=== PATIENT | male | born 1945 | race American Indian/Alaskan Native ===

== ENCOUNTER → 2016-12-01 | Outpatient (CLI) | payer MEDICARE, OTHER ==
--- NOTE | 2016-12-02 15:03 | CR ---
EXAM DATE: 12/01/16 PATIENT'S AGE: 71 Patient: MAYELA POWELL Facility: [place], [place] Site . Site : 1945 Study: XRay Extremity Right Elbow [id number]/25/2017 2:37:34 PM Ordering Physician: Jony Condon Final Report: Indication: Swelling. Technique: Three views. Impression: Prominent soft tissue over the olecranon likely bursitis. Prominent chronic curvilinear spurring of the olecranon overlapping presumed insertion of triceps tendon. Mild diffuse osteoarthritis joint space narrowing in the elbow without significant secondary osteoarthritis finding. No joint effusion. Chronic subtle spurring at the medial epicondyle likely chronic traumatic in origin. No acute fracture or bone lesion. Dictated by Esau Davison MD @ Dec 02 2016 2:27PM (Electronic Signature) Report Signed by Proxy and Original Signed Document filed in the Medical Record. HOA
== END ==
LOC: MW.CHORTHO 13:13
PROVIDERS: ATTEND Orthopaedic Surgery
DX: M25.521 Pain in right elbow (principal); M25.421 Effusion, right elbow; M79.89 Other specified soft tissue disorders; M19.021 Primary osteoarthritis, right elbow
CPT/HCPCS: 73080-26-RT; 73080-RT; 99204

== ENCOUNTER → 2016-12-28 | Outpatient (CLI) | payer MEDICARE, OTHER | LOC: MW.CHGS 08:00 | PROVIDERS: ATTEND Surgery | DX: R19.5 Other fecal abnormalities (principal) | CPT/HCPCS: 99203 ==

== ENCOUNTER 2017-01-20 06:38 | Day surgery (SDC) | payer MEDICARE, OTHER ==
[~2017-01-20 06:38] MED LIST: Bupivacaine 0.25% 10 ML SDV ONE; Lactated Ringers 1,000 ML IV SCH
[2017-01-20] MEDS ORDERED: Ondansetron 4 MG/2 ML SDV ONE (07:29)
[2017-01-20] MEDS ORDERED: Propofol 200 MG/20 ML SDV ONE (07:29)
[2017-01-20] MEDS ORDERED: Midazolam 1 MG/ML 2 ML SDV ONE (07:29)
[2017-01-20] MEDS ORDERED: fentaNYL 250 MCG/5 ML SDV ONE (07:29)
[2017-01-20] MEDS ORDERED: Lidocaine 2% 5 ML SDV ONE (07:29)
[2017-01-20] MEDS ORDERED: Sodium Chloride 0.9% 20 ML ONE (07:36)
[2017-01-20] MEDS ORDERED: ceFAZolin 1 GM Vial ONE (07:36)
--- NOTE | 2017-01-20 07:41 | PCM.PREANE ---
Preanesthetic Assessment - Procedure Proposed Procedure: right olecranon bursa resection - Anesthesia/Transfusion/Family Hx Anesthesia History: Prior Anesthesia Without Reaction Family History of Anesthesia Reaction: No Transfusion History: No Prior Transfusion(s) Intubation History: Unknown - Review of Systems General: No Symptoms Pulmonary: No Symptoms Cardiovascular: No Symptoms, Other (hx murmur, HTN, SC) Gastrointestinal: Other (GERD -daily antiacid medication) Neurological: No Symptoms Other: Reports: Diabetes (Type II on metformin) - Physical Assessment O2 Sat by Pulse Oximetry: 95 Respiratory Rate: 16 Vital Signs: Last Vital Signs Temp 97.8 F 01/20/17 06:30 Pulse 55 L 01/20/17 06:30 Resp 16 01/20/17 06:30 BP 106/61 01/20/17 06:30 Pulse Ox 95 01/20/17 06:30 Height: 5 ft 10 in Weight: 215 lb ASA Class: 3 Mental Status: Alert & Oriented x3 Airway Class: Mallampati = 2 Dentition: Reports: Missing Tooth/Teeth (mid upper and lower) Thyro-Mental Finger Breadths: 3 Mouth Opening Finger Breadths: 3 ROM/Head Extension: Full Lungs: Clear to auscultation, Normal respiratory effort Cardiovascular: Regular Rate, Regular Rhythm, Murmurs (systolic M (hx - present x years without change)) - Lab Values: Laboratory Last Values POC Glucose 230 mg/dL (60-110) H 01/20/17 06:55 - Allergies Allergies/Adverse Reactions: Allergies Allergy/AdvReac Type Severity Reaction Status Date / Time No Known Allergies Allergy Verified 02/17/16 10:40 - Blood Blood Available: No Product(s) Available: None - Acknowledgements Anesthesia Type Planned: General Anesthesia Pt an Appropriate Candidate for the Planned Anesthesia: Yes Alternatives and Risks of Anesthesia Discussed w Pt/Guardian: Yes Pt/Guardian Understands and Agrees with Anesthesia Plan: Yes PreAnesthesia Questionnaire Cardiovascular History: Reports: High Cholesterol, Hypertension, SC Gastrointestinal History: Reports: GERD Musculoskeletal History: Reports: Arthritis, Fracture Other Musculoskeletal History: fx left ankle Endocrine/Metabolic History: Reports: Diabetes, Type II Hematologic History: - Infectious Disease History Infectious Disease History: Reports: Measles, Mumps - Past Surgical History Head Surgeries/Procedures: Reports: None HEENT Surgical History: Reports: Cataract Surgery, LASIK Cardiovascular Surgical History: Reports: Coronary Artery Stent Other Cardiovascular Surgeries/Procedures: angioplasty with stent placement Male Surgical History: Reports: Vasectomy Musculoskeletal Surgical History: Reports: ORIF Other Musculoskeletal Surgeries/Procedures:: lt ankle surg. with plate and screws - SUBSTANCE USE Smoking Status *Q: Current Some Day Smoker Tobacco Use Within Last Twelve Months: Cigarettes Recreational Drug Use History: No - HOME MEDS Home Medications: Home Meds Aspirin 81 mg PO DAILY 02/17/16 [History] Glimepiride [Amaryl] 4 mg PO DAILY 02/17/16 [History] Hydroxyurea [Hydrea] 500 mg PO ASDIRECTED 02/17/16 [History] atorvaSTATin [Lipitor] 80 mg PO DAILY 02/17/16 [History] metFORMIN [Glucophage XR] 1,500 mg PO PCDINNER 02/17/16 [History] Carvedilol [Coreg] 12.5 mg PO BID 01/18/17 [History] Hydrochlorothiazide 25 mg PO DAILY 01/18/17 [History] Pantoprazole Sodium [Protonix] 40 mg PO DAILY 01/18/17 [History] Quinapril HCl 20 mg PO BEDTIME 01/18/17 [History] Saxagliptin HCl/Metformin HCl [Kombiglyze XR 2.5-1,000 MG] 2.5 mg PO DAILY 01/18 [History] amLODIPine [Norvasc] 5 mg PO DAILY 01/18/17 [History] - CURRENT (IN HOUSE) MEDS Current Meds: Current Medications Hydrocodone Bitart/Acetaminophen ([place] 325-5 Mg) 1 - 2 tab PO Q4H PRN PRN Reason: Pain Lactated Ringer's (Ringers, Lactated) 1,000 mls @ 100 mls/hr IV ASDIRECTED [facility] Last Admin: 01/20/17 07:10 Dose: 100 mls/hr Cefazolin Sodium/Dextrose 2 gm (/ Premix) 50 mls @ 100 mls/hr IV ONCALL [facility] Discontinued Medications Bupivacaine HCl (Sensorcaine-Mpf 0.25%) Confirm Administered Dose 10 ml .ROUTE .STK-MED ONE Stop: 01/19/17 15:20 Fentanyl (Sublimaze) Confirm Administered Dose 250 mcg .ROUTE .STK-MED ONE Stop: 01/20/17 07:30 Lidocaine (Xylocaine-Mpf 2%) Confirm Administered Dose 5 ml .ROUTE .STK-MED ONE Stop: 01/20/17 07:30 Midazolam HCl (Versed 1 Mg/Ml) Confirm Administered Dose 2 mg .ROUTE .STK-MED ONE Stop: 01/20/17 07:30 Ondansetron HCl (Zofran) Confirm Administered Dose 4 mg .ROUTE .STK-MED ONE Stop: 01/20/17 07:30 Propofol (Diprivan 20 Ml) Confirm Administered Dose 200 mg .ROUTE .STK-MED ONE Stop: 01/20/17 07:30
[2017-01-20] MEDS ORDERED: ceFAZolin 2 GM in Premix Bag 1 BAG IV SCH (08:00)
[2017-01-20] MEDS ORDERED: fentaNYL 100 MCG/2 ML SDV IVPUSH PRN (08:36)
[2017-01-20] MEDS ORDERED: Acetaminophen/HYDROcodone 325-5 MG Tab PO PRN (09:00)
--- NOTE | 2017-01-20 09:01 | PCM.OPNOTE ---
- General Post-Op/Procedure Note Date of Surgery/Procedure: 01/20/17 Operative Procedure(s): Excision R olecranon bursa Post-Op Diagnosis: Chronic R olecranon bursitis Anesthesia Technique: General LMA Primary Surgeon: Roseanna Borges Thoracic Medicine Physician: Iesha Vidales in mLs: 5 Condition: Good Free Text/Narrative:: tt=0 min #[id number]
--- NOTE | 2017-01-20 10:13 | PCM.POSTAN ---
POST ANESTHESIA ASSESSMENT - MENTAL STATUS Mental Status: alert, oriented - RESPIRATORY Respiratory Status: respiratory rate WNL, airway patent, O2 saturation stable - CARDIOVASCULAR CV Status: pulse rate WNL, blood pressure stable - GASTROINTESTINAL GI Status: no symptoms - PAIN Pain Score: 0 - POST OP HYDRATION Hydration Status: adequate & stable - OBSERVATIONS Free Text/Narrative:: Pt stable
[2017-01-20 10:14] VITALS: BP 137/59
--- NOTE | 2017-01-20 10:32 | OR ---
SURGEON: Roseanna Borges MD DATE OF PROCEDURE: 01/20/2017 PREOPERATIVE DIAGNOSIS: Chronic right olecranon bursitis. POSTOPERATIVE DIAGNOSIS: Chronic right olecranon bursitis. PROCEDURE: Excision of right olecranon bursa. FELLED SEAM OPERATOR: Iesha Vidales PA-C. ANESTHESIA: General. ESTIMATED BLOOD LOSS: 5 mL. TOURNIQUET TIME: 0 minutes. COMPLICATIONS: None. DVT PROPHYLAXIS: Not indicated. IMPLANTS USED: None. BRIEF HISTORY: Abdias is a 71-year-old male, who has had persistent chronic right olecranon bursitis. He has had multiple aspirations by another orthopedic surgeon. He states that the swelling always recurs. He has become quite frustrated with this as this has been going on for nearly a year. Due to his lack of response to conservative treatment, I did recommend surgical intervention. Risks and goals of procedure were discussed with the patient and were documented preoperatively. He agreed to proceed. DESCRIPTION OF PROCEDURE: The patient was properly identified and brought to the operating room. He was transferred from the OR cart and placed on the operating table in supine position. General anesthesia was administered. After adequate anesthesia was obtained, a well-padded tourniquet was applied to the right upper extremity. The right upper extremity was then prepped in standard fashion using ChloraPrep solution. It was then sterilely draped. A time-out was performed to ensure correct site and procedure. Preoperative antibiotics were given. The surgical site had been marked preoperatively. The area of anticipated incision was marked with a marking pen. His olecranon bursa was quite full. A small incision was made over the olecranon bursa and the fluid was evacuated. This was serosanguineous in nature. Following decompression of the bursa, the incision site was extended both proximally and distally. I did curve radially along the tip of the olecranon to try to stay away from the ulnar nerve. The subcutaneous tissues were then incised. There was a large bursal layer present. This was removed with a combination of rongeurs and electrocautery. Care was taken not to extend too medially. He did have some small calcifications noted over the olecranon bursa, which were also excised. The wound was then copiously irrigated with saline solution. The deep tissues were reapproximated using 2-0 Monocryl. The subcutaneous tissues were closed with 3-0 Monocryl and the skin was closed with louise. Xeroform gauze was placed over the wound and a bulky dressing was applied. He was placed into a well-padded posterior splint with the elbow flexed to 90 degrees. He was awakened from his anesthetic and transferred back to the operating room cart. He was brought to recovery room in stable condition. All needle and sponge counts were correct. MILKA / CINTIA /[id number]
--- NOTE | 2017-01-20 10:44 | PCM48HPAN ---
Post Anesthesia Note - EVALUATION WITHIN 48HRS OF ANESTHETIC Vital Signs in Normal Range: Yes Patient Participated in Evaluation: Yes Respiratory Function Stable: Yes Airway Patent: Yes Cardiovascular Function Stable: Yes Hydration Status Stable: Yes Pain Control Satisfactory: Yes Nausea and Vomiting Control Satisfactory: Yes Mental Status Recovered: Yes - COMMENTS/OBSERVATIONS Free Text/Narrative:: Released to home with family. Good condition.
== END 2017-01-20 10:41 | disposition home or self-care (01) ==
LOC: MW.SDS 06:38
PROVIDERS: ATTEND Orthopaedic Surgery
PROC: 0MB30ZZ Excision of Right Elbow Bursa and Ligament, Open Approach (ICD-10-PCS; principal; 2017-01-20)
DX: M70.21 Olecranon bursitis, right elbow (principal); M19.90 Unspecified osteoarthritis, unspecified site; I10 Essential (primary) hypertension; E78.00 Pure hypercholesterolemia, unspecified; E11.9 Type 2 diabetes mellitus without complications; I25.2 Old myocardial infarction; K21.9 Gastro-esophageal reflux disease without esophagitis; Z87.891 Personal history of nicotine dependence; Z79.82 Long term (current) use of aspirin; Z79.84 Long term (current) use of oral hypoglycemic drugs; Z79.899 Other long term (current) drug therapy; Z98.49 Cataract extraction status, unspecified eye; Z98.52 Vasectomy status; Z95.5 Presence of coronary angioplasty implant and graft; Z98.890 Other specified postprocedural states
CPT/HCPCS: 24105; 82962; J0690; J2250; J2405; J3010; J7120; 01710; 88304; J2704

== ENCOUNTER 2017-01-27 08:32 | Day surgery (SDC) | payer MEDICARE, OTHER ==
[~2017-01-27 08:32] MED LIST changes: -Bupivacaine 0.25% 10 ML SDV ONE; +Sodium Chloride 0.9% 10 ML Syringe FLUSH PRN; +Sodium Chloride 0.9% 2.5 ML Syringe FLUSH PRN
--- NOTE | 2017-01-27 09:02 | PCM.PREANE ---
Preanesthetic Assessment - Anesthesia/Transfusion/Family Hx Anesthesia History: Prior Anesthesia Without Reaction (excision of R olecranon bursae 1 week ago, has R arm in splint) Family History of Anesthesia Reaction: No Transfusion History: No Prior Transfusion(s) Intubation History: Unknown - Review of Systems General: No Symptoms Pulmonary: No Symptoms Cardiovascular: No Symptoms Gastrointestinal: No symptoms Neurological: No Symptoms Other: Reports: None - Physical Assessment NPO Status Date: 01/26/17 O2 Sat by Pulse Oximetry: 97 Respiratory Rate: 16 Vital Signs: Last Vital Signs Temp 36.2 C 01/27/17 08:58 Pulse 49 L 01/27/17 08:58 Resp 16 01/27/17 08:58 BP 138/66 01/27/17 08:58 Pulse Ox 97 01/27/17 08:58 Height: 1.78 m Weight: 98.4 kg ASA Class: 3 Mental Status: Alert & Oriented x3 Dentition: Reports: Normal Dentition ROM/Head Extension: Full Lungs: Clear to auscultation, Normal respiratory effort Cardiovascular: Regular Rate, Regular Rhythm - Allergies Allergies/Adverse Reactions: Allergies Allergy/AdvReac Type Severity Reaction Status Date / Time No Known Allergies Allergy Verified 02/17/16 10:40 - Anesthesia Plan Pre-Op Medication Ordered: None - Acknowledgements Anesthesia Type Planned: MAC Pt an Appropriate Candidate for the Planned Anesthesia: Yes Alternatives and Risks of Anesthesia Discussed w Pt/Guardian: Yes Pt/Guardian Understands and Agrees with Anesthesia Plan: Yes PreAnesthesia Questionnaire HEENT History: Reports: Other (See Below) Other HEENT History: bottom denture Cardiovascular History: Reports: High Cholesterol, Hypertension, NM Gastrointestinal History: Reports: GERD Musculoskeletal History: Reports: Fracture Other Musculoskeletal History: fx left ankle Endocrine/Metabolic History: Reports: Diabetes, Type II Hematologic History: - Infectious Disease History Infectious Disease History: Reports: Measles, Mumps - Past Surgical History Head Surgeries/Procedures: Reports: None HEENT Surgical History: Reports: Eye Surgery, LASIK Cardiovascular Surgical History: Reports: Coronary Artery Stent Other Cardiovascular Surgeries/Procedures: angioplasty Musculoskeletal Surgical History: Reports: Other (See Below) Other Musculoskeletal Surgeries/Procedures:: lt ankle surg., exc of bursa from elbow - SUBSTANCE USE Smoking Status *Q: Current Every Day Smoker Tobacco Use Within Last Twelve Months: Cigarettes Recreational Drug Use History: No - HOME MEDS Home Medications: Home Meds Aspirin 81 mg PO DAILY 02/17/16 [History] Glimepiride [Amaryl] 4 mg PO DAILY 02/17/16 [History] Hydroxyurea [Hydrea] 500 mg PO ASDIRECTED 02/17/16 [History] atorvaSTATin [Lipitor] 80 mg PO DAILY 02/17/16 [History] metFORMIN [Glucophage XR] 1,500 mg PO PCDINNER 02/17/16 [History] Carvedilol [Coreg] 12.5 mg PO BID 01/18/17 [History] Hydrochlorothiazide 25 mg PO DAILY 01/18/17 [History] Pantoprazole Sodium [Protonix] 40 mg PO DAILY 01/18/17 [History] Quinapril HCl 20 mg PO BEDTIME 01/18/17 [History] Saxagliptin HCl/Metformin HCl [Kombiglyze XR 2.5-1,000 MG] 2.5 mg PO DAILY 01/18 [History] amLODIPine [Norvasc] 5 mg PO DAILY 01/18/17 [History] Acetaminophen/HYDROcodone [[place] 325-5 MG] 1 - 2 tab PO Q4H PRN #80 tablet 01/20 [Rx] - CURRENT (IN HOUSE) MEDS Current Meds: Current Medications Lactated Ringer's (Ringers, Lactated) 1,000 mls @ 125 mls/hr IV ASDIRECTED [facility] Last Admin: 01/27/17 08:56 Dose: 125 mls/hr Sodium Chloride (Saline Flush) 10 ml FLUSH ASDIRECTED PRN PRN Reason: Keep Vein Open Sodium Chloride (Saline Flush) 2.5 ml FLUSH ASDIRECTED PRN PRN Reason: Keep Vein Open
[2017-01-27] MEDS ORDERED: Lidocaine 2% 5 ML SDV ONE (09:47)
[2017-01-27] MEDS ORDERED: Midazolam 1 MG/ML 2 ML SDV ONE (09:48)
[2017-01-27] MEDS ORDERED: Propofol 200 MG/20 ML SDV ONE (09:48)
[2017-01-27] MEDS ORDERED: fentaNYL 100 MCG/2 ML SDV ONE (09:48)
--- NOTE | 2017-01-27 11:16 | PCM.OPNOTE ---
- General Post-Op/Procedure Note Date of Surgery/Procedure: 01/27/17 Operative Procedure(s): diagnostic colonoscopy Findings: cecal and sigmoid colon polyp Pre Op Diagnosis: positive fecal occult blood test Post-Op Diagnosis: cecal and sigmoid colon polyp [place] [facility] [place] Surgeon: Kelsea Lake Condition: Good
--- NOTE | 2017-01-27 11:45 | PCM.POSTAN ---
POST ANESTHESIA ASSESSMENT - MENTAL STATUS Mental Status: alert, oriented - RESPIRATORY Respiratory Status: respiratory rate WNL, airway patent, O2 saturation stable - CARDIOVASCULAR CV Status: pulse rate WNL, blood pressure stable - GASTROINTESTINAL GI Status: no symptoms - POST OP HYDRATION Hydration Status: adequate & stable
--- NOTE | 2017-01-27 11:46 | PCM48HPAN ---
Post Anesthesia Note - EVALUATION WITHIN 48HRS OF ANESTHETIC Vital Signs in Normal Range: Yes Patient Participated in Evaluation: Yes Respiratory Function Stable: Yes Airway Patent: Yes Cardiovascular Function Stable: Yes Hydration Status Stable: Yes Pain Control Satisfactory: Yes Nausea and Vomiting Control Satisfactory: Yes Mental Status Recovered: Yes
[2017-01-27 13:22] VITALS: BP 128/60
--- NOTE | 2017-01-27 13:58 | OR ---
SURGEON: BELGICA SCHULZ MD DATE OF PROCEDURE: 01/27/2017 PREOPERATIVE DIAGNOSIS: Positive fecal occult blood test. POSTOPERATIVE DIAGNOSIS: Cecal and sigmoid colon polyp. PROCEDURE PERFORMED: Diagnostic colonoscopy. INSTRUMENT USED: Olympus colonoscope. ANESTHESIA: MAC. EXTENT OF EXAM: To the cecum. PREPARATION: Fair. LIMITATIONS: None. INDICATION FOR EXAMINATION: The patient is a 71-year-old male, who presents for diagnostic colonoscopy given a positive fecal occult blood test at his primary care physician's office. We discussed the procedure as well as expected perioperative course. We discussed the risks, including bleeding, infection, or damage to surrounding structures, including perforation. The patient verbalized understanding and wishes to proceed. PROCEDURE IN DETAIL: The patient was brought into the endoscopy suite and placed in a left lateral decubitus position. A time-out was completed verifying the patient's name, age, date of , allergies, and procedure to be performed. Monitored anesthesia care was induced and continuous oxygen was provided via face mask throughout the procedure. After adequate sedation was achieved, a digital rectal exam was performed. This examination was within normal limits. A well lubricated colonoscope was inserted into the rectum and advanced under direct visualization to the level of the cecum. The cecum was identified by both visual and anatomic landmarks. A photograph was taken of the cecal cap, but due to significant looping more proximally, I was unable to retroflex the scope within the cecum. The scope was then fully withdrawn while examining the color, texture, anatomy, and integrity of the mucosa from the cecum to the anal canal. A 2-3 mm sessile polyp was noted within the cecum and removed with a cold biopsy forceps. Another similar appearing polyp was noted within the sigmoid colon and removed with a cold biopsy forceps. The scope was then brought into the rectum and retroflexed to allow visualization of the anal canal opening. This appeared normal and a photograph was taken. The scope was then straightened out and removed from the patient. The cecum to anus time was 13 minutes. The patient was transferred to recovery room in stable condition. ENDOSCOPIC DIAGNOSIS: Cecal and sigmoid colon polyp. RECOMMENDATION: Follow up in clinic in 2 weeks. DEE DEE CHAMBERLAIN /[id number]
== END 2017-01-27 11:40 | disposition home or self-care (01) ==
LOC: MW.SDS 08:32
PROVIDERS: ATTEND Surgery
PROC: 0DBH8ZZ Excision of Cecum, Via Natural or Artificial Opening Endoscopic (ICD-10-PCS; principal; 2017-01-27)
PROC: 0DBN8ZZ Excision of Sigmoid Colon, Via Natural or Artificial Opening Endoscopic (ICD-10-PCS; 2017-01-27)
DX: K63.5 Polyp of colon (principal); M19.90 Unspecified osteoarthritis, unspecified site; I10 Essential (primary) hypertension; E78.00 Pure hypercholesterolemia, unspecified; E11.9 Type 2 diabetes mellitus without complications; K21.9 Gastro-esophageal reflux disease without esophagitis; I25.2 Old myocardial infarction; Z79.82 Long term (current) use of aspirin; Z79.84 Long term (current) use of oral hypoglycemic drugs; Z79.899 Other long term (current) drug therapy; Z95.5 Presence of coronary angioplasty implant and graft; Z98.52 Vasectomy status; Z98.890 Other specified postprocedural states; Z87.891 Personal history of nicotine dependence
CPT/HCPCS: 45380; 82962; 88305; J2250; J3010; J7120; 00810; J2704

== ENCOUNTER 2020-01-18 18:37 | Emergency (ER) | payer MEDICARE, OTHER ==
--- NOTE | 2020-01-18 19:09 | CR ---
Chest: Portable view of the chest was obtained. Comparison: Prior chest x-ray of 02/17/16. Diffuse increased density throughout both sides of the chest are seen. This density includes Inder B lines as well as alveolar opacities. Heart size appears within normal limits for portable technique. Upper mediastinum is normal. Bony structures are grossly intact. Impression: 1. Diffuse increased density throughout both sides of the chest. Findings most likely represent pulmonary vascular congestion with interstitial and early alveolar edema from acute cardiac event. Please correlate. Diagnostic code #5 This report was dictated in MDT
[2020-01-18] MEDS ORDERED: Nitroglycerin/D5W 25 MG/250 ML BOTTLE IV SCH (19:15)
[2020-01-18] MEDS ORDERED: Furosemide 40 MG/4 ML VIAL IVPUSH ONE (19:16)
[2020-01-18] MEDS ORDERED: Aspirin 325 MG Tab.EC PO ONE (19:20)
[2020-01-18] MEDS ORDERED: Aspirin 81 MG Tab.Chew ONE (19:25)
[2020-01-18] MEDS ORDERED: Nitroglycerin/D5W 25 MG/250 ML BOTTLE ONE (19:26)
[2020-01-18 19:35] LABS: BLOOD UREA NITROGEN,BUN 21 mg/dL (7.0-18.0); CARBON DIOXIDE,CO2 25.1 mmol/L (21.0-32.0); CHLORIDE,CL 103 mmol/L (98-107); GLUCOSE RANDOM 344 mg/dL (74-106); POTASSIUM,K 4.5 mmol/L (3.5-5.1); SODIUM,NA 140 mmol/L (136-148)
--- NOTE | 2020-01-18 19:41 | EDM.PDOC ---
ED HPI GENERAL MEDICAL PROBLEM - General Chief Complaint: Respiratory Problem Stated Complaint: POSSIBLE HEART ATTACK Time Seen by Provider: 01/18/20 19:12 Source of Information: Reports: Patient History Limitations: Reports: No Limitations - History of Present Illness INITIAL COMMENTS - FREE TEXT/NARRATIVE: History of present illness: [Patient is 74-year-old male with a history of previous heart attack and stents along with heart failure who presents with a multiple day history of some chest discomfort acutely worsening today around 3 PM associated with severe shortness of breath. On arrival he is hypoxic, appears to be in severe respiratory distress, and is not speaking in full sentences. Does not take any Lasix or other diuretics at home regularly. Has not taken any medications prior to arrival to treat his symptoms. Denies fever or cough. Denies any known COVID- 19 exposure. Review of systems: As per history of present illness and below otherwise all systems reviewed and negative. Past medical history: As per history of present illness and as reviewed below otherwise noncontributory. Surgical history: As per history of present illness and as reviewed below otherwise noncontributory. Social history: No reported history of drug or alcohol abuse. Family history: As per history of present illness and as reviewed below otherwise noncontributory. Physical exam: General: Awake, alert, moderate distress, A&O X3. HEENT: Atraumatic, normocephalic, pupils reactive, negative for conjunctival pallor or scleral icterus, mucous membranes moist, throat clear, neck supple, nontender, trachea midline. Lungs: Tachypneic, severe respiratory distress, wet sounding lungs bilaterally, crackles and rhonchi throughout all lung mendes. Heart: tachycardic, normal S1S2. Abdomen: Soft, nondistended, nontender. Negative for masses or hepatosplenomegaly. Negative for costovertebral tenderness. Pelvis: Stable nontender. Genitourinary: Deferred. Rectal: Deferred. Extremities: Atraumatic, no edema, Neurovascular unremarkable. Neuro: Motor and sensory grossly intact throughout. Exam nonfocal. Diagnostics: [] Therapeutics: [] Impression: [] Plan: [] Definitive disposition and diagnosis as appropriate pending reevaluation and review of above. - Related Data Allergies Allergy/AdvReac Type Severity Reaction Status Date / Time No Known Allergies Allergy Verified 01/18/20 18:57 Home Meds: Home Meds Aspirin 81 mg PO DAILY 07/11/16 [History] Glimepiride [Amaryl] 4 mg PO DAILY 02/17/16 [History] Hydroxyurea [Hydrea] 500 mg PO ASDIRECTED 02/17/16 [History] atorvaSTATin [Lipitor] 80 mg PO DAILY 02/17/16 [History] metFORMIN [Glucophage XR] 1,500 mg PO PCDINNER 02/17/16 [History] Carvedilol [Coreg] 12.5 mg PO BID 01/18/17 [History] Pantoprazole Sodium [Protonix] 40 mg PO DAILY 01/18/17 [History] Quinapril HCl 20 mg PO BEDTIME 01/18/17 [History] Saxagliptin HCl/Metformin HCl [Kombiglyze XR 2.5-1,000 MG] 2.5 mg PO DAILY 01/18 [History] amLODIPine [Norvasc] 5 mg PO DAILY 01/18/17 [History] hydroCHLOROthiazide [Hydrochlorothiazide] 25 mg PO DAILY 01/18/17 [History] Acetaminophen/HYDROcodone [[place] 325-5 MG] 1 - 2 tab PO Q4H PRN #80 tablet 01/20 [Rx] Past Medical History HEENT History: Reports: None Other HEENT History: bottom denture Cardiovascular History: Reports: High Cholesterol, Hypertension, [place] Respiratory History: Reports: None Gastrointestinal History: Reports: GERD Musculoskeletal History: Reports: Fracture Other Musculoskeletal History: fx left ankle Endocrine/Metabolic History: Reports: Diabetes, Type II Hematologic History: - Infectious Disease History Infectious Disease History: Reports: Other (See Below) Other Infectious Disease History: unable to obtain - Past Surgical History HEENT Surgical History: Reports: Eye Surgery, LASIK Cardiovascular Surgical History: Reports: Coronary Artery Stent Other Cardiovascular Surgeries/Procedures: angioplasty Male Surgical History: Reports: Vasectomy Musculoskeletal Surgical History: Reports: Other (See Below) Other Musculoskeletal Surgeries/Procedures:: lt ankle surg., exc of bursa from elbow Social & Family History - Family History Family Medical History: Unobtainable - Tobacco Use Smoking Status *Q: Unknown Ever Smoked ED ROS GENERAL - Review of Systems Review Of Systems: Comprehensive ROS is negative, except as noted in HPI. ED EXAM, GENERAL - Physical Exam Exam: See Below (see h and p) EKG INTERPRETATION EKG Date: 06/11/20 Time: 18:48 Rhythm: A-Flutter Rate (Beats/Min): 107 [place]: Normal P-Wave: Present QRS: Normal ST-T: Depressed (V2-V4) QT: Normal Comparison: Change From Previous EKG (ST depressions are new) Course - Vital Signs Text/Narrative:: Patient doing better on BiPAP, also received IV Lasix along with IV nitro drip. Troponin is elevated. Chest x-ray is consistent with physical exam findings showing acute pulmonary edema. Patient has improved blood pressure and work of breathing is also improved. Last Recorded V/S: Last Vital Signs Temp Pulse 86 01/18/20 20:03 Resp 36 H 01/18/20 20:03 BP 121/72 01/18/20 20:03 Pulse Ox 97 01/18/20 20:03 - Orders/Labs/Meds Orders: Active Orders 24 hr Category Date Time Status EKG Documentation Completion [RC] STAT Care 01/18/20 18:52 Active RT BiPAP/CPAP [RC] ASDIRECTED Care 01/18/20 18:57 Active CULTURE BLOOD [BC] Stat Lab 01/18/20 18:49 Received CULTURE BLOOD [BC] Stat Lab 01/18/20 18:53 Received Blood Culture x2 Reflex Set [OM.PC] Stat Oth 01/18/20 18:53 Ordered Labs: Laboratory Tests 01/18/20 01/18/20 01/18/20 Range/Units 18:49 18:49 18:49 WBC 35.11 H (4.0-11.0) K/uL RBC 5.33 (4.50-5.90) M/uL Hgb 14.2 (13.0-17.0) g/dL Hct 46.0 (38.0-50.0) % MCV 86.3 (80.0-98.0) fL MCH 26.6 L (27.0-32.0) pg MCHC 30.9 L (31.0-37.0) g/dL RDW Std Deviation 76.4 H (28.0-62.0) fl RDW Coeff of Nia 25 H (11.0-15.0) % Plt Count 421 H (150-400) K/uL MPV (7.40-12.00) fL Add Manual Diff YES Neutrophils % (Manual) 66 (48.0-80.0) % Band Neutrophils % 10 % Lymphocytes % (Manual) 15 L (16.0-40.0) % Monocytes % (Manual) 3 (0.0-15.0) % Eosinophils % (Manual) 1 (0.0-7.0) % Basophils % (Manual) 1 (0.0-1.5) % Metamyelocytes % 3 % Myelocytes % 1 % Nucleated RBC % 0.9 /100WBC Absolute Seg Neuts 23.2 H (1.4-5.7) Band Neutrophils # 3.5 Lymphocytes # (Manual) 5.3 H (0.6-2.4) Monocytes # (Manual) 1.1 H (0.0-0.8) Eosinophils # (Manual) 0.4 (0.0-0.7) Basophils # (Manual) 0.4 H (0.0-0.1) Absolute Metamyelocyte 1.1 Absolute Myelocytes 0.4 Nucleated RBCs # 0 K/uL Pathologist Review INR 0.98 VBG pH (7.31-7.41) VBG pCO2 (35-45) mmHG VBG pO2 (30-40) mmHG VBG HCO3 (22-30) mEq/L VBG Total CO2 (41-51) mmol/L VBG Base Excess (-3.0-3.0) Lactate (0.20-2.00) mmol/L Sodium 140 (136-148) mmol/L Potassium 4.5 (3.5-5.1) mmol/L Chloride 103 (98-107) mmol/L Carbon Dioxide 25.1 (21.0-32.0) mmol/L BUN 21 H (7.0-18.0) mg/dL Creatinine 1.2 (0.8-1.3) mg/dL Est Cr Clr Drug Dosing TNP Estimated GFR (MDRD) 59.2 ml/min Glucose 344 H (74-106) mg/dL Calcium 9.1 (8.5-10.1) mg/dL Total Bilirubin 2.3 H (0.2-1.0) mg/dL AST 24 (15-37) IU/L ALT 15 (14-63) IU/L Alkaline Phosphatase 90 (46-116) U/L Troponin I 0.404 H* (0.000-0.056) ng/mL B-Natriuretic Peptide (<100) PG/ML Total Protein 7.5 (6.4-8.2) g/dL Albumin 4.1 (3.4-5.0) g/dL Globulin 3.4 (2.6-4.0) g/dL Albumin/Globulin Ratio 1.2 (0.9-1.6) 01/18/20 01/18/20 01/18/20 Range/Units 18:49 18:49 19:44 WBC (4.0-11.0) K/uL RBC (4.50-5.90) M/uL Hgb (13.0-17.0) g/dL Hct (38.0-50.0) % MCV (80.0-98.0) fL MCH (27.0-32.0) pg MCHC (31.0-37.0) g/dL RDW Std Deviation (28.0-62.0) fl RDW Coeff of Nia (11.0-15.0) % Plt Count (150-400) K/uL MPV (7.40-12.00) fL Add Manual Diff Neutrophils % (Manual) (48.0-80.0) % Band Neutrophils % % Lymphocytes % (Manual) (16.0-40.0) % Monocytes % (Manual) (0.0-15.0) % Eosinophils % (Manual) (0.0-7.0) % Basophils % (Manual) (0.0-1.5) % Metamyelocytes % % Myelocytes % % Nucleated RBC % /100WBC Absolute Seg Neuts (1.4-5.7) Band Neutrophils # Lymphocytes # (Manual) (0.6-2.4) Monocytes # (Manual) (0.0-0.8) Eosinophils # (Manual) (0.0-0.7) Basophils # (Manual) (0.0-0.1) Absolute Metamyelocyte Absolute Myelocytes Nucleated RBCs # K/uL Pathologist Review INR VBG pH 7.36 (7.31-7.41) VBG pCO2 40 (35-45) mmHG VBG pO2 45 H (30-40) mmHG VBG HCO3 23 (22-30) mEq/L VBG Total CO2 21 L (41-51) mmol/L VBG Base Excess -2.7 (-3.0-3.0) Lactate 2.6 H* (0.20-2.00) mmol/L Sodium (136-148) mmol/L Potassium (3.5-5.1) mmol/L Chloride (98-107) mmol/L Carbon Dioxide (21.0-32.0) mmol/L BUN (7.0-18.0) mg/dL Creatinine (0.8-1.3) mg/dL Est Cr Clr Drug Dosing Estimated GFR (MDRD) ml/min Glucose (74-106) mg/dL Calcium (8.5-10.1) mg/dL Total Bilirubin (0.2-1.0) mg/dL AST (15-37) IU/L ALT (14-63) IU/L Alkaline Phosphatase (46-116) U/L Troponin I (0.000-0.056) ng/mL B-Natriuretic Peptide 480 H (<100) PG/ML Total Protein (6.4-8.2) g/dL Albumin (3.4-5.0) g/dL Globulin (2.6-4.0) g/dL Albumin/Globulin Ratio (0.9-1.6) Meds: Medications Discontinued Medications Generic Name Dose Route Start Last Admin Trade Name Freq PRN Reason Stop Dose Admin Aspirin 325 mg 01/18/20 19:20 01/18/20 19:42 Ecotrin PO 01/18/20 19:21 Not Given ONETIME ONE Aspirin Confirm 01/18/20 19:25 01/18/20 19:40 Aspirin Administered 01/18/20 19:26 324 mg Dose Administration 324 mg .ROUTE .STK-MED ONE Furosemide 40 mg 01/18/20 19:16 01/18/20 19:38 Lasix IVPUSH 01/18/20 19:17 40 mg NOW ONE Administration Nitroglycerin/Dextrose 25 mg in 250 mls @ 3 mls/hr 01/18/20 19:15 01/18/20 19 :40 Nitroglycerin 25 Mg/D5w 250 Ml IV 5 mcg/min TITRATE BREONNA 3 mls/hr Administration Protocol 5 MCG/MIN Nitroglycerin/Dextrose Confirm 01/18/20 19:26 01/18/20 19:42 Nitroglycerin 25 Mg/D5w 250 Ml Administered 01/18/20 19:27 Not Given Dose 25 mg in 250 mls @ as directed .ROUTE .STK-MED ONE Ceftriaxone Sodium/Dextrose 1 50 mls @ 100 mls/hr 01/18/20 19:48 01/18/20 19: 51 gm/ Premix IV 01/18/20 20:17 100 mls/hr ONETIME ONE Administration Ceftriaxone Sodium/Dextrose Confirm 01/18/20 19:48 01/18/20 19:56 Rocephin In Dextrose,Iso-Osm 1 Gm/50 Ml Administered 01/18/20 19:49 Not Given Dose 50 mls @ as directed .ROUTE .STK-MED ONE Departure - Departure Time of Disposition: 19:50 Disposition: DC/Tfer to [facility] Condition: Serious Clinical Impression: Flash pulmonary edema, CHF (congestive heart failure) Chest pain Qualifiers: Chest pain type: chest pain due to myocardial ischemia Qualified Code(s): I20.9 - Angina pectoris, unspecified - Discharge Information Referrals: PCP,None [Primary Care Provider] - Forms: ED Department Discharge Critical Care Note - Critical Care Note Total Time (mins): 40 Comments: Patient presents tachypneic, hypoxic, in respiratory distress. Required BiPAP, IV nitro drip, Lasix, frequent rechecks and monitoring for his respiratory status. Sepsis Event Note (ED) - Evaluation Sepsis Screening Result: No Definite Risk - Focused Exam Vital Signs: Vital Signs Pulse Resp BP Pulse Ox 01/18/20 20:03 86 36 H 121/72 97 01/18/20 19:58 89 36 H 121/68 98 01/18/20 19:43 96 48 H 137/75 95 01/18/20 19:06 108 H 40 H 171/95 H 100 01/18/20 18:54 88 30 H 184/91 H 65 L - My Orders Last 24 Hours: My Active Orders 01/18/20 18:57 RT BiPAP/CPAP [RC] ASDIRECTED - Assessment/Plan Last 24 Hours: My Active Orders 01/18/20 18:57 RT BiPAP/CPAP [RC] ASDIRECTED Assessment:: Patient transferred by flight to [facility] for acute CHF/pulmonary edema. After being put on BiPAP, receiving IV Lasix and nitro drip his blood pressure improved, his work of breathing improved, his lung sounds improved. Oxygenation was within normal limits with these interventions and the patient was transferred while on BiPAP via flight to [facility]. His troponin was mildly elevated. EKG showed some ST depressions, he received aspirin here as well prior to being transferred. Patient was agreeable with the plan for him to be flown for further work-up evaluation and while he was in serious condition, his vital signs were relatively stable at the time of transport.
[2020-01-18] MEDS ORDERED: cefTRIAXone 1 GM in Premix Bag 1 BAG IV ONE (19:48)
[2020-01-18 20:04] VITALS: BP 121/72; PULSE 86
== END 2020-01-18 20:30 | disposition critical access hospital (66) ==
LOC: MW.ED 18:37
DX: I11.0 Hypertensive heart disease with heart failure (principal); I50.1 Left ventricular failure, unspecified; I25.9 Chronic ischemic heart disease, unspecified; E78.00 Pure hypercholesterolemia, unspecified; K21.9 Gastro-esophageal reflux disease without esophagitis; I25.2 Old myocardial infarction; Z79.82 Long term (current) use of aspirin; Z79.84 Long term (current) use of oral hypoglycemic drugs; Z79.899 Other long term (current) drug therapy
CPT/HCPCS: 36415; 71045; 80053; 82803; 83605; 83880; 84484; 85025; 85610; 87040; 93005; 94660; 96365; 96368; 96375; 99285; A9270; J0696; J1940; J3490; 99291

== ENCOUNTER 2020-06-08 22:47 | Observation (INO) | payer MEDICARE, OTHER ==
[2020-06-08] MEDS ORDERED: Sodium Chloride 0.9% 2.5 ML Syringe FLUSH PRN (23:05)
[2020-06-08] MEDS ORDERED: Sodium Chloride 0.9% 10 ML Syringe FLUSH PRN (23:05)
--- NOTE | 2020-06-08 23:41 | CR ---
INDICATION: Shortness of breath TECHNIQUE: Chest radiograph 1 view COMPARISON: None FINDINGS: Moderate degradation of image quality noted due to body habitus. Mediastinum: The mediastinum is normal in appearance. The heart silhouette is normal in size and morphology. There is a left cardiac pacer present with leads in the right atrium and right ventricle. Lung: Perihilar ground-glass and interstitial infiltrates are present bilaterally, likely due to pulmonary edema. Small lung volumes are present with bibasilar atelectasis and left basilar pleural parenchymal scarring. A small left pleural effusion is suspected. No pneumothorax is identified. Bone and Soft tissue: Unremarkable for age. IMPRESSION: 1. Perihilar ground-glass and interstitial infiltrates are present bilaterally, likely due to pulmonary edema. Dictated by Delroy Henry MD @ 06/08/2020 11:39:04 PM Dictated by: Delroy Henry MD @ 06/08/2020 23:39:09 (Electronically Signed)
[2020-06-08 23:50] LABS: BLOOD UREA NITROGEN,BUN 65 mg/dL (7.0-18.0); CHLORIDE,CL 112 mmol/L (98-107); GLUCOSE RANDOM 91 mg/dL (74-106); SODIUM,NA 143 mmol/L (136-148)
--- NOTE | 2020-06-09 01:21 | EDM.PDOC ---
ED HPI GENERAL MEDICAL PROBLEM - General Chief Complaint: Respiratory Problem Stated Complaint: DIFFICULTY BREATHING Time Seen by Provider: 06/09/20 00:15 - History of Present Illness INITIAL COMMENTS - FREE TEXT/NARRATIVE: HISTORY AND PHYSICAL: History of present illness: This is a 75-year-old gentleman with history significant for hypertension, diabetes, congestive heart failure, essential thrombocythemia, coronary artery d isease status post bypass surgery who presents ER today secondary to shortness of breath over the last 1 to 2 days. Patient's history is extremely complicated over the last 6-month. Patient was seen in the ER at [facility] in January with chest pain and was diagnosed with STEMI. Patient was transferred to [facility] for treatment of his STEMI. While he was there, [facility] Patient's bypass surgery was complicated with a sternal infection. Patient was ultimately transferred to [facility] where he had a skin graft from his abdominal wall to his chest wall and sternum secondary to the sternal infection. Family reports that his abdominal wall incision also became infected and he is currently requiring a wound VAC. Family reports that the patient has been treated with a full course of IV antibiotics and completed his antibiotics at home approximately 1 week ago. Patient was discharged from [facility] and came home approximately 2 weeks ago. Family reports that he has been doing relatively well over the last 2 weeks until several days ago when they started noticing increased swelling to his lower extremities. Patient is normally on Lasix 20 mg daily. Secondary to the increased lower extremity edema his Lasix dose was increased to 40 mg daily. Family reports that over the last 24 hours he has had increasing shortness of breath and this evening he was extremely tachypneic so EMS was dispatched. Upon arrival EMS reports the patient's pulse ox was in the mid 80s so he was placed on O2. Upon arrival to the ER, the patient's O2 was weaned down to 2 L and is currently 92 to 93% on 2 L of nasal cannula. Patient reports that he still feels slightly short of breath despite the supplemental O2. Family reports that he has a history of essential thrombocythemia and that he is usually on hydroxyurea however they report that he is hydroxyurea has been discontinued secondary to concerns with wound healing. They report that his white count has been markedly elevated since the cessation of the hydroxyurea. Family reports that he has had problems with elevated WBC counts secondary to his essential thrombocythemia for approximately 20 years. Family denies any other significant symptoms at this time. Family denies any recent fevers, shakes, chills, nausea, vomiting, diarrhea, complaints of dysuria, frequency, urgency. They report that he has been having his normal p.o. intake. They report he has not had any complaints of chest discomfort or pressure. Review of systems: As per history of present illness and below otherwise all systems reviewed and negative. Past medical history: As per history of present illness and as reviewed below otherwise noncontributory. Surgical history: As per history of present illness and as reviewed below otherwise noncontributory. Social history: No reported history of drug or alcohol abuse. Family history: As per history of present illness and as reviewed below otherwise noncontributory. Physical exam: Constitutional: Patient is oriented to person, place, and time. Appears well- developed and well-nourished. No distress. HEENT: Moist mucous membranes Head: Normocephalic and atraumatic Eyes: Right eye exhibits no discharge. Left eye exhibits no discharge. No scleral icterus Neck: Normal range of motion. No tracheal deviation present. Cardiovascular: Normal rate and regular rhythm. Midline thoracic scar clean and dry with mild surrounding erythema no warmth or drainage. Pulmonary: Effort normal, no respiratory distress. Mild by basilar rales, tachypnea, dyspnea. Abd: Soft, nondistended, no rebound/guarding, no psoas or obturator signs, no tenderness at Mcberney's point, no Hernandez's sign. Pt does not present with an exam that would be consistent with an acute surgical abdomen at this time, normal active bowel sounds. Healing midline surgical scar with wound VAC in place. No purulent drainage identified within tubing. No surrounding erythema or warmth. Musculoskeletal: Normal range of motion. Eschar noted to heel right. Dark toe noted to left foot. Family reports this is chronic. Neurologic: Alert and oriented to person, place and time. Skin: [place], warm and dry. Psychiatric: Normal mood and affect. Behavior is normal. Judgment and thought content normal. Nursing note and vital signs have been reviewed Diagnostics: CBC, CMP, troponin, blood cultures x2, troponin #2, sed rate, CRP, CT of the abdomen pelvis and chest for evaluation of recent wound infections EKG Therapeutics: Lasix 60 mg IV x1 Assessment and plan: 75-year-old gentleman who presents ER today with increasing shortness of breath. Patient has extremely complicated course over the last 5-month secondary to myocardial infarction requiring bypass surgery resulting in sternal infection. Patient currently has a wound VAC in place over his abdominal surgical site. Patient has been recently discharged after a 4-month hospitalization at [facility]. Patient's presentation today appears to be consistent with pulmonary edema which will require diuresis. Patient has received 60 mg of IV Lasix in the ED. Patient's respiratory status is stable requiring 2 L of O2 nasal cannula. Patient has multiple stable chronic problems however his acute condition at this time appears to be pulmonary edema. Case has been discussed with Dr. Hernandez who has agreed to assist us with observation level of care of this patient here at [facility]. Patient's coronavirus test is negative. Patient will have a CT scan of the abdomen pelvis and chest to assess status of his recent wound infections. Definitive disposition and diagnosis as appropriate pending reevaluation and review of above. - Related Data Allergies Allergy/AdvReac Type Severity Reaction Status Date / Time No Known Allergies Allergy Verified 01/18/20 18:57 Home Meds: Home Meds Acetaminophen [Tylenol] 650 mg PO Q4HR PRN 06/08/20 [History] Docusate Sodium [Colace] 100 mg PO BID 06/08/20 [History] Ferrous Sulfate 325 mg PO BID 06/08/20 [History] Furosemide [Lasix] 20 mg PO DAILY 06/08/20 [History] Insulin Detemir [Levemir] 12 units SQ BEDTIME 06/08/20 [History] Insulin Lispro [Humalog Kwikpen U-100] 5 units SQ TID 06/08/20 [History] Melatonin 3 mg PO BEDTIME 06/08/20 [History] Multivitamin [Multivitamins] 1 cap PO DAILY 06/08/20 [History] Nitroglycerin [Nitrostat] 0.4 mg SL ASDIRECTED PRN 06/08/20 [History] Pantoprazole [ProTONIX] 40 mg PO DAILY 06/08/20 [History] Sertraline [Zoloft] 100 mg PO DAILY 06/08/20 [History] dronabinoL [Dronabinol] 5 mg PO BID 06/08/20 [History] Past Medical History HEENT History: Reports: None Other HEENT History: bottom denture Cardiovascular History: Reports: High Cholesterol, Hypertension, [place] Other Cardiovascular History: recent bypass 2 weeks ago, with last IL 4 months ago Respiratory History: Reports: None Gastrointestinal History: Reports: GERD Musculoskeletal History: Reports: Fracture Other Musculoskeletal History: fx left ankle Endocrine/Metabolic History: Reports: Diabetes, Type II Hematologic History: Oncologic (Cancer) History: Reports: Leukemia - Infectious Disease History Infectious Disease History: Reports: Other (See Below) Other Infectious Disease History: unable to obtain - Past Surgical History HEENT Surgical History: Reports: Eye Surgery, LASIK Cardiovascular Surgical History: Reports: Coronary Artery Stent Other Cardiovascular Surgeries/Procedures: angioplasty Male Surgical History: Reports: Vasectomy Musculoskeletal Surgical History: Reports: Other (See Below) Other Musculoskeletal Surgeries/Procedures:: lt ankle surg., exc of bursa from elbow Social & Family History - Family History Family Medical History: Unobtainable - Caffeine Use Caffeine Use: Reports: None - Recreational Drug Use Recreational Drug Use: No ED ROS GENERAL - Review of Systems Review Of Systems: See Below ED EXAM, GENERAL - Physical Exam Exam: See Below #1 Interpretation EKG Interpretation Comments: EKG: Atrial paced rhythm at [address]-T wave abnormalities Normal axis No evidence of ST elevation [place] As interpreted by ER physician: Jabari Course - Vital Signs Last Recorded V/S: Last Vital Signs Temp 97.6 F 06/08/20 22:59 Pulse 82 06/08/20 22:59 Resp 20 06/08/20 22:59 BP 131/66 06/08/20 22:59 Pulse Ox 88 L 06/08/20 22:59 - Orders/Labs/Meds Orders: Active Orders 24 hr Category Date Time Status EKG Documentation Completion [RC] AM Care 06/08/20 23:05 Active Abdomen Pelvis wo Cont [CT] Stat Exams 06/09/20 01:08 Ordered Chest wo Cont [CT] Stat Exams 06/09/20 01:09 Ordered CULTURE BLOOD [BC] Stat Lab 06/09/20 00:40 Received CULTURE BLOOD [BC] Stat Lab 06/09/20 00:50 Received TROPONIN I [CHEM] Stat Lab 06/09/20 01:10 Ordered Sodium Chloride 0.9% [Saline Flush] Med 06/08/20 23:05 Active 10 ml FLUSH ASDIRECTED PRN Sodium Chloride 0.9% [Saline Flush] Med 06/08/20 23:05 Active 2.5 ml FLUSH ASDIRECTED PRN Blood Culture x2 Reflex Set [OM.PC] Stat Ot 06/09/20 00:36 Ordered Saline Lock Insert [OM.PC] Stat Oth 06/08/20 23:05 Ordered Medication Orders Sodium Chloride (Saline Flush) 10 ml FLUSH ASDIRECTED PRN PRN Reason: Keep Vein Open Sodium Chloride (Saline Flush) 2.5 ml FLUSH ASDIRECTED PRN PRN Reason: Keep Vein Open Labs: Laboratory Tests 06/08/20 06/08/20 06/08/20 Range/Units 23:25 23:25 23:25 WBC 51.78 H (4.0-11.0) K/uL RBC 4.23 L (4.50-5.90) M/uL Hgb 9.5 L (13.0-17.0) g/dL Hct 31.9 L (38.0-50.0) % MCV 75.4 L (80.0-98.0) fL MCH 22.5 L (27.0-32.0) pg MCHC 29.8 L (31.0-37.0) g/dL RDW Std Deviation 63.1 H (28.0-62.0) fl RDW Coeff of Nia 24 H (11.0-15.0) % Plt Count 404 H (150-400) K/uL MPV 10.50 (7.40-12.00) fL Add Manual Diff YES Nucleated RBC % 1.4 /100WBC Nucleated RBCs # 0 K/uL ESR (0-19) mm/hr INR APTT 32.4 H (18.6-31.3) SEC D-Dimer, Quantitative 2.05 H (0.0-0.50) mg/L FEU Lactate (0.20-2.00) mmol/L Sodium 143 (136-148) mmol/L Potassium 5.0 (3.5-5.1) mmol/L Chloride 112 H (98-107) mmol/L Carbon Dioxide 20.0 L (21.0-32.0) mmol/L BUN 65 H (7.0-18.0) mg/dL Creatinine 1.7 H (0.8-1.3) mg/dL Est Cr Clr Drug Dosing TNP Estimated GFR (MDRD) 39.5 ml/min Glucose 91 (74-106) mg/dL Calcium 8.4 L (8.5-10.1) mg/dL Magnesium 2.2 (1.8-2.4) mg/dL Total Bilirubin 1.3 H (0.2-1.0) mg/dL AST 33 (15-37) IU/L ALT 16 (14-63) IU/L Alkaline Phosphatase 201 H (46-116) U/L Troponin I < 0.050 (0.000-0.056) ng/mL C-Reactive Protein (0.00-0.90) mg/dL B-Natriuretic Peptide (<100) PG/ML Total Protein 6.6 (6.4-8.2) g/dL Albumin 2.7 L (3.4-5.0) g/dL Globulin 3.9 (2.6-4.0) g/dL Albumin/Globulin Ratio 0.7 L (0.9-1.6) Urine Color Urine Appearance Urine pH (5.0-8.0) Ur Specific [place] (1.001-1.035) Urine Protein (NEGATIVE) mg/dL Urine Glucose (UA) (NEGATIVE) mg/dL Urine Ketones (NEGATIVE) mg/dL Urine Occult Blood (NEGATIVE) Urine Nitrite (NEGATIVE) Urine Bilirubin (NEGATIVE) Urine Urobilinogen (<2.0) EU/dL Ur Leukocyte Esterase (NEGATIVE) Urine RBC (0-2/HPF) Urine WBC (0-5/HPF) Ur Epithelial Cells (NONE-FEW) Amorphous Sediment (NEGATIVE) Urine Bacteria (NEGATIVE) SARS-CoV-2 RNA (PANCHITO) (NEGATIVE) 06/08/20 06/08/20 06/08/20 Range/Units 23:25 23:25 23:30 WBC (4.0-11.0) K/uL RBC (4.50-5.90) M/uL Hgb (13.0-17.0) g/dL Hct (38.0-50.0) % MCV (80.0-98.0) fL MCH (27.0-32.0) pg MCHC (31.0-37.0) g/dL RDW Std Deviation (28.0-62.0) fl RDW Coeff of Nia (11.0-15.0) % Plt Count (150-400) K/uL MPV (7.40-12.00) fL Add Manual Diff Nucleated RBC % /100WBC Nucleated RBCs # K/uL ESR (0-19) mm/hr INR 1.19 APTT (18.6-31.3) SEC D-Dimer, Quantitative (0.0-0.50) mg/L FEU Lactate (0.20-2.00) mmol/L Sodium (136-148) mmol/L Potassium (3.5-5.1) mmol/L Chloride (98-107) mmol/L Carbon Dioxide (21.0-32.0) mmol/L BUN (7.0-18.0) mg/dL Creatinine (0.8-1.3) mg/dL Est Cr Clr Drug Dosing Estimated GFR (MDRD) ml/min Glucose (74-106) mg/dL Calcium (8.5-10.1) mg/dL Magnesium (1.8-2.4) mg/dL Total Bilirubin (0.2-1.0) mg/dL AST (15-37) IU/L ALT (14-63) IU/L Alkaline Phosphatase (46-116) U/L Troponin I (0.000-0.056) ng/mL C-Reactive Protein (0.00-0.90) mg/dL B-Natriuretic Peptide 379 H (<100) PG/ML Total Protein (6.4-8.2) g/dL Albumin (3.4-5.0) g/dL Globulin (2.6-4.0) g/dL Albumin/Globulin Ratio (0.9-1.6) Urine Color Urine Appearance Urine pH (5.0-8.0) Ur Specific [place] (1.001-1.035) Urine Protein (NEGATIVE) mg/dL Urine Glucose (UA) (NEGATIVE) mg/dL Urine Ketones (NEGATIVE) mg/dL Urine Occult Blood (NEGATIVE) Urine Nitrite (NEGATIVE) Urine Bilirubin (NEGATIVE) Urine Urobilinogen (<2.0) EU/dL Ur Leukocyte Esterase (NEGATIVE) Urine RBC (0-2/HPF) Urine WBC (0-5/HPF) Ur Epithelial Cells (NONE-FEW) Amorphous Sediment (NEGATIVE) Urine Bacteria (NEGATIVE) SARS-CoV-2 RNA ([place]AN[place]O) NEGATIVE (NEGATIVE) 06/08/20 06/09/20 06/09/20 Range/Units 23:50 00:40 00:40 WBC (4.0-11.0) K/uL RBC (4.50-5.90) M/uL Hgb (13.0-17.0) g/dL Hct (38.0-50.0) % MCV (80.0-98.0) fL MCH (27.0-32.0) pg MCHC (31.0-37.0) g/dL RDW Std Deviation (28.0-62.0) fl RDW Coeff of Nia (11.0-15.0) % Plt Count (150-400) K/uL MPV (7.40-12.00) fL Add Manual Diff Nucleated RBC % /100WBC Nucleated RBCs # K/uL ESR 21 H (0-19) mm/hr INR APTT (18.6-31.3) SEC D-Dimer, Quantitative (0.0-0.50) mg/L FEU Lactate 0.9 (0.20-2.00) mmol/L Sodium (136-148) mmol/L Potassium (3.5-5.1) mmol/L Chloride (98-107) mmol/L Carbon Dioxide (21.0-32.0) mmol/L BUN (7.0-18.0) mg/dL Creatinine (0.8-1.3) mg/dL Est Cr Clr Drug Dosing Estimated GFR (MDRD) ml/min Glucose (74-106) mg/dL Calcium (8.5-10.1) mg/dL Magnesium (1.8-2.4) mg/dL Total Bilirubin (0.2-1.0) mg/dL AST (15-37) IU/L ALT (14-63) IU/L Alkaline Phosphatase (46-116) U/L Troponin I (0.000-0.056) ng/mL C-Reactive Protein (0.00-0.90) mg/dL B-Natriuretic Peptide (<100) PG/ML Total Protein (6.4-8.2) g/dL Albumin (3.4-5.0) g/dL Globulin (2.6-4.0) g/dL Albumin/Globulin Ratio (0.9-1.6) Urine Color YELLOW Urine Appearance CLOUDY Urine pH 5.0 (5.0-8.0) Ur Specific [place] >= 1.030 (1.001-1.035) Urine Protein 30 H (NEGATIVE) mg/dL Urine Glucose (UA) NEGATIVE (NEGATIVE) mg/dL Urine Ketones NEGATIVE (NEGATIVE) mg/dL Urine Occult Blood LARGE H (NEGATIVE) Urine Nitrite NEGATIVE (NEGATIVE) Urine Bilirubin NEGATIVE (NEGATIVE) Urine Urobilinogen 0.2 (<2.0) EU/dL Ur Leukocyte Esterase SMALL H (NEGATIVE) Urine RBC 15-20 (0-2/HPF) Urine WBC 4-8 (0-5/HPF) Ur Epithelial Cells RARE (NONE-FEW) Amorphous Sediment MODERATE (NEGATIVE) Urine Bacteria FEW (NEGATIVE) SARS-CoV-2 RNA (PANCHITO) (NEGATIVE) 06/09/20 Range/Units 00:40 WBC (4.0-11.0) K/uL RBC (4.50-5.90) M/uL Hgb (13.0-17.0) g/dL Hct (38.0-50.0) % MCV (80.0-98.0) fL MCH (27.0-32.0) pg MCHC (31.0-37.0) g/dL RDW Std Deviation (28.0-62.0) fl RDW Coeff of Nia (11.0-15.0) % Plt Count (150-400) K/uL MPV (7.40-12.00) fL Add Manual Diff Nucleated RBC % /100WBC Nucleated RBCs # K/uL ESR (0-19) mm/hr INR APTT (18.6-31.3) SEC D-Dimer, Quantitative (0.0-0.50) mg/L FEU Lactate (0.20-2.00) mmol/L Sodium (136-148) mmol/L Potassium (3.5-5.1) mmol/L Chloride (98-107) mmol/L Carbon Dioxide (21.0-32.0) mmol/L BUN (7.0-18.0) mg/dL Creatinine (0.8-1.3) mg/dL Est Cr Clr Drug Dosing Estimated GFR (MDRD) ml/min Glucose (74-106) mg/dL Calcium (8.5-10.1) mg/dL Magnesium (1.8-2.4) mg/dL Total Bilirubin (0.2-1.0) mg/dL AST (15-37) IU/L ALT (14-63) IU/L Alkaline Phosphatase (46-116) U/L Troponin I (0.000-0.056) ng/mL C-Reactive Protein 5.50 H (0.00-0.90) mg/dL B-Natriuretic Peptide (<100) PG/ML Total Protein (6.4-8.2) g/dL Albumin (3.4-5.0) g/dL Globulin (2.6-4.0) g/dL Albumin/Globulin Ratio (0.9-1.6) Urine Color Urine Appearance Urine pH (5.0-8.0) Ur Specific [place] (1.001-1.035) Urine Protein (NEGATIVE) mg/dL Urine Glucose (UA) (NEGATIVE) mg/dL Urine Ketones (NEGATIVE) mg/dL Urine Occult Blood (NEGATIVE) Urine Nitrite (NEGATIVE) Urine Bilirubin (NEGATIVE) Urine Urobilinogen (<2.0) EU/dL Ur Leukocyte Esterase (NEGATIVE) Urine RBC (0-2/HPF) Urine WBC (0-5/HPF) Ur Epithelial Cells (NONE-FEW) Amorphous Sediment (NEGATIVE) Urine Bacteria (NEGATIVE) SARS-CoV-2 RNA (PANCHITO) (NEGATIVE) Meds: Medications Generic Name Dose Route Start Last Admin Trade Name Freq PRN Reason Stop Dose Admin Sodium Chloride 10 ml 06/08/20 23:05 Saline Flush FLUSH ASDIRECTED PRN Keep Vein Open Sodium Chloride 2.5 ml 06/08/20 23:05 Saline Flush FLUSH ASDIRECTED PRN Keep Vein Open Discontinued Medications Generic Name Dose Route Start Last Admin Trade Name Freq PRN Reason Stop Dose Admin Furosemide 60 mg/ Sodium 56 mls @ 100 mls/hr 06/09/20 00:11 Chloride IV 06/09/20 00:44 ONETIME STA Departure - Departure Time of Disposition: 01:28 Disposition: Refer to Observation Condition: Good Clinical Impression: Pulmonary edema, Hypoxemia, Congestive heart failure, Essential thrombocythemia - Dis[facility] - Forms: ED Department Discharge Sepsis Event Note (ED) - Evaluation Sepsis Screening Result: No Definite Risk - Focused Exam Vital Signs: Vital Signs Temp Pulse Resp BP Pulse Ox 06/08/20 22:59 97.6 F 82 20 131/66 88 L - My Orders Last 24 Hours: My Active Orders 06/08/20 23:05 EKG Documentation Completion [RC] AM Sodium Chloride 0.9% [Saline Flush] 10 ml FLUSH ASDIRECTED PRN Sodium Chloride 0.9% [Saline Flush] 2.5 ml FLUSH ASDIRECTED PRN Saline Lock Insert [OM.PC] Stat 06/09/20 00:36 Blood Culture x2 Reflex Set [OM.PC] Stat 06/09/20 00:40 CULTURE BLOOD [BC] Stat 06/09/20 00:50 CULTURE BLOOD [BC] Stat 06/09/20 01:08 Abdomen Pelvis wo Cont [CT] Stat 06/09/20 01:09 Chest wo Cont [CT] Stat 06/09/20 01:10 TROPONIN I [CHEM] Stat - Assessment/Plan Last 24 Hours: My Active Orders 06/08/20 23:05 EKG Documentation Completion [RC] AM Sodium Chloride 0.9% [Saline Flush] 10 ml FLUSH ASDIRECTED PRN Sodium Chloride 0.9% [Saline Flush] 2.5 ml FLUSH ASDIRECTED PRN Saline Lock Insert [OM.PC] Stat 06/09/20 00:36 Blood Culture x2 Reflex Set [OM.PC] Stat 06/09/20 00:40 CULTURE BLOOD [BC] Stat 06/09/20 00:50 CULTURE BLOOD [BC] Stat 06/09/20 01:08 Abdomen Pelvis wo Cont [CT] Stat 06/09/20 01:09 Chest wo Cont [CT] Stat 06/09/20 01:10 TROPONIN I [CHEM] Stat
[2020-06-09] MEDS ORDERED: Furosemide 40 MG/4 ML VIAL ONE (01:50)
[2020-06-09] MEDS ORDERED: Furosemide 40 MG/4 ML VIAL IVPUSH STA (01:54)
--- NOTE | 2020-06-09 02:18 | CT ---
INDICATION: Status post CABG with sternal infection TECHNIQUE: CT chest without contrast. COMPARISON: Chest radiograph June 08, 2020 FINDINGS: Cardiovascular structures: Cardiomegaly. Coronary artery calcifications. Thoracic aorta and main pulmonary artery are normal in caliber. Left-sided pacemaker leads in the right atrium and right ventricle. Mediastinum and trevor: Small amount of retrosternal soft tissue density. 1.1 cm right paratracheal lymph node. Lungs: Compressive atelectasis at both lung bases. Pleura and pericardium: Moderate-sized simple right pleural effusion. Small, partially loculated simple left pleural effusion. Chest wall and axilla: No mass or adenopathy. Soft tissue stranding throughout the left chest wall. Upper abdomen: The spleen measures 21.1 cm in length. Bones: Status post sternotomy with dehiscence of the sternum. There is a minimally displaced fracture through the left side of the sternal body, best seen on image 80 series 205. IMPRESSION: Status post sternotomy with dehiscence of the sternum. Minimally displaced fracture through the left side of the sternal body. Small amount of retrosternal soft tissue density may represent hematoma or abscess. Soft tissue stranding throughout the left chest wall may represent cellulitis or edema. Cardiomegaly with coronary artery disease. Moderate-sized simple right pleural effusion. Small, partially loculated simple left pleural effusion. Right paratracheal lymphadenopathy. Splenomegaly. Please note that all CT scans at this facility use dose modulation, iterative reconstruction, and/or weight-based dosing when appropriate to reduce radiation dose to as low as reasonably achievable. Dictated by Aixa Deras MD @ Jun 09 2020 1:05AM Signed by Dr. Aixa Deras @ Jun 09 2020 1:16AM
--- NOTE | 2020-06-09 02:37 | CT ---
INDICATION: Status post bypass, abdominal wall infection TECHNIQUE: CT Abdomen and pelvis without i.v. contrast. Coronal and sagittal reformats were obtained. COMPARISON: None FINDINGS: Severe degradation of image quality is present due to the patient`s inability to maintain a breath hold. Liver: Unremarkable. Spleen: Severe splenomegaly is present measuring 20 centimeters. Pancreas: Unremarkable. Gallbladder: Multiple calcified gallstones are noted. Kidney: There is an exophytic low-density lesion in the midzone of the left kidney measuring 3.4 cm. It is incompletely assessed without intravenous contrast. Adrenal: Unremarkable. Bowel: Unremarkable. The appendix is normal in appearance and size. Vascular: Severe diffuse atherosclerotic calcifications of the abdominal aorta and its tributaries are present. Lymph: Unremarkable. Peritoneum: Unremarkable. No pneumoperitoneum is seen. A small amount of abdominal ascites is present. Pelvis: Mild diffuse bladder wall thickening is noted. Soft tissue: Infiltration of the subcutaneous fat is noted along the left upper quadrant and left flank which may be due to edema or cellulitis. Bone: Unremarkable for age. IMPRESSIONS: 1. Severe splenomegaly is present measuring 20 centimeters. 2. A small amount of abdominal ascites is present. 3. Infiltration of the subcutaneous fat is noted along the left upper quadrant and left flank which may be due to edema or cellulitis. Correlation with physical examination is recommended. 4. Mild diffuse bladder wall thickening is noted. This may be due to chronic bladder outlet obstruction,urinary tract infection or cystitis. Dictated by Delroy Henry MD @ 06/09/2020 1:34:57 AM Please note that all CT scans at this facility use dose modulation, iterative reconstruction, and/or weight-based dosing when appropriate to reduce radiation dose to as low as reasonably achievable. Dictated by: Delroy Henry MD @ 06/09/2020 01:35:00 (Electronically Signed)
[2020-06-09] MEDS ORDERED: Albuterol/Ipratropium 3.0-0.5 MG/3 ML Neb Soln NEB PRN (03:46)
[2020-06-09] MEDS ORDERED: Acetaminophen 325 MG Tab PO PRN ×2 (03:47→13:33)
[2020-06-09] MEDS ORDERED: Glucagon,Human Recombinant 1 MG Vial IM PRN ×2 (03:49→13:33)
[2020-06-09] MEDS ORDERED: 50% Dextrose in Water 50 ML Syringe IV PRN ×2 (03:49→13:33)
[2020-06-09 06:19] LABS: CARBON DIOXIDE,CO2 21.2 mmol/L (21.0-32.0); POTASSIUM,K 5.1 mmol/L (3.5-5.1)
[2020-06-09] MEDS: Insulin Aspart 100 Units/ML 3 ML Pen SUBCUT SCH ×3 (07:33→17:48)
[2020-06-09] MEDS: Furosemide 40 MG/4 ML VIAL IVPUSH SCH ×2 (07:41→08:16)
--- NOTE | 2020-06-09 09:13 | PCM.HP.2 ---
H&P History of Present Illness - General Date of Service: 06/09/20 Admit Problem/Dx: Admission Diagnosis/Problem Admission Diagnosis/Problem Pulmonary edema - History of Present Illness Initial Comments - Free Text/Narative: This is a 75-year-old gentleman with PMH hypertension, diabetes, congestive heart failure, essential thrombocythemia, coronary artery disease status post bypass surgery, abdominal surgery s/p wound vac who presents ER today secondary to shortness of breath over the last 4 days. Patient's has been in and out of hospitals last 6-months. Patient was seen in the ER in our hospital in january and diagnosed with STEMI and shipped to [place], While he was there, patient required bypass surgery which was complicated with a sternal infection. Patient was transferred to [facility] for management of his sternal infection, where he had a skin graft from his abdominal wall to his chest wall and sternum. Family reports that post procedure his abdominal wall incision also became infected and he is currently requiring a wound VAC. Family reports that the patient has been treated with a full course of IV antibiotics and completed his antibiotics at home approximately 1 week ago (IV Ertapenem). Patient was discharged from [facility] to home approximately 2 weeks ago and was doing relatively ok at home utill last few days he started feeling sob and hid legs were swollen. Patient is normally on Lasix 20 mg daily, which was increased to 40 mg daily. Last evening patient was extremely tachypneic so EMS was dispatched. Upon arrival EMS reports the patient's pulse ox was in the mid 80s so he was placed on O2. Upon arrival to the ER, the patient's O2 was weaned down to 2 L and is currently 92 to 93% on 2 L of nasal cannula. Patient reports that he still feels slightly short of breath despite the supplemental O2. Family reports that he has a history of essential thrombocythemia for past 20 years and that he is usually on hydroxyurea however they report that he is hydroxyurea has been discontinued secondary to concerns with wound healing. They report that his white count has been markedly elevated since the cessation of the hydroxyurea. Patient denies any recent fevers, shakes, chills, nausea, vomiting, diarrhea, complaints of dysuria, frequency, urgency. He has not had any complaints of chest discomfort or pressure. Inthe ER ekg was unremarkbale for acte ischemia, Troponin was negative, CT chest showed pulmonary edema and pleural effusions. Patient was admitted for further management. - Related Data Allergies/Adverse Reactions: Allergies Allergy/AdvReac Type Severity Reaction Status Date / Time No Known Allergies Allergy Verified 06/09/20 03:53 Home Medications: Home Meds Acetaminophen [Tylenol] 650 mg PO Q4HR PRN 06/08/20 [History] Docusate Sodium [Colace] 100 mg PO BID 06/08/20 [History] Ferrous Sulfate 325 mg PO BID 06/08/20 [History] Furosemide [Lasix] 20 mg PO DAILY 06/08/20 [History] Insulin Detemir [Levemir] 12 units SQ BEDTIME 06/08/20 [History] Insulin Lispro [Humalog Kwikpen U-100] 5 units SQ TID 06/08/20 [History] Melatonin 3 mg PO BEDTIME 06/08/20 [History] Multivitamin [Multivitamins] 1 cap PO DAILY 06/08/20 [History] Nitroglycerin [Nitrostat] 0.4 mg SL ASDIRECTED PRN 06/08/20 [History] Pantoprazole [ProTONIX] 40 mg PO DAILY 06/08/20 [History] Sertraline [Zoloft] 100 mg PO DAILY 06/08/20 [History] dronabinoL [Dronabinol] 5 mg PO BID 06/08/20 [History] Past Medical History HEENT History: Reports: None Other HEENT History: bottom denture Cardiovascular History: Reports: High Cholesterol, Hypertension, PR Other Cardiovascular History: recent bypass 2 weeks ago, with last PR 4 months ago Respiratory History: Reports: None Gastrointestinal History: Reports: GERD Musculoskeletal History: Reports: Fracture Other Musculoskeletal History: fx left ankle Endocrine/Metabolic History: Reports: Diabetes, Type II Hematologic History: Oncologic (Cancer) History: Reports: Leukemia - Infectious Disease History Infectious Disease History: Reports: Other (See Below) Other Infectious Disease History: unable to obtain - Past Surgical History HEENT Surgical History: Reports: Eye Surgery, LASIK Cardiovascular Surgical History: Reports: Coronary Artery Stent Other Cardiovascular Surgeries/Procedures: angioplasty Male Surgical History: Reports: Vasectomy Musculoskeletal Surgical History: Reports: Other (See Below) Other Musculoskeletal Surgeries/Procedures:: lt ankle surg., exc of bursa from elbow Social & Family History - Family History Family Medical History: Unobtainable - Tobacco Use Tobacco Use Status *Q: Never Tobacco User - Caffeine Use Caffeine Use: Reports: Coffee - Recreational Drug Use Recreational Drug Use: No H&P Review of Systems - Review of Systems: Review Of Systems: See Below General: Reports: Weakness, Fatigue. Denies: Fever, Chills, Malaise, Night Sweats Pulmonary: Reports: Shortness of Breath. Denies: Wheezing, Pleuritic Chest Pain, Cough Gastrointestinal: Denies: Abdominal Pain, Anorexia, Black Stool, Constipation, Diarrhea Genitourinary: Denies: Dysuria, Frequency, Burning, Pain Musculoskeletal: Denies: Neck Pain, Shoulder Pain, Arm Pain Skin: Reports: Wound. Denies: Cyanosis, Mottled Psychiatric: Reports: Mood Lability. Denies: Confusion, Depression, Anxiety, Agitation Neurological: Denies: Confusion, Dizziness, Headache, Numbness, Paresthesia Exam - Exam Exam: See Below - Vital Signs Vital Signs: Last Vital Signs Temp 36.4 C 06/09/20 07:30 Pulse 80 06/09/20 07:30 Resp 18 06/09/20 07:30 BP 145/63 H 06/09/20 07:30 Pulse Ox 93 L 06/09/20 07:30 Weight: 68.039 kg - Exam Quality Assessment: Supplemental Oxygen General: Alert, Oriented, Cooperative Neck: Supple, Trachea Midline Lungs: Decreased Breath Sounds, Crackles Cardiovascular: Regular Rate, Regular Rhythm, Normal S1, Normal S2 GI/Abdominal Exam: Normal Bowel Sounds, Soft, Distended, Other (abominal incision, wound vac in place). No: Hepatomegaly, Splenomegaly Extremities: Pedal Edema. No: No Pedal Edema - Patient Data Lab Results Last 24 hrs: Laboratory Results - last 24 hr 06/08/20 06/08/20 06/08/20 Range/Units 23:25 23:25 23:25 WBC 51.78 H (4.0-11.0) K/uL RBC 4.23 L (4.50-5.90) M/uL Hgb 9.5 L (13.0-17.0) g/dL Hct 31.9 L (38.0-50.0) % MCV 75.4 L (80.0-98.0) fL MCH 22.5 L (27.0-32.0) pg MCHC 29.8 L (31.0-37.0) g/dL RDW Std Deviation 63.1 H (28.0-62.0) fl RDW Coeff of Nia 24 H (11.0-15.0) % Plt Count 404 H (150-400) K/uL MPV 10.50 (7.40-12.00) fL Add Manual Diff YES Nucleated RBC % 1.4 /100WBC Nucleated RBCs # 0 K/uL ESR (0-19) mm/hr INR APTT 32.4 H (18.6-31.3) SEC D-Dimer, Quantitative 2.05 H (0.0-0.50) mg/L FEU Lactate (0.20-2.00) mmol/L Sodium 143 (136-148) mmol/L Potassium 5.0 (3.5-5.1) mmol/L Chloride 112 H (98-107) mmol/L Carbon Dioxide 20.0 L (21.0-32.0) mmol/L BUN 65 H (7.0-18.0) mg/dL Creatinine 1.7 H (0.8-1.3) mg/dL Est Cr Clr Drug Dosing TNP Estimated GFR (MDRD) 39.5 ml/min Glucose 91 (74-106) mg/dL Calcium 8.4 L (8.5-10.1) mg/dL Phosphorus (2.6-4.7) mg/dL Magnesium 2.2 (1.8-2.4) mg/dL Total Bilirubin 1.3 H (0.2-1.0) mg/dL AST 33 (15-37) IU/L ALT 16 (14-63) IU/L Alkaline Phosphatase 201 H (46-116) U/L Troponin I < 0.050 (0.000-0.056) ng/mL C-Reactive Protein (0.00-0.90) mg/dL B-Natriuretic Peptide (<100) PG/ML Total Protein 6.6 (6.4-8.2) g/dL Albumin 2.7 L (3.4-5.0) g/dL Globulin 3.9 (2.6-4.0) g/dL Albumin/Globulin Ratio 0.7 L (0.9-1.6) Urine Color Urine Appearance Urine pH (5.0-8.0) Ur Specific [place] (1.001-1.035) Urine Protein (NEGATIVE) mg/dL Urine Glucose (UA) (NEGATIVE) mg/dL Urine Ketones (NEGATIVE) mg/dL Urine Occult Blood (NEGATIVE) Urine Nitrite (NEGATIVE) Urine Bilirubin (NEGATIVE) Urine Urobilinogen (<2.0) EU/dL Ur Leukocyte Esterase (NEGATIVE) Urine RBC (0-2/HPF) Urine WBC (0-5/HPF) Ur Epithelial Cells (NONE-FEW) Amorphous Sediment (NEGATIVE) Urine Bacteria (NEGATIVE) SARS-CoV-2 RNA (PANCHITO) (NEGATIVE) 06/08/20 06/08/20 06/08/20 Range/Units 23:25 23:25 23:30 WBC (4.0-11.0) K/uL RBC (4.50-5.90) M/uL Hgb (13.0-17.0) g/dL Hct (38.0-50.0) % MCV (80.0-98.0) fL MCH (27.0-32.0) pg MCHC (31.0-37.0) g/dL RDW Std Deviation (28.0-62.0) fl RDW Coeff of Nia (11.0-15.0) % Plt Count (150-400) K/uL MPV (7.40-12.00) fL Add Manual Diff Nucleated RBC % /100WBC Nucleated RBCs # K/uL ESR (0-19) mm/hr INR 1.19 APTT (18.6-31.3) SEC D-Dimer, Quantitative (0.0-0.50) mg/L FEU Lactate (0.20-2.00) mmol/L Sodium (136-148) mmol/L Potassium (3.5-5.1) mmol/L Chloride (98-107) mmol/L Carbon Dioxide (21.0-32.0) mmol/L BUN (7.0-18.0) mg/dL Creatinine (0.8-1.3) mg/dL Est Cr Clr Drug Dosing Estimated GFR (MDRD) ml/min Glucose (74-106) mg/dL Calcium (8.5-10.1) mg/dL Phosphorus (2.6-4.7) mg/dL Magnesium (1.8-2.4) mg/dL Total Bilirubin (0.2-1.0) mg/dL AST (15-37) IU/L ALT (14-63) IU/L Alkaline Phosphatase (46-116) U/L Troponin I (0.000-0.056) ng/mL C-Reactive Protein (0.00-0.90) mg/dL B-Natriuretic Peptide 379 H (<100) PG/ML Total Protein (6.4-8.2) g/dL Albumin (3.4-5.0) g/dL Globulin (2.6-4.0) g/dL Albumin/Globulin Ratio (0.9-1.6) Urine Color Urine Appearance Urine pH (5.0-8.0) Ur Specific [place] (1.001-1.035) Urine Protein (NEGATIVE) mg/dL Urine Glucose (UA) (NEGATIVE) mg/dL Urine Ketones (NEGATIVE) mg/dL Urine Occult Blood (NEGATIVE) Urine Nitrite (NEGATIVE) Urine Bilirubin (NEGATIVE) Urine Urobilinogen (<2.0) EU/dL Ur Leukocyte Esterase (NEGATIVE) Urine RBC (0-2/HPF) Urine WBC (0-5/HPF) Ur Epithelial Cells (NONE-FEW) Amorphous Sediment (NEGATIVE) Urine Bacteria (NEGATIVE) SARS-CoV-2 RNA (PANCHITO) NEGATIVE (NEGATIVE) 06/08/20 06/09/20 06/09/20 Range/Units 23:50 00:40 00:40 WBC (4.0-11.0) K/uL RBC (4.50-5.90) M/uL Hgb (13.0-17.0) g/dL Hct (38.0-50.0) % MCV (80.0-98.0) fL MCH (27.0-32.0) pg MCHC (31.0-37.0) g/dL RDW Std Deviation (28.0-62.0) fl RDW Coeff of Nia (11.0-15.0) % Plt Count (150-400) K/uL MPV (7.40-12.00) fL Add Manual Diff Nucleated RBC % /100WBC Nucleated RBCs # K/uL ESR 21 H (0-19) mm/hr INR APTT (18.6-31.3) SEC D-Dimer, Quantitative (0.0-0.50) mg/L FEU Lactate 0.9 (0.20-2.00) mmol/L Sodium (136-148) mmol/L Potassium (3.5-5.1) mmol/L Chloride (98-107) mmol/L Carbon Dioxide (21.0-32.0) mmol/L BUN (7.0-18.0) mg/dL Creatinine (0.8-1.3) mg/dL Est Cr Clr Drug Dosing Estimated GFR (MDRD) ml/min Glucose (74-106) mg/dL Calcium (8.5-10.1) mg/dL Phosphorus (2.6-4.7) mg/dL Magnesium (1.8-2.4) mg/dL Total Bilirubin (0.2-1.0) mg/dL AST (15-37) IU/L ALT (14-63) IU/L Alkaline Phosphatase (46-116) U/L Troponin I (0.000-0.056) ng/mL C-Reactive Protein (0.00-0.90) mg/dL B-Natriuretic Peptide (<100) PG/ML Total Protein (6.4-8.2) g/dL Albumin (3.4-5.0) g/dL Globulin (2.6-4.0) g/dL Albumin/Globulin Ratio (0.9-1.6) Urine Color YELLOW Urine Appearance CLOUDY Urine pH 5.0 (5.0-8.0) Ur Specific [place] >= 1.030 (1.001-1.035) Urine Protein 30 H (NEGATIVE) mg/dL Urine Glucose (UA) NEGATIVE (NEGATIVE) mg/dL Urine Ketones NEGATIVE (NEGATIVE) mg/dL Urine Occult Blood LARGE H (NEGATIVE) Urine Nitrite NEGATIVE (NEGATIVE) Urine Bilirubin NEGATIVE (NEGATIVE) Urine Urobilinogen 0.2 (<2.0) EU/dL Ur Leukocyte Esterase SMALL H (NEGATIVE) Urine RBC 15-20 (0-2/HPF) Urine WBC 4-8 (0-5/HPF) Ur Epithelial Cells RARE (NONE-FEW) Amorphous Sediment MODERATE (NEGATIVE) Urine Bacteria FEW (NEGATIVE) SARS-CoV-2 RNA (PANCHITO) (NEGATIVE) 06/09/20 06/09/20 06/09/20 Range/Units 00:40 00:40 05:48 WBC 50.28 H (4.0-11.0) K/uL RBC 4.13 L (4.50-5.90) M/uL Hgb 9.1 L (13.0-17.0) g/dL Hct 31.2 L (38.0-50.0) % MCV 75.5 L (80.0-98.0) fL MCH 22.0 L (27.0-32.0) pg MCHC 29.2 L (31.0-37.0) g/dL RDW Std Deviation 63.9 H (28.0-62.0) fl RDW Coeff of Nia 24 H (11.0-15.0) % Plt Count 374 (150-400) K/uL MPV 9.80 (7.40-12.00) fL Add Manual Diff YES Nucleated RBC % 1.5 /100WBC Nucleated RBCs # 0 K/uL ESR (0-19) mm/hr INR APTT (18.6-31.3) SEC D-Dimer, Quantitative (0.0-0.50) mg/L FEU Lactate (0.20-2.00) mmol/L Sodium (136-148) mmol/L Potassium (3.5-5.1) mmol/L Chloride (98-107) mmol/L Carbon Dioxide (21.0-32.0) mmol/L BUN (7.0-18.0) mg/dL Creatinine (0.8-1.3) mg/dL Est Cr Clr Drug Dosing Estimated GFR (MDRD) ml/min Glucose (74-106) mg/dL Calcium (8.5-10.1) mg/dL Phosphorus (2.6-4.7) mg/dL Magnesium (1.8-2.4) mg/dL Total Bilirubin (0.2-1.0) mg/dL AST (15-37) IU/L ALT (14-63) IU/L Alkaline Phosphatase (46-116) U/L Troponin I < 0.050 (0.000-0.056) ng/mL C-Reactive Protein 5.50 H (0.00-0.90) mg/dL B-Natriuretic Peptide (<100) PG/ML Total Protein (6.4-8.2) g/dL Albumin (3.4-5.0) g/dL Globulin (2.6-4.0) g/dL Albumin/Globulin Ratio (0.9-1.6) Urine Color Urine Appearance Urine pH (5.0-8.0) Ur Specific [place] (1.001-1.035) Urine Protein (NEGATIVE) mg/dL Urine Glucose (UA) (NEGATIVE) mg/dL Urine Ketones (NEGATIVE) mg/dL Urine Occult Blood (NEGATIVE) Urine Nitrite (NEGATIVE) Urine Bilirubin (NEGATIVE) Urine Urobilinogen (<2.0) EU/dL Ur Leukocyte Esterase (NEGATIVE) Urine RBC (0-2/HPF) Urine WBC (0-5/HPF) Ur Epithelial Cells (NONE-FEW) Amorphous Sediment (NEGATIVE) Urine Bacteria (NEGATIVE) SARS-CoV-2 RNA (PANCHITO) (NEGATIVE) 06/09/20 Range/Units 05:48 WBC (4.0-11.0) K/uL RBC (4.50-5.90) M/uL Hgb (13.0-17.0) g/dL Hct (38.0-50.0) % MCV (80.0-98.0) fL MCH (27.0-32.0) pg MCHC (31.0-37.0) g/dL RDW Std Deviation (28.0-62.0) fl RDW Coeff of Nia (11.0-15.0) % Plt Count (150-400) K/uL MPV (7.40-12.00) fL Add Manual Diff Nucleated RBC % /100WBC Nucleated RBCs # K/uL ESR (0-19) mm/hr INR APTT (18.6-31.3) SEC D-Dimer, Quantitative (0.0-0.50) mg/L FEU Lactate (0.20-2.00) mmol/L Sodium 143 (136-148) mmol/L Potassium 5.1 (3.5-5.1) mmol/L Chloride 112 H (98-107) mmol/L Carbon Dioxide 21.2 (21.0-32.0) mmol/L BUN 67 H (7.0-18.0) mg/dL Creatinine 1.7 H (0.8-1.3) mg/dL Est Cr Clr Drug Dosing 36.13 Estimated GFR (MDRD) 39.5 ml/min Glucose 92 (74-106) mg/dL Calcium 8.2 L (8.5-10.1) mg/dL Phosphorus 6.1 H (2.6-4.7) mg/dL Magnesium 2.1 (1.8-2.4) mg/dL Total Bilirubin (0.2-1.0) mg/dL AST (15-37) IU/L ALT (14-63) IU/L Alkaline Phosphatase (46-116) U/L Troponin I (0.000-0.056) ng/mL C-Reactive Protein (0.00-0.90) mg/dL B-Natriuretic Peptide (<100) PG/ML Total Protein (6.4-8.2) g/dL Albumin (3.4-5.0) g/dL Globulin (2.6-4.0) g/dL Albumin/Globulin Ratio (0.9-1.6) Urine Color Urine Appearance Urine pH (5.0-8.0) Ur Specific [place] (1.001-1.035) Urine Protein (NEGATIVE) mg/dL Urine Glucose (UA) (NEGATIVE) mg/dL Urine Ketones (NEGATIVE) mg/dL Urine Occult Blood (NEGATIVE) Urine Nitrite (NEGATIVE) Urine Bilirubin (NEGATIVE) Urine Urobilinogen (<2.0) EU/dL Ur Leukocyte Esterase (NEGATIVE) Urine RBC (0-2/HPF) Urine WBC (0-5/HPF) Ur Epithelial Cells (NONE-FEW) Amorphous Sediment (NEGATIVE) Urine Bacteria (NEGATIVE) SARS-CoV-2 RNA (PANCHITO) (NEGATIVE) Result Diagrams: 06/09/20 05:48 06/09/20 05:48 Sepsis Event Note - Evaluation Sepsis Screening Result: No Definite Risk - Focused Exam Vital Signs: Vital Signs Temp Pulse Resp BP Pulse Ox Pulse Ox 06/09/20 07:30 36.4 C 80 18 145/63 H 93 L 06/09/20 03:43 96 06/09/20 02:58 36.3 C 81 18 124/60 94 L 06/09/20 01:56 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 ATTENDANT 73 14 114/68 96 06/09/20 01:51 CDT 70 14 121/70 97 06/08/20 22:59 36.4 C 82 20 131/66 88 L - Problem List (1) CHF (congestive heart failure) SNOMED Code(s): 73490173 ICD Code: I50.9 - HEART FAILURE, UNSPECIFIED Status: Acute Current Visit: Yes (2) Essential thrombocythemia SNOMED Code(s): 514462378 ICD Code: D47.3 - ESSENTIAL (HEMORRHAGIC) THROMBOCYTHEMIA Status: Acute Current Visit: Yes (3) Hypoxemia SNOMED Code(s): 772009838 ICD Code: R09.02 - HYPOXEMIA Status: Acute Current Visit: Yes (4) Pulmonary edema SNOMED Code(s): 36097930 ICD Code: J81.1 - CHRONIC PULMONARY EDEMA Status: Acute Current Visit: Yes (5) Diabetes mellitus SNOMED Code(s): 93022459 ICD Code: E11.9 - TYPE 2 DIABETES MELLITUS WITHOUT COMPLICATIONS Status: Acute Current Visit: No Problem List Initiated/Reviewed/Updated: Yes Orders Last 24hrs: Active Orders 24 hr Category Date Time Status Patient Status [ADT] Routine ADT 06/09/20 01:36 Active Antiembolic Devices [RC] PER UNIT ROUTINE Care 06/09/20 03:44 Active Blood Glucose Check, Bedside [RC] TIDAC Care 06/09/20 07:30 Active EKG Documentation Completion [RC] AM Care 06/08/20 23:05 Active Oxygen Therapy [RC] ASDIRECTED Care 06/09/20 03:43 Active RT Aerosol Therapy [RC] ASDIRECTED Care 06/09/20 03:47 Active Telemetry Monitoring [Cardiac Monitoring] [RC] Q8H Care 06/09/20 01:55 Active Vital Signs [RC] Q4H Care 06/09/20 07:30 Active Heart Healthy Diet [DIET] Diet 06/09/20 Breakfast Active CBC WITH AUTO DIFF [HEME] Routine Lab 06/09/20 05:48 Results CULTURE BLOOD [BC] Stat Lab 06/09/20 00:40 Received CULTURE BLOOD [BC] Stat Lab 06/09/20 00:50 Received Acetaminophen [TylenoL] Med 06/09/20 03:47 Active 650 mg PO Q6H PRN Albuterol/Ipratropium [DuoNeb 3.0-0.5 MG/3 ML] Med 06/09/20 03:46 Active 3 ml NEB Q4HRRT PRN Dextrose 50% in Water Med 06/09/20 03:49 Active 50 ml IV ASDIRECTED PRN Furosemide [Lasix] Med 06/09/20 08:00 Active 40 mg IVPUSH BID Glucagon,Human Recombinant [GlucaGen] Med 06/09/20 03:49 Active 1 mg IM ASDIRECTED PRN Insulin Aspart [NovoLOG] Med 06/09/20 07:30 Active See Protocol SUBCUT TIDAC Sodium Chloride 0.9% [Saline Flush] Med 06/08/20 23:05 Active 10 ml FLUSH ASDIRECTED PRN Sodium Chloride 0.9% [Saline Flush] Med 06/08/20 23:05 Active 2.5 ml FLUSH ASDIRECTED PRN Blood Culture x2 Reflex Set [OM.PC] Stat Oth 06/09/20 00:36 Ordered SCD [Sequential Compression Device] [OM.PC] Routine Oth 06/09/20 03:44 Ordered Saline Lock Insert [OM.PC] Stat Oth 06/08/20 23:05 Ordered Wound Vac Management [OM.PC] Routine Oth 06/09/20 03:51 Ordered Medication Orders Acetaminophen (Tylenol) 650 mg PO Q6H PRN PRN Reason: Pain Albuterol/Ipratropium (Duoneb 3.0-0.5 Mg/3 Ml) 3 ml NEB Q4HRRT PRN PRN Reason: Shortness of Breath Dextrose/Water (Dextrose 50% In Water) 50 ml IV ASDIRECTED PRN PRN Reason: Hypoglycemia Furosemide (Lasix) 40 mg IVPUSH BID [facility] Last Admin: 06/09/20 08:16 Dose: Not Given Documented by: Admin: 06/09/20 07:41 Dose: 40 mg Documented by: [id number] Glucagon (Glucagen) 1 mg IM ASDIRECTED PRN PRN Reason: Hypoglycemia Insulin Aspart (Novolog) [facility] Protocol Last Admin: 06/09/20 07:33 Dose: Not Given Documented by: [id number] Sodium Chloride (Saline Flush) 10 ml FLUSH ASDIRECTED PRN PRN Reason: Keep Vein Open Sodium Chloride (Saline Flush) 2.5 ml FLUSH ASDIRECTED PRN PRN Reason: Keep Vein Open Assessment/Plan Comment:: 75 y/o M admitted for CHF exacerbation, moderate pleural effusion Trops negative, EKG non ischemic Start IV Lasix 40 BID, fluid restriction obtain 2D ECHO Lipid profile, TSH, HbA1c Not on any ASA or Plavix, Will obtain records from [facility] in AM cont wound care for abdominal incision, wound vac in place, managed by home health at home IV Rocephin for UTI f/u on urine cultures Resume home meds as appropriate Monitor and replete electrolytes as needed Lovenox for DVT ppx Wean of oxygen as able PT consult, patient looks very deconditioned
[2020-06-09] MEDS ORDERED: Nitroglycerin 0.4 MG Tab.SL SL PRN (13:33)
[2020-06-09] MEDS: cefTRIAXone 1 GM in Premix Bag 1 BAG IV SCH (14:00)
[2020-06-09] MEDS: Enoxaparin 40 MG/0.4 ML Syringe SUBCUT SCH (15:28)
[2020-06-09] MEDS: INSULIN LISPRO 5 UNIT SUBCUT SCH (18:04)
[2020-06-09] MEDS ORDERED: Insulin Detemir 100 Units/ML 3 ML Pen SUBCUT SCH (21:00)
[2020-06-09] MEDS ORDERED: Melatonin 3 MG Tab PO SCH (21:00)
[2020-06-09] MEDS: Ferrous Sulfate 325 MG Tab PO SCH (21:23)
[2020-06-09] MEDS: Dronabinol 2.5 MG Cap PO SCH (21:23)
[2020-06-09] MEDS: Furosemide 100 MG/10 ML SDV IVPUSH SCH (21:24)
[2020-06-09] MEDS: Docusate Sodium 100 MG Cap PO SCH (21:24)
[2020-06-10 06:24] LABS: CARBON DIOXIDE,CO2 19.6 mmol/L (21.0-32.0); POTASSIUM,K 5.4 mmol/L (3.5-5.1)
[2020-06-10] MEDS ORDERED: Pantoprazole 40 MG Tab.CR PO SCH (07:30)
[2020-06-10] MEDS: Insulin Aspart 100 Units/ML 3 ML Pen SUBCUT SCH ×2 (08:19→13:23)
[2020-06-10] MEDS: INSULIN LISPRO 5 UNIT SUBCUT SCH ×2 (08:27→13:23)
--- NOTE | 2020-06-10 08:53 | PCM.PN ---
- General Info Date of Service: 06/10/20 Subjective Update: Patient on 1 L of oxygen this AM. Reports SOB overnight and decreased appetite. Denies any fevers, chills, nausea, vomiting or abdominal pain. - Patient Data Vitals - Most Recent: Last Vital Signs Temp 37.0 C 06/10/20 04:00 Pulse 76 06/10/20 04:00 Resp 18 06/10/20 04:00 BP 128/63 06/10/20 04:00 Pulse Ox 95 06/10/20 04:00 Weight - Most Recent: 68.039 kg I&O - Last 24 Hours: Intake & Output 06/09/20 06/10/20 06/10/20 22:59 06:59 14:59 Intake Total 290 550 Output Total 500 500 Balance -210 50 Lab Results Last 24 Hours: Laboratory Results - last 24 hr 06/08/20 06/09/20 06/09/20 Range/Units 23:25 05:48 07:15 WBC (4.0-11.0) K/uL RBC (4.50-5.90) M/uL Hgb (13.0-17.0) g/dL Hct (38.0-50.0) % MCV (80.0-98.0) fL MCH (27.0-32.0) pg MCHC (31.0-37.0) g/dL RDW Std Deviation (28.0-62.0) fl RDW Coeff of Nia (11.0-15.0) % Plt Count (150-400) K/uL MPV (7.40-12.00) fL Add Manual Diff Neutrophils % (Manual) 70 80 (48.0-80.0) % Band Neutrophils % 2 1 % Lymphocytes % (Manual) 9 L 7 L (16.0-40.0) % Monocytes % (Manual) 3 1 (0.0-15.0) % Eosinophils % (Manual) 4 (0.0-7.0) % Basophils % (Manual) 3 H 3 H (0.0-1.5) % Metamyelocytes % 1 1 % Myelocytes % 6 5 % Blast Cells % 2 2 % Nucleated RBC % /100WBC Absolute Seg Neuts 36.2 H 40.2 H (1.4-5.7) Band Neutrophils # 1.0 0.5 Lymphocytes # (Manual) 4.7 H 3.5 H (0.6-2.4) Monocytes # (Manual) 1.6 H 0.5 (0.0-0.8) Eosinophils # (Manual) 2.1 H (0.0-0.7) Basophils # (Manual) 1.6 H 1.5 H (0.0-0.1) Absolute Metamyelocyte 0.5 0.5 Absolute Myelocytes 3.1 2.5 Nucleated RBCs # K/uL Absolute Blast Cells 1.0 1.0 Sodium (136-148) mmol/L Potassium (3.5-5.1) mmol/L Chloride (98-107) mmol/L Carbon Dioxide (21.0-32.0) mmol/L BUN (7.0-18.0) mg/dL Creatinine (0.8-1.3) mg/dL Est Cr Clr Drug Dosing mL/min Estimated GFR (MDRD) ml/min Glucose (74-106) mg/dL POC Glucose 119 H (60-110) mg/dL Calcium (8.5-10.1) mg/dL Phosphorus (2.6-4.7) mg/dL Magnesium (1.8-2.4) mg/dL 06/09/20 06/09/20 06/09/20 Range/Units 11:09 17:34 21:15 WBC (4.0-11.0) K/uL RBC (4.50-5.90) M/uL Hgb (13.0-17.0) g/dL Hct (38.0-50.0) % MCV (80.0-98.0) fL MCH (27.0-32.0) pg MCHC (31.0-37.0) g/dL RDW Std Deviation (28.0-62.0) fl RDW Coeff of Nia (11.0-15.0) % Plt Count (150-400) K/uL MPV (7.40-12.00) fL Add Manual Diff Neutrophils % (Manual) (48.0-80.0) % Band Neutrophils % % Lymphocytes % (Manual) (16.0-40.0) % Monocytes % (Manual) (0.0-15.0) % Eosinophils % (Manual) (0.0-7.0) % Basophils % (Manual) (0.0-1.5) % Metamyelocytes % % Myelocytes % % Blast Cells % % Nucleated RBC % /100WBC Absolute Seg Neuts (1.4-5.7) Band Neutrophils # Lymphocytes # (Manual) (0.6-2.4) Monocytes # (Manual) (0.0-0.8) Eosinophils # (Manual) (0.0-0.7) Basophils # (Manual) (0.0-0.1) Absolute Metamyelocyte Absolute Myelocytes Nucleated RBCs # K/uL Absolute Blast Cells Sodium (136-148) mmol/L Potassium (3.5-5.1) mmol/L Chloride (98-107) mmol/L Carbon Dioxide (21.0-32.0) mmol/L BUN (7.0-18.0) mg/dL Creatinine (0.8-1.3) mg/dL Est Cr Clr Drug Dosing mL/min Estimated GFR (MDRD) ml/min Glucose (74-106) mg/dL POC Glucose 103 111 H 107 (60-110) mg/dL Calcium (8.5-10.1) mg/dL Phosphorus (2.6-4.7) mg/dL Magnesium (1.8-2.4) mg/dL 06/10/20 06/10/20 Range/Units 05:50 05:50 WBC 64.16 H (4.0-11.0) K/uL RBC 4.22 L (4.50-5.90) M/uL Hgb 9.4 L (13.0-17.0) g/dL Hct 32.3 L (38.0-50.0) % MCV 76.5 L (80.0-98.0) fL MCH 22.3 L (27.0-32.0) pg MCHC 29.1 L (31.0-37.0) g/dL RDW Std Deviation 64.0 H (28.0-62.0) fl RDW Coeff of Nia 24 H (11.0-15.0) % Plt Count 422 H (150-400) K/uL MPV 10.10 (7.40-12.00) fL Add Manual Diff YES Neutrophils % (Manual) (48.0-80.0) % Band Neutrophils % % Lymphocytes % (Manual) (16.0-40.0) % Monocytes % (Manual) (0.0-15.0) % Eosinophils % (Manual) (0.0-7.0) % Basophils % (Manual) (0.0-1.5) % Metamyelocytes % % Myelocytes % % Blast Cells % % Nucleated RBC % 2.0 /100WBC Absolute Seg Neuts (1.4-5.7) Band Neutrophils # Lymphocytes # (Manual) (0.6-2.4) Monocytes # (Manual) (0.0-0.8) Eosinophils # (Manual) (0.0-0.7) Basophils # (Manual) (0.0-0.1) Absolute Metamyelocyte Absolute Myelocytes Nucleated RBCs # 0 K/uL Absolute Blast Cells Sodium 143 (136-148) mmol/L Potassium 5.4 H (3.5-5.1) mmol/L Chloride 111 H (98-107) mmol/L Carbon Dioxide 19.6 L (21.0-32.0) mmol/L BUN 63 H (7.0-18.0) mg/dL Creatinine 1.8 H (0.8-1.3) mg/dL Est Cr Clr Drug Dosing 34.12 mL/min Estimated GFR (MDRD) 37.0 ml/min Glucose 126 H (74-106) mg/dL POC Glucose (60-110) mg/dL Calcium 8.5 (8.5-10.1) mg/dL Phosphorus 6.7 H (2.6-4.7) mg/dL Magnesium 2.1 (1.8-2.4) mg/dL Tai Results Last 24 Hours: Microbiology 06/09/20 00:50 Aerobic Blood Culture - Preliminary Blood - Venous - Lab Draw NO GROWTH AFTER 1 DAY Anaerobic Blood Culture - Preliminary NO GROWTH AFTER 1 DAY 06/09/20 00:40 Aerobic Blood Culture - Preliminary Blood - Venous NO GROWTH AFTER 1 DAY Anaerobic Blood Culture - Preliminary NO GROWTH AFTER 1 DAY Med Orders - Current: Current Medications Acetaminophen (Tylenol) 650 mg PO Q6H PRN PRN Reason: Pain Albuterol/Ipratropium (Duoneb 3.0-0.5 Mg/3 Ml) 3 ml NEB Q4HRRT PRN PRN Reason: Shortness of Breath Dextrose/Water (Dextrose 50% In Water) 50 ml IV ASDIRECTED PRN PRN Reason: Hypoglycemia Dextrose/Water (Dextrose 50% In Water) 50 ml IV ASDIRECTED PRN PRN Reason: Hypoglycemia Docusate Sodium (Colace) 100 mg PO BID [facility] Last Admin: 06/09/20 21:24 Dose: 100 mg Documented by: Dronabinol (Marinol) 5 mg PO BID [facility] Last Admin: 06/09/20 21:23 Dose: 5 mg Documented by: Enoxaparin Sodium (Lovenox) 40 mg SUBCUT Q24H [facility] Last Admin: 06/09/20 15:28 Dose: 40 mg Documented by: Ferrous Sulfate (Ferrous Sulfate) 325 mg PO BID [facility] Last Admin: 06/09/20 21:23 Dose: 325 mg Documented by: Furosemide (Lasix) 60 mg IVPUSH BID [facility] Last Admin: 06/09/20 21:24 Dose: 60 mg Documented by: Glucagon (Glucagen) 1 mg IM ASDIRECTED PRN PRN Reason: Hypoglycemia Glucagon (Glucagen) 1 mg IM ASDIRECTED PRN PRN Reason: Hypoglycemia Ceftriaxone Sodium/Dextrose 1 (gm/ Premix) 50 mls @ 100 mls/hr IV Q24H [facility] Last Admin: 06/09/20 14:00 Dose: 100 mls/hr Documented by: Insulin Aspart (Novolog) 0 unit SUBCUT TIDAC [facility]; Protocol Last Admin: 06/10/20 08:19 Dose: Not Given Documented by: Insulin Detemir (Levemir) 12 unit SUBCUT BEDTIME [facility] Last Admin: 06/09/20 22:10 Dose: Not Given Documented by: Melatonin (Melatonin) 3 mg PO BEDTIME [facility] Last Admin: 06/09/20 21:23 Dose: 3 mg Documented by: Multivitamins/Minerals/Vitamin C (Tab-A-Eliana) 1 tab PO DAILY [facility] Nitroglycerin (Nitrostat) 0.4 mg SL ASDIRECTED PRN PRN Reason: chest pain Pantoprazole Sodium (Protonix) 40 mg PO ACBREAKFAST [facility] Last Admin: 06/10/20 08:19 Dose: 40 mg Documented by: Insulin Lispro [ Humalog Kwikpen U- 100] 5 Units 5 each SUBCUT TIDAC [facility] Last Admin: 06/10/20 08:27 Dose: Not Given Documented by: Sertraline HCl (Zoloft) 100 mg PO DAILY [facility] Sodium Chloride (Saline Flush) 10 ml FLUSH ASDIRECTED PRN PRN Reason: Keep Vein Open Sodium Chloride (Saline Flush) 2.5 ml FLUSH ASDIRECTED PRN PRN Reason: Keep Vein Open Discontinued Medications Acetaminophen (Tylenol) 650 mg PO Q4HR PRN PRN Reason: Pain Furosemide (Lasix) Confirm Administered Dose 80 mg .ROUTE .STK-MED ONE Stop: 06/09/20 01:51 [employer]UDIO VIDEO [employer] Last Admin: 06/09/20 01:56 CDT Dose: Not Given Documented by: Furosemide (Lasix) 60 mg IVPUSH NOW STA Stop: 06/09/20 01:55 AUDIO VIDEO MECH[employer]IC Last Admin: 06/09/20 01:56 CDT Dose: 60 mg Documented by: Furosemide (Lasix) 40 mg IVPUSH BID BREONNA Last Admin: 06/09/20 08:16 Dose: Not Given Documented by: Furosemide 60 mg/ Sodium (Chloride) 56 mls @ 100 mls/hr IV ONETIME STA Stop: 06/09/20 00:44 Last Admin: 06/09/20 01:55 CDT Dose: Not Given Documented by: - Exam General: Alert, Oriented, Cooperative, Other (fatigued appearing) Lungs: Clear to Auscultation, Normal Respiratory Effort Cardiovascular: Regular Rate, Regular Rhythm GI/Abdominal Exam: Normal Bowel Sounds, Soft, Non-Tender, No Distention Extremities: Normal Inspection, No Pedal Edema Skin: Other (Wound vac in place over abdomen.) Sepsis Event Note - Evaluation Sepsis Screening Result: No Definite Risk - Focused Exam Vital Signs: Vital Signs Temp Pulse Resp BP Pulse Ox 06/10/20 04:00 37.0 C 76 18 128/63 95 06/10/20 00:34 36.3 C 75 19 129/60 96 - Problem List & Annotations (1) CHF (congestive heart failure) SNOMED Code(s): 82303762 Code(s): I50.9 - HEART FAILURE, UNSPECIFIED Status: Acute Current Visit: Yes (2) Essential thrombocythemia SNOMED Code(s): 794647884 Code(s): D47.3 - ESSENTIAL (HEMORRHAGIC) THROMBOCYTHEMIA Status: Acute Current Visit: Yes (3) Hypoxemia SNOMED Code(s): 210853752 Code(s): R09.02 - HYPOXEMIA Status: Acute Current Visit: Yes (4) Pulmonary edema SNOMED Code(s): 69092275 Code(s): J81.1 - CHRONIC PULMONARY EDEMA Status: Acute Current Visit: Yes (5) Diabetes mellitus SNOMED Code(s): 75981431 Code(s): E11.9 - TYPE 2 DIABETES MELLITUS WITHOUT COMPLICATIONS Status: A cute Current Visit: No - Problem List Review Problem List Initiated/Reviewed/Updated: Yes - My Orders Last 24 Hours: My Active Orders 06/10/20 07:36 Daily Weight [Height and Weight] [RC] DAILY - Plan Plan:: Assessment and Plan: 1. Acute hypoxic respiratory failure secondary to CHF exacerbation: - Patient on 1 L of oxygen this AM and will attempt to wean as tolerated. Patient appears to be euvolemic today. Will de-escalate IV lasix. Continue fluid restrict, strict I's and O's, daily weights. ECHO has been ordered. - CXR showed pulmonary edema. CT chest showed pleural effusions. Troponins were negative. EKG showed no acute ischemic changes. 2. Abdominal wall infection secondary to skin graft infx: - Wound vac in place. Consult to wound vac management. Patient reports completing course of IV antibiotics. 3. Leukocytosis likely secondary to h/o CLL and essential thrombocythemia: - Patient reports history of elevated WBC count after his hydroxyurea was discontinued. Hydroxyurea was discontinued as it was inhibiting wound healing of #2. 4. FRANCINE: - Will de-escalate lasix. Will continue to monitor. 5. Hyperkalemia: - Potassium level 5.4 this AM. No events on telemetry. Patient on lasix and duonebs. Will continue to monitor. 6. UTI: - Currently on IV rocephin. Urine cultures pending. 7. Deconditioning: - PT consult. 8. DVT prophylaxis: - Lovenox. 9. Past medical history of CLL, essential thrombocythemia, HTN, DM type II, CAD s/p CABG, pacemaker
[2020-06-10] MEDS: Furosemide 100 MG/10 ML SDV IVPUSH SCH (08:59)
[2020-06-10] MEDS ORDERED: Sertraline 100 MG Tab PO SCH (09:00)
[2020-06-10] MEDS ORDERED: Multivitamin Tab PO SCH (09:00)
[2020-06-10] MEDS: Ferrous Sulfate 325 MG Tab PO SCH (09:02)
[2020-06-10] MEDS: Dronabinol 2.5 MG Cap PO SCH (09:02)
[2020-06-10] MEDS: Docusate Sodium 100 MG Cap PO SCH (09:03)
--- NOTE | 2020-06-10 12:15 | PCM.DCSUM1 ---
<Jose Calle - Last Filed: 06/10/20 16:01> Discharge Summary - Hospital Course Free Text/Narrative:: 75-year-old male admitted for acute CHF exacerbation. He has a PMH of essential thrombocythemia, HTN, DM type II CAD s/p CABG and pacemaker. Patient recently had STEMI and was transferred to [facility] in [place], [place] where he was put on bypass. He then developed a sternal infection and was transferred to [place], [place] where he had skin graft placed from abdominal wall to chest wall and sternum. His abdominal wall incision then also became infection and he had a wound vac placement. He completed a full course of IV ertapenem. Patient follows up with oncologist Dr. White. He has been treated with hydroxurea for essential thrombocythemia for several years. His hydroxyurea was held when he was discharged from [facility] as it was interfering with his abdominal wound healing. Patient and family report that he has had leukocytosis since then. On admission, patient's WBC count was ~ 50, 000. CXR showed pulmonary edema. CT chest showed bilateral pleural effusion. CT abd/pelvis showed splenomegaly. UA showed small esterase and large occult blood. Patient was noted to be hypoxic and had leg swelling. He was diuresed with IV lasix and his leg swelling improved. Patient reported his breathing and leg swelling were better and would like to go home. Patient was weaned off of supplemental oxygen by day of discharge. ECHO was ordered and is currently pending. For wound vac management, wound vac consult was ordered. Patient also started on IV rocephin for UTI. Urine cultures pending at time of discharge. Follow-up appointments with patient's PCP and oncologist were made and explained to patient that these will be very important to keep. He will need a repeat BMP when following-up with his PCP as his creatinine and potassium were elevated. These recommendations were a lso explained to patient's Nicole. - Discharge Data Discharge Date: 06/10/20 Discharge Disposition: Home, Self-Care 01 Condition: Good - Referral to Home Health Primary Care Physician: [facility] - Discharge Diagnosis/Problem(s) (1) CHF (congestive heart failure) SNOMED Code(s): 55796915 ICD Code: I50.9 - HEART FAILURE, UNSPECIFIED Status: Acute (2) Essential thrombocythemia SNOMED Code(s): 933669366 ICD Code: D47.3 - ESSENTIAL (HEMORRHAGIC) THROMBOCYTHEMIA Status: Acute (3) Hypoxemia SNOMED Code(s): 685053324 ICD Code: R09.02 - HYPOXEMIA Status: Acute (4) Pulmonary edema SNOMED Code(s): 05454120 ICD Code: J81.1 - CHRONIC PULMONARY EDEMA Status: Acute (5) Diabetes mellitus SNOMED Code(s): 25419606 ICD Code: E11.9 - TYPE 2 DIABETES MELLITUS WITHOUT COMPLICATIONS Status: Acute - Patient Summary/Data Consults: Consultations 06/09/20 15:04 PT Evaluation and Treatment [CONS] Routine - Patient Instructions Diet: Heart Healthy Diet, Low Sodium, Fluid Restriction Fluid Restriction: 1500 mL Activity: As Tolerated Notify Provider of: Fever, Increased Pain, Swelling and Redness, Drainage, Nausea and/or Vomiting Other/Special Instructions: worsening shortness of breath - Discharge Plan *PRESCRIPTION DRUG MONITORING PROGRAM REVIEWED*: Not Applicable *COPY OF PRESCRIPTION DRUG MONITORING REPORT IN PATIENT CHANELLE: Not Applicable Prescriptions/Med Rec: Ciprofloxacin [Ciprofloxacin HCl] 500 mg PO BID 5 Days #10 tab Home Medications: Home Meds Acetaminophen [Tylenol] 650 mg PO Q4HR PRN 06/08/20 [History] Docusate Sodium [Colace] 100 mg PO BID 06/08/20 [History] Ferrous Sulfate 325 mg PO BID 06/08/20 [History] Insulin Detemir [Levemir] 12 units SQ BEDTIME 06/08/20 [History] Insulin Lispro [Humalog Kwikpen U-100] 5 units SQ TID 06/08/20 [History] Melatonin 3 mg PO BEDTIME 06/08/20 [History] Multivitamin [Multivitamins] 1 cap PO DAILY 06/08/20 [History] Nitroglycerin [Nitrostat] 0.4 mg SL ASDIRECTED PRN 06/08/20 [History] Pantoprazole [ProTONIX] 40 mg PO DAILY 06/08/20 [History] Sertraline [Zoloft] 100 mg PO DAILY 06/08/20 [History] dronabinoL [Dronabinol] 5 mg PO BID 06/08/20 [History] Ciprofloxacin [Ciprofloxacin HCl] 500 mg PO BID 5 Days #10 tab 06/10/20 [Rx] Furosemide [Lasix] 40 mg PO DAILY #0 11/02/20 [Rx] Tamsulosin HCl 0.4 mg PO BEDTIME 06/10/20 [History] carvediloL [Carvedilol] 3.125 mg PO BIDMEALS 06/10/20 [History] Oxygen Therapy Mode: Room Air Patient Handouts: Heart Failure, Self Care, [id number], Ciprofloxacin tablets, Pulmonary Edema, [id number] Referrals: Lorena Knott NP [Physician] - 07/03/20 3:00 pm (You will see Dr. White's [employer]PER[employer]OR here in [place] on this day, earlier than the appointment you already had with Dr. White. They will make subsequent appointments as necessary.) Michael Novoa MD [Physician] - 06/14/20 10:00 am - Discharge Summary/Plan Comment DC Time >30 min.: No - Patient Data Vitals - Most Recent: Last Vital Signs Temp 36.3 C 06/10/20 08:00 Pulse 82 06/10/20 08:00 Resp 20 06/10/20 08:00 BP 134/65 06/10/20 08:00 Pulse Ox 97 06/10/20 08:00 Weight - Most Recent: 68.039 kg I&O - Last 24 hours: Intake & Output 06/09/20 06/10/20 06/10/20 22:59 06:59 14:59 Intake Total 290 550 Output Total 500 500 Balance -210 50 Lab Results - Last 24 hrs: Laboratory Results - last 24 hr 06/08/20 06/09/20 06/09/20 Range/Units 23:25 05:48 17:34 WBC (4.0-11.0) K/uL RBC (4.50-5.90) M/uL Hgb (13.0-17.0) g/dL Hct (38.0-50.0) % MCV (80.0-98.0) fL MCH (27.0-32.0) pg MCHC (31.0-37.0) g/dL RDW Std Deviation (28.0-62.0) fl RDW Coeff of Nia (11.0-15.0) % Plt Count (150-400) K/uL MPV (7.40-12.00) fL Add Manual Diff Neutrophils % (Manual) 70 80 (48.0-80.0) % Band Neutrophils % 2 1 % Lymphocytes % (Manual) 9 L 7 L (16.0-40.0) % Monocytes % (Manual) 3 1 (0.0-15.0) % Eosinophils % (Manual) 4 (0.0-7.0) % Basophils % (Manual) 3 H 3 H (0.0-1.5) % Metamyelocytes % 1 1 % Myelocytes % 6 5 % Blast Cells % 2 2 % Nucleated RBC % /100WBC Absolute Seg Neuts 36.2 H 40.2 H (1.4-5.7) Band Neutrophils # 1.0 0.5 Lymphocytes # (Manual) 4.7 H 3.5 H (0.6-2.4) Monocytes # (Manual) 1.6 H 0.5 (0.0-0.8) Eosinophils # (Manual) 2.1 H (0.0-0.7) Basophils # (Manual) 1.6 H 1.5 H (0.0-0.1) Absolute Metamyelocyte 0.5 0.5 Absolute Myelocytes 3.1 2.5 Nucleated RBCs # K/uL Absolute Blast Cells 1.0 1.0 Sodium (136-148) mmol/L Potassium (3.5-5.1) mmol/L Chloride (98-107) mmol/L Carbon Dioxide (21.0-32.0) mmol/L BUN (7.0-18.0) mg/dL Creatinine (0.8-1.3) mg/dL Est Cr Clr Drug Dosing mL/min Estimated GFR (MDRD) ml/min Glucose (74-106) mg/dL POC Glucose 111 H (60-110) mg/dL Calcium (8.5-10.1) mg/dL Phosphorus (2.6-4.7) mg/dL Magnesium (1.8-2.4) mg/dL 06/09/20 06/10/20 06/10/20 Range/Units 21:15 05:50 05:50 WBC 64.16 H (4.0-11.0) K/uL RBC 4.22 L (4.50-5.90) M/uL Hgb 9.4 L (13.0-17.0) g/dL Hct 32.3 L (38.0-50.0) % MCV 76.5 L (80.0-98.0) fL MCH 22.3 L (27.0-32.0) pg MCHC 29.1 L (31.0-37.0) g/dL RDW Std Deviation 64.0 H (28.0-62.0) fl RDW Coeff of Nia 24 H (11.0-15.0) % Plt Count 422 H (150-400) K/uL MPV 10.10 (7.40-12.00) fL Add Manual Diff YES Neutrophils % (Manual) 69 (48.0-80.0) % Band Neutrophils % 12 % Lymphocytes % (Manual) 8 L (16.0-40.0) % Monocytes % (Manual) 1 (0.0-15.0) % Eosinophils % (Manual) 1 (0.0-7.0) % Basophils % (Manual) 4 H (0.0-1.5) % Metamyelocytes % 2 % Myelocytes % 2 % Blast Cells % 1 % Nucleated RBC % 2.0 /100WBC Absolute Seg Neuts 44.3 H (1.4-5.7) Band Neutrophils # 7.7 Lymphocytes # (Manual) 5.1 H (0.6-2.4) Monocytes # (Manual) 0.6 (0.0-0.8) Eosinophils # (Manual) 0.6 (0.0-0.7) Basophils # (Manual) 2.6 H (0.0-0.1) Absolute Metamyelocyte 1.3 Absolute Myelocytes 1.3 Nucleated RBCs # 0 K/uL Absolute Blast Cells 0.6 Sodium 143 (136-148) mmol/L Potassium 5.4 H (3.5-5.1) mmol/L Chloride 111 H (98-107) mmol/L Carbon Dioxide 19.6 L (21.0-32.0) mmol/L BUN 63 H (7.0-18.0) mg/dL Creatinine 1.8 H (0.8-1.3) mg/dL Est Cr Clr Drug Dosing 34.12 mL/min Estimated GFR (MDRD) 37.0 ml/min Glucose 126 H (74-106) mg/dL POC Glucose 107 (60-110) mg/dL Calcium 8.5 (8.5-10.1) mg/dL Phosphorus 6.7 H (2.6-4.7) mg/dL Magnesium 2.1 (1.8-2.4) mg/dL 06/10/20 Range/Units 08:17 WBC (4.0-11.0) K/uL RBC (4.50-5.90) M/uL Hgb (13.0-17.0) g/dL Hct (38.0-50.0) % MCV (80.0-98.0) fL MCH (27.0-32.0) pg MCHC (31.0-37.0) g/dL RDW Std Deviation (28.0-62.0) fl RDW Coeff of Nia (11.0-15.0) % Plt Count (150-400) K/uL MPV (7.40-12.00) fL Add Manual Diff Neutrophils % (Manual) (48.0-80.0) % Band Neutrophils % % Lymphocytes % (Manual) (16.0-40.0) % Monocytes % (Manual) (0.0-15.0) % Eosinophils % (Manual) (0.0-7.0) % Basophils % (Manual) (0.0-1.5) % Metamyelocytes % % Myelocytes % % Blast Cells % % Nucleated RBC % /100WBC Absolute Seg Neuts (1.4-5.7) Band Neutrophils # Lymphocytes # (Manual) (0.6-2.4) Monocytes # (Manual) (0.0-0.8) Eosinophils # (Manual) (0.0-0.7) Basophils # (Manual) (0.0-0.1) Absolute Metamyelocyte Absolute Myelocytes Nucleated RBCs # K/uL Absolute Blast Cells Sodium (136-148) mmol/L Potassium (3.5-5.1) mmol/L Chloride (98-107) mmol/L Carbon Dioxide (21.0-32.0) mmol/L BUN (7.0-18.0) mg/dL Creatinine (0.8-1.3) mg/dL Est Cr Clr Drug Dosing mL/min Estimated GFR (MDRD) ml/min Glucose (74-106) mg/dL POC Glucose 116 H (60-110) mg/dL Calcium (8.5-10.1) mg/dL Phosphorus (2.6-4.7) mg/dL Magnesium (1.8-2.4) mg/dL RAHAT Results - Last 24 hrs: Microbiology 06/09/20 00:50 Aerobic Blood Culture - Preliminary Blood - Venous - Lab Draw NO GROWTH AFTER 1 DAY Anaerobic Blood Culture - Preliminary NO GROWTH AFTER 1 DAY 06/09/20 00:40 Aerobic Blood Culture - Preliminary Blood - Venous NO GROWTH AFTER 1 DAY Anaerobic Blood Culture - Preliminary NO GROWTH AFTER 1 DAY Med Orders - Current: Current Medications Acetaminophen (Tylenol) 650 mg PO Q6H PRN PRN Reason: Pain Albuterol/Ipratropium (Duoneb 3.0-0.5 Mg/3 Ml) 3 ml NEB Q4HRRT PRN PRN Reason: Shortness of Breath Dextrose/Water (Dextrose 50% In Water) 50 ml IV ASDIRECTED PRN PRN Reason: Hypoglycemia Dextrose/Water (Dextrose 50% In Water) 50 ml IV ASDIRECTED PRN PRN Reason: Hypoglycemia Docusate Sodium (Colace) 100 mg PO BID [facility] Last Admin: 06/10/20 09:03 Dose: 100 mg Documented by: Dronabinol (Marinol) 5 mg PO BID [facility] Last Admin: 06/10/20 09:02 Dose: 5 mg Documented by: Enoxaparin Sodium (Lovenox) 40 mg SUBCUT Q24H [facility] Last Admin: 06/09/20 15:28 Dose: 40 mg Documented by: Ferrous Sulfate (Ferrous Sulfate) 325 mg PO BID [facility] Last Admin: 06/10/20 09:02 Dose: 325 mg Documented by: Furosemide (Lasix) 60 mg IVPUSH BID [facility] Last Admin: 06/10/20 08:59 Dose: 60 mg Documented by: Glucagon (Glucagen) 1 mg IM ASDIRECTED PRN PRN Reason: Hypoglycemia Glucagon (Glucagen) 1 mg IM ASDIRECTED PRN PRN Reason: Hypoglycemia Ceftriaxone Sodium/Dextrose 1 (gm/ Premix) 50 mls @ 100 mls/hr IV Q24H [facility] Last Admin: 06/09/20 14:00 Dose: 100 mls/hr Documented by: Insulin Aspart (Novolog) 0 unit SUBCUT TIDAC [facility]; Protocol Last Admin: 06/10/20 08:19 Dose: Not Given Documented by: Insulin Detemir (Levemir) 12 unit SUBCUT BEDTIME [facility] Last Admin: 06/09/20 22:10 Dose: Not Given Documented by: Melatonin (Melatonin) 3 mg PO BEDTIME [facility] Last Admin: 06/09/20 21:23 Dose: 3 mg Documented by: Multivitamins/Minerals/Vitamin C (Tab-A-Eliana) 1 tab PO DAILY [facility] Last Admin: 06/10/20 09:03 Dose: Not Given Documented by: Nitroglycerin (Nitrostat) 0.4 mg SL ASDIRECTED PRN PRN Reason: chest pain Pantoprazole Sodium (Protonix) 40 mg PO ACBREAKFAST [facility] Last Admin: 06/10/20 08:19 Dose: 40 mg Documented by: Insulin Lispro [ Humalog Kwikpen U- 100] 5 Units 5 each SUBCUT TIDAC [facility] Last Admin: 06/10/20 08:27 Dose: Not Given Documented by: Sertraline HCl (Zoloft) 100 mg PO DAILY [facility] Last Admin: 06/10/20 09:02 Dose: 100 mg Documented by: Sodium Chloride (Saline Flush) 10 ml FLUSH ASDIRECTED PRN PRN Reason: Keep Vein Open Sodium Chloride (Saline Flush) 2.5 ml FLUSH ASDIRECTED PRN PRN Reason: Keep Vein Open Discontinued Medications Acetaminophen (Tylenol) 650 mg PO Q4HR PRN PRN Reason: Pain Furosemide (Lasix) Confirm Administered Dose 80 mg .ROUTE .STK-MED ONE Stop: 06/09/20 01:51 [employer] Last Admin: 06/09/20 01:56 CDT Dose: Not Given Documented by: Furosemide (Lasix) 60 mg IVPUSH NOW STA Stop: 06/09/20 01:55 [employer] Last Admin: 06/09/20 01:56 CDT Dose: 60 mg Documented by: Furosemide (Lasix) 40 mg IVPUSH BID [facility] Last Admin: 06/09/20 08:16 Dose: Not Given Documented by: Furosemide 60 mg/ Sodium (Chloride) 56 mls @ 100 mls/hr IV ONETIME STA Stop: 06/09/20 00:44 Last Admin: 06/09/20 01:55 CDT Dose: Not Given Documented by: <Michael Iverson - Last Filed: 06/11/20 19:58> Discharge Summary - Referral to Home Health Primary Care Physician: [facility] - Patient Summary/Data Consults: Consultations 06/09/20 15:04 PT Evaluation and Treatment [CONS] Routine - Patient Data Vitals - Most Recent: Last Vital Signs Temp 36.1 C 06/10/20 12:00 Pulse 81 06/10/20 12:00 Resp 16 06/10/20 12:00 BP 121/60 06/10/20 12:00 Pulse Ox 90 L 06/10/20 12:00 RAHAT Results - Last 24 hrs: Microbiology 06/08/20 23:51 Urine Culture - Final Urine, Quick Cath (In-Out) No Growth 06/09/20 00:50 Aerobic Blood Culture - Preliminary Blood - Venous - Lab Draw NO GROWTH AFTER 2 DAYS Anaerobic Blood Culture - Preliminary NO GROWTH AFTER 2 DAYS 06/09/20 00:40 Aerobic Blood Culture - Preliminary Blood - Venous NO GROWTH AFTER 2 DAYS Anaerobic Blood Culture - Preliminary NO GROWTH AFTER 2 DAYS Med Orders - Current: Current Medications Discontinued Medications Acetaminophen (Tylenol) 650 mg PO Q6H PRN PRN Reason: Pain Acetaminophen (Tylenol) 650 mg PO Q4HR PRN PRN Reason: Pain Albuterol/Ipratropium (Duoneb 3.0-0.5 Mg/3 Ml) 3 ml NEB Q4HRRT PRN PRN Reason: Shortness of Breath Dextrose/Water (Dextrose 50% In Water) 50 ml IV ASDIRECTED PRN PRN Reason: Hypoglycemia Dextrose/Water (Dextrose 50% In Water) 50 ml IV ASDIRECTED PRN PRN Reason: Hypoglycemia Docusate Sodium (Colace) 100 mg PO BID [facility] Last Admin: 06/10/20 09:03 Dose: 100 mg Documented by: Dronabinol (Marinol) 5 mg PO BID [facility] Last Admin: 06/10/20 09:02 Dose: 5 mg Documented by: Enoxaparin Sodium (Lovenox) 40 mg SUBCUT Q24H [facility] Last Admin: 06/10/20 15:55 Dose: 40 mg Documented by: Ferrous Sulfate (Ferrous Sulfate) 325 mg PO BID [facility] Last Admin: 06/10/20 09:02 Dose: 325 mg Documented by: Furosemide (Lasix) Confirm Administered Dose 80 mg .ROUTE .STK-MED ONE Stop: 06/09/20 01:51 [employer] Last Admin: 06/09/20 01:56 CDT Dose: Not Given Documented by: Furosemide (Lasix) 60 mg IVPUSH NOW [facility] Stop: 06/09/20 01:55 [employer] Last Admin: 06/09/20 01:56 CDT Dose: 60 mg Documented by: Furosemide (Lasix) 40 mg IVPUSH BID [facility] Last Admin: 06/09/20 08:16 Dose: Not Given Documented by: Furosemide (Lasix) 60 mg IVPUSH BID [facility] Last Admin: 06/10/20 08:59 Dose: 60 mg Documented by: Glucagon (Glucagen) 1 mg IM ASDIRECTED PRN PRN Reason: Hypoglycemia Glucagon (Glucagen) 1 mg IM ASDIRECTED PRN PRN Reason: Hypoglycemia Furosemide 60 mg/ Sodium (Chloride) 56 mls @ 100 mls/hr IV ONETIME STA Stop: 06/09/20 00:44 Last Admin: 06/09/20 01:55 CDT Dose: Not Given Documented by: Ceftriaxone Sodium/Dextrose 1 (gm/ Premix) 50 mls @ 100 mls/hr IV Q24H [facility] Last Admin: 06/10/20 14:29 Dose: 100 mls/hr Documented by: Insulin Aspart (Novolog) 0 unit SUBCUT TIDAC [facility]; Protocol Last Admin: 06/10/20 13:23 Dose: Not Given Documented by: Insulin Detemir (Levemir) 12 unit SUBCUT BEDTIME [facility] Last Admin: 06/09/20 22:10 Dose: Not Given Documented by: Melatonin (Melatonin) 3 mg PO BEDTIME [facility] Last Admin: 06/09/20 21:23 Dose: 3 mg Documented by: Multivitamins/Minerals/Vitamin C (Tab-A-Eliana) 1 tab PO DAILY [facility] Last Admin: 06/10/20 09:03 Dose: Not Given Documented by: Nitroglycerin (Nitrostat) 0.4 mg SL ASDIRECTED PRN PRN Reason: chest pain Pantoprazole Sodium (Protonix) 40 mg PO ACBREAKFAST [facility] Last Admin: 06/10/20 08:19 Dose: 40 mg Documented by: Insulin Lispro [ Humalog Kwikpen U- 100] 5 Units 5 each SUBCUT TIDAC [facility] Last Admin: 06/10/20 13:23 Dose: Not Given Documented by: Sertraline HCl (Zoloft) 100 mg PO DAILY [facility] Last Admin: 06/10/20 09:02 Dose: 100 mg Documented by: Sodium Chloride (Saline Flush) 10 ml FLUSH ASDIRECTED PRN PRN Reason: Keep Vein Open Sodium Chloride (Saline Flush) 2.5 ml FLUSH ASDIRECTED PRN PRN Reason: Keep Vein Open - Free Text/Narrative Note: I have seen and evaluated the patient. I have discussed findings and treatment plan with resident. I agree with the assessment and plan in the following note.
[2020-06-10 14:29] VITALS: BP 121/60; PULSE 81
[2020-06-10] MEDS: cefTRIAXone 1 GM in Premix Bag 1 BAG IV SCH (14:29)
[2020-06-10] MEDS: Enoxaparin 40 MG/0.4 ML Syringe SUBCUT SCH (15:55)
--- NOTE | 2020-06-13 12:09 | ECHO ---
EXAM DATE: 06/09/20 PATIENT'S AGE: 75 The ECHO report has been scanned into [employer] and can be seen in this patient's EMR (Electronic Medical Record) under the REPORTS section. The report has also been scanned into PACS. [facility]A
== END 2020-06-10 16:40 | disposition home or self-care (01) ==
LOC: MW.ED 22:47 → MW.MS 06-09 01:36
PROVIDERS: ADMIT Student in an Organized Health Care Education/Training Program; ATTEND Student in an Organized Health Care Education/Training Program
DX: I11.0 Hypertensive heart disease with heart failure (principal); I50.1 Left ventricular failure, unspecified; E11.9 Type 2 diabetes mellitus without complications; I25.10 Atherosclerotic heart disease of native coronary artery without angina pectoris; D47.3 Essential (hemorrhagic) thrombocythemia; I25.2 Old myocardial infarction; E78.00 Pure hypercholesterolemia, unspecified; J90 Pleural effusion, not elsewhere classified; J96.01 Acute respiratory failure with hypoxia; N17.9 Acute kidney failure, unspecified; D72.829 Elevated white blood cell count, unspecified; E87.5 Hyperkalemia; N39.0 Urinary tract infection, site not specified; Z20.828 Contact with and (suspected) exposure to other viral communicable diseases; Z95.1 Presence of aortocoronary bypass graft; Z79.899 Other long term (current) drug therapy; Z79.4 Long term (current) use of insulin
CPT/HCPCS: 36415; 71045; 71250; 74176; 80048; 80053; 81001; 82962; 83605; 83735; 83880; 84100; 84484; 85025; 85379; 85610; 85652; 85730; 86140; 87040; 87086; 93306; 97161; 97162; 97530; 97605; A9270; J0696; J1650; J1940; Q0167; U0002; 93010; 96374; 99285; 99285-25

== ENCOUNTER 2020-06-17 12:03 | Inpatient (IN) | payer MEDICARE, OTHER ==
[2020-06-17] MEDS ORDERED: Ondansetron 4 MG/2 ML SDV IVPUSH PRN (12:26)
[2020-06-17] MEDS ORDERED: Sodium Chloride 0.9% 10 ML Syringe FLUSH PRN (12:26)
[2020-06-17] MEDS ORDERED: Sodium Chloride 0.9% 10 ML SDV IV PRN (12:26)
--- NOTE | 2020-06-17 12:35 | PCM.HP.2 ---
<Jose Calle M - Last Filed: 06/17/20 14:25> H&P History of Present Illness - General Date of Service: 06/17/20 Admit Problem/Dx: Admission Diagnosis/Problem Admission Diagnosis/Problem CHF, Congestive heart failure Source of Information: Patient History Limitations: Reports: No Limitations - History of Present Illness Initial Comments - Free Text/Narative: 75-year-old male, direct admit from cardiology clinic, presents with shortness of breath for the past few days. He has a PMH of CHF, HTN, DM type II, essential thrombocythemia, CAD s/p CABG and pacemaker and abdominal wall infection with wound vac in place. Patient also recently admitted at [facility] for CHF exacerbation. Patient reports that for the past few days he has also noticed leg swelling and will get short of breath when lying down. He was at a cardiology appointment this morning and was directly admitted for CHF exacerbation. Patient denies any fevers, chills, sore throat, chest pain, nausea, vomiting, abdominal pain, diarrhea, blood in stool, blood in urine, numbness or tingling in extremities. Of note, patient was recently hospitalized in [place], [place] which is where had the wound vac placed. He completed several weeks of IV ertapenem. Patient was on hydroxyurea for essential thrombocythemia which was held upon his discharge from [place], [place] as it was interfering with wound healing of his abdominal wall infection. Since his hydroxyurea was held, patient's WBC count has been significantly elevated. - Related Data Allergies/Adverse Reactions: Allergies Allergy/AdvReac Type Severity Reaction Status Date / Time No Known Allergies Allergy Verified 06/17/20 17:58 Home Medications: Home Meds Acetaminophen [Tylenol] 650 mg PO Q4HR PRN 06/08/20 [History] Docusate Sodium [Colace] 100 mg PO BID 06/08/20 [History] Ferrous Sulfate 325 mg PO BID 06/08/20 [History] Insulin Detemir [Levemir] 12 units SQ BEDTIME 06/08/20 [History] Insulin Lispro [Humalog Kwikpen U-100] 5 units SQ TID 06/08/20 [History] Melatonin 3 mg PO BEDTIME 06/08/20 [History] Multivitamin [Multivitamins] 1 cap PO DAILY 06/08/20 [History] Nitroglycerin [Nitrostat] 0.4 mg SL .EVERY 5 MINUTES PRN 06/08/20 [History] Pantoprazole [ProTONIX] 40 mg PO DAILY 06/08/20 [History] Sertraline [Zoloft] 100 mg PO DAILY 06/08/20 [History] dronabinoL [Dronabinol] 5 mg PO BID 06/08/20 [History] Furosemide [Lasix] 40 mg PO DAILY #0 06/10/20 [Rx] Tamsulosin HCl 0.4 mg PO BEDTIME 06/10/20 [History] carvediloL [Carvedilol] 3.125 mg PO BIDMEALS 06/10/20 [History] Past Medical History HEENT History: Reports: None Other HEENT History: bottom denture Cardiovascular History: Reports: High Cholesterol, Hypertension, PR Other Cardiovascular History: recent bypass 2 weeks ago, with last PR 4 months ago Respiratory History: Reports: None Gastrointestinal History: Reports: GERD Musculoskeletal History: Reports: Fracture Other Musculoskeletal History: fx left ankle Endocrine/Metabolic History: Reports: Diabetes, Type II Hematologic History: Oncologic (Cancer) History: Reports: Leukemia - Infectious Disease History Infectious Disease History: Reports: Other (See Below) Other Infectious Disease History: unable to obtain - Past Surgical History HEENT Surgical History: Reports: Eye Surgery, LASIK Cardiovascular Surgical History: Reports: Coronary Artery Stent Other Cardiovascular Surgeries/Procedures: angioplasty Male Surgical History: Reports: Vasectomy Musculoskeletal Surgical History: Reports: Other (See Below) Other Musculoskeletal Surgeries/Procedures:: lt ankle surg., exc of bursa from elbow Social & Family History - Family History Family Medical History: Unobtainable - Caffeine Use Caffeine Use: Reports: Coffee H&P Review of Systems - Review of Systems: Review Of Systems: Comprehensive ROS is negative, except as noted in HPI. Exam - Exam Exam: See Below - Exam General: Alert, Oriented, Cooperative, Mild Distress, Other (frail appearing) HEENT: Conjunctiva Clear, EOMI, Hearing Intact, Pupils Equal, Pupils Reactive Neck: Supple, Trachea Midline Lungs: Normal Respiratory Effort, Other (rales in bases b/l) Cardiovascular: Regular Rate, Regular Rhythm GI/Abdominal Exam: Normal Bowel Sounds, Soft, Non-Tender, No Distention, Other (Wound vac in place.) Extremities: Other (1+ pitting edema bilaterally) Skin: Warm, Dry, Intact Neurological: Cranial Nerves Intact, Strength Equal Bilateral, Normal Speech, Normal Tone Neuro Extensive - Mental Status: Alert, Oriented x3, Normal Mood/Affect Psychiatric: Alert, Normal Affect, Normal Mood - Problem List (1) CHF (congestive heart failure) SNOMED Code(s): 97479000 ICD Code: I50.9 - HEART FAILURE, UNSPECIFIED Status: Acute Current Visit: No (2) HTN (hypertension) SNOMED Code(s): 58071670 ICD Code: I10 - ESSENTIAL (PRIMARY) HYPERTENSION Status: Acute Current Visit: Yes (3) Hx of CABG SNOMED Code(s): 669680931, 777985953 ICD Code: Z95.1 - PRESENCE OF AORTOCORONARY BYPASS GRAFT Status: Acute Current Visit: Yes (4) Pacemaker SNOMED Code(s): 007846194 ICD Code: Z95.0 - PRESENCE OF CARDIAC PACEMAKER Status: Acute Current Vis it: Yes (5) Diabetes mellitus SNOMED Code(s): 80016242 ICD Code: E11.9 - TYPE 2 DIABETES MELLITUS WITHOUT COMPLICATIONS Status: Acute Current Visit: No (6) Essential thrombocythemia SNOMED Code(s): 651472134 ICD Code: D47.3 - ESSENTIAL (HEMORRHAGIC) THROMBOCYTHEMIA Status: Acute Current Visit: No Problem List Initiated/Reviewed/Updated: Yes Orders Last 24hrs: Active Orders 24 hr Category Date Time Status Patient Status [ADT] Routine ADT 06/17/20 12:26 Active Daily Weight [Height and Weight] [RC] DAILY Care 06/17/20 12:32 Active Intake and Output Strict [RC] ASDIRECTED Care 06/17/20 12:32 Active Notify Provider Consults [RC] ASDIRECTED Care 06/17/20 12:33 Ordered Oxygen Therapy [RC] PRN Care 06/17/20 12:26 Active Peripheral IV Care [RC] . DIRECTED Care 06/17/20 12:26 Active Up With Assistance [RC] ASDIRECTED Care 06/17/20 12:26 Active VTE/DVT Education [RC] PER UNIT ROUTINE Care 06/17/20 12:26 Active Vital Signs [RC] Q4H Care 06/17/20 12:26 Active Consult to Physician [CONS] Urgent Cons 06/17/20 12:33 Ordered 2 Gram Sodium Diet [DIET] Diet 06/17/20 Lunch Active [employer] Diet [DIET] Diet 06/17/20 Lunch Active Fluid Restriction [DIET] Diet 06/17/20 Lunch Active Chest 1V Frontal [CR] Urgent Exams 06/17/20 12:33 Ordered CBC WITH AUTO DIFF [HEME] AM Lab 06/18/20 05:11 Ordered COMPREHENSIVE METABOLIC PN,CMP [CHEM] AM Lab 06/18/20 05:11 Ordered Acetaminophen [TylenoL] Med 06/17/20 12:26 Ordered 650 mg PO Q4H PRN Furosemide [Lasix] Med 06/17/20 12:45 Ordered 40 mg IVPUSH BID Ondansetron [Zofran] Med 06/17/20 12:26 Ordered 4 mg IVPUSH Q4H PRN Sodium Chloride 0.9% [Normal Saline] Med 06/17/20 12:26 Ordered 10 ml IV ASDIRECTED PRN Sodium Chloride 0.9% [Saline Flush] Med 06/17/20 12:26 Ordered 10 ml FLUSH ASDIRECTED PRN Sodium Chloride 0.9% [Saline Flush] Med 06/17/20 12:26 Ordered 2.5 ml FLUSH ASDIRECTED PRN Peripheral IV Insertion Adult [OM.PC] Routine Oth 06/17/20 12:26 Ordered Resuscitation Status Routine Resus Stat 06/17/20 12:26 Ordered Medication Orders Acetaminophen (Tylenol) 650 mg PO Q4H PRN PRN Reason: Pain (Mild 1-3)/fever Furosemide (Lasix) 40 mg IVPUSH BID BREONNA Ondansetron HCl (Zofran) 4 mg IVPUSH Q4H PRN PRN Reason: Nausea Sodium Chloride (Saline Flush) 10 ml FLUSH ASDIRECTED PRN PRN Reason: Keep Vein Open Sodium Chloride (Saline Flush) 2.5 ml FLUSH ASDIRECTED PRN PRN Reason: Keep Vein Open Sodium Chloride (Normal Saline) 10 ml IV ASDIRECTED PRN PRN Reason: IV Use Assessment/Plan Comment:: Assessment and Plan: 1. Acute CHF exacerbation: - Admit to med/surg. Patient on telemetry. Supplemental oxygen PRN. Will diurese with IV lasix 40 mg BID. Will order strict I's and O's, daily standing weight, fluid restrict < 2L per day and low sodium 2 g per day. Troponin was negative. CXR showed slightly improved edema from last exam. ECHO from 06/10/20 showed HFpEF and moderate to severe right ventricle systolic pressure. Cardiology consulted. - Consult PT. 2. Hyperkalemia: - Will monitor. 3. FRANCINE: - Patient on IV lasix secondary to #1. Will monitor. 4. Deconditioning: - Consult PT. 5. Diabetes mellitus type II: - Continue home-dose long acting insulin, Novolog SSI and accuchecks TIDAC. ADA diet ordered. 6. DVT prophylaxis: - Lovenox 30 mg subcut qd. 7. Past medical history of HTN, essential thrombocythemia, CAD s/p CABG and abdominal wall infection s/p wound vac: - Continue home medications. <Vee Fernandez - Last Filed: 06/24/20 13:25> H&P History of Present Illness - General Admit Problem/Dx: Admission Diagnosis/Problem Admission Diagnosis/Problem CHF, Congestive heart failure Pain level Pain Score (Numeric/FACES): 0 Exam - Vital Signs Vital Signs: Last Vital Signs Temp 36.4 C 06/24/20 12:00 Pulse 78 06/24/20 12:00 Resp 20 06/24/20 12:00 BP 90/44 L 06/24/20 12:00 Pulse Ox 92 L 06/24/20 12:00 - Patient Data Lab Results Last 24 hrs: Laboratory Results - last 24 hr 06/23/20 06/24/20 06/24/20 Range/Units 17:37 05:47 05:47 WBC 61.83 H (4.0-11.0) K/uL RBC 3.84 L (4.50-5.90) M/uL Hgb 8.5 L (13.0-17.0) g/dL Hct 29.4 L (38.0-50.0) % MCV 76.6 L (80.0-98.0) fL MCH 22.1 L (27.0-32.0) pg MCHC 28.9 L (31.0-37.0) g/dL RDW Std Deviation 66.8 H (28.0-62.0) fl RDW Coeff of Nia 25 H (11.0-15.0) % Plt Count 246 (150-400) K/uL MPV (7.40-12.00) fL Add Manual Diff YES Neutrophils % (Manual) 72 (48.0-80.0) % Band Neutrophils % 3 % Lymphocytes % (Manual) 11 L (16.0-40.0) % Monocytes % (Manual) 3 (0.0-15.0) % Eosinophils % (Manual) 1 (0.0-7.0) % Basophils % (Manual) 5 H (0.0-1.5) % Metamyelocytes % 2 % Myelocytes % 2 % Blast Cells % 1 % Nucleated RBC % 5.4 /100WBC Absolute Seg Neuts 44.5 H (1.4-5.7) Band Neutrophils # 1.9 Lymphocytes # (Manual) 6.8 H (0.6-2.4) Monocytes # (Manual) 1.9 H (0.0-0.8) Eosinophils # (Manual) 0.6 (0.0-0.7) Basophils # (Manual) 3.1 H (0.0-0.1) Absolute Metamyelocyte 1.2 Absolute Myelocytes 1.2 Nucleated RBCs 7 % Nucleated RBCs # 1 K/uL Absolute Blast Cells 0.6 Poikilocytosis 2+ MODERATE Sodium 143 (136-148) mmol/L Potassium 4.6 (3.5-5.1) mmol/L Chloride 107 (98-107) mmol/L Carbon Dioxide 28.4 (21.0-32.0) mmol/L BUN 59 H (7.0-18.0) mg/dL Creatinine 2.3 H (0.8-1.3) mg/dL Est Cr Clr Drug Dosing 29.56 mL/min Estimated GFR (MDRD) 27.9 ml/min Glucose 117 H (74-106) mg/dL POC Glucose 153 H (60-110) mg/dL Calcium 8.4 L (8.5-10.1) mg/dL Magnesium (1.8-2.4) mg/dL Total Bilirubin 1.1 H (0.2-1.0) mg/dL AST 30 (15-37) IU/L ALT 7 L (14-63) IU/L Alkaline Phosphatase 156 H (46-116) U/L Total Protein 6.9 (6.4-8.2) g/dL Albumin 2.8 L (3.4-5.0) g/dL Globulin 4.1 H (2.6-4.0) g/dL Albumin/Globulin Ratio 0.7 L (0.9-1.6) 06/24/20 06/24/20 06/24/20 Range/Units 05:47 06:03 12:05 WBC (4.0-11.0) K/uL RBC (4.50-5.90) M/uL Hgb (13.0-17.0) g/dL Hct (38.0-50.0) % MCV (80.0-98.0) fL MCH (27.0-32.0) pg MCHC (31.0-37.0) g/dL RDW Std Deviation (28.0-62.0) fl RDW Coeff of Nia (11.0-15.0) % Plt Count (150-400) K/uL MPV (7.40-12.00) fL Add Manual Diff Neutrophils % (Manual) (48.0-80.0) % Band Neutrophils % % Lymphocytes % (Manual) (16.0-40.0) % Monocytes % (Manual) (0.0-15.0) % Eosinophils % (Manual) (0.0-7.0) % Basophils % (Manual) (0.0-1.5) % Metamyelocytes % % Myelocytes % % Blast Cells % % Nucleated RBC % /100WBC Absolute Seg Neuts (1.4-5.7) Band Neutrophils # Lymphocytes # (Manual) (0.6-2.4) Monocytes # (Manual) (0.0-0.8) Eosinophils # (Manual) (0.0-0.7) Basophils # (Manual) (0.0-0.1) Absolute Metamyelocyte Absolute Myelocytes Nucleated RBCs % Nucleated RBCs # K/uL Absolute Blast Cells Poikilocytosis Sodium (136-148) mmol/L Potassium (3.5-5.1) mmol/L Chloride (98-107) mmol/L Carbon Dioxide (21.0-32.0) mmol/L BUN (7.0-18.0) mg/dL Creatinine (0.8-1.3) mg/dL Est Cr Clr Drug Dosing mL/min Estimated GFR (MDRD) ml/min Glucose (74-106) mg/dL POC Glucose 117 H 134 H (60-110) mg/dL Calcium (8.5-10.1) mg/dL Magnesium 1.7 L (1.8-2.4) mg/dL Total Bilirubin (0.2-1.0) mg/dL AST (15-37) IU/L ALT (14-63) IU/L Alkaline Phosphatase (46-116) U/L Total Protein (6.4-8.2) g/dL Albumin (3.4-5.0) g/dL Globulin (2.6-4.0) g/dL Albumin/Globulin Ratio (0.9-1.6) Result Diagrams: 06/24/20 05:47 06/24/20 05:47 Sepsis Event Note - Focused Exam Vital Signs: Vital Signs Temp Pulse Pulse Resp BP BP BP 06/24/20 12:00 36.4 C 78 20 90/44 L 06/24/20 11:00 06/24/20 08:45 82 119/54 L 06/24/20 08:00 36.9 C 82 18 119/54 L 06/24/20 04:00 36.5 C 80 18 99/59 L Pulse Ox Pulse Ox 06/24/20 12:00 92 L 06/24/20 11:00 93 L 06/24/20 08:45 06/24/20 08:00 93 L 06/24/20 04:00 96 Orders Last 24hrs: Active Orders 24 hr Category Date Time Status Soft Diet [DIET] Diet 06/24/20 Lunch Active Furosemide [Lasix] Med 06/24/20 17:00 Active 40 mg IVPUSH Q8HR Medication Orders Acetaminophen (Tylenol) 650 mg PO Q4H PRN PRN Reason: Pain (Mild 1-3)/fever Last Admin: 06/21/20 21:03 Dose: 650 mg Documented by: Admin: 06/20/20 20:22 Dose: 650 mg Documented by: Admin: 06/18/20 01:02 Dose: 650 mg Documented by: JUSTIN Carvedilol (Coreg) 3.125 mg PO BIDMEALS BREONNA Last Admin: 06/24/20 08:45 Dose: 3.125 mg Documented by: Admin: 06/23/20 17:27 Dose: 3.125 mg Documented by: Admin: 06/23/20 09:10 Dose: 3.125 mg Documented by: Admin: 06/22/20 17:20 Dose: 3.125 mg Documented by: Admin: 06/22/20 08:38 Dose: 3.125 mg Documented by: Admin: 06/21/20 18:07 Dose: 3.125 mg Documented by: Admin: 06/21/20 08:59 Dose: 3.125 mg Documented by: Admin: 06/20/20 17:00 Dose: 3.125 mg Documented by: Admin: 06/20/20 08:07 Dose: 3.125 mg Documented by: Admin: 06/19/20 19:09 Dose: 3.125 mg Documented by: Admin: 06/19/20 08:46 Dose: 3.125 mg Documented by: Admin: 06/18/20 19:16 Dose: 3.125 mg Documented by: Admin: 06/18/20 09:15 Dose: 3.125 mg Documented by: MICHAEL Cosigned by: SATISH Admin: 06/17/20 17:08 Dose: 3.125 mg Documented by: KRYSTIAN Dextrose/Water (Dextrose 50% In Water) 50 ml IV ASDIRECTED PRN PRN Reason: Hypoglycemia Dextrose/Water (Dextrose 50% In Water) 50 ml IV ASDIRECTED PRN PRN Reason: Hypoglycemia Docusate Sodium (Colace) 100 mg PO BID PRN PRN Reason: Constipation Dronabinol (Marinol) 5 mg PO BID [facility] Admin: 06/24/20 08:46 Dose: 5 mg Documented by: Admin: 06/23/20 20:29 Dose: 5 mg Documented by: Admin: 06/23/20 09:11 Dose: 5 mg Documented by: Admin: 06/22/20 20:10 Dose: 5 mg Documented by: Admin: 06/22/20 08:38 Dose: 5 mg Documented by: Admin: 06/21/20 20:55 Dose: 5 mg Documented by: Admin: 06/21/20 08:59 Dose: 5 mg Documented by: Admin: 06/20/20 20:21 Dose: 5 mg Documented by: Admin: 06/20/20 08:07 Dose: 5 mg Documented by: Admin: 06/19/20 21:37 Dose: 5 mg Documented by: Admin: 06/19/20 08:46 Dose: 5 mg Documented by: Admin: 06/18/20 20:52 Dose: 5 mg Documented by: Admin: 06/18/20 09:15 Dose: 5 mg Documented by: MICHAEL Cosigned by: SATISH Admin: 06/17/20 20:46 Dose: 5 mg Documented by: JUSTIN Ferrous Sulfate (Ferrous Sulfate) 325 mg PO BID [facility] Admin: 06/24/20 08:47 Dose: 325 mg Documented by: Admin: 06/23/20 20:29 Dose: 325 mg Documented by: Admin: 06/23/20 09:11 Dose: 325 mg Documented by: Admin: 06/22/20 20:11 Dose: 325 mg Documented by: Admin: 06/22/20 08:39 Dose: 325 mg Documented by: Admin: 06/21/20 20:10 Dose: 325 mg Documented by: Admin: 06/21/20 08:59 Dose: 325 mg Documented by: Admin: 06/20/20 20:21 Dose: 325 mg Documented by: Admin: 06/20/20 08:08 Dose: 325 mg Documented by: Admin: 06/19/20 21:37 Dose: 325 mg Documented by: Admin: 06/19/20 08:45 Dose: 325 mg Documented by: Admin: 06/18/20 20:52 Dose: 325 mg Documented by: Admin: 06/18/20 09:15 Dose: 325 mg Documented by: MICHAEL Cosigned by: SATISH Admin: 06/17/20 20:45 Dose: 325 mg Documented by: JUSTIN Fluconazole (Diflucan) 100 mg PO DAILY [facility] Admin: 06/24/20 08:46 Dose: 100 mg Documented by: Admin: 06/23/20 09:12 Dose: 100 mg Documented by: Admin: 06/22/20 08:38 Dose: 100 mg Documented by: Admin: 06/21/20 08:59 Dose: 100 mg Documented by: Admin: 06/20/20 08:08 Dose: 100 mg Documented by: Admin: 06/19/20 14:57 Dose: 100 mg Documented by: BRAYAN Furosemide (Lasix) 40 mg IVPUSH Q8HR [facility] Glucagon (Glucagen) 1 mg IM ASDIRECTED PRN PRN Reason: Hypoglycemia Heparin Sodium (Porcine) (Heparin Sodium) 5,000 units SUBCUT Q12H [facility] Last Admin: 06/24/20 06:35 Dose: 5,000 units Documented by: Admin: 06/23/20 18:46 Dose: 5,000 units Documented by: Admin: 06/23/20 06:38 Dose: 5,000 units Documented by: Admin: 06/22/20 18:34 Dose: 5,000 units Documented by: Admin: 06/22/20 06:31 Dose: 5,000 units Documented by: Admin: 06/21/20 18:08 Dose: 5,000 units Documented by: Admin: 06/21/20 07:17 Dose: Not Given Documented by: Admin: 06/20/20 18:30 Dose: 5,000 units Documented by: Admin: 06/20/20 06:29 Dose: 5,000 units Documented by: Admin: 06/19/20 19:12 Dose: 5,000 units Documented by: Admin: 06/19/20 06:19 Dose: 5,000 units Documented by: Admin: 06/18/20 19:16 Dose: 5,000 units Documented by: KRYSTIAN Insulin Aspart (Novolog) 0 unit SUBCUT TIDAC [facility]; Protocol Last Admin: 06/24/20 12:26 Dose: Not Given Documented by: Admin: 06/24/20 06:30 Dose: Not Given Documented by: Admin: 06/23/20 17:40 Dose: 2 units Documented by: Admin: 06/23/20 11:48 Dose: Not Given Documented by: Admin: 06/23/20 06:38 Dose: Not Given Documented by: Admin: 06/22/20 17:19 Dose: Not Given Documented by: Admin: 06/22/20 12:05 Dose: 2 units Documented by: Admin: 06/22/20 06:29 Dose: Not Given Documented by: Admin: 06/21/20 18:13 Dose: 2 units Documented by: Admin: 06/21/20 13:03 Dose: Not Given Documented by: Admin: 06/21/20 07:17 Dose: Not Given Documented by: Admin: 06/20/20 18:29 Dose: Not Given Documented by: Admin: 06/20/20 12:42 Dose: Not Given Documented by: Admin: 06/20/20 06:38 Dose: Not Given Documented by: Admin: 06/19/20 19:08 Dose: Not Given Documented by: Admin: 06/19/20 11:33 Dose: Not Given Documented by: Admin: 06/19/20 07:23 Dose: Not Given Documented by: Admin: 06/18/20 17:43 Dose: Not Given Documented by: Admin: 06/18/20 12:30 Dose: Not Given Documented by: Admin: 06/18/20 12:30 Dose: Not Given Documented by: Admin: 06/17/20 17:06 Dose: Not Given Documented by: KRYSTIAN Melatonin (Melatonin) 3 mg PO BEDTIME [facility] Admin: 06/23/20 20:29 Dose: 3 mg Documented by: Admin: 06/22/20 20:10 Dose: 3 mg Documented by: Admin: 06/21/20 20:10 Dose: 3 mg Documented by: Admin: 06/20/20 20:22 Dose: 3 mg Documented by: Admin: 06/19/20 21:37 Dose: 3 mg Documented by: Admin: 06/18/20 20:52 Dose: 3 mg Documented by: Admin: 06/17/20 20:46 Dose: 3 mg Documented by: JUSTIN Ondansetron HCl (Zofran) 4 mg IVPUSH Q4H PRN PRN Reason: Nausea Pantoprazole Sodium (Protonix) 40 mg PO DAILY [facility] Admin: 06/24/20 08:47 Dose: 40 mg Documented by: Admin: 06/23/20 09:11 Dose: 40 mg Documented by: Admin: 06/22/20 08:38 Dose: 40 mg Documented by: Admin: 06/21/20 08:59 Dose: 40 mg Documented by: Admin: 06/20/20 08:08 Dose: 40 mg Documented by: Admin: 06/19/20 08:45 Dose: 40 mg Documented by: Admin: 06/18/20 09:14 Dose: 40 mg Documented by: MICHAEL Cosigned by: SATISH Sertraline HCl (Zoloft) 100 mg PO DAILY [facility] Admin: 06/24/20 08:46 Dose: 100 mg Documented by: Admin: 06/23/20 09:11 Dose: 100 mg Documented by: Admin: 06/22/20 08:39 Dose: 100 mg Documented by: Admin: 06/21/20 08:59 Dose: 100 mg Documented by: Admin: 06/20/20 08:08 Dose: 100 mg Documented by: Admin: 06/19/20 08:45 Dose: 100 mg Documented by: Admin: 06/18/20 09:16 Dose: 100 mg Documented by: MICHAEL Cosigned by: SATISH Sodium Chloride (Saline Flush) 10 ml FLUSH ASDIRECTED PRN PRN Reason: Keep Vein Open Sodium Chloride (Saline Flush) 2.5 ml FLUSH ASDIRECTED PRN PRN Reason: Keep Vein Open Last Admin: 06/22/20 08:40 Dose: 2.5 ml Documented by: Admin: 06/18/20 12:28 Dose: 2.5 ml Documented by: KRYSTIAN Sodium Chloride (Normal Saline) 10 ml IV ASDIRECTED PRN PRN Reason: IV Use Tamsulosin HCl (Flomax) 0.4 mg PO BEDTIME [facility] Admin: 06/23/20 20:28 Dose: 0.4 mg Documented by: Admin: 06/22/20 20:10 Dose: 0.4 mg Documented by: Admin: 06/21/20 20:10 Dose: 0.4 mg Documented by: Admin: 06/20/20 20:22 Dose: 0.4 mg Documented by: Admin: 06/19/20 21:37 Dose: 0.4 mg Documented by: Admin: 06/18/20 20:52 Dose: 0.4 mg Documented by: Admin: 06/17/20 20:45 Dose: 0.4 mg Documented by: JUSTIN Assessment/Plan Comment:: I performed a history and physical exam of the patient and discussed management with resident. I have reviewed the residents note and agree with documented findings and plan unless otherwise specified in my note.
[2020-06-17] MEDS ORDERED: Glucagon,Human Recombinant 1 MG Vial IM PRN (12:42)
[2020-06-17] MEDS ORDERED: 50% Dextrose in Water 50 ML Syringe IV PRN ×2 (12:42→13:59)
[2020-06-17] MEDS: Furosemide 40 MG/4 ML VIAL IVPUSH SCH ×2 (13:07→21:01)
[2020-06-17] MEDS ORDERED: Enoxaparin 30 MG/0.3 ML Syringe SUBCUT SCH (14:30)
[2020-06-17] MEDS: Insulin Aspart 100 Units/ML 3 ML Pen SUBCUT SCH (17:06)
[2020-06-17] MEDS: Carvedilol 3.125 MG Tab PO SCH (17:08)
[2020-06-17] MEDS ORDERED: Furosemide 40 MG/4 ML VIAL IVPUSH ONE (19:15)
[2020-06-17] MEDS: Ferrous Sulfate 325 MG Tab PO SCH (20:45)
[2020-06-17] MEDS: Tamsulosin 0.4 MG Cap.ER PO SCH (20:45)
[2020-06-17] MEDS: Dronabinol 2.5 MG Cap PO SCH (20:46)
[2020-06-17] MEDS: Melatonin 3 MG Tab PO SCH (20:46)
[2020-06-17] MEDS: Docusate Sodium 100 MG Cap PO SCH (20:46)
[2020-06-17] MEDS ORDERED: Insulin Detemir 100 Units/ML 3 ML Pen SUBCUT SCH (21:00)
[2020-06-17] MEDS ORDERED: Insulin Glargine,Human Rec. Analog 100 Units/ML 3 ML Pen SUBCUT SCH (21:00)
[2020-06-17] MEDS: cefTRIAXone 1 GM in Premix Bag 1 BAG IV SCH (21:02)
[2020-06-18] MEDS: Acetaminophen 325 MG Tab PO PRN (01:02)
[2020-06-18 07:21] LABS: CARBON DIOXIDE,CO2 20.3 mmol/L (21.0-32.0); POTASSIUM,K 5.2 mmol/L (3.5-5.1)
--- NOTE | 2020-06-18 08:15 | PCM.PN ---
<Jose Calle - Last Filed: 06/18/20 10:44> - General Info Date of Service: 06/18/20 Subjective Update: Reports shortness of breath has improved a bit since yesterday. Has decreased appetite. No complaints at bedside this AM. - Patient Data Vitals - Most Recent: Last Vital Signs Temp 36.6 C 06/18/20 03:45 Pulse 80 06/18/20 03:45 Resp 20 06/18/20 03:45 BP 91/50 L 06/18/20 03:45 Pulse Ox 96 06/18/20 03:45 Weight - Most Recent: 79.605 kg I&O - Last 24 Hours: Intake & Output 06/17/20 06/18/20 06/18/20 22:59 06:59 14:59 Intake Total 150 550 Output Total 400 225 Balance -250 325 Lab Results Last 24 Hours: Laboratory Results - last 24 hr 06/17/20 06/17/20 06/18/20 Range/Units 17:02 18:55 06:21 WBC 68.29 H (4.0-11.0) K/uL RBC 4.19 L (4.50-5.90) M/uL Hgb 9.3 L (13.0-17.0) g/dL Hct 32.3 L (38.0-50.0) % MCV 77.1 L (80.0-98.0) fL MCH 22.2 L (27.0-32.0) pg MCHC 28.8 L (31.0-37.0) g/dL RDW Std Deviation 67.3 H (28.0-62.0) fl RDW Coeff of Nia 25 H (11.0-15.0) % Plt Count 272 (150-400) K/uL Add Manual Diff YES Neutrophils % (Manual) 58 (48.0-80.0) % Band Neutrophils % 17 % Lymphocytes % (Manual) 10 L (16.0-40.0) % Monocytes % (Manual) 2 (0.0-15.0) % Eosinophils % (Manual) 2 (0.0-7.0) % Basophils % (Manual) 2 H (0.0-1.5) % Metamyelocytes % 4 % Myelocytes % 3 % Blast Cells % 2 % Nucleated RBC % 5.1 /100WBC Absolute Seg Neuts 39.6 H (1.4-5.7) Band Neutrophils # 11.6 Lymphocytes # (Manual) 6.8 H (0.6-2.4) Monocytes # (Manual) 1.4 H (0.0-0.8) Eosinophils # (Manual) 1.4 H (0.0-0.7) Basophils # (Manual) 1.4 H (0.0-0.1) Absolute Metamyelocyte 2.7 Absolute Myelocytes 2.0 Nucleated RBCs # 1 K/uL Absolute Blast Cells 1.4 Sodium (136-148) mmol/L Potassium (3.5-5.1) mmol/L Chloride (98-107) mmol/L Carbon Dioxide (21.0-32.0) mmol/L BUN (7.0-18.0) mg/dL Creatinine (0.8-1.3) mg/dL Est Cr Clr Drug Dosing mL/min Estimated GFR (MDRD) ml/min Glucose (74-106) mg/dL POC Glucose 104 (60-110) mg/dL Calcium (8.5-10.1) mg/dL Phosphorus (2.6-4.7) mg/dL Magnesium (1.8-2.4) mg/dL Total Bilirubin (0.2-1.0) mg/dL AST (15-37) IU/L ALT (14-63) IU/L Alkaline Phosphatase (46-116) U/L Total Protein (6.4-8.2) g/dL Albumin (3.4-5.0) g/dL Globulin (2.6-4.0) g/dL Albumin/Globulin Ratio (0.9-1.6) Urine Color YELLOW Urine Appearance SLT CLOUDY Urine pH 5.0 (5.0-8.0) Ur Specific [place] 1.025 (1.001-1.035) Urine Protein 30 H (NEGATIVE) mg/dL Urine Glucose (UA) NEGATIVE (NEGATIVE) mg/dL Urine Ketones NEGATIVE (NEGATIVE) mg/dL Urine Occult Blood LARGE H (NEGATIVE) Urine Nitrite NEGATIVE (NEGATIVE) Urine Bilirubin NEGATIVE (NEGATIVE) Urine Urobilinogen 0.2 (<2.0) EU/dL Ur Leukocyte Esterase LARGE H (NEGATIVE) Urine RBC 20-30 (0-2/HPF) Urine WBC TO NUMEROUS TO COUNT H (0-5/HPF) Ur Epithelial Cells FEW (NONE-FEW) Calcium Oxalate Crystal OCCASIONAL (NEGATIVE) Urine Bacteria 3+ H (NEGATIVE) Urine Yeast FEW 06/18/20 06/18/20 Range/Units 06:21 07:23 WBC (4.0-11.0) K/uL RBC (4.50-5.90) M/uL Hgb (13.0-17.0) g/dL Hct (38.0-50.0) % MCV (80.0-98.0) fL MCH (27.0-32.0) pg MCHC (31.0-37.0) g/dL RDW Std Deviation (28.0-62.0) fl RDW Coeff of Nia (11.0-15.0) % Plt Count (150-400) K/uL Add Manual Diff Neutrophils % (Manual) (48.0-80.0) % Band Neutrophils % % Lymphocytes % (Manual) (16.0-40.0) % Monocytes % (Manual) (0.0-15.0) % Eosinophils % (Manual) (0.0-7.0) % Basophils % (Manual) (0.0-1.5) % Metamyelocytes % % Myelocytes % % Blast Cells % % Nucleated RBC % /100WBC Absolute Seg Neuts (1.4-5.7) Band Neutrophils # Lymphocytes # (Manual) (0.6-2.4) Monocytes # (Manual) (0.0-0.8) Eosinophils # (Manual) (0.0-0.7) Basophils # (Manual) (0.0-0.1) Absolute Metamyelocyte Absolute Myelocytes Nucleated RBCs # K/uL Absolute Blast Cells Sodium 147 (136-148) mmol/L Potassium 5.2 H (3.5-5.1) mmol/L Chloride 115 H (98-107) mmol/L Carbon Dioxide 20.3 L (21.0-32.0) mmol/L BUN 54 H (7.0-18.0) mg/dL Creatinine 2.3 H (0.8-1.3) mg/dL Est Cr Clr Drug Dosing 29.56 mL/min Estimated GFR (MDRD) 27.9 ml/min Glucose 83 (74-106) mg/dL POC Glucose 85 (60-110) mg/dL Calcium 8.5 (8.5-10.1) mg/dL Phosphorus 6.4 H (2.6-4.7) mg/dL Magnesium 2.1 (1.8-2.4) mg/dL Total Bilirubin 1.0 (0.2-1.0) mg/dL AST 36 (15-37) IU/L ALT 10 L (14-63) IU/L Alkaline Phosphatase 231 H (46-116) U/L Total Protein 6.7 (6.4-8.2) g/dL Albumin 2.6 L (3.4-5.0) g/dL Globulin 4.1 H (2.6-4.0) g/dL Albumin/Globulin Ratio 0.6 L (0.9-1.6) Urine Color Urine Appearance Urine pH (5.0-8.0) Ur Specific [place] (1.001-1.035) Urine Protein (NEGATIVE) mg/dL Urine Glucose (UA) (NEGATIVE) mg/dL Urine Ketones (NEGATIVE) mg/dL Urine Occult Blood (NEGATIVE) Urine Nitrite (NEGATIVE) Urine Bilirubin (NEGATIVE) Urine Urobilinogen (<2.0) EU/dL Ur Leukocyte Esterase (NEGATIVE) Urine RBC (0-2/HPF) Urine WBC (0-5/HPF) Ur Epithelial Cells (NONE-FEW) Calcium Oxalate Crystal (NEGATIVE) Urine Bacteria (NEGATIVE) Urine Yeast Med Orders - Current: Current Medications Acetaminophen (Tylenol) 650 mg PO Q4H PRN PRN Reason: Pain (Mild 1-3)/fever Last Admin: 06/18/20 01:02 Dose: 650 mg Documented by: [facility]) [facility] Last Admin: 06/17/20 17:08 Dose: 3.125 mg Documented by: Dextrose/Water (Dextrose 50% In Water) 50 ml IV ASDIRECTED PRN PRN Reason: Hypoglycemia Dextrose/Water (Dextrose 50% In Water) 50 ml IV ASDIRECTED PRN PRN Reason: Hypoglycemia Docusate Sodium (Colace) 100 mg PO BID [facility] Last Admin: 06/17/20 20:46 Dose: 100 mg Documented by: Dronabinol (Marinol) 5 mg PO BID [facility] Last Admin: 06/17/20 20:46 Dose: 5 mg Documented by: Enoxaparin Sodium (Lovenox) 30 mg SUBCUT Q24H [facility] Last Admin: 06/17/20 17:08 Dose: 30 mg Documented by: Ferrous Sulfate (Ferrous Sulfate) 325 mg PO BID [facility] Last Admin: 06/17/20 20:45 Dose: 325 mg Documented by: Furosemide (Lasix) 40 mg IVPUSH BID [facility] Last Admin: 06/17/20 21:01 Dose: Not Given Documented by: Glucagon (Glucagen) 1 mg IM ASDIRECTED PRN PRN Reason: Hypoglycemia Ceftriaxone Sodium/Dextrose 1 (gm/ Premix) 50 mls @ 100 mls/hr IV Q24H [facility] Last Admin: 06/17/20 21:02 Dose: 100 mls/hr Documented by: Insulin Aspart (Novolog) 0 unit SUBCUT TIDAC [facility]; Protocol Last Admin: 06/17/20 17:06 Dose: Not Given Documented by: Insulin Detemir (Levemir) 12 unit SUBCUT BEDTIME [facility] Last Admin: 06/17/20 21:01 Dose: Not Given Documented by: Melatonin (Melatonin) 3 mg PO BEDTIME [facility] Last Admin: 06/17/20 20:46 Dose: 3 mg Documented by: Metolazone (Zaroxolyn) 2.5 mg PO ONETIME ONE Stop: 06/18/20 09:01 Ondansetron HCl (Zofran) 4 mg IVPUSH Q4H PRN PRN Reason: Nausea Pantoprazole Sodium (Protonix) 40 mg PO DAILY [facility] Pneumococcal Polyvalent Vaccine (Pneumovax 23) 0.5 ml IM .ONCE ONE Stop: 06/20/20 17:01 Sertraline HCl (Zoloft) 100 mg PO DAILY [facility] Sodium Chloride (Saline Flush) 10 ml FLUSH ASDIRECTED PRN PRN Reason: Keep Vein Open Sodium Chloride (Saline Flush) 2.5 ml FLUSH ASDIRECTED PRN PRN Reason: Keep Vein Open Sodium Chloride (Normal Saline) 10 ml IV ASDIRECTED PRN PRN Reason: IV Use Tamsulosin HCl (Flomax) 0.4 mg PO BEDTIME [facility] Last Admin: 06/17/20 20:45 Dose: 0.4 mg Documented by: Discontinued Medications Furosemide (Lasix) 80 mg IVPUSH NOW ONE Stop: 06/17/20 19:16 Last Admin: 06/17/20 20:45 Dose: 80 mg Documented by: Insulin Glargine (Lantus Solostar) 12 units SUBCUT BEDTIME [facility] - Exam General: Alert, Oriented, Cooperative, No Acute Distress Lungs: Normal Respiratory Effort, Other (rales in bases b/l) Cardiovascular: Regular Rate, Regular Rhythm GI/Abdominal Exam: Normal Bowel Sounds, Soft, Non-Tender, No Distention, Other (wound vac in place) Extremities: Other (trace pitting edema b/l) Sepsis Event Note - Evaluation Sepsis Screening Result: No Definite Risk - Focused Exam Vital Signs: Vital Signs Temp Pulse Resp BP BP Pulse Ox 06/18/20 03:45 36.6 C 80 20 108/58 L 91/50 L 96 06/18/20 00:15 95 06/17/20 23:30 36.6 C 80 18 104/56 L 88 L 06/17/20 23:00 92 L - Problem List & Annotations (1) CHF (congestive heart failure) SNOMED Code(s): 45998399 Code(s): I50.9 - HEART FAILURE, UNSPECIFIED Status: Acute Current Visit: No (2) HTN (hypertension) SNOMED Code(s): 42500476 Code(s): I10 - ESSENTIAL (PRIMARY) HYPERTENSION Status: Acute Current Visit: Yes (3) Hx of CABG SNOMED Code(s): 855410124, 759127136 Code(s): Z95.1 - PRESENCE OF AORTOCORONARY BYPASS GRAFT Status: Acute Current Visit: Yes (4) Pacemaker SNOMED Code(s): 907701687 Code(s): Z95.0 - PRESENCE OF CARDIAC PACEMAKER Status: Acute Current Visit: Yes (5) Diabetes mellitus SNOMED Code(s): 45592616 Code(s): E11.9 - TYPE 2 DIABETES MELLITUS WITHOUT COMPLICATIONS Status: Acute Current Visit: No (6) Essential thrombocythemia SNOMED Code(s): 794696691 Code(s): D47.3 - ESSENTIAL (HEMORRHAGIC) THROMBOCYTHEMIA Status: Acute Current Visit: No - Problem List Review Problem List Initiated/Reviewed/Updated: Yes - My Orders Last 24 Hours: My Active Orders 06/17/20 Lunch 2 Gram Sodium Diet [DIET] [place] [employer] Diet [DIET] Fluid Restriction [DIET] 06/17/20 12:26 Patient Status [ADT] Routine Oxygen Therapy [RC] PRN Peripheral IV Care [RC] . DIRECTED Up With Assistance [RC] ASDIRECTED VTE/DVT Education [RC] PER UNIT ROUTINE Vital Signs [RC] Q4H Acetaminophen [TylenoL] 650 mg PO Q4H PRN Ondansetron [Zofran] 4 mg IVPUSH Q4H PRN Sodium Chloride 0.9% [Normal Saline] 10 ml IV ASDIRECTED PRN Sodium Chloride 0.9% [Saline Flush] 10 ml FLUSH ASDIRECTED PRN Sodium Chloride 0.9% [Saline Flush] 2.5 ml FLUSH ASDIRECTED PRN Peripheral IV Insertion Adult [OM.PC] Routine Resuscitation Status Routine 06/17/20 12:32 Daily Weight [Height and Weight] [RC] DAILY Intake and Output Strict [RC] Q12H 06/17/20 12:33 Notify Provider Consults [RC] ASDIRECTED Consult to Physician [CONS] Urgent 06/17/20 12:38 EKG 12 Lead [EKG Documentation Completion] [RC] URGENT 06/17/20 12:41 Telemetry Monitoring [Cardiac Monitoring] [RC] Q8H 06/17/20 12:42 Blood Glucose Check, Bedside [RC] TIDAC Dextrose 50% in Water 50 ml IV ASDIRECTED PRN Glucagon,Human Recombinant [GlucaGen] 1 mg IM ASDIRECTED PRN 06/17/20 12:45 Furosemide [Lasix] 40 mg IVPUSH BID 06/17/20 13:47 Urinary Catheter Assessment [RC] ASDIRECTED 06/17/20 13:59 Dextrose 50% in Water 50 ml IV ASDIRECTED PRN 06/17/20 14:00 Insert Kim Catheter [Insert Urinary Catheter] [OM.PC] Q24H 06/17/20 14:17 Consult to Physical Therapy [PT Evaluation and Treatment] [CONS] Routine 06/17/20 14:30 Enoxaparin [Lovenox] 30 mg SUBCUT Q24H 06/17/20 15:16 Obtain Past Medical Record [OM.PC] Routine 06/17/20 16:28 Wound Car Inspector Consult [Consult to Wound Care Services] [CONS] Routine 06/17/20 17:00 Insulin Aspart [NovoLOG] See Protocol SUBCUT TIDAC carvediloL [Coreg] 3.125 mg PO BIDMEALS 06/17/20 18:55 CULTURE URINE [RM] Urgent 06/17/20 21:00 Docusate Sodium [Colace] 100 mg PO BID Ferrous Sulfate 325 mg PO BID Insulin Detemir [Levemir] 12 unit SUBCUT BEDTIME Melatonin 3 mg PO BEDTIME Tamsulosin [Flomax] 0.4 mg PO BEDTIME dronabinoL [Marinol] 5 mg PO BID 06/18/20 09:00 Pantoprazole [ProTONIX] 40 mg PO DAILY Sertraline [Zoloft] 100 mg PO DAILY metOLazone [Zaroxolyn] 2.5 mg PO ONETIME ONE - Plan Plan:: Assessment and Plan: 1. Acute CHF exacerbation: - Patient on telemetry. Supplemental oxygen PRN. Patient did not have much urine output overnight. Per cardiology, will give IV lasix 120 mg this morning and metolazone 2.5 mg. Cardiology following. - Continue strict I's and O's, daily standing weight, fluid restrict < 2L per day and low sodium 2 g per day. CXR showed slightly improved edema from last exam. ECHO from 06/10/20 showed HFpEF and moderate to severe right ventricle systolic pressure. 2. Hyperkalemia: - Will continue to monitor. 3. FRANCINE: - Will continue to monitor. 4. UTI: - Patient on Rocephin. 5. Deconditioning: - Consult PT. 6. Diabetes mellitus type II: - Will hold long-acting insulin for now as patient is not eating much. Continue Novolog SSI and accuchecks TIDAC. ADA diet ordered. 7. DVT prophylaxis: - Heparin 5000 units subcut q12. 8. Past medical history of HTN, essential thrombocythemia, CAD s/p CABG and abdominal wall infection s/p wound vac: - Continue home medications. - Wound vac nurse consulted. <Vee Fernandez - Last Filed: 06/25/20 17:51> - Patient Data Vitals - Most Recent: Last Vital Signs Temp 36.1 C 06/25/20 15:39 Pulse 82 06/25/20 16:59 Resp 20 06/25/20 15:39 BP 102/50 L 06/25/20 16:59 Pulse Ox 94 L 06/25/20 15:39 I&O - Last 24 Hours: Intake & Output 1106/25/20 06/25/20 06:59 14:59 22:59 Intake Total 400 600 Output Total 225 220 Balance 175 380 Lab Results Last 24 Hours: Laboratory Results - last 24 hr 06/25/20 06/25/20 06/25/20 Range/Units 05:18 05:18 06:36 WBC 67.81 H (4.0-11.0) K/uL RBC 3.88 L (4.50-5.90) M/uL Hgb 8.6 L (13.0-17.0) g/dL Hct 29.9 L (38.0-50.0) % MCV 77.1 L (80.0-98.0) fL MCH 22.2 L (27.0-32.0) pg MCHC 28.8 L (31.0-37.0) g/dL RDW Std Deviation 67.4 H (28.0-62.0) fl RDW Coeff of Nia 25 H (11.0-15.0) % Plt Count 211 (150-400) K/uL Add Manual Diff YES Neutrophils % (Manual) 65 (48.0-80.0) % Band Neutrophils % 9 % Lymphocytes % (Manual) 11 L (16.0-40.0) % Monocytes % (Manual) 1 (0.0-15.0) % Eosinophils % (Manual) 1 (0.0-7.0) % Basophils % (Manual) 3 H (0.0-1.5) % Metamyelocytes % 3 % Myelocytes % 5 % Blast Cells % 2 % Nucleated RBC % 7.4 /100WBC Absolute Seg Neuts 44.1 H (1.4-5.7) Band Neutrophils # 6.1 Lymphocytes # (Manual) 7.5 H (0.6-2.4) Monocytes # (Manual) 0.7 (0.0-0.8) Eosinophils # (Manual) 0.7 (0.0-0.7) Basophils # (Manual) 2.0 H (0.0-0.1) Absolute Metamyelocyte 2.0 Absolute Myelocytes 3.4 Nucleated RBCs # 1 K/uL Absolute Blast Cells 1.4 Poikilocytosis 2+ MODERATE Ovalocytes 1+ SLIGHT Sodium 142 (136-148) mmol/L Potassium 4.8 (3.5-5.1) mmol/L Chloride 107 (98-107) mmol/L Carbon Dioxide 25.4 (21.0-32.0) mmol/L BUN 61 H (7.0-18.0) mg/dL Creatinine 2.4 H (0.8-1.3) mg/dL Est Cr Clr Drug Dosing 25.20 mL/min Estimated GFR (MDRD) 26.5 ml/min Glucose 124 H (74-106) mg/dL POC Glucose 136 H (60-110) mg/dL Calcium 8.5 (8.5-10.1) mg/dL Magnesium 2.3 (1.8-2.4) mg/dL 06/25/20 06/25/20 Range/Units 11:33 16:49 WBC (4.0-11.0) K/uL RBC (4.50-5.90) M/uL Hgb (13.0-17.0) g/dL Hct (38.0-50.0) % MCV (80.0-98.0) fL MCH (27.0-32.0) pg MCHC (31.0-37.0) g/dL RDW Std Deviation (28.0-62.0) fl RDW Coeff of Nia (11.0-15.0) % Plt Count (150-400) K/uL Add Manual Diff Neutrophils % (Manual) (48.0-80.0) % Band Neutrophils % % Lymphocytes % (Manual) (16.0-40.0) % Monocytes % (Manual) (0.0-15.0) % Eosinophils % (Manual) (0.0-7.0) % Basophils % (Manual) (0.0-1.5) % Metamyelocytes % % Myelocytes % % Blast Cells % % Nucleated RBC % /100WBC Absolute Seg Neuts (1.4-5.7) Band Neutrophils # Lymphocytes # (Manual) (0.6-2.4) Monocytes # (Manual) (0.0-0.8) Eosinophils # (Manual) (0.0-0.7) Basophils # (Manual) (0.0-0.1) Absolute Metamyelocyte Absolute Myelocytes Nucleated RBCs # K/uL Absolute Blast Cells Poikilocytosis Ovalocytes Sodium (136-148) mmol/L Potassium (3.5-5.1) mmol/L Chloride (98-107) mmol/L Carbon Dioxide (21.0-32.0) mmol/L BUN (7.0-18.0) mg/dL Creatinine (0.8-1.3) mg/dL Est Cr Clr Drug Dosing mL/min Estimated GFR (MDRD) ml/min Glucose (74-106) mg/dL POC Glucose 118 H 116 H (60-110) mg/dL Calcium (8.5-10.1) mg/dL Magnesium (1.8-2.4) mg/dL Med Orders - Current: Current Medications Acetaminophen (Tylenol) 650 mg PO Q4H PRN PRN Reason: Pain (Mild 1-3)/fever Last Admin: 06/21/20 21:03 Dose: 650 mg Documented by: Carvedilol (Coreg) 3.125 mg PO BIDMEALS [facility] Last Admin: 06/25/20 16:59 Dose: Not Given Documented by: Dextrose/Water (Dextrose 50% In Water) 50 ml IV ASDIRECTED PRN PRN Reason: Hypoglycemia Dextrose/Water (Dextrose 50% In Water) 50 ml IV ASDIRECTED PRN PRN Reason: Hypoglycemia Docusate Sodium (Colace) 100 mg PO BID PRN PRN Reason: Constipation Dronabinol (Marinol) 5 mg PO BID [facility] Last Admin: 06/25/20 09:46 Dose: 5 mg Documented by: Ferrous Sulfate (Ferrous Sulfate) 325 mg PO BID [facility] Last Admin: 06/25/20 09:46 Dose: 325 mg Documented by: Fluconazole (Diflucan) 100 mg PO DAILY [facility] Last Admin: 06/25/20 09:46 Dose: 100 mg Documented by: Furosemide (Lasix) 40 mg IVPUSH Q8HR [facility] Last Admin: 06/25/20 13:30 Dose: 40 mg Documented by: Glucagon (Glucagen) 1 mg IM ASDIRECTED PRN PRN Reason: Hypoglycemia Heparin Sodium (Porcine) (Heparin Sodium) 5,000 units SUBCUT Q12H [facility] Last Admin: 06/25/20 06:38 Dose: 5,000 units Documented by: Insulin Aspart (Novolog) 0 unit SUBCUT TIDAC [facility]; Protocol Last Admin: 06/25/20 17:00 Dose: Not Given Documented by: Melatonin (Melatonin) 3 mg PO BEDTIME [facility] Last Admin: 06/24/20 21:39 Dose: 3 mg Documented by: Ondansetron HCl (Zofran) 4 mg IVPUSH Q4H PRN PRN Reason: Nausea Pantoprazole Sodium (Protonix) 40 mg PO DAILY [facility] Last Admin: 06/25/20 09:46 Dose: 40 mg Documented by: Sertraline HCl (Zoloft) 100 mg PO DAILY [facility] Last Admin: 06/25/20 09:46 Dose: 100 mg Documented by: Sodium Chloride (Saline Flush) 10 ml FLUSH ASDIRECTED PRN PRN Reason: Keep Vein Open Sodium Chloride (Saline Flush) 2.5 ml FLUSH ASDIRECTED PRN PRN Reason: Keep Vein Open Last Admin: 06/25/20 06:41 Dose: 2.5 ml Documented by: Sodium Chloride (Normal Saline) 10 ml IV ASDIRECTED PRN PRN Reason: IV Use Tamsulosin HCl (Flomax) 0.4 mg PO BEDTIME [facility] Last Admin: 06/24/20 21:39 Dose: 0.4 mg Documented by: Discontinued Medications Docusate Sodium (Colace) 100 mg PO BID [facility] Last Admin: 06/18/20 21:01 Dose: Not Given Documented by: Enoxaparin Sodium (Lovenox) 30 mg SUBCUT Q24H [facility] Last Admin: 06/17/20 17:08 Dose: 30 mg Documented by: Furosemide (Lasix) 40 mg IVPUSH BID [facility] Last Admin: 06/19/20 08:47 Dose: 40 mg Documented by: Furosemide (Lasix) 80 mg IVPUSH NOW ONE Stop: 06/17/20 19:16 Last Admin: 06/17/20 20:45 Dose: 80 mg Documented by: Furosemide (Lasix) 120 mg IVPUSH NOW ONE Stop: 06/18/20 08:17 Last Admin: 06/18/20 09:21 Dose: 120 mg Documented by: Furosemide (Lasix) 120 mg IVPUSH NOW ONE Stop: 06/18/20 20:07 Last Admin: 06/18/20 20:52 Dose: 120 mg Documented by: Furosemide (Lasix) 40 mg IVPUSH NOW ONE Stop: 06/19/20 14:01 Furosemide (Lasix) 40 mg IVPUSH Q8H [facility] Furosemide (Lasix) 40 mg IVPUSH Q6H [facility] Last Admin: 06/23/20 09:12 Dose: 40 mg Documented by: Furosemide (Lasix) 40 mg IV Q8H [facility] Last Admin: 06/23/20 12:01 Dose: Not Given Documented by: Furosemide (Lasix) 40 mg IV Q8H [facility] Furosemide (Lasix) Confirm Administered Dose 40 mg .ROUTE .STK-MED ONE Stop: 06/23/20 17:10 Last Admin: 06/23/20 17:26 Dose: Not Given Documented by: Furosemide (Lasix) 40 mg IVPUSH Q8H [facility] Last Admin: 06/24/20 08:46 Dose: 40 mg Documented by: Furosemide (Lasix) 40 mg IVPUSH Q6HR [facility] Ceftriaxone Sodium/Dextrose 1 (gm/ Premix) 50 mls @ 100 mls/hr IV Q24H [facility] Last Admin: 06/18/20 22:15 Dose: 100 mls/hr Documented by: Albumin Human (Flexbumin 25%) 12.5 gm in 50 mls @ 100 mls/hr IV ONETIME ONE Stop: 06/18/20 12:33 Last Admin: 06/18/20 12:30 Dose: 100 mls/hr Documented by: Albumin Human (Flexbumin 25%) 12.5 gm in 50 mls @ 100 mls/hr IV ONETIME ONE Stop: 06/18/20 19:49 Last Admin: 06/18/20 20:52 Dose: 100 mls/hr Documented by: Albumin Human (Flexbumin 25%) 12.5 gm in 50 mls @ 100 mls/hr IV ONETIME ONE Stop: 06/19/20 10:16 Last Admin: 06/19/20 10:44 Dose: 100 mls/hr Documented by: Furosemide 480 mg/ Sodium (Chloride) 250 mls @ 10.417 mls/hr IV Q24H [facility] Stop: 06/20/20 12:59 Last Admin: 06/19/20 13:10 Dose: 20 mg/hr, 10.417 mls/hr Documented by: Furosemide 240 mg/ Premix 24 mls @ 1 mls/hr IV Q24H [facility] Stop: 06/21/20 13:29 Last Admin: 06/20/20 14:21 Dose: 10 mg/hr, 1 mls/hr Documented by: Sodium Chloride (Normal Saline) 500 mls @ 5 mls/hr IV ASDIRECTED [facility] Sodium Chloride (Normal Saline) 500 mls @ 5 mls/hr IV ASDIRECTED [facility] Last Admin: 06/20/20 20:05 Dose: 5 mls/hr Documented by: Furosemide 40 mg/ Sodium (Chloride) 54 mls @ 100 mls/hr IV Q8H [facility] Last Admin: 06/24/20 00:55 Dose: 100 mls/hr Documented by: Magnesium Sulfate (Magnesium Sulfate In Water Premix) 2 gm in 50 mls @ 50 mls/hr IV ONETIME ONE Stop: 06/24/20 16:00 Last Admin: 06/24/20 16:59 Dose: 50 mls/hr Documented by: Insulin Detemir (Levemir) 12 unit SUBCUT BEDTIME [facility] Last Admin: 06/17/20 21:01 Dose: Not Given Documented by: Insulin Glargine (Lantus Solostar) 12 units SUBCUT BEDTIME [facility] Metolazone (Zaroxolyn) 2.5 mg PO ONETIME ONE Stop: 06/18/20 09:01 Last Admin: 06/18/20 09:16 Dose: 2.5 mg Documented by: Pneumococcal Polyvalent Vaccine (Pneumovax 23) 0.5 ml IM .ONCE ONE Stop: 06/20/20 17:01 Last Admin: 06/20/20 23:42 Dose: Not Given Documented by: Pneumococcal Polyvalent Vaccine (Pneumovax 23) 0.5 ml IM .ONCE ONE Stop: 06/21/20 09:01 Sodium Polystyrene Sulfonate (Kayexalate) 15 gm PO ONETIME ONE Stop: 06/20/20 11:31 Last Admin: 06/20/20 12:35 Dose: 15 gm Documented by: Sepsis Event Note - Focused Exam Vital Signs: Vital Signs Temp Pulse Pulse Resp BP BP BP 06/25/20 16:59 82 102/50 L 06/25/20 15:39 36.1 C 83 20 102/50 L 06/25/20 13:19 06/25/20 11:35 36.8 C 80 18 111/53 L 06/25/20 09:45 79 121/59 L 06/25/20 07:36 36.4 C 80 18 95/60 Pulse Ox Pulse Ox 06/25/20 16:59 06/25/20 15:39 94 L 06/25/20 13:19 93 L 06/25/20 11:35 93 L 06/25/20 09:45 06/25/20 07:36 92 L - Plan Plan:: have seen and evaluated the patient and agree with the residents note unless specified in my note
[2020-06-18] MEDS ORDERED: Furosemide 40 MG/4 ML VIAL IVPUSH ONE (08:16)
[2020-06-18] MEDS ORDERED: Metolazone 5 MG Tab PO ONE (09:00)
[2020-06-18] MEDS: Pantoprazole 40 MG Tab.CR PO SCH (09:14)
[2020-06-18] MEDS: Carvedilol 3.125 MG Tab PO SCH ×2 (09:15→19:16)
[2020-06-18] MEDS: Dronabinol 2.5 MG Cap PO SCH ×2 (09:15→20:52)
[2020-06-18] MEDS: Ferrous Sulfate 325 MG Tab PO SCH ×2 (09:15→20:52)
[2020-06-18] MEDS: Sertraline 100 MG Tab PO SCH (09:16)
[2020-06-18] MEDS: Docusate Sodium 100 MG Cap PO SCH ×2 (09:16→21:01)
[2020-06-18] MEDS ORDERED: Albumin 25% 12.5 GM/50 ML BAG IV ONE ×2 (12:04→19:20)
[2020-06-18] MEDS: Sodium Chloride 0.9% 2.5 ML Syringe FLUSH PRN (12:28)
[2020-06-18] MEDS: Insulin Aspart 100 Units/ML 3 ML Pen SUBCUT SCH ×2 (12:30→17:43)
[2020-06-18] MEDS: Furosemide 40 MG/4 ML VIAL IVPUSH SCH ×2 (12:30→21:00)
[2020-06-18] MEDS: Heparin Sodium 5,000 Units/ML Vial SUBCUT SCH (19:16)
[2020-06-18] MEDS ORDERED: Furosemide 100 MG/10 ML SDV IVPUSH ONE (20:06)
--- NOTE | 2020-06-18 20:15 | PCM.PN ---
- General Info Date of Service: 06/18/20 Admission Dx/Problem (Free Text): 75-year-old male history of CAD recent non-STEMI 01/2020 status post CABG, status post dual-chamber pacemaker, LV systolic dysfunction, recent admission for mediastinitis, sternal osteomyelitis, supposed skin graft, was admitted in the hospital for decompensated heart failure FRANCINE. Subjective Update: Still tired oxygen requirement 1 to 2L/min, O2 sat is 95% no chest pain decreased appetite, some leg swelling. He got Lasix 120 mg this morning plus metolazone we will waiting to see how is his urine output is doing. His creatinine today 2.3 with Albumin 2.9 Functional Status: Reports: Pain Controlled - Review of Systems General: Reports: Weakness, Fatigue HEENT: Reports: No Symptoms Pulmonary: Reports: Shortness of Breath Cardiovascular: Reports: Edema. Denies: Chest Pain Gastrointestinal: Reports: Decreased Appetite Genitourinary: Reports: No Symptoms Musculoskeletal: Reports: No Symptoms Neurological: Reports: No Symptoms - Patient Data Vitals - Most Recent: Last Vital Signs Temp 97.3 F 06/18/20 16:00 Pulse 79 06/18/20 19:16 Resp 16 06/18/20 16:00 BP 101/46 L 06/18/20 19:16 Pulse Ox 92 L 06/18/20 16:00 Weight - Most Recent: 175 lb 8 oz I&O - Last 24 Hours: Intake & Output 06/18/20 06/18/20 06/18/20 06:59 14:59 22:59 Intake Total 884 376 8880 Output Total 225 600 Balance 325 200 456 Lab Results Last 24 Hours: Laboratory Results - last 24 hr 06/18/20 06/18/20 06/18/20 Range/Units 06:21 06:21 07:23 WBC 68.29 H (4.0-11.0) K/uL RBC 4.19 L (4.50-5.90) M/uL Hgb 9.3 L (13.0-17.0) g/dL Hct 32.3 L (38.0-50.0) % MCV 77.1 L (80.0-98.0) fL MCH 22.2 L (27.0-32.0) pg MCHC 28.8 L (31.0-37.0) g/dL RDW Std Deviation 67.3 H (28.0-62.0) fl RDW Coeff of Nia 25 H (11.0-15.0) % Plt Count 272 (150-400) K/uL Add Manual Diff YES Neutrophils % (Manual) 58 (48.0-80.0) % Band Neutrophils % 17 % Lymphocytes % (Manual) 10 L (16.0-40.0) % Monocytes % (Manual) 2 (0.0-15.0) % Eosinophils % (Manual) 2 (0.0-7.0) % Basophils % (Manual) 2 H (0.0-1.5) % Metamyelocytes % 4 % Myelocytes % 3 % Blast Cells % 2 % Nucleated RBC % 5.1 /100WBC Absolute Seg Neuts 39.6 H (1.4-5.7) Band Neutrophils # 11.6 Lymphocytes # (Manual) 6.8 H (0.6-2.4) Monocytes # (Manual) 1.4 H (0.0-0.8) Eosinophils # (Manual) 1.4 H (0.0-0.7) Basophils # (Manual) 1.4 H (0.0-0.1) Absolute Metamyelocyte 2.7 Absolute Myelocytes 2.0 Nucleated RBCs # 1 K/uL Absolute Blast Cells 1.4 Sodium 147 (136-148) mmol/L Potassium 5.2 H (3.5-5.1) mmol/L Chloride 115 H (98-107) mmol/L Carbon Dioxide 20.3 L (21.0-32.0) mmol/L BUN 54 H (7.0-18.0) mg/dL Creatinine 2.3 H (0.8-1.3) mg/dL Est Cr Clr Drug Dosing 29.56 mL/min Estimated GFR (MDRD) 27.9 ml/min Glucose 83 (74-106) mg/dL POC Glucose 85 (60-110) mg/dL Calcium 8.5 (8.5-10.1) mg/dL Phosphorus 6.4 H (2.6-4.7) mg/dL Magnesium 2.1 (1.8-2.4) mg/dL Total Bilirubin 1.0 (0.2-1.0) mg/dL AST 36 (15-37) IU/L ALT 10 L (14-63) IU/L Alkaline Phosphatase 231 H (46-116) U/L Total Protein 6.7 (6.4-8.2) g/dL Albumin 2.6 L (3.4-5.0) g/dL Globulin 4.1 H (2.6-4.0) g/dL Albumin/Globulin Ratio 0.6 L (0.9-1.6) 06/18/20 06/18/20 Range/Units 10:16 17:35 WBC (4.0-11.0) K/uL RBC (4.50-5.90) M/uL Hgb (13.0-17.0) g/dL Hct (38.0-50.0) % MCV (80.0-98.0) fL MCH (27.0-32.0) pg MCHC (31.0-37.0) g/dL RDW Std Deviation (28.0-62.0) fl RDW Coeff of Nia (11.0-15.0) % Plt Count (150-400) K/uL Add Manual Diff Neutrophils % (Manual) (48.0-80.0) % Band Neutrophils % % Lymphocytes % (Manual) (16.0-40.0) % Monocytes % (Manual) (0.0-15.0) % Eosinophils % (Manual) (0.0-7.0) % Basophils % (Manual) (0.0-1.5) % Metamyelocytes % % Myelocytes % % Blast Cells % % Nucleated RBC % /100WBC Absolute Seg Neuts (1.4-5.7) Band Neutrophils # Lymphocytes # (Manual) (0.6-2.4) Monocytes # (Manual) (0.0-0.8) Eosinophils # (Manual) (0.0-0.7) Basophils # (Manual) (0.0-0.1) Absolute Metamyelocyte Absolute Myelocytes Nucleated RBCs # K/uL Absolute Blast Cells Sodium (136-148) mmol/L Potassium (3.5-5.1) mmol/L Chloride (98-107) mmol/L Carbon Dioxide (21.0-32.0) mmol/L BUN (7.0-18.0) mg/dL Creatinine (0.8-1.3) mg/dL Est Cr Clr Drug Dosing mL/min Estimated GFR (MDRD) ml/min Glucose (74-106) mg/dL POC Glucose 126 H 106 (60-110) mg/dL Calcium (8.5-10.1) mg/dL Phosphorus (2.6-4.7) mg/dL Magnesium (1.8-2.4) mg/dL Total Bilirubin (0.2-1.0) mg/dL AST (15-37) IU/L ALT (14-63) IU/L Alkaline Phosphatase (46-116) U/L Total Protein (6.4-8.2) g/dL Albumin (3.4-5.0) g/dL Globulin (2.6-4.0) g/dL Albumin/Globulin Ratio (0.9-1.6) Med Orders - Current: Current Medications Acetaminophen (Tylenol) 650 mg PO Q4H PRN PRN Reason: Pain (Mild 1-3)/fever Last Admin: 06/18/20 01:02 Dose: 650 mg Documented by: Carvedilol (Coreg) 3.125 mg PO BIDMEALS [facility] Last Admin: 06/18/20 19:16 Dose: 3.125 mg Documented by: Dextrose/Water (Dextrose 50% In Water) 50 ml IV ASDIRECTED PRN PRN Reason: Hypoglycemia Dextrose/Water (Dextrose 50% In Water) 50 ml IV ASDIRECTED PRN PRN Reason: Hypoglycemia Docusate Sodium (Colace) 100 mg PO BID [facility] Last Admin: 06/18/20 09:16 Dose: 100 mg Documented by: Dronabinol (Marinol) 5 mg PO BID [facility] Last Admin: 06/18/20 09:15 Dose: 5 mg Documented by: Ferrous Sulfate (Ferrous Sulfate) 325 mg PO BID [facility] Last Admin: 06/18/20 09:15 Dose: 325 mg Documented by: Furosemide (Lasix) 40 mg IVPUSH BID [facility] Last Admin: 06/18/20 12:30 Dose: Not Given Documented by: Glucagon (Glucagen) 1 mg IM ASDIRECTED PRN PRN Reason: Hypoglycemia Heparin Sodium (Porcine) (Heparin Sodium) 5,000 units SUBCUT Q12H [facility] Last Admin: 06/18/20 19:16 Dose: 5,000 units Documented by: Ceftriaxone Sodium/Dextrose 1 (gm/ Premix) 50 mls @ 100 mls/hr IV Q24H [facility] Last Admin: 06/17/20 21:02 Dose: 100 mls/hr Documented by: Insulin Aspart (Novolog) 0 unit SUBCUT TIDAC [facility]; Protocol Last Admin: 06/18/20 17:43 Dose: Not Given Documented by: Melatonin (Melatonin) 3 mg PO BEDTIME [facility] Last Admin: 06/17/20 20:46 Dose: 3 mg Documented by: Ondansetron HCl (Zofran) 4 mg IVPUSH Q4H PRN PRN Reason: Nausea Pantoprazole Sodium (Protonix) 40 mg PO DAILY [facility] Last Admin: 06/18/20 09:14 Dose: 40 mg Documented by: Pneumococcal Polyvalent Vaccine (Pneumovax 23) 0.5 ml IM .ONCE ONE Stop: 06/20/20 17:01 Sertraline HCl (Zoloft) 100 mg PO DAILY [facility] Last Admin: 06/18/20 09:16 Dose: 100 mg Documented by: Sodium Chloride (Saline Flush) 10 ml FLUSH ASDIRECTED PRN PRN Reason: Keep Vein Open Sodium Chloride (Saline Flush) 2.5 ml FLUSH ASDIRECTED PRN PRN Reason: Keep Vein Open Last Admin: 06/18/20 12:28 Dose: 2.5 ml Documented by: Sodium Chloride (Normal Saline) 10 ml IV ASDIRECTED PRN PRN Reason: IV Use Tamsulosin HCl (Flomax) 0.4 mg PO BEDTIME [facility] Last Admin: 06/17/20 20:45 Dose: 0.4 mg Documented by: Discontinued Medications Enoxaparin Sodium (Lovenox) 30 mg SUBCUT Q24H [facility] Last Admin: 06/17/20 17:08 Dose: 30 mg Documented by: Furosemide (Lasix) 80 mg IVPUSH NOW ONE Stop: 06/17/20 19:16 Last Admin: 06/17/20 20:45 Dose: 80 mg Documented by: Furosemide (Lasix) 120 mg IVPUSH NOW ONE Stop: 06/18/20 08:17 Last Admin: 06/18/20 09:21 Dose: 120 mg Documented by: Furosemide (Lasix) 120 mg IVPUSH NOW ONE Stop: 06/18/20 20:07 Albumin Human (Flexbumin 25%) 12.5 gm in 50 mls @ 100 mls/hr IV ONETIME ONE Stop: 06/18/20 12:33 Last Admin: 06/18/20 12:30 Dose: 100 mls/hr Documented by: Albumin Human (Flexbumin 25%) 12.5 gm in 50 mls @ 100 mls/hr IV ONETIME ONE Stop: 06/18/20 19:49 Insulin Detemir (Levemir) 12 unit SUBCUT BEDTIME [facility] Last Admin: 06/17/20 21:01 Dose: Not Given Documented by: Insulin Glargine (Lantus Solostar) 12 units SUBCUT BEDTIME [facility] Metolazone (Zaroxolyn) 2.5 mg PO ONETIME ONE Stop: 06/18/20 09:01 Last Admin: 06/18/20 09:16 Dose: 2.5 mg Documented by: - Exam General: Alert, Oriented HEENT: Pupils Equal, Pupils Reactive Neck: JVD Lungs: Rales Cardiovascular: Regular Rate, Regular Rhythm GI/Abdominal Exam: Normal Bowel Sounds, Soft Extremities: Pedal Edema Sepsis Event Note - Evaluation Sepsis Screening Result: No Definite Risk - Focused Exam Vital Signs: Vital Signs Temp Pulse Pulse Resp BP BP BP 06/18/20 19:16 79 101/46 L 06/18/20 16:00 97.3 F 82 16 114/58 L 06/18/20 12:00 97.8 F 20 120/60 06/18/20 09:15 80 114/58 L Pulse Ox Pulse Ox 06/18/20 19:16 06/18/20 16:00 92 L 06/18/20 12:00 95 95 06/18/20 09:15 - Problem List Review Problem List Initiated/Reviewed/Updated: Yes - Plan Plan:: Assessment and Plan: 1. Decompensated systolic CHF, LVEF 40% with FRANCINE possibly cardiorenal syndrome. Low albumin possibly malnutrition. With hepatic congestion. He is not making a good urine output after higher dose of Lasix, will plan to add metolazone 2.5 along with Lasix higher dose 120 mg, also will give the albumin due to low albumin as well. It is extremely difficult to assess the volume status without invasive monitoring, it possibly that intravascularly volume depletion due to low albumin, however he does have increasing pulmonary congestion as well as pleural effusion and leg edema. I am hoping IV albumin would help. 2. FRANCINE on top of CKD, creatinine was 2.3 baseline around 1.4-1.6, if he does not respond to a higher dose of Lasix and the creatinine getting worse he probably need to be transfer for higher level of care.
[2020-06-18] MEDS: Melatonin 3 MG Tab PO SCH (20:52)
[2020-06-18] MEDS: Tamsulosin 0.4 MG Cap.ER PO SCH (20:52)
[2020-06-18] MEDS: cefTRIAXone 1 GM in Premix Bag 1 BAG IV SCH (22:15)
[2020-06-19 05:49] LABS: CARBON DIOXIDE,CO2 22.8 mmol/L (21.0-32.0); POTASSIUM,K 5.4 mmol/L (3.5-5.1)
[2020-06-19] MEDS: Heparin Sodium 5,000 Units/ML Vial SUBCUT SCH ×2 (06:19→19:12)
[2020-06-19] MEDS ORDERED: Docusate Sodium 100 MG Cap PO PRN (07:15)
[2020-06-19] MEDS: Insulin Aspart 100 Units/ML 3 ML Pen SUBCUT SCH ×3 (07:23→19:08)
[2020-06-19] MEDS: Pantoprazole 40 MG Tab.CR PO SCH (08:45)
[2020-06-19] MEDS: Ferrous Sulfate 325 MG Tab PO SCH ×2 (08:45→21:37)
[2020-06-19] MEDS: Sertraline 100 MG Tab PO SCH (08:45)
--- NOTE | 2020-06-19 08:45 | PCM.PN ---
<Jose Calle - Last Filed: 06/19/20 10:41> - General Info Date of Service: 06/19/20 Subjective Update: Complains of mild shortness of breath. Still has decreased appetite and has small amount of dinner yesterday. He is having bowel movements. Denies any pain. - Patient Data Vitals - Most Recent: Last Vital Signs Temp 36.4 C 06/19/20 04:00 Pulse 62 06/19/20 04:00 Resp 18 06/19/20 04:00 BP 106/53 L 06/19/20 04:00 Pulse Ox 95 06/19/20 04:00 Weight - Most Recent: 77.882 kg I&O - Last 24 Hours: Intake & Output 06/18/20 06/19/20 06/19/20 22:59 06:59 14:59 Intake Total 1056 600 Output Total 600 320 Balance 456 280 Lab Results Last 24 Hours: Laboratory Results - last 24 hr 06/18/20 06/18/20 06/19/20 Range/Units 10:16 17:35 05:04 WBC 62.85 H (4.0-11.0) K/uL RBC 4.17 L (4.50-5.90) M/uL Hgb 9.2 L (13.0-17.0) g/dL Hct 32.2 L (38.0-50.0) % MCV 77.2 L (80.0-98.0) fL MCH 22.1 L (27.0-32.0) pg MCHC 28.6 L (31.0-37.0) g/dL RDW Std Deviation 67.6 H (28.0-62.0) fl RDW Coeff of Nia 25 H (11.0-15.0) % Plt Count 274 (150-400) K/uL Add Manual Diff YES Neutrophils % (Manual) 71 (48.0-80.0) % Band Neutrophils % 10 % Lymphocytes % (Manual) 6 L (16.0-40.0) % Monocytes % (Manual) 3 (0.0-15.0) % Basophils % (Manual) 1 (0.0-1.5) % Metamyelocytes % 2 % Myelocytes % 5 % Blast Cells % 2 % Nucleated RBC % 4.0 /100WBC Absolute Seg Neuts 44.6 H (1.4-5.7) Band Neutrophils # 6.3 Lymphocytes # (Manual) 3.8 H (0.6-2.4) Monocytes # (Manual) 1.9 H (0.0-0.8) Basophils # (Manual) 0.6 H (0.0-0.1) Absolute Metamyelocyte 1.3 Absolute Myelocytes 3.1 Nucleated RBCs # 0 K/uL Absolute Blast Cells 1.3 Poikilocytosis 2+ MODERATE Tear Drop Cells 1+ SLIGHT Ovalocytes 2+ MODERATE Sodium (136-148) mmol/L Potassium (3.5-5.1) mmol/L Chloride (98-107) mmol/L Carbon Dioxide (21.0-32.0) mmol/L BUN (7.0-18.0) mg/dL Creatinine (0.8-1.3) mg/dL Est Cr Clr Drug Dosing mL/min Estimated GFR (MDRD) ml/min Glucose (74-106) mg/dL POC Glucose 126 H 106 (60-110) mg/dL Calcium (8.5-10.1) mg/dL Phosphorus (2.6-4.7) mg/dL Magnesium (1.8-2.4) mg/dL Total Bilirubin (0.2-1.0) mg/dL AST (15-37) IU/L ALT (14-63) IU/L Alkaline Phosphatase (46-116) U/L Total Protein (6.4-8.2) g/dL Albumin (3.4-5.0) g/dL Globulin (2.6-4.0) g/dL Albumin/Globulin Ratio (0.9-1.6) 06/19/20 06/19/20 Range/Units 05:04 06:22 WBC (4.0-11.0) K/uL RBC (4.50-5.90) M/uL Hgb (13.0-17.0) g/dL Hct (38.0-50.0) % MCV (80.0-98.0) fL MCH (27.0-32.0) pg MCHC (31.0-37.0) g/dL RDW Std Deviation (28.0-62.0) fl RDW Coeff of Nia (11.0-15.0) % Plt Count (150-400) K/uL Add Manual Diff Neutrophils % (Manual) (48.0-80.0) % Band Neutrophils % % Lymphocytes % (Manual) (16.0-40.0) % Monocytes % (Manual) (0.0-15.0) % Basophils % (Manual) (0.0-1.5) % Metamyelocytes % % Myelocytes % % Blast Cells % % Nucleated RBC % /100WBC Absolute Seg Neuts (1.4-5.7) Band Neutrophils # Lymphocytes # (Manual) (0.6-2.4) Monocytes # (Manual) (0.0-0.8) Basophils # (Manual) (0.0-0.1) Absolute Metamyelocyte Absolute Myelocytes Nucleated RBCs # K/uL Absolute Blast Cells Poikilocytosis Tear Drop Cells Ovalocytes Sodium 143 (136-148) mmol/L Potassium 5.4 H (3.5-5.1) mmol/L Chloride 111 H (98-107) mmol/L Carbon Dioxide 22.8 (21.0-32.0) mmol/L BUN 56 H (7.0-18.0) mg/dL Creatinine 2.5 H (0.8-1.3) mg/dL Est Cr Clr Drug Dosing 27.19 mL/min Estimated GFR (MDRD) 25.3 ml/min Glucose 110 H (74-106) mg/dL POC Glucose 105 (60-110) mg/dL Calcium 8.2 L (8.5-10.1) mg/dL Phosphorus 6.2 H (2.6-4.7) mg/dL Magnesium 2.0 (1.8-2.4) mg/dL Total Bilirubin 0.9 (0.2-1.0) mg/dL AST 26 (15-37) IU/L ALT 11 L (14-63) IU/L Alkaline Phosphatase 197 H (46-116) U/L Total Protein 6.8 (6.4-8.2) g/dL Albumin 2.9 L (3.4-5.0) g/dL Globulin 3.9 (2.6-4.0) g/dL Albumin/Globulin Ratio 0.7 L (0.9-1.6) Med Orders - Current: Current Medications Acetaminophen (Tylenol) 650 mg PO Q4H PRN PRN Reason: Pain (Mild 1-3)/fever Last Admin: 06/18/20 01:02 Dose: 650 mg Documented by: Carvedilol (Coreg) 3.125 mg PO BIDMEALS [facility] Last Admin: 06/18/20 19:16 Dose: 3.125 mg Documented by: Dextrose/Water (Dextrose 50% In Water) 50 ml IV ASDIRECTED PRN PRN Reason: Hypoglycemia Dextrose/Water (Dextrose 50% In Water) 50 ml IV ASDIRECTED PRN PRN Reason: Hypoglycemia Docusate Sodium (Colace) 100 mg PO BID PRN PRN Reason: Constipation Dronabinol (Marinol) 5 mg PO BID [facility] Last Admin: 06/18/20 20:52 Dose: 5 mg Documented by: Ferrous Sulfate (Ferrous Sulfate) 325 mg PO BID [facility] Last Admin: 06/18/20 20:52 Dose: 325 mg Documented by: Furosemide (Lasix) 40 mg IVPUSH BID [facility] Last Admin: 06/18/20 21:00 Dose: Not Given Documented by: Glucagon (Glucagen) 1 mg IM ASDIRECTED PRN PRN Reason: Hypoglycemia Heparin Sodium (Porcine) (Heparin Sodium) 5,000 units SUBCUT Q12H [facility] Last Admin: 06/19/20 06:19 Dose: 5,000 units Documented by: Ceftriaxone Sodium/Dextrose 1 (gm/ Premix) 50 mls @ 100 mls/hr IV Q24H [facility] Last Admin: 06/18/20 22:15 Dose: 100 mls/hr Documented by: Insulin Aspart (Novolog) 0 unit SUBCUT TIDAC [facility]; Protocol Last Admin: 06/19/20 07:23 Dose: Not Given Documented by: Melatonin (Melatonin) 3 mg PO BEDTIME [facility] Last Admin: 06/18/20 20:52 Dose: 3 mg Documented by: Ondansetron HCl (Zofran) 4 mg IVPUSH Q4H PRN PRN Reason: Nausea Pantoprazole Sodium (Protonix) 40 mg PO DAILY [facility] Last Admin: 06/18/20 09:14 Dose: 40 mg Documented by: Pneumococcal Polyvalent Vaccine (Pneumovax 23) 0.5 ml IM .ONCE ONE Stop: 06/20/20 17:01 Sertraline HCl (Zoloft) 100 mg PO DAILY [facility] Last Admin: 06/18/20 09:16 Dose: 100 mg Documented by: Sodium Chloride (Saline Flush) 10 ml FLUSH ASDIRECTED PRN PRN Reason: Keep Vein Open Sodium Chloride (Saline Flush) 2.5 ml FLUSH ASDIRECTED PRN PRN Reason: Keep Vein Open Last Admin: 06/18/20 12:28 Dose: 2.5 ml Documented by: Sodium Chloride (Normal Saline) 10 ml IV ASDIRECTED PRN PRN Reason: IV Use Tamsulosin HCl (Flomax) 0.4 mg PO BEDTIME [facility] Last Admin: 06/18/20 20:52 Dose: 0.4 mg Documented by: Discontinued Medications Docusate Sodium (Colace) 100 mg PO BID [facility] Last Admin: 06/18/20 21:01 Dose: Not Given Documented by: Enoxaparin Sodium (Lovenox) 30 mg SUBCUT Q24H [facility] Last Admin: 06/17/20 17:08 Dose: 30 mg Documented by: Furosemide (Lasix) 80 mg IVPUSH NOW ONE Stop: 06/17/20 19:16 Last Admin: 06/17/20 20:45 Dose: 80 mg Documented by: Furosemide (Lasix) 120 mg IVPUSH NOW ONE Stop: 06/18/20 08:17 Last Admin: 06/18/20 09:21 Dose: 120 mg Documented by: Furosemide (Lasix) 120 mg IVPUSH NOW ONE Stop: 06/18/20 20:07 Last Admin: 06/18/20 20:52 Dose: 120 mg Documented by: Albumin Human (Flexbumin 25%) 12.5 gm in 50 mls @ 100 mls/hr IV ONETIME ONE Stop: 06/18/20 12:33 Last Admin: 06/18/20 12:30 Dose: 100 mls/hr Documented by: Albumin Human (Flexbumin 25%) 12.5 gm in 50 mls @ 100 mls/hr IV ONETIME ONE Stop: 06/18/20 19:49 Last Admin: 06/18/20 20:52 Dose: 100 mls/hr Documented by: Insulin Detemir (Levemir) 12 unit SUBCUT BEDTIME [facility] Last Admin: 06/17/20 21:01 Dose: Not Given Documented by: Insulin Glargine (Lantus Solostar) 12 units SUBCUT BEDTIME [facility] Metolazone (Zaroxolyn) 2.5 mg PO ONETIME ONE Stop: 06/18/20 09:01 Last Admin: 06/18/20 09:16 Dose: 2.5 mg Documented by: - Exam General: Alert, Oriented, Cooperative, No Acute Distress Lungs: Normal Respiratory Effort, Other (mild rales in bases b/l) Cardiovascular: Regular Rate, Regular Rhythm GI/Abdominal Exam: Normal Bowel Sounds, Soft, Non-Tender, No Distention, Other (Wound vac in place.) Extremities: Other (1+ pitting edema b/l) Sepsis Event Note - Evaluation Sepsis Screening Result: No Definite Risk - Focused Exam Vital Signs: Vital Signs Temp Pulse Resp BP Pulse Ox 06/19/20 04:00 36.4 C 62 18 106/53 L 95 06/18/20 23:40 36.6 C 81 18 98/54 L 93 L 06/18/20 20:49 80 109/53 L - Problem List & Annotations (1) CHF (congestive heart failure) SNOMED Code(s): 73733108 Code(s): I50.9 - HEART FAILURE, UNSPECIFIED Status: Acute Current Visit: No (2) HTN (hypertension) SNOMED Code(s): 89884442 Code(s): I10 - ESSENTIAL (PRIMARY) HYPERTENSION Status: Acute Current Visit: Yes (3) Hx of CABG SNOMED Code(s): 068344900, 353071848 Code(s): Z95.1 - PRESENCE OF AORTOCORONARY BYPASS GRAFT Status: Acute Current Visit: Yes (4) Pacemaker SNOMED Code(s): 193115495 Code(s): Z95.0 - PRESENCE OF CARDIAC PACEMAKER Status: Acute Current Visit: Yes (5) Diabetes mellitus SNOMED Code(s): 87421038 Code(s): E11.9 - TYPE 2 DIABETES MELLITUS WITHOUT COMPLICATIONS Status: Acute Current Visit: No (6) Essential thrombocythemia SNOMED Code(s): 004174146 Code(s): D47.3 - ESSENTIAL (HEMORRHAGIC) THROMBOCYTHEMIA Status: Acute Current Visit: No - Problem List Review Problem List Initiated/Reviewed/Updated: Yes - My Orders Last 24 Hours: My Active Orders 06/18/20 09:00 Pantoprazole [ProTONIX] 40 mg PO DAILY Sertraline [Zoloft] 100 mg PO DAILY 06/18/20 11:11 Wound Vac Management [OM.PC] Routine 06/19/20 07:15 Docusate Sodium [Colace] 100 mg PO BID PRN 06/20/20 05:11 CBC WITH AUTO DIFF [HEME] AM COMPREHENSIVE METABOLIC PN,CMP [CHEM] AM MAGNESIUM [CHEM] AM PHOSPHORUS [CHEM] AM - Plan Plan:: Assessment and Plan: 1. Acute systolic CHF exacerbation: - Continue supplemental oxygen prn. Weight is down slightly with 2 lbs weight loss. Yesterday, patient given albumin 12.5 g x 2, metolazone and IV lasix 120 mg. Patient continues to not have as much urine output as expected. Will give additional 12.5 g of albumin today. Cardiology following. Will contact can dryer for recommendations. - Continue strict I's and O's, daily standing weight, fluid restrict < 2L per day and low sodium 2 g per day. CXR showed slightly improved edema from last exam. ECHO showed LVEF 40% and moderate to severe right ventricle systolic pressure. 2. FRANCINE on CKD: - Suspected cardiorenal syndrome. Creatinine increased to 2.5 from 2.3 yesterday. 3. Hyperkalemia: - Will continue to monitor. 4. Hypoalbuminemia secondary to protein calorie malnutrition: - Given IV albumin 12.5 g today. 5. UTI: - Patient on Rocephin. 6. Deconditioning: - Consult PT. 7. Diabetes mellitus type II: - Will hold long-acting insulin for now as patient is not eating much. Continue Novolog SSI and accuchecks TIDAC. ADA diet ordered. 8. DVT prophylaxis: - Heparin 5000 units subcut q12. 9. Past medical history of HTN, essential thrombocythemia, NSTEMI s/p CABG, s/p pacemaker, and abdominal wall infection s/p wound vac: - Continue home medications. - Wound vac nurse consulted. - Wound care consulted. <Vee Fernandez - Last Filed: 06/24/20 12:47> - Patient Data Vitals - Most Recent: Last Vital Signs Temp 36.4 C 06/24/20 12:00 Pulse 78 06/24/20 12:00 Resp 20 06/24/20 12:00 BP 90/44 L 06/24/20 12:00 Pulse Ox 92 L 06/24/20 12:00 I&O - Last 24 Hours: Intake & Output 06/23/20 06/24/20 06/24/20 22:59 06:59 14:59 Intake Total 360 740 Output Total 400 250 Balance -40 490 Lab Results Last 24 Hours: Laboratory Results - last 24 hr 06/23/20 06/24/20 06/24/20 Range/Units 17:37 05:47 05:47 WBC 61.83 H (4.0-11.0) K/uL RBC 3.84 L (4.50-5.90) M/uL Hgb 8.5 L (13.0-17.0) g/dL Hct 29.4 L (38.0-50.0) % MCV 76.6 L (80.0-98.0) fL MCH 22.1 L (27.0-32.0) pg MCHC 28.9 L (31.0-37.0) g/dL RDW Std Deviation 66.8 H (28.0-62.0) fl RDW Coeff of Nia 25 H (11.0-15.0) % Plt Count 246 (150-400) K/uL MPV (7.40-12.00) fL Add Manual Diff YES Neutrophils % (Manual) 72 (48.0-80.0) % Band Neutrophils % 3 % Lymphocytes % (Manual) 11 L (16.0-40.0) % Monocytes % (Manual) 3 (0.0-15.0) % Eosinophils % (Manual) 1 (0.0-7.0) % Basophils % (Manual) 5 H (0.0-1.5) % Metamyelocytes % 2 % Myelocytes % 2 % Blast Cells % 1 % Nucleated RBC % 5.4 /100WBC Absolute Seg Neuts 44.5 H (1.4-5.7) Band Neutrophils # 1.9 Lymphocytes # (Manual) 6.8 H (0.6-2.4) Monocytes # (Manual) 1.9 H (0.0-0.8) Eosinophils # (Manual) 0.6 (0.0-0.7) Basophils # (Manual) 3.1 H (0.0-0.1) Absolute Metamyelocyte 1.2 Absolute Myelocytes 1.2 Nucleated RBCs 7 % Nucleated RBCs # 1 K/uL Absolute Blast Cells 0.6 Poikilocytosis 2+ MODERATE Sodium 143 (136-148) mmol/L Potassium 4.6 (3.5-5.1) mmol/L Chloride 107 (98-107) mmol/L Carbon Dioxide 28.4 (21.0-32.0) mmol/L BUN 59 H (7.0-18.0) mg/dL Creatinine 2.3 H (0.8-1.3) mg/dL Est Cr Clr Drug Dosing 29.56 mL/min Estimated GFR (MDRD) 27.9 ml/min Glucose 117 H (74-106) mg/dL POC Glucose 153 H (60-110) mg/dL Calcium 8.4 L (8.5-10.1) mg/dL Magnesium (1.8-2.4) mg/dL Total Bilirubin 1.1 H (0.2-1.0) mg/dL AST 30 (15-37) IU/L ALT 7 L (14-63) IU/L Alkaline Phosphatase 156 H (46-116) U/L Total Protein 6.9 (6.4-8.2) g/dL Albumin 2.8 L (3.4-5.0) g/dL Globulin 4.1 H (2.6-4.0) g/dL Albumin/Globulin Ratio 0.7 L (0.9-1.6) 06/24/20 06/24/20 06/24/20 Range/Units 05:47 06:03 12:05 WBC (4.0-11.0) K/uL RBC (4.50-5.90) M/uL Hgb (13.0-17.0) g/dL Hct (38.0-50.0) % MCV (80.0-98.0) fL MCH (27.0-32.0) pg MCHC (31.0-37.0) g/dL RDW Std Deviation (28.0-62.0) fl RDW Coeff of Nia (11.0-15.0) % Plt Count (150-400) K/uL MPV (7.40-12.00) fL Add Manual Diff Neutrophils % (Manual) (48.0-80.0) % Band Neutrophils % % Lymphocytes % (Manual) (16.0-40.0) % Monocytes % (Manual) (0.0-15.0) % Eosinophils % (Manual) (0.0-7.0) % Basophils % (Manual) (0.0-1.5) % Metamyelocytes % % Myelocytes % % Blast Cells % % Nucleated RBC % /100WBC Absolute Seg Neuts (1.4-5.7) Band Neutrophils # Lymphocytes # (Manual) (0.6-2.4) Monocytes # (Manual) (0.0-0.8) Eosinophils # (Manual) (0.0-0.7) Basophils # (Manual) (0.0-0.1) Absolute Metamyelocyte Absolute Myelocytes Nucleated RBCs % Nucleated RBCs # K/uL Absolute Blast Cells Poikilocytosis Sodium (136-148) mmol/L Potassium (3.5-5.1) mmol/L Chloride (98-107) mmol/L Carbon Dioxide (21.0-32.0) mmol/L BUN (7.0-18.0) mg/dL Creatinine (0.8-1.3) mg/dL Est Cr Clr Drug Dosing mL/min Estimated GFR (MDRD) ml/min Glucose (74-106) mg/dL POC Glucose 117 H 134 H (60-110) mg/dL Calcium (8.5-10.1) mg/dL Magnesium 1.7 L (1.8-2.4) mg/dL Total Bilirubin (0.2-1.0) mg/dL AST (15-37) IU/L ALT (14-63) IU/L Alkaline Phosphatase (46-116) U/L Total Protein (6.4-8.2) g/dL Albumin (3.4-5.0) g/dL Globulin (2.6-4.0) g/dL Albumin/Globulin Ratio (0.9-1.6) Med Orders - Current: Current Medications Acetaminophen (Tylenol) 650 mg PO Q4H PRN PRN Reason: Pain (Mild 1-3)/fever Last Admin: 06/21/20 21:03 Dose: 650 mg Documented by: Carvedilol (Coreg) 3.125 mg PO BIDMEALS [facility] Last Admin: 06/24/20 08:45 Dose: 3.125 mg Documented by: Dextrose/Water (Dextrose 50% In Water) 50 ml IV ASDIRECTED PRN PRN Reason: Hypoglycemia Dextrose/Water (Dextrose 50% In Water) 50 ml IV ASDIRECTED PRN PRN Reason: Hypoglycemia Docusate Sodium (Colace) 100 mg PO BID PRN PRN Reason: Constipation Dronabinol (Marinol) 5 mg PO BID [facility] Last Admin: 06/24/20 08:46 Dose: 5 mg Documented by: Ferrous Sulfate (Ferrous Sulfate) 325 mg PO BID [facility] Last Admin: 06/24/20 08:47 Dose: 325 mg Documented by: Fluconazole (Diflucan) 100 mg PO DAILY [facility] Last Admin: 06/24/20 08:46 Dose: 100 mg Documented by: Furosemide (Lasix) 40 mg IVPUSH Q6HR [facility] Glucagon (Glucagen) 1 mg IM ASDIRECTED PRN PRN Reason: Hypoglycemia Heparin Sodium (Porcine) (Heparin Sodium) 5,000 units SUBCUT Q12H [facility] Last Admin: 06/24/20 06:35 Dose: 5,000 units Documented by: Insulin Aspart (Novolog) 0 unit SUBCUT TIDAC [facility]; Protocol Last Admin: 06/24/20 12:26 Dose: Not Given Documented by: Melatonin (Melatonin) 3 mg PO BEDTIME [facility] Last Admin: 06/23/20 20:29 Dose: 3 mg Documented by: Ondansetron HCl (Zofran) 4 mg IVPUSH Q4H PRN PRN Reason: Nausea Pantoprazole Sodium (Protonix) 40 mg PO DAILY [facility] Last Admin: 06/24/20 08:47 Dose: 40 mg Documented by: Sertraline HCl (Zoloft) 100 mg PO DAILY [facility] Last Admin: 06/24/20 08:46 Dose: 100 mg Documented by: Sodium Chloride (Saline Flush) 10 ml FLUSH ASDIRECTED PRN PRN Reason: Keep Vein Open Sodium Chloride (Saline Flush) 2.5 ml FLUSH ASDIRECTED PRN PRN Reason: Keep Vein Open Last Admin: 06/22/20 08:40 Dose: 2.5 ml Documented by: Sodium Chloride (Normal Saline) 10 ml IV ASDIRECTED PRN PRN Reason: IV Use Tamsulosin HCl (Flomax) 0.4 mg PO BEDTIME [facility] Last Admin: 06/23/20 20:28 Dose: 0.4 mg Documented by: Discontinued Medications Docusate Sodium (Colace) 100 mg PO BID [facility] Last Admin: 06/18/20 21:01 Dose: Not Given Documented by: Enoxaparin Sodium (Lovenox) 30 mg SUBCUT Q24H [facility] Last Admin: 06/17/20 17:08 Dose: 30 mg Documented by: Furosemide (Lasix) 40 mg IVPUSH BID [facility] Last Admin: 06/19/20 08:47 Dose: 40 mg Documented by: Furosemide (Lasix) 80 mg IVPUSH NOW ONE Stop: 06/17/20 19:16 Last Admin: 06/17/20 20:45 Dose: 80 mg Documented by: Furosemide (Lasix) 120 mg IVPUSH NOW ONE Stop: 06/18/20 08:17 Last Admin: 06/18/20 09:21 Dose: 120 mg Documented by: Furosemide (Lasix) 120 mg IVPUSH NOW ONE Stop: 06/18/20 20:07 Last Admin: 06/18/20 20:52 Dose: 120 mg Documented by: Furosemide (Lasix) 40 mg IVPUSH NOW ONE Stop: 06/19/20 14:01 Furosemide (Lasix) 40 mg IVPUSH Q8H [facility] Furosemide (Lasix) 40 mg IVPUSH Q6H [facility] Last Admin: 06/23/20 09:12 Dose: 40 mg Documented by: Furosemide (Lasix) 40 mg IV Q8H [facility] Last Admin: 06/23/20 12:01 Dose: Not Given Documented by: Furosemide (Lasix) 40 mg IV Q8H [facility] Furosemide (Lasix) Confirm Administered Dose 40 mg .ROUTE .STK-MED ONE Stop: 06/23/20 17:10 Last Admin: 06/23/20 17:26 Dose: Not Given Documented by: Furosemide (Lasix) 40 mg IVPUSH Q8H [facility] Last Admin: 06/24/20 08:46 Dose: 40 mg Documented by: Ceftriaxone Sodium/Dextrose 1 (gm/ Premix) 50 mls @ 100 mls/hr IV Q24H [facility] Last Admin: 06/18/20 22:15 Dose: 100 mls/hr Documented by: Albumin Human (Flexbumin 25%) 12.5 gm in 50 mls @ 100 mls/hr IV ONETIME ONE Stop: 06/18/20 12:33 Last Admin: 06/18/20 12:30 Dose: 100 mls/hr Documented by: Albumin Human (Flexbumin 25%) 12.5 gm in 50 mls @ 100 mls/hr IV ONETIME ONE Stop: 06/18/20 19:49 Last Admin: 06/18/20 20:52 Dose: 100 mls/hr Documented by: Albumin Human (Flexbumin 25%) 12.5 gm in 50 mls @ 100 mls/hr IV ONETIME ONE Stop: 06/19/20 10:16 Last Admin: 06/19/20 10:44 Dose: 100 mls/hr Documented by: Furosemide 480 mg/ Sodium (Chloride) 250 mls @ 10.417 mls/hr IV Q24H [facility] Stop: 06/20/20 12:59 Last Admin: 06/19/20 13:10 Dose: 20 mg/hr, 10.417 mls/hr Documented by: Furosemide 240 mg/ Premix 24 mls @ 1 mls/hr IV Q24H [facility] Stop: 06/21/20 13:29 Last Admin: 06/20/20 14:21 Dose: 10 mg/hr, 1 mls/hr Documented by: Sodium Chloride (Normal Saline) 500 mls @ 5 mls/hr IV ASDIRECTED [facility] Sodium Chloride (Normal Saline) 500 mls @ 5 mls/hr IV ASDIRECTED [facility] Last Admin: 06/20/20 20:05 Dose: 5 mls/hr Documented by: Furosemide 40 mg/ Sodium (Chloride) 54 mls @ 100 mls/hr IV Q8H [facility] Last Admin: 06/24/20 00:55 Dose: 100 mls/hr Documented by: Insulin Detemir (Levemir) 12 unit SUBCUT BEDTIME [facility] Last Admin: 06/17/20 21:01 Dose: Not Given Documented by: Insulin Glargine (Lantus Solostar) 12 units SUBCUT BEDTIME [facility] Metolazone (Zaroxolyn) 2.5 mg PO ONETIME ONE Stop: 06/18/20 09:01 Last Admin: 06/18/20 09:16 Dose: 2.5 mg Documented by: Pneumococcal Polyvalent Vaccine (Pneumovax 23) 0.5 ml IM .ONCE ONE Stop: 06/20/20 17:01 Last Admin: 06/20/20 23:42 Dose: Not Given Documented by: Pneumococcal Polyvalent Vaccine (Pneumovax 23) 0.5 ml IM .ONCE ONE Stop: 06/21/20 09:01 Sodium Polystyrene Sulfonate (Kayexalate) 15 gm PO ONETIME ONE Stop: 06/20/20 11:31 Last Admin: 06/20/20 12:35 Dose: 15 gm Documented by: Sepsis Event Note - Focused Exam Vital Signs: Vital Signs Temp Pulse Pulse Resp BP BP BP 06/24/20 12:00 36.4 C 78 20 90/44 L 06/24/20 11:00 06/24/20 08:45 82 119/54 L 06/24/20 08:00 36.9 C 82 18 119/54 L 06/24/20 04:00 36.5 C 80 18 99/59 L Pulse Ox Pulse Ox 06/24/20 12:00 92 L 06/24/20 11:00 93 L 06/24/20 08:45 06/24/20 08:00 93 L 06/24/20 04:00 96 - Plan Plan:: I have seen and evaluated the patient and agree with the residents note unless specified in my note
[2020-06-19] MEDS: Dronabinol 2.5 MG Cap PO SCH ×2 (08:46→21:37)
[2020-06-19] MEDS: Carvedilol 3.125 MG Tab PO SCH ×2 (08:46→19:09)
[2020-06-19] MEDS: Furosemide 40 MG/4 ML VIAL IVPUSH SCH (08:47)
[2020-06-19] MEDS ORDERED: Albumin 25% 12.5 GM/50 ML BAG IV ONE (09:47)
[2020-06-19] MEDS ORDERED: SODIUM CHLORIDE 0.9% IV SCH (13:00)
[2020-06-19] MEDS ORDERED: FUROSEMIDE IV SCH (13:00)
--- NOTE | 2020-06-19 13:25 | US ---
INDICATION: Acute on chronic renal injury. Possible acute tubular necrosis. COMPARISON: CT of the abdomen and pelvis from 06/09/2020 TECHNIQUE: Limited ultrasound examination of the retroperitoneum was performed with attention to the kidneys. FINDINGS: There is a simple cyst arising from the interpolar region of the left kidney measuring 2.9 centimeters in diameter. This correlates well with the appearance on CT. The kidneys are otherwise normal in their size, shape, and location. Cortical thickness is normal. There is mildly increased renal cortical echogenicity, with the echogenicity of the right kidney identical to that of the adjacent liver, findings of mild medical renal disease. There is no sign of hydronephrosis. The right kidney measures 10.9 x 5.2 x 6.9 cm. The left kidney measures 9.0 x 5.4 x 5.1 cm. There is normal color and pulse doppler flow in both kidneys. The spleen does appear to be enlarged, as seen on the CT of the abdomen. Images of the area of the urinary bladder are not included on today`s study. The patient has a Kim catheter in place. IMPRESSION: Findings of mild medical renal disease with mildly increased renal cortical echogenicity and normal cortical thickness. No sign of hydronephrosis. Simple cyst arising from the interpolar left kidney measuring 2.9 centimeters in diameter. Urinary bladder not examined. A Kim catheter is in place. Dictated by Corby Ugarte MD @ Jun 19 2020 1:17PM Signed by Dr. Corby Ugarte @ Jun 19 2020 1:24PM
[2020-06-19] MEDS ORDERED: Furosemide 40 MG/4 ML VIAL IVPUSH ONE (14:00)
[2020-06-19] MEDS: Fluconazole 100 MG Tab PO SCH (14:57)
[2020-06-19] MEDS: Tamsulosin 0.4 MG Cap.ER PO SCH (21:37)
[2020-06-19] MEDS: Melatonin 3 MG Tab PO SCH (21:37)
[2020-06-20] MEDS: Heparin Sodium 5,000 Units/ML Vial SUBCUT SCH ×2 (06:29→18:30)
[2020-06-20 06:37] LABS: CARBON DIOXIDE,CO2 22.3 mmol/L (21.0-32.0)
[2020-06-20] MEDS: Insulin Aspart 100 Units/ML 3 ML Pen SUBCUT SCH ×3 (06:38→18:29)
--- NOTE | 2020-06-20 07:58 | PCM.PN ---
- General Info Date of Service: 06/20/20 Subjective Update: Reports sleeping well overnight and feeling less short of breath. Reports eating a bit of cereal and apple juice yesterday. - Patient Data Vitals - Most Recent: Last Vital Signs Temp 35.9 C L 06/20/20 04:10 Pulse 80 06/20/20 04:10 Resp 19 06/20/20 04:10 BP 114/57 L 06/20/20 04:10 Pulse Ox 94 L 06/20/20 04:10 Weight - Most Recent: 78.381 kg I&O - Last 24 Hours: Intake & Output 06/19/20 06/20/20 06/20/20 22:59 06:59 14:59 Intake Total 240 400 Output Total 350 800 Balance -110 -400 Lab Results Last 24 Hours: Laboratory Results - last 24 hr 06/19/20 06/19/20 06/20/20 Range/Units 11:27 17:25 05:26 WBC 60.87 H (4.0-11.0) K/uL RBC 4.16 L (4.50-5.90) M/uL Hgb 9.2 L (13.0-17.0) g/dL Hct 32.0 L (38.0-50.0) % MCV 76.9 L (80.0-98.0) fL MCH 22.1 L (27.0-32.0) pg MCHC 28.8 L (31.0-37.0) g/dL RDW Std Deviation 67.2 H (28.0-62.0) fl RDW Coeff of Nia 25 H (11.0-15.0) % Plt Count 251 (150-400) K/uL Add Manual Diff YES Neutrophils % (Manual) 55 (48.0-80.0) % Band Neutrophils % 15 % Lymphocytes % (Manual) 12 L (16.0-40.0) % Monocytes % (Manual) 5 (0.0-15.0) % Basophils % (Manual) 1 (0.0-1.5) % Metamyelocytes % 3 % Myelocytes % 7 % Blast Cells % 2 % Nucleated RBC % 3.1 /100WBC Absolute Seg Neuts 33.5 H (1.4-5.7) Band Neutrophils # 9.1 Lymphocytes # (Manual) 7.3 H (0.6-2.4) Monocytes # (Manual) 3.0 H (0.0-0.8) Basophils # (Manual) 0.6 H (0.0-0.1) Absolute Metamyelocyte 1.8 Absolute Myelocytes 4.3 Nucleated RBCs # 0 K/uL Absolute Blast Cells 1.2 Sodium (136-148) mmol/L Potassium (3.5-5.1) mmol/L Chloride (98-107) mmol/L Carbon Dioxide (21.0-32.0) mmol/L BUN (7.0-18.0) mg/dL Creatinine (0.8-1.3) mg/dL Est Cr Clr Drug Dosing mL/min Estimated GFR (MDRD) ml/min Glucose (74-106) mg/dL POC Glucose 106 108 (60-110) mg/dL Calcium (8.5-10.1) mg/dL Phosphorus (2.6-4.7) mg/dL Magnesium (1.8-2.4) mg/dL Total Bilirubin (0.2-1.0) mg/dL AST (15-37) IU/L ALT (14-63) IU/L Alkaline Phosphatase (46-116) U/L Total Protein (6.4-8.2) g/dL Albumin (3.4-5.0) g/dL Globulin (2.6-4.0) g/dL Albumin/Globulin Ratio (0.9-1.6) 06/20/20 06/20/20 Range/Units 05:26 06:06 WBC (4.0-11.0) K/uL RBC (4.50-5.90) M/uL Hgb (13.0-17.0) g/dL Hct (38.0-50.0) % MCV (80.0-98.0) fL MCH (27.0-32.0) pg MCHC (31.0-37.0) g/dL RDW Std Deviation (28.0-62.0) fl RDW Coeff of Nia (11.0-15.0) % Plt Count (150-400) K/uL Add Manual Diff Neutrophils % (Manual) (48.0-80.0) % Band Neutrophils % % Lymphocytes % (Manual) (16.0-40.0) % Monocytes % (Manual) (0.0-15.0) % Basophils % (Manual) (0.0-1.5) % Metamyelocytes % % Myelocytes % % Blast Cells % % Nucleated RBC % /100WBC Absolute Seg Neuts (1.4-5.7) Band Neutrophils # Lymphocytes # (Manual) (0.6-2.4) Monocytes # (Manual) (0.0-0.8) Basophils # (Manual) (0.0-0.1) Absolute Metamyelocyte Absolute Myelocytes Nucleated RBCs # K/uL Absolute Blast Cells Sodium 143 (136-148) mmol/L Potassium 5.0 (3.5-5.1) mmol/L Chloride 110 H (98-107) mmol/L Carbon Dioxide 22.3 (21.0-32.0) mmol/L BUN 53 H (7.0-18.0) mg/dL Creatinine 2.5 H (0.8-1.3) mg/dL Est Cr Clr Drug Dosing 27.19 mL/min Estimated GFR (MDRD) 25.3 ml/min Glucose 95 (74-106) mg/dL POC Glucose 100 (60-110) mg/dL Calcium 8.3 L (8.5-10.1) mg/dL Phosphorus 5.8 H (2.6-4.7) mg/dL Magnesium 2.1 (1.8-2.4) mg/dL Total Bilirubin 1.1 H (0.2-1.0) mg/dL AST 24 (15-37) IU/L ALT 13 L (14-63) IU/L Alkaline Phosphatase 176 H (46-116) U/L Total Protein 6.7 (6.4-8.2) g/dL Albumin 2.9 L (3.4-5.0) g/dL Globulin 3.8 (2.6-4.0) g/dL Albumin/Globulin Ratio 0.8 L (0.9-1.6) Tai Results Last 24 Hours: Microbiology 06/17/20 18:55 Urine Culture - Final Urine, Clean Catch YEAST Med Orders - Current: Current Medications Acetaminophen (Tylenol) 650 mg PO Q4H PRN PRN Reason: Pain (Mild 1-3)/fever Last Admin: 06/18/20 01:02 Dose: 650 mg Documented by: Carvedilol (Coreg) 3.125 mg PO BIDMEALS [facility] Last Admin: 06/19/20 19:09 Dose: 3.125 mg Documented by: Dextrose/Water (Dextrose 50% In Water) 50 ml IV ASDIRECTED PRN PRN Reason: Hypoglycemia Dextrose/Water (Dextrose 50% In Water) 50 ml IV ASDIRECTED PRN PRN Reason: Hypoglycemia Docusate Sodium (Colace) 100 mg PO BID PRN PRN Reason: Constipation Dronabinol (Marinol) 5 mg PO BID [facility] Last Admin: 06/19/20 21:37 Dose: 5 mg Documented by: Ferrous Sulfate (Ferrous Sulfate) 325 mg PO BID [facility] Last Admin: 06/19/20 21:37 Dose: 325 mg Documented by: Fluconazole (Diflucan) 100 mg PO DAILY [facility] Last Admin: 06/19/20 14:57 Dose: 100 mg Documented by: Glucagon (Glucagen) 1 mg IM ASDIRECTED PRN PRN Reason: Hypoglycemia Heparin Sodium (Porcine) (Heparin Sodium) 5,000 units SUBCUT Q12H [facility] Last Admin: 06/20/20 06:29 Dose: 5,000 units Documented by: Furosemide 480 mg/ Sodium (Chloride) 250 mls @ 10.417 mls/hr IV Q24H [facility] Stop: 06/20/20 12:59 Last Admin: 06/19/20 13:10 Dose: 20 mg/hr, 10.417 mls/hr Documented by: Insulin Aspart (Novolog) 0 unit SUBCUT TIDAC [facility]; Protocol Last Admin: 06/20/20 06:38 Dose: Not Given Documented by: Melatonin (Melatonin) 3 mg PO BEDTIME [facility] Last Admin: 06/19/20 21:37 Dose: 3 mg Documented by: Ondansetron HCl (Zofran) 4 mg IVPUSH Q4H PRN PRN Reason: Nausea Pantoprazole Sodium (Protonix) 40 mg PO DAILY [facility] Last Admin: 06/19/20 08:45 Dose: 40 mg Documented by: Pneumococcal Polyvalent Vaccine (Pneumovax 23) 0.5 ml IM .ONCE ONE Stop: 06/20/20 17:01 Sertraline HCl (Zoloft) 100 mg PO DAILY [facility] Last Admin: 06/19/20 08:45 Dose: 100 mg Documented by: Sodium Chloride (Saline Flush) 10 ml FLUSH ASDIRECTED PRN PRN Reason: Keep Vein Open Sodium Chloride (Saline Flush) 2.5 ml FLUSH ASDIRECTED PRN PRN Reason: Keep Vein Open Last Admin: 06/18/20 12:28 Dose: 2.5 ml Documented by: Sodium Chloride (Normal Saline) 10 ml IV ASDIRECTED PRN PRN Reason: IV Use Tamsulosin HCl (Flomax) 0.4 mg PO BEDTIME [facility] Last Admin: 06/19/20 21:37 Dose: 0.4 mg Documented by: Discontinued Medications Docusate Sodium (Colace) 100 mg PO BID [facility] Last Admin: 06/18/20 21:01 Dose: Not Given Documented by: Enoxaparin Sodium (Lovenox) 30 mg SUBCUT Q24H [facility] Last Admin: 06/17/20 17:08 Dose: 30 mg Documented by: Furosemide (Lasix) 40 mg IVPUSH BID [facility] Last Admin: 06/19/20 08:47 Dose: 40 mg Documented by: Furosemide (Lasix) 80 mg IVPUSH NOW ONE Stop: 06/17/20 19:16 Last Admin: 06/17/20 20:45 Dose: 80 mg Documented by: Furosemide (Lasix) 120 mg IVPUSH NOW ONE Stop: 06/18/20 08:17 Last Admin: 06/18/20 09:21 Dose: 120 mg Documented by: Furosemide (Lasix) 120 mg IVPUSH NOW ONE Stop: 06/18/20 20:07 Last Admin: 06/18/20 20:52 Dose: 120 mg Documented by: Furosemide (Lasix) 40 mg IVPUSH NOW ONE Stop: 06/19/20 14:01 Ceftriaxone Sodium/Dextrose 1 (gm/ Premix) 50 mls @ 100 mls/hr IV Q24H [facility] Last Admin: 06/18/20 22:15 Dose: 100 mls/hr Documented by: Albumin Human (Flexbumin 25%) 12.5 gm in 50 mls @ 100 mls/hr IV ONETIME ONE Stop: 06/18/20 12:33 Last Admin: 06/18/20 12:30 Dose: 100 mls/hr Documented by: Albumin Human (Flexbumin 25%) 12.5 gm in 50 mls @ 100 mls/hr IV ONETIME ONE Stop: 06/18/20 19:49 Last Admin: 06/18/20 20:52 Dose: 100 mls/hr Documented by: Albumin Human (Flexbumin 25%) 12.5 gm in 50 mls @ 100 mls/hr IV ONETIME ONE Stop: 06/19/20 10:16 Last Admin: 06/19/20 10:44 Dose: 100 mls/hr Documented by: Insulin Detemir (Levemir) 12 unit SUBCUT BEDTIME [facility] Last Admin: 06/17/20 21:01 Dose: Not Given Documented by: Insulin Glargine (Lantus Solostar) 12 units SUBCUT BEDTIME [facility] Metolazone (Zaroxolyn) 2.5 mg PO ONETIME ONE Stop: 06/18/20 09:01 Last Admin: 06/18/20 09:16 Dose: 2.5 mg Documented by: - Exam General: Alert, Oriented, Cooperative, No Acute Distress Lungs: Normal Respiratory Effort, Other (rales in lung bases b/l) Cardiovascular: Regular Rate, Tachycardia GI/Abdominal Exam: Normal Bowel Sounds, Soft, Non-Tender, No Distention, Other (wound vac in place) Extremities: Other (1+ pitting edema b/l) Wound/Incisions: Other (Left foot big toe: 0.50 cm x 0.5 cm black eschar with surrounding mild erythema) Sepsis Event Note - Evaluation Sepsis Screening Result: No Definite Risk - Focused Exam Vital Signs: Vital Signs Temp Pulse Resp BP Pulse Ox 06/20/20 04:10 35.9 C L 80 19 114/57 L 94 L 06/19/20 23:48 35.9 C L 82 18 100/56 L 90 L 06/19/20 20:00 36.1 C 79 19 121/57 L 92 L - Problem List & Annotations (1) CHF (congestive heart failure) SNOMED Code(s): 09214448 Code(s): I50.9 - HEART FAILURE, UNSPECIFIED Status: Acute Current Visit: No (2) HTN (hypertension) SNOMED Code(s): 31891536 Code(s): I10 - ESSENTIAL (PRIMARY) HYPERTENSION Status: Acute Current Visit: Yes (3) Hx of CABG SNOMED Code(s): 073696330, 215631232 Code(s): Z95.1 - PRESENCE OF AORTOCORONARY BYPASS GRAFT Status: Acute Current Visit: Yes (4) Pacemaker SNOMED Code(s): 274000489 Code(s): Z95.0 - PRESENCE OF CARDIAC PACEMAKER Status: Acute Current Visit: Yes (5) Diabetes mellitus SNOMED Code(s): 48711197 Code(s): E11.9 - TYPE 2 DIABETES MELLITUS WITHOUT COMPLICATIONS Status: Acute Current Visit: No (6) Essential thrombocythemia SNOMED Code(s): 715134625 Code(s): D47.3 - ESSENTIAL (HEMORRHAGIC) THROMBOCYTHEMIA Status: Acute Current Visit: No - Problem List Review Problem List Initiated/Reviewed/Updated: Yes - My Orders Last 24 Hours: My Active Orders 06/19/20 07:15 Docusate Sodium [Colace] 100 mg PO BID PRN 06/19/20 11:49 Consult to Hostess [CONS] Routine 06/19/20 14:30 Fluconazole [Diflucan] 100 mg PO DAILY - Plan Plan:: Assessment and Plan: 1. Acute systolic CHF exacerbation: - Continue supplemental oxygen prn. Cardiology following. Yesterday, automatic screwmaker Dr. Bonilla at [facility] in [place], [place] contacted for recommendations regarding suspected cardiorenal syndrome. Nephrology recommended starting lasix drip 20 mg/hr for 24 hours and then decrease rate to 10 mg/hr and run for additional 24 hours. Can then transition to PO lasix 40 mg TID thereafter. Nephrology follow-up recommended once patient is discharge. Per nursing, urine output is ~1575 mL since lasix drip started yesterday. - Renal ultrasound showed mild medical renal disease. - Continue strict I's and O's, daily standing weight, fluid restrict < 2L per day and low sodium 2 g per day. Admission CXR showed slightly improved edema from last exam. ECHO showed LVEF 40% and moderate to severe right ventricle systolic pressure. 2. FRANCINE on CKD: - Suspected cardiorenal syndrome. Creatinine stable at 2.5 from yesterday. 3. Hyperkalemia, resolved: - Per automatic screwmaker, give Kayexalate 15 g x 1 today keep potassium level down. 4. Hypoalbuminemia secondary to protein calorie malnutrition. 5. Left foot great toe wound: - Per wound care nurse, general surgery consult recommended. 6. UTI: - Urine culture grew yeast. Patient started on PO fluconazole 100 mg qd. 7. Deconditioning: - PT consulted. 8. Diabetes mellitus type II: - Long-acting insulin held for now as patient is not eating much. Continue Novolog SSI and accuchecks TIDAC. ADA diet ordered. 9. DVT prophylaxis: - Heparin 5000 units subcut q12. 10. Past medical history of HTN, essential thrombocythemia, NSTEMI s/p CABG, s/p pacemaker, and abdominal wall infection s/p wound vac: - Continue home medications. - Wound vac nurse consulted. - Wound care consulted.
[2020-06-20] MEDS: Carvedilol 3.125 MG Tab PO SCH ×2 (08:07→17:00)
[2020-06-20] MEDS: Dronabinol 2.5 MG Cap PO SCH ×2 (08:07→20:21)
[2020-06-20] MEDS: Sertraline 100 MG Tab PO SCH (08:08)
[2020-06-20] MEDS: Ferrous Sulfate 325 MG Tab PO SCH ×2 (08:08→20:21)
[2020-06-20] MEDS: Pantoprazole 40 MG Tab.CR PO SCH (08:08)
[2020-06-20] MEDS: Fluconazole 100 MG Tab PO SCH (08:08)
[2020-06-20] MEDS ORDERED: Sodium Polystyrene Sulfonate 15 GM/60 ML Susp 60 ML Bot PO ONE (11:30)
[2020-06-20] MEDS ORDERED: FUROSEMIDE IV SCH (13:30)
[2020-06-20] MEDS ORDERED: Pneumococcal Polyvalent-23 Vaccine 0.5 ML SDV IM ONE (17:00)
--- NOTE | 2020-06-20 18:49 | PCM.CONS ---
H&P History of Present Illness - General Date of Service: 06/20/20 Admit Problem/Dx: 75-year-old male history of CAD recent non-STEMI 01/2020 status post CABG, status post dual-chamber pacemaker, LV systolic dysfunction, recent admission for mediastinitis, sternal osteomyelitis, supposed skin graft, was admitted in the hospital for decompensated heart failure FRANCINE. Source of Information: Patient, Provider History Limitations: Reports: No Limitations - History of Present Illness Onset of Symptoms: Reports: Unknown/Unsure Duration of Symptoms: Reports: Chronic Location: Reports: Lower Extremity, Left, Lower Extremity, Right Quality: Reports: Dull Severity: Moderate Improves with: Reports: None Worsens with: Reports: None Pain level Pain Score (Numeric/FACES): 0 - Related Data Allergies/Adverse Reactions: Allergies Allergy/AdvReac Type Severity Reaction Status Date / Time No Known Allergies Allergy Verified 06/17/20 17:58 Home Medications: Home Meds Acetaminophen [Tylenol] 650 mg PO Q4HR PRN 06/08/20 [History] Docusate Sodium [Colace] 100 mg PO BID 06/08/20 [History] Ferrous Sulfate 325 mg PO BID 06/08/20 [History] Insulin Detemir [Levemir] 12 units SQ BEDTIME 06/08/20 [History] Insulin Lispro [Humalog Kwikpen U-100] 5 units SQ TID 06/08/20 [History] Melatonin 3 mg PO BEDTIME 06/08/20 [History] Multivitamin [Multivitamins] 1 cap PO DAILY 06/08/20 [History] Nitroglycerin [Nitrostat] 0.4 mg SL .EVERY 5 MINUTES PRN 06/08/20 [History] Pantoprazole [ProTONIX] 40 mg PO DAILY 06/08/20 [History] Sertraline [Zoloft] 100 mg PO DAILY 06/08/20 [History] dronabinoL [Dronabinol] 5 mg PO BID 06/08/20 [History] Furosemide [Lasix] 40 mg PO DAILY #0 06/10/20 [Rx] Tamsulosin HCl 0.4 mg PO BEDTIME 06/10/20 [History] carvediloL [Carvedilol] 3.125 mg PO BIDMEALS 06/10/20 [History] Past Medical History HEENT History: Reports: None Other HEENT History: bottom denture Cardiovascular History: Reports: High Cholesterol, Hypertension, [place] Other Cardiovascular History: recent bypass 2 weeks ago, with last IL 4 months ago Respiratory History: Reports: None Gastrointestinal History: Reports: GERD Musculoskeletal History: Reports: Fracture Other Musculoskeletal History: fx left ankle Endocrine/Metabolic History: Reports: Diabetes, Type II Hematologic History: Oncologic (Cancer) History: Reports: Leukemia - Infectious Disease History Infectious Disease History: Reports: Other (See Below) Other Infectious Disease History: unable to obtain - Past Surgical History HEENT Surgical History: Reports: Eye Surgery, LASIK Cardiovascular Surgical History: Reports: Coronary Artery Stent Other Cardiovascular Surgeries/Procedures: angioplasty Male Surgical History: Reports: Vasectomy Musculoskeletal Surgical History: Reports: Other (See Below) Other Musculoskeletal Surgeries/Procedures:: lt ankle surg., exc of bursa from elbow Social & Family History - Family History Family Medical History: Unobtainable - Tobacco Use Tobacco Use Status *Q: Never Tobacco User Second Hand Smoke Exposure: Yes - Caffeine Use Caffeine Use: Reports: Coffee - Recreational Drug Use Recreational Drug Use: No H&P Review of Systems - Review of Systems: Review Of Systems: See Below General: Reports: No Symptoms HEENT: Reports: No Symptoms Pulmonary: Reports: No Symptoms Cardiovascular: Reports: No Symptoms Gastrointestinal: Reports: No Symptoms Genitourinary: Reports: No Symptoms Musculoskeletal: Reports: No Symptoms Skin: Reports: No Symptoms, Lesions Psychiatric: Reports: No Symptoms Neurological: Reports: No Symptoms Hematologic/Lymphatic: Reports: No Symptoms Immunologic: Reports: No Symptoms (Patient is resting comfortably in chair and denies pain currently from feet, wound vac on abdomen or other location.) Exam - Exam Exam: See Below - Vital Signs Vital Signs: Last Vital Signs Temp 36.2 C 06/20/20 16:00 Pulse 80 06/20/20 17:00 Resp 18 06/20/20 16:00 BP 103/48 L 06/20/20 17:00 Pulse Ox 92 L 06/20/20 16:00 Weight: 78.653 kg - Exam Extremities: Pedal Edema Peripheral Pulses: 0: Posterior Tibial (L), Posterior Tibial (R), Dorsalis Pedis (L), Dorsalis Pedis (R) Skin: Warm Psychiatric: Alert, Normal Affect, Normal Mood Physical Exam Comments:: 1+ bilateral pedal edema, skin temperature warm to warm from leg to foot bilateral lower extremities dry gangrenous changes with 0.5 x 0.5 cm necrotic unstageable ulcer to ischemic 2nd toe left foot preulcer to left lateral malleolus preulcer dorsal midfoot medial aspect wound dressing intact over right posterolateral right heel decubitus ulcer - Patient Data Lab Results Last 24 hrs: Laboratory Results - last 24 hr 06/20/20 06/20/20 06/20/20 Range/Units 05:26 05:26 06:06 WBC 60.87 H (4.0-11.0) K/uL RBC 4.16 L (4.50-5.90) M/uL Hgb 9.2 L (13.0-17.0) g/dL Hct 32.0 L (38.0-50.0) % MCV 76.9 L (80.0-98.0) fL MCH 22.1 L (27.0-32.0) pg MCHC 28.8 L (31.0-37.0) g/dL RDW Std Deviation 67.2 H (28.0-62.0) fl RDW Coeff of Nia 25 H (11.0-15.0) % Plt Count 251 (150-400) K/uL Add Manual Diff YES Neutrophils % (Manual) 55 (48.0-80.0) % Band Neutrophils % 15 % Lymphocytes % (Manual) 12 L (16.0-40.0) % Monocytes % (Manual) 5 (0.0-15.0) % Basophils % (Manual) 1 (0.0-1.5) % Metamyelocytes % 3 % Myelocytes % 7 % Blast Cells % 2 % Nucleated RBC % 3.1 /100WBC Absolute Seg Neuts 33.5 H (1.4-5.7) Band Neutrophils # 9.1 Lymphocytes # (Manual) 7.3 H (0.6-2.4) Monocytes # (Manual) 3.0 H (0.0-0.8) Basophils # (Manual) 0.6 H (0.0-0.1) Absolute Metamyelocyte 1.8 Absolute Myelocytes 4.3 Nucleated RBCs # 0 K/uL Absolute Blast Cells 1.2 Sodium 143 (136-148) mmol/L Potassium 5.0 (3.5-5.1) mmol/L Chloride 110 H (98-107) mmol/L Carbon Dioxide 22.3 (21.0-32.0) mmol/L BUN 53 H (7.0-18.0) mg/dL Creatinine 2.5 H (0.8-1.3) mg/dL Est Cr Clr Drug Dosing 27.19 mL/min Estimated GFR (MDRD) 25.3 ml/min Glucose 95 (74-106) mg/dL POC Glucose 100 (60-110) mg/dL Calcium 8.3 L (8.5-10.1) mg/dL Phosphorus 5.8 H (2.6-4.7) mg/dL Magnesium 2.1 (1.8-2.4) mg/dL Total Bilirubin 1.1 H (0.2-1.0) mg/dL AST 24 (15-37) IU/L ALT 13 L (14-63) IU/L Alkaline Phosphatase 176 H (46-116) U/L Total Protein 6.7 (6.4-8.2) g/dL Albumin 2.9 L (3.4-5.0) g/dL Globulin 3.8 (2.6-4.0) g/dL Albumin/Globulin Ratio 0.8 L (0.9-1.6) 06/20/20 06/20/20 Range/Units 12:40 17:46 WBC (4.0-11.0) K/uL RBC (4.50-5.90) M/uL Hgb (13.0-17.0) g/dL Hct (38.0-50.0) % MCV (80.0-98.0) fL MCH (27.0-32.0) pg MCHC (31.0-37.0) g/dL RDW Std Deviation (28.0-62.0) fl RDW Coeff of Nia (11.0-15.0) % Plt Count (150-400) K/uL Add Manual Diff Neutrophils % (Manual) (48.0-80.0) % Band Neutrophils % % Lymphocytes % (Manual) (16.0-40.0) % Monocytes % (Manual) (0.0-15.0) % Basophils % (Manual) (0.0-1.5) % Metamyelocytes % % Myelocytes % % Blast Cells % % Nucleated RBC % /100WBC Absolute Seg Neuts (1.4-5.7) Band Neutrophils # Lymphocytes # (Manual) (0.6-2.4) Monocytes # (Manual) (0.0-0.8) Basophils # (Manual) (0.0-0.1) Absolute Metamyelocyte Absolute Myelocytes Nucleated RBCs # K/uL Absolute Blast Cells Sodium (136-148) mmol/L Potassium (3.5-5.1) mmol/L Chloride (98-107) mmol/L Carbon Dioxide (21.0-32.0) mmol/L BUN (7.0-18.0) mg/dL Creatinine (0.8-1.3) mg/dL Est Cr Clr Drug Dosing mL/min Estimated GFR (MDRD) ml/min Glucose (74-106) mg/dL POC Glucose 117 H 123 H (60-110) mg/dL Calcium (8.5-10.1) mg/dL Phosphorus (2.6-4.7) mg/dL Magnesium (1.8-2.4) mg/dL Total Bilirubin (0.2-1.0) mg/dL AST (15-37) IU/L ALT (14-63) IU/L Alkaline Phosphatase (46-116) U/L Total Protein (6.4-8.2) g/dL Albumin (3.4-5.0) g/dL Globulin (2.6-4.0) g/dL Albumin/Globulin Ratio (0.9-1.6) Result Diagrams: 06/20/20 05:26 06/20/20 05:26 Sepsis Event Note - Evaluation Sepsis Screening Result: No Definite Risk - Focused Exam Vital Signs: Vital Signs Temp Pulse Pulse Resp BP BP Pulse Ox 06/20/20 17:00 80 103/48 L 06/20/20 16:00 36.2 C 80 18 103/48 L 92 L 06/20/20 12:00 36.3 C 82 19 106/54 L 96 06/20/20 08:07 80 104/52 L 06/20/20 08:00 36.5 C 80 19 104/52 L 94 L Consult PN Assessment/Plan Procedures: Procedures ASSAY OF LACTIC ACID (06/09/20) ASSAY OF MAGNESIUM (06/09/20) ASSAY OF NATRIURETIC PEPTIDE (06/17/20) ASSAY OF PHOSPHORUS (06/09/20) ASSAY OF TROPONIN QUANT (06/17/20) BLOOD CULTURE FOR BACTERIA (06/09/20) BLOOD GASES ANY COMBINATION (01/18/20) C-REACTIVE PROTEIN (06/09/20) CHEST X-RAY 1 VIEW FRONTAL (02/17/16) COLLECT BLOOD FROM PICC (06/02/20) COLONOSCOPY AND BIOPSY (01/27/17) COMPLETE CBC W/AUTO DIFF WBC (06/17/20) COMPREHEN METABOLIC PANEL (06/17/20) CT ABD & PELVIS W/O CONTRAST (06/09/20) CT THORAX W/O DYE (06/09/20) ELECTROCARDIOGRAM TRACING (01/18/20) EMERGENCY DEPT VISIT (01/18/20) EMERGENCY DEPT VISIT (02/17/16) FIBRIN DEGRADATION QUANT (06/09/20) GLUCOSE BLOOD TEST (06/09/20) METABOLIC PANEL TOTAL CA (06/09/20) NEG PRESS WOUND TX </=50 CM (06/09/20) OFFICE/OUTPATIENT VISIT EST (06/02/20) POS AIRWAY PRESSURE CPAP (01/18/20) PROTHROMBIN TIME (06/09/20) PT EVAL LOW COMPLEX 20 MIN (06/09/20) PT EVAL MOD COMPLEX 30 MIN (06/09/20) RBC SED RATE AUTOMATED (06/09/20) REMOVAL OF ELBOW BURSA (01/20/17) ROUTINE VENIPUNCTURE (06/17/20) THER/DIAG CONCURRENT INF (01/18/20) THER/PROPH/DIAG IV INF INIT (06/02/20) THERAPEUTIC ACTIVITIES (06/09/20) THROMBOPLASTIN TIME PARTIAL (06/09/20) TISSUE EXAM BY PATHOLOGIST (01/27/17) TTE W/DOPPLER COMPLETE (06/09/20) TX/PRO/DX INJ NEW DRUG ADDON (01/18/20) URINALYSIS AUTO W/SCOPE (06/09/20) URINE CULTURE/COLONY COUNT (06/09/20) X-RAY EXAM CHEST 1 VIEW (06/09/20) X-RAY EXAM CHEST 2 VIEWS (06/17/20) X-RAY EXAM OF ELBOW (12/01/16) (1) Toe ulcer due to DM SNOMED Code(s): 582840506, 218871904 Code(s): E11.621 - TYPE 2 DIABETES MELLITUS WITH FOOT ULCER; L97.509 - NON- PRESSURE CHRONIC ULCER OTH PRT UNSP FOOT W UNSP SEVERITY Current Visit: Yes Qualifiers: Diabetes mellitus type: type 2 Laterality: left Non-pressure ulcer stage: unspecified non-pressure ulcer stage Qualified Code(s): E11.621 - Type 2 diabetes mellitus with foot ulcer; L97.529 - Non-pressure chronic ulcer of other part of left foot with unspecified severity Problem List Initiated/Reviewed/Updated: Yes Plan: 1. Patient examined and evaluated. 2. No treatment of left 2nd toe planned currently. The dry necrotic state of this unstageable ulcer indicates ischemia to the distal toe but other patient conditions must be addressed. The next logical step when and if aggressive treatment including debridement and/or amputation are being considered would be vascular studies starting with arterial ultrasound or CT angiogram. 3. Continue wound care to right heel decubitus ulcer. 4. Thank you Dr. Calle for including me in the care of this patient.
[2020-06-20] MEDS ORDERED: Sodium Chloride 0.9% 500 ML IV SCH ×2 (19:15→21:34)
--- NOTE | 2020-06-20 20:19 | PCM.PN ---
- General Info Date of Service: 06/20/20 Admission Dx/Problem (Free Text): 75-year-old male history of CAD recent non-STEMI 01/2020 status post CABG, status post dual-chamber pacemaker, LV systolic dysfunction, recent admission for mediastinitis, sternal osteomyelitis, supposed skin graft, was admitted in the hospital for decompensated heart failure FRANCINE. Subjective Update: increased urine output, on lasix 20mg/hr per [facility] in [place], Cr 2.5 stable. - Review of Systems General: Reports: Weakness, Fatigue HEENT: Reports: No Symptoms Pulmonary: Reports: Shortness of Breath Cardiovascular: Reports: No Symptoms Gastrointestinal: Reports: No Symptoms Skin: Reports: Pallor Neurological: Reports: No Symptoms Psychiatric: Reports: No Symptoms - Patient Data Vitals - Most Recent: Last Vital Signs Temp 97.2 F 06/20/20 16:00 Pulse 80 06/20/20 17:00 Resp 18 06/20/20 16:00 BP 103/48 L 06/20/20 17:00 Pulse Ox 92 L 06/20/20 16:00 Weight - Most Recent: 173 lb 6.4 oz I&O - Last 24 Hours: Intake & Output 06/20/20 06/20/20 06/20/20 06:59 14:59 22:59 Intake Total 400 600 Output Total 800 875 350 Balance -400 -275 -350 Lab Results Last 24 Hours: Laboratory Results - last 24 hr 06/20/20 06/20/20 06/20/20 Range/Units 05:26 05:26 06:06 WBC 60.87 H (4.0-11.0) K/uL RBC 4.16 L (4.50-5.90) M/uL Hgb 9.2 L (13.0-17.0) g/dL Hct 32.0 L (38.0-50.0) % MCV 76.9 L (80.0-98.0) fL MCH 22.1 L (27.0-32.0) pg MCHC 28.8 L (31.0-37.0) g/dL RDW Std Deviation 67.2 H (28.0-62.0) fl RDW Coeff of Nia 25 H (11.0-15.0) % Plt Count 251 (150-400) K/uL Add Manual Diff YES Neutrophils % (Manual) 55 (48.0-80.0) % Band Neutrophils % 15 % Lymphocytes % (Manual) 12 L (16.0-40.0) % Monocytes % (Manual) 5 (0.0-15.0) % Basophils % (Manual) 1 (0.0-1.5) % Metamyelocytes % 3 % Myelocytes % 7 % Blast Cells % 2 % Nucleated RBC % 3.1 /100WBC Absolute Seg Neuts 33.5 H (1.4-5.7) Band Neutrophils # 9.1 Lymphocytes # (Manual) 7.3 H (0.6-2.4) Monocytes # (Manual) 3.0 H (0.0-0.8) Basophils # (Manual) 0.6 H (0.0-0.1) Absolute Metamyelocyte 1.8 Absolute Myelocytes 4.3 Nucleated RBCs # 0 K/uL Absolute Blast Cells 1.2 Sodium 143 (136-148) mmol/L Potassium 5.0 (3.5-5.1) mmol/L Chloride 110 H (98-107) mmol/L Carbon Dioxide 22.3 (21.0-32.0) mmol/L BUN 53 H (7.0-18.0) mg/dL Creatinine 2.5 H (0.8-1.3) mg/dL Est Cr Clr Drug Dosing 27.19 mL/min Estimated GFR (MDRD) 25.3 ml/min Glucose 95 (74-106) mg/dL POC Glucose 100 (60-110) mg/dL Calcium 8.3 L (8.5-10.1) mg/dL Phosphorus 5.8 H (2.6-4.7) mg/dL Magnesium 2.1 (1.8-2.4) mg/dL Total Bilirubin 1.1 H (0.2-1.0) mg/dL AST 24 (15-37) IU/L ALT 13 L (14-63) IU/L Alkaline Phosphatase 176 H (46-116) U/L Total Protein 6.7 (6.4-8.2) g/dL Albumin 2.9 L (3.4-5.0) g/dL Globulin 3.8 (2.6-4.0) g/dL Albumin/Globulin Ratio 0.8 L (0.9-1.6) 06/20/20 06/20/20 Range/Units 12:40 17:46 WBC (4.0-11.0) K/uL RBC (4.50-5.90) M/uL Hgb (13.0-17.0) g/dL Hct (38.0-50.0) % MCV (80.0-98.0) fL MCH (27.0-32.0) pg MCHC (31.0-37.0) g/dL RDW Std Deviation (28.0-62.0) fl RDW Coeff of Nia (11.0-15.0) % Plt Count (150-400) K/uL Add Manual Diff Neutrophils % (Manual) (48.0-80.0) % Band Neutrophils % % Lymphocytes % (Manual) (16.0-40.0) % Monocytes % (Manual) (0.0-15.0) % Basophils % (Manual) (0.0-1.5) % Metamyelocytes % % Myelocytes % % Blast Cells % % Nucleated RBC % /100WBC Absolute Seg Neuts (1.4-5.7) Band Neutrophils # Lymphocytes # (Manual) (0.6-2.4) Monocytes # (Manual) (0.0-0.8) Basophils # (Manual) (0.0-0.1) Absolute Metamyelocyte Absolute Myelocytes Nucleated RBCs # K/uL Absolute Blast Cells Sodium (136-148) mmol/L Potassium (3.5-5.1) mmol/L Chloride (98-107) mmol/L Carbon Dioxide (21.0-32.0) mmol/L BUN (7.0-18.0) mg/dL Creatinine (0.8-1.3) mg/dL Est Cr Clr Drug Dosing mL/min Estimated GFR (MDRD) ml/min Glucose (74-106) mg/dL POC Glucose 117 H 123 H (60-110) mg/dL Calcium (8.5-10.1) mg/dL Phosphorus (2.6-4.7) mg/dL Magnesium (1.8-2.4) mg/dL Total Bilirubin (0.2-1.0) mg/dL AST (15-37) IU/L ALT (14-63) IU/L Alkaline Phosphatase (46-116) U/L Total Protein (6.4-8.2) g/dL Albumin (3.4-5.0) g/dL Globulin (2.6-4.0) g/dL Albumin/Globulin Ratio (0.9-1.6) Med Orders - Current: Current Medications Acetaminophen (Tylenol) 650 mg PO Q4H PRN PRN Reason: Pain (Mild 1-3)/fever Last Admin: 06/18/20 01:02 Dose: 650 mg Documented by: Carvedilol (Coreg) 3.125 mg PO BIDMEALS [facility] Last Admin: 06/20/20 17:00 Dose: 3.125 mg Documented by: Dextrose/Water (Dextrose 50% In Water) 50 ml IV ASDIRECTED PRN PRN Reason: Hypoglycemia Dextrose/Water (Dextrose 50% In Water) 50 ml IV ASDIRECTED PRN PRN Reason: Hypoglycemia Docusate Sodium (Colace) 100 mg PO BID PRN PRN Reason: Constipation Dronabinol (Marinol) 5 mg PO BID [facility] Last Admin: 06/20/20 08:07 Dose: 5 mg Documented by: Ferrous Sulfate (Ferrous Sulfate) 325 mg PO BID [facility] Last Admin: 06/20/20 08:08 Dose: 325 mg Documented by: Fluconazole (Diflucan) 100 mg PO DAILY [facility] Last Admin: 06/20/20 08:08 Dose: 100 mg Documented by: Glucagon (Glucagen) 1 mg IM ASDIRECTED PRN PRN Reason: Hypoglycemia Heparin Sodium (Porcine) (Heparin Sodium) 5,000 units SUBCUT Q12H [facility] Last Admin: 06/20/20 18:30 Dose: 5,000 units Documented by: Furosemide 240 mg/ Premix 24 mls @ 1 mls/hr IV Q24H [facility] Stop: 06/21/20 13:29 Last Admin: 06/20/20 14:21 Dose: 10 mg/hr, 1 mls/hr Documented by: Sodium Chloride (Normal Saline) 500 mls @ 5 mls/hr IV ASDIRECTED [facility] Insulin Aspart (Novolog) 0 unit SUBCUT TIDAC [facility]; Protocol Last Admin: 06/20/20 18:29 Dose: Not Given Documented by: Melatonin (Melatonin) 3 mg PO BEDTIME [facility] Last Admin: 06/19/20 21:37 Dose: 3 mg Documented by: Ondansetron HCl (Zofran) 4 mg IVPUSH Q4H PRN PRN Reason: Nausea Pantoprazole Sodium (Protonix) 40 mg PO DAILY [facility] Last Admin: 06/20/20 08:08 Dose: 40 mg Documented by: Sertraline HCl (Zoloft) 100 mg PO DAILY [facility] Last Admin: 06/20/20 08:08 Dose: 100 mg Documented by: Sodium Chloride (Saline Flush) 10 ml FLUSH ASDIRECTED PRN PRN Reason: Keep Vein Open Sodium Chloride (Saline Flush) 2.5 ml FLUSH ASDIRECTED PRN PRN Reason: Keep Vein Open Last Admin: 06/18/20 12:28 Dose: 2.5 ml Documented by: Sodium Chloride (Normal Saline) 10 ml IV ASDIRECTED PRN PRN Reason: IV Use Tamsulosin HCl (Flomax) 0.4 mg PO BEDTIME [facility] Last Admin: 06/19/20 21:37 Dose: 0.4 mg Documented by: Discontinued Medications Docusate Sodium (Colace) 100 mg PO BID [facility] Last Admin: 06/18/20 21:01 Dose: Not Given Documented by: Enoxaparin Sodium (Lovenox) 30 mg SUBCUT Q24H [facility] Last Admin: 06/17/20 17:08 Dose: 30 mg Documented by: Furosemide (Lasix) 40 mg IVPUSH BID [facility] Last Admin: 06/19/20 08:47 Dose: 40 mg Documented by: Furosemide (Lasix) 80 mg IVPUSH NOW ONE Stop: 06/17/20 19:16 Last Admin: 06/17/20 20:45 Dose: 80 mg Documented by: Furosemide (Lasix) 120 mg IVPUSH NOW ONE Stop: 06/18/20 08:17 Last Admin: 06/18/20 09:21 Dose: 120 mg Documented by: Furosemide (Lasix) 120 mg IVPUSH NOW ONE Stop: 06/18/20 20:07 Last Admin: 06/18/20 20:52 Dose: 120 mg Documented by: Furosemide (Lasix) 40 mg IVPUSH NOW ONE Stop: 06/19/20 14:01 Ceftriaxone Sodium/Dextrose 1 (gm/ Premix) 50 mls @ 100 mls/hr IV Q24H [facility] Last Admin: 06/18/20 22:15 Dose: 100 mls/hr Documented by: Albumin Human (Flexbumin 25%) 12.5 gm in 50 mls @ 100 mls/hr IV ONETIME ONE Stop: 06/18/20 12:33 Last Admin: 06/18/20 12:30 Dose: 100 mls/hr Documented by: Albumin Human (Flexbumin 25%) 12.5 gm in 50 mls @ 100 mls/hr IV ONETIME ONE Stop: 06/18/20 19:49 Last Admin: 06/18/20 20:52 Dose: 100 mls/hr Documented by: Albumin Human (Flexbumin 25%) 12.5 gm in 50 mls @ 100 mls/hr IV ONETIME ONE Stop: 06/19/20 10:16 Last Admin: 06/19/20 10:44 Dose: 100 mls/hr Documented by: Furosemide 480 mg/ Sodium (Chloride) 250 mls @ 10.417 mls/hr IV Q24H [facility] Stop: 06/20/20 12:59 Last Admin: 06/19/20 13:10 Dose: 20 mg/hr, 10.417 mls/hr Documented by: Insulin Detemir (Levemir) 12 unit SUBCUT BEDTIME [facility] Last Admin: 06/17/20 21:01 Dose: Not Given Documented by: Insulin Glargine (Lantus Solostar) 12 units SUBCUT BEDTIME [facility] Metolazone (Zaroxolyn) 2.5 mg PO ONETIME ONE Stop: 06/18/20 09:01 Last Admin: 06/18/20 09:16 Dose: 2.5 mg Documented by: Pneumococcal Polyvalent Vaccine (Pneumovax 23) 0.5 ml IM .ONCE ONE Stop: 06/20/20 17:01 Sodium Polystyrene Sulfonate (Kayexalate) 15 gm PO ONETIME ONE Stop: 06/20/20 11:31 Last Admin: 06/20/20 12:35 Dose: 15 gm Documented by: - Exam General: Alert, Oriented HEENT: Pupils Equal, Pupils Reactive Neck: JVD Lungs: Rales Cardiovascular: Regular Rate, Regular Rhythm GI/Abdominal Exam: Normal Bowel Sounds, Soft (Male) Exam: No Hernia Sepsis Event Note - Evaluation Sepsis Screening Result: No Definite Risk - Focused Exam Vital Signs: Vital Signs Temp Pulse Pulse Resp BP BP Pulse Ox 06/20/20 17:00 80 103/48 L 06/20/20 16:00 97.2 F 80 18 103/48 L 92 L 06/20/20 12:00 97.4 F 82 19 106/54 L 96 - Problem List Review Problem List Initiated/Reviewed/Updated: Yes - Plan Plan:: 75M CAD s/p CABG LVEF 40-45% with infected sternal wound mediastinitis, s/p skin graft, CKD with FRANCINE possibly ATN, malnutrition. 1. decompensated sCHF, on lasix dripp per nephro, Cr stable, followup Cr. Continue coreg 3.125 BID for now.
[2020-06-20] MEDS: Tamsulosin 0.4 MG Cap.ER PO SCH (20:22)
[2020-06-20] MEDS: Melatonin 3 MG Tab PO SCH (20:22)
[2020-06-20] MEDS: Acetaminophen 325 MG Tab PO PRN (20:22)
[2020-06-21 06:33] LABS: CARBON DIOXIDE,CO2 24.6 mmol/L (21.0-32.0); POTASSIUM,K 4.5 mmol/L (3.5-5.1)
[2020-06-21] MEDS: Insulin Aspart 100 Units/ML 3 ML Pen SUBCUT SCH ×3 (07:17→18:13)
[2020-06-21] MEDS: Heparin Sodium 5,000 Units/ML Vial SUBCUT SCH ×2 (07:17→18:08)
--- NOTE | 2020-06-21 08:23 | PCM.PN ---
- General Info Date of Service: 06/21/20 Subjective Update: Reports getting a few hours of sleep overnight. Had a small amount of dinner yesterday. Tolerating oral diet and having bowel movement. - Patient Data Vitals - Most Recent: Last Vital Signs Temp 36.4 C 06/21/20 04:57 Pulse 76 06/21/20 04:57 Resp 20 06/21/20 04:57 BP 123/56 L 06/21/20 04:57 Pulse Ox 93 L 06/21/20 06:00 Weight - Most Recent: 78.653 kg I&O - Last 24 Hours: Intake & Output 06/20/20 06/21/20 06/21/20 22:59 06:59 14:59 Intake Total 558 Output Total 350 675 Balance -350 -117 Lab Results Last 24 Hours: Laboratory Results - last 24 hr 06/20/20 06/20/20 06/21/20 Range/Units 12:40 17:46 05:02 WBC 58.40 H (4.0-11.0) K/uL RBC 4.15 L (4.50-5.90) M/uL Hgb 9.1 L (13.0-17.0) g/dL Hct 31.9 L (38.0-50.0) % MCV 76.9 L (80.0-98.0) fL MCH 21.9 L (27.0-32.0) pg MCHC 28.5 L (31.0-37.0) g/dL RDW Std Deviation 66.8 H (28.0-62.0) fl RDW Coeff of Nia 25 H (11.0-15.0) % Plt Count 278 (150-400) K/uL MPV Not Reportable Add Manual Diff YES Neutrophils % (Manual) 52 (48.0-80.0) % Band Neutrophils % 13 % Lymphocytes % (Manual) 15 L (16.0-40.0) % Monocytes % (Manual) 3 (0.0-15.0) % Eosinophils % (Manual) 2 (0.0-7.0) % Metamyelocytes % 7 % Myelocytes % 7 % Blast Cells % 1 % Nucleated RBC % 3.3 /100WBC Absolute Seg Neuts 30.4 H (1.4-5.7) Band Neutrophils # 7.6 Lymphocytes # (Manual) 8.8 H (0.6-2.4) Monocytes # (Manual) 1.8 H (0.0-0.8) Eosinophils # (Manual) 1.2 H (0.0-0.7) Absolute Metamyelocyte 4.1 Absolute Myelocytes 4.1 Nucleated RBCs # 0 K/uL Absolute Blast Cells 0.6 Sodium (136-148) mmol/L Potassium (3.5-5.1) mmol/L Chloride (98-107) mmol/L Carbon Dioxide (21.0-32.0) mmol/L BUN (7.0-18.0) mg/dL Creatinine (0.8-1.3) mg/dL Est Cr Clr Drug Dosing mL/min Estimated GFR (MDRD) ml/min Glucose (74-106) mg/dL POC Glucose 117 H 123 H (60-110) mg/dL Calcium (8.5-10.1) mg/dL Phosphorus (2.6-4.7) mg/dL Magnesium (1.8-2.4) mg/dL Total Bilirubin (0.2-1.0) mg/dL AST (15-37) IU/L ALT (14-63) IU/L Alkaline Phosphatase (46-116) U/L Total Protein (6.4-8.2) g/dL Albumin (3.4-5.0) g/dL Globulin (2.6-4.0) g/dL Albumin/Globulin Ratio (0.9-1.6) 06/21/20 Range/Units 05:02 WBC (4.0-11.0) K/uL RBC (4.50-5.90) M/uL Hgb (13.0-17.0) g/dL Hct (38.0-50.0) % MCV (80.0-98.0) fL MCH (27.0-32.0) pg MCHC (31.0-37.0) g/dL RDW Std Deviation (28.0-62.0) fl RDW Coeff of Nia (11.0-15.0) % Plt Count (150-400) K/uL MPV Add Manual Diff Neutrophils % (Manual) (48.0-80.0) % Band Neutrophils % % Lymphocytes % (Manual) (16.0-40.0) % Monocytes % (Manual) (0.0-15.0) % Eosinophils % (Manual) (0.0-7.0) % Metamyelocytes % % Myelocytes % % Blast Cells % % Nucleated RBC % /100WBC Absolute Seg Neuts (1.4-5.7) Band Neutrophils # Lymphocytes # (Manual) (0.6-2.4) Monocytes # (Manual) (0.0-0.8) Eosinophils # (Manual) (0.0-0.7) Absolute Metamyelocyte Absolute Myelocytes Nucleated RBCs # K/uL Absolute Blast Cells Sodium 145 (136-148) mmol/L Potassium 4.5 (3.5-5.1) mmol/L Chloride 111 H (98-107) mmol/L Carbon Dioxide 24.6 (21.0-32.0) mmol/L BUN 54 H (7.0-18.0) mg/dL Creatinine 2.5 H (0.8-1.3) mg/dL Est Cr Clr Drug Dosing 27.19 mL/min Estimated GFR (MDRD) 25.3 ml/min Glucose 92 (74-106) mg/dL POC Glucose (60-110) mg/dL Calcium 8.3 L (8.5-10.1) mg/dL Phosphorus 5.5 H (2.6-4.7) mg/dL Magnesium 1.9 (1.8-2.4) mg/dL Total Bilirubin 1.0 (0.2-1.0) mg/dL AST 23 (15-37) IU/L ALT 12 L (14-63) IU/L Alkaline Phosphatase 175 H (46-116) U/L Total Protein 7.0 (6.4-8.2) g/dL Albumin 3.0 L (3.4-5.0) g/dL Globulin 4.0 (2.6-4.0) g/dL Albumin/Globulin Ratio 0.8 L (0.9-1.6) Tai Results Last 24 Hours: Microbiology 06/20/20 16:50 Stool Occult Blood (TAI) - Final Stool / Feces Med Orders - Current: Current Medications Acetaminophen (Tylenol) 650 mg PO Q4H PRN PRN Reason: Pain (Mild 1-3)/fever Last Admin: 06/20/20 20:22 Dose: 650 mg Documented by: Carvedilol (Coreg) 3.125 mg PO BIDMEALS [facility] Last Admin: 06/20/20 17:00 Dose: 3.125 mg Documented by: Dextrose/Water (Dextrose 50% In Water) 50 ml IV ASDIRECTED PRN PRN Reason: Hypoglycemia Dextrose/Water (Dextrose 50% In Water) 50 ml IV ASDIRECTED PRN PRN Reason: Hypoglycemia Docusate Sodium (Colace) 100 mg PO BID PRN PRN Reason: Constipation Dronabinol (Marinol) 5 mg PO BID [facility] Last Admin: 06/20/20 20:21 Dose: 5 mg Documented by: Ferrous Sulfate (Ferrous Sulfate) 325 mg PO BID [facility] Last Admin: 06/20/20 20:21 Dose: 325 mg Documented by: Fluconazole (Diflucan) 100 mg PO DAILY [facility] Last Admin: 06/20/20 08:08 Dose: 100 mg Documented by: Glucagon (Glucagen) 1 mg IM ASDIRECTED PRN PRN Reason: Hypoglycemia Heparin Sodium (Porcine) (Heparin Sodium) 5,000 units SUBCUT Q12H [facility] Last Admin: 06/21/20 07:17 Dose: Not Given Documented by: Furosemide 240 mg/ Premix 24 mls @ 1 mls/hr IV Q24H [facility] Stop: 06/21/20 13:29 Last Admin: 06/20/20 14:21 Dose: 10 mg/hr, 1 mls/hr Documented by: Sodium Chloride (Normal Saline) 500 mls @ 5 mls/hr IV ASDIRECTED [facility] Last Admin: 06/20/20 20:05 Dose: 5 mls/hr Documented by: Insulin Aspart (Novolog) 0 unit SUBCUT TIDAC [facility]; Protocol Last Admin: 06/21/20 07:17 Dose: Not Given Documented by: Melatonin (Melatonin) 3 mg PO BEDTIME [facility] Last Admin: 06/20/20 20:22 Dose: 3 mg Documented by: Ondansetron HCl (Zofran) 4 mg IVPUSH Q4H PRN PRN Reason: Nausea Pantoprazole Sodium (Protonix) 40 mg PO DAILY [facility] Last Admin: 06/20/20 08:08 Dose: 40 mg Documented by: Pneumococcal Polyvalent Vaccine (Pneumovax 23) 0.5 ml IM .ONCE ONE Stop: 06/21/20 09:01 Sertraline HCl (Zoloft) 100 mg PO DAILY [facility] Last Admin: 06/20/20 08:08 Dose: 100 mg Documented by: Sodium Chloride (Saline Flush) 10 ml FLUSH ASDIRECTED PRN PRN Reason: Keep Vein Open Sodium Chloride (Saline Flush) 2.5 ml FLUSH ASDIRECTED PRN PRN Reason: Keep Vein Open Last Admin: 06/18/20 12:28 Dose: 2.5 ml Documented by: Sodium Chloride (Normal Saline) 10 ml IV ASDIRECTED PRN PRN Reason: IV Use Tamsulosin HCl (Flomax) 0.4 mg PO BEDTIME [facility] Last Admin: 06/20/20 20:22 Dose: 0.4 mg Documented by: Discontinued Medications Docusate Sodium (Colace) 100 mg PO BID [facility] Last Admin: 06/18/20 21:01 Dose: Not Given Documented by: Enoxaparin Sodium (Lovenox) 30 mg SUBCUT Q24H [facility] Last Admin: 06/17/20 17:08 Dose: 30 mg Documented by: Furosemide (Lasix) 40 mg IVPUSH BID [facility] Last Admin: 06/19/20 08:47 Dose: 40 mg Documented by: Furosemide (Lasix) 80 mg IVPUSH NOW ONE Stop: 06/17/20 19:16 Last Admin: 06/17/20 20:45 Dose: 80 mg Documented by: Furosemide (Lasix) 120 mg IVPUSH NOW ONE Stop: 06/18/20 08:17 Last Admin: 06/18/20 09:21 Dose: 120 mg Documented by: Furosemide (Lasix) 120 mg IVPUSH NOW ONE Stop: 06/18/20 20:07 Last Admin: 06/18/20 20:52 Dose: 120 mg Documented by: Furosemide (Lasix) 40 mg IVPUSH NOW ONE Stop: 06/19/20 14:01 Ceftriaxone Sodium/Dextrose 1 (gm/ Premix) 50 mls @ 100 mls/hr IV Q24H [facility] Last Admin: 06/18/20 22:15 Dose: 100 mls/hr Documented by: Albumin Human (Flexbumin 25%) 12.5 gm in 50 mls @ 100 mls/hr IV ONETIME ONE Stop: 06/18/20 12:33 Last Admin: 06/18/20 12:30 Dose: 100 mls/hr Documented by: Albumin Human (Flexbumin 25%) 12.5 gm in 50 mls @ 100 mls/hr IV ONETIME ONE Stop: 06/18/20 19:49 Last Admin: 06/18/20 20:52 Dose: 100 mls/hr Documented by: Albumin Human (Flexbumin 25%) 12.5 gm in 50 mls @ 100 mls/hr IV ONETIME ONE Stop: 06/19/20 10:16 Last Admin: 06/19/20 10:44 Dose: 100 mls/hr Documented by: Furosemide 480 mg/ Sodium (Chloride) 250 mls @ 10.417 mls/hr IV Q24H [facility] Stop: 06/20/20 12:59 Last Admin: 06/19/20 13:10 Dose: 20 mg/hr, 10.417 mls/hr Documented by: Sodium Chloride (Normal Saline) 500 mls @ 5 mls/hr IV ASDIRECTED [facility] Insulin Detemir (Levemir) 12 unit SUBCUT BEDTIME [facility] Last Admin: 06/17/20 21:01 Dose: Not Given Documented by: Insulin Glargine (Lantus Solostar) 12 units SUBCUT BEDTIME [facility] Metolazone (Zaroxolyn) 2.5 mg PO ONETIME ONE Stop: 06/18/20 09:01 Last Admin: 06/18/20 09:16 Dose: 2.5 mg Documented by: Pneumococcal Polyvalent Vaccine (Pneumovax 23) 0.5 ml IM .ONCE ONE Stop: 06/20/20 17:01 Last Admin: 06/20/20 23:42 Dose: Not Given Documented by: Sodium Polystyrene Sulfonate (Kayexalate) 15 gm PO ONETIME ONE Stop: 06/20/20 11:31 Last Admin: 06/20/20 12:35 Dose: 15 gm Documented by: - Exam General: Alert, Oriented, Cooperative Lungs: Normal Respiratory Effort, Rales (in bases b/l) Cardiovascular: Regular Rate, Regular Rhythm GI/Abdominal Exam: Normal Bowel Sounds, Soft, Non-Tender, No Distention, Other (wound vac in place) Extremities: Other (1+ bilateral pitting edemal. Left foot: 2nd digit has dry gangrenous changes with 0.5 cm x 0.5 cm necrotic unstageable ulcer.) Sepsis Event Note - Evaluation Sepsis Screening Result: No Definite Risk - Focused Exam Vital Signs: Vital Signs Temp Pulse Resp BP Pulse Ox Pulse Ox 06/21/20 06:00 93 L 06/21/20 04:57 36.4 C 76 20 123/56 L 94 L 06/21/20 00:32 36.5 C 79 18 113/51 L 95 - Problem List & Annotations (1) CHF (congestive heart failure) SNOMED Code(s): 73718182 Code(s): I50.9 - HEART FAILURE, UNSPECIFIED Status: Acute Current Visit: No (2) HTN (hypertension) SNOMED Code(s): 43992832 Code(s): I10 - ESSENTIAL (PRIMARY) HYPERTENSION Status: Acute Current Visit: Yes (3) Hx of CABG SNOMED Code(s): 922526751, 553783103 Code(s): Z95.1 - PRESENCE OF AORTOCORONARY BYPASS GRAFT Status: Acute Current Visit: Yes (4) Pacemaker SNOMED Code(s): 026928118 Code(s): Z95.0 - PRESENCE OF CARDIAC PACEMAKER Status: Acute Current Visit: Yes (5) Diabetes mellitus SNOMED Code(s): 26697916 Code(s): E11.9 - TYPE 2 DIABETES MELLITUS WITHOUT COMPLICATIONS Status: Acute Current Visit: No (6) Essential thrombocythemia SNOMED Code(s): 203611848 Code(s): D47.3 - ESSENTIAL (HEMORRHAGIC) THROMBOCYTHEMIA Status: Acute Current Visit: No - Problem List Review Problem List Initiated/Reviewed/Updated: Yes - My Orders Last 24 Hours: My Active Orders 06/20/20 08:27 Consult to Wound Care Services [CONS] Routine 06/20/20 12:21 Notify Provider Consults [RC] ASDIRECTED Consult to Physician [CONS] Urgent 06/20/20 13:30 Furosemide [Lasix] 240 mg Premix Bag 1 bag IV Q24H 06/20/20 21:34 Sodium Chloride 0.9% [Normal Saline] 500 ml IV ASDIRECTED - Plan Plan:: Assessment and Plan: 1. Acute systolic CHF exacerbation: - Continue supplemental oxygen prn. Cardiology following. Per nephrology, patient currently on IV lasix drip 10 mg/hr. Will start IV lasix 40 mg TID once drip is complete. Nephrology follow-up recommended on discharge. - Renal ultrasound showed mild medical renal disease. - Continue strict I's and O's, daily standing weight, fluid restrict < 2L per day and low sodium 2 g per day. Admission CXR showed slightly improved edema from last exam. ECHO showed LVEF 40% and moderate to severe right ventricle systolic pressure. 2. FRANCINE on CKD: - Per nephrology, suspected ATN. Creatinine remains stable at 2.5. 3. Hypoalbuminemia secondary to protein calorie malnutrition. 4. Left foot 2nd digit dry necrotic unstageable ulcer: - Podiatry evaluated patient yesterday and recommended no treatment at this current time due to patient's other acute disease processes. When and if aggressive treatment such as debridement or amputation is considered, podiatry recommended vascular studies such as arterial ultrasound or CT Angiogram. 5. UTI: - Urine culture grew yeast. Patient started on PO fluconazole 100 mg qd. 6. Deconditioning: - PT consulted. Encouraged ambulation. 7. Diabetes mellitus type II: - Long-acting insulin held. Continue Novolog SSI and accuchecks TIDAC. ADA diet ordered. 8. DVT prophylaxis: - Heparin 5000 units subcut q12. 9. Past medical history of HTN, essential thrombocythemia, NSTEMI s/p CABG, s/p pacemaker, and abdominal wall infection s/p wound vac: - Continue home medications. - Wound vac nurse consulted for management. - Wound care consulted.
[2020-06-21] MEDS: Dronabinol 2.5 MG Cap PO SCH ×2 (08:59→20:55)
[2020-06-21] MEDS: Ferrous Sulfate 325 MG Tab PO SCH ×2 (08:59→20:10)
[2020-06-21] MEDS: Fluconazole 100 MG Tab PO SCH (08:59)
[2020-06-21] MEDS: Sertraline 100 MG Tab PO SCH (08:59)
[2020-06-21] MEDS: Pantoprazole 40 MG Tab.CR PO SCH (08:59)
[2020-06-21] MEDS: Carvedilol 3.125 MG Tab PO SCH ×2 (08:59→18:07)
[2020-06-21] MEDS ORDERED: Pneumococcal Polyvalent-23 Vaccine 0.5 ML SDV IM ONE (09:00)
[2020-06-21] MEDS: Furosemide 40 MG/4 ML VIAL IVPUSH SCH ×2 (14:43→20:11)
[2020-06-21] MEDS ORDERED: Furosemide 40 MG/4 ML VIAL IVPUSH SCH (15:00)
[2020-06-21] MEDS: Melatonin 3 MG Tab PO SCH (20:10)
[2020-06-21] MEDS: Tamsulosin 0.4 MG Cap.ER PO SCH (20:10)
[2020-06-21] MEDS: Acetaminophen 325 MG Tab PO PRN (21:03)
[2020-06-22] MEDS: Furosemide 40 MG/4 ML VIAL IVPUSH SCH ×4 (02:57→20:11)
[2020-06-22] MEDS: Insulin Aspart 100 Units/ML 3 ML Pen SUBCUT SCH ×3 (06:29→17:19)
[2020-06-22] MEDS: Heparin Sodium 5,000 Units/ML Vial SUBCUT SCH ×2 (06:31→18:34)
[2020-06-22 06:59] LABS: CARBON DIOXIDE,CO2 25.4 mmol/L (21.0-32.0); POTASSIUM,K 4.4 mmol/L (3.5-5.1)
[2020-06-22] MEDS: Dronabinol 2.5 MG Cap PO SCH ×2 (08:38→20:10)
[2020-06-22] MEDS: Pantoprazole 40 MG Tab.CR PO SCH (08:38)
[2020-06-22] MEDS: Fluconazole 100 MG Tab PO SCH (08:38)
[2020-06-22] MEDS: Carvedilol 3.125 MG Tab PO SCH ×2 (08:38→17:20)
[2020-06-22] MEDS: Ferrous Sulfate 325 MG Tab PO SCH ×2 (08:39→20:11)
[2020-06-22] MEDS: Sertraline 100 MG Tab PO SCH (08:39)
[2020-06-22] MEDS: Sodium Chloride 0.9% 2.5 ML Syringe FLUSH PRN (08:40)
--- NOTE | 2020-06-22 09:28 | PCM.PN ---
- General Info Date of Service: 06/22/20 Subjective Update: Patient was up sitting on chair eating breakfast this AM. Reports breathing feels better. Tolerating oral diet and having bowel movements. Worked with PT yesterday. - Patient Data Vitals - Most Recent: Last Vital Signs Temp 36.3 C 06/22/20 07:47 Pulse 82 06/22/20 08:38 Resp 16 06/22/20 07:47 BP 113/53 L 06/22/20 08:38 Pulse Ox 93 L 06/22/20 07:47 Weight - Most Recent: 167.2 kg I&O - Last 24 Hours: Intake & Output 06/21/20 06/22/20 06/22/20 22:59 06:59 14:59 Intake Total 511 400 Output Total 1075 850 Balance -564 -450 Lab Results Last 24 Hours: Laboratory Results - last 24 hr 06/21/20 06/21/20 06/21/20 Range/Units 07:13 12:29 16:26 WBC (4.0-11.0) K/uL RBC (4.50-5.90) M/uL Hgb (13.0-17.0) g/dL Hct (38.0-50.0) % MCV (80.0-98.0) fL MCH (27.0-32.0) pg MCHC (31.0-37.0) g/dL RDW Std Deviation (28.0-62.0) fl RDW Coeff of Nia (11.0-15.0) % Plt Count (150-400) K/uL Add Manual Diff Neutrophils % (Manual) (48.0-80.0) % Band Neutrophils % % Lymphocytes % (Manual) (16.0-40.0) % Monocytes % (Manual) (0.0-15.0) % Basophils % (Manual) (0.0-1.5) % Metamyelocytes % % Myelocytes % % Blast Cells % % Nucleated RBC % /100WBC Absolute Seg Neuts (1.4-5.7) Band Neutrophils # Lymphocytes # (Manual) (0.6-2.4) Monocytes # (Manual) (0.0-0.8) Basophils # (Manual) (0.0-0.1) Absolute Metamyelocyte Absolute Myelocytes Nucleated RBCs % Nucleated RBCs # K/uL Absolute Blast Cells Poikilocytosis Sodium (136-148) mmol/L Potassium (3.5-5.1) mmol/L Chloride (98-107) mmol/L Carbon Dioxide (21.0-32.0) mmol/L BUN (7.0-18.0) mg/dL Creatinine (0.8-1.3) mg/dL Est Cr Clr Drug Dosing mL/min Estimated GFR (MDRD) ml/min Glucose (74-106) mg/dL POC Glucose 110 116 H 172 H (60-110) mg/dL Calcium (8.5-10.1) mg/dL Phosphorus (2.6-4.7) mg/dL Magnesium (1.8-2.4) mg/dL Total Bilirubin (0.2-1.0) mg/dL AST (15-37) IU/L ALT (14-63) IU/L Alkaline Phosphatase (46-116) U/L Total Protein (6.4-8.2) g/dL Albumin (3.4-5.0) g/dL Globulin (2.6-4.0) g/dL Albumin/Globulin Ratio (0.9-1.6) 06/21/20 06/22/20 06/22/20 Range/Units 18:07 06:10 06:10 WBC 60.77 H (4.0-11.0) K/uL RBC 4.12 L (4.50-5.90) M/uL Hgb 9.1 L (13.0-17.0) g/dL Hct 31.7 L (38.0-50.0) % MCV 76.9 L (80.0-98.0) fL MCH 22.1 L (27.0-32.0) pg MCHC 28.7 L (31.0-37.0) g/dL RDW Std Deviation 67.5 H (28.0-62.0) fl RDW Coeff of Nia 25 H (11.0-15.0) % Plt Count 240 (150-400) K/uL Add Manual Diff YES Neutrophils % (Manual) 72 (48.0-80.0) % Band Neutrophils % 3 % Lymphocytes % (Manual) 6 L (16.0-40.0) % Monocytes % (Manual) 2 (0.0-15.0) % Basophils % (Manual) 3 H (0.0-1.5) % Metamyelocytes % 6 % Myelocytes % 5 % Blast Cells % 3 % Nucleated RBC % 3.5 /100WBC Absolute Seg Neuts 43.8 H (1.4-5.7) Band Neutrophils # 1.8 Lymphocytes # (Manual) 3.6 H (0.6-2.4) Monocytes # (Manual) 1.2 H (0.0-0.8) Basophils # (Manual) 1.8 H (0.0-0.1) Absolute Metamyelocyte 3.6 Absolute Myelocytes 3.0 Nucleated RBCs 5 % Nucleated RBCs # 0 K/uL Absolute Blast Cells 1.8 Poikilocytosis 2+ MODERATE Sodium 144 (136-148) mmol/L Potassium 4.4 (3.5-5.1) mmol/L Chloride 109 H (98-107) mmol/L Carbon Dioxide 25.4 (21.0-32.0) mmol/L BUN 53 H (7.0-18.0) mg/dL Creatinine 2.3 H (0.8-1.3) mg/dL Est Cr Clr Drug Dosing 29.56 mL/min Estimated GFR (MDRD) 27.9 ml/min Glucose 114 H (74-106) mg/dL POC Glucose 157 H (60-110) mg/dL Calcium 8.5 (8.5-10.1) mg/dL Phosphorus 4.9 H (2.6-4.7) mg/dL Magnesium 1.8 (1.8-2.4) mg/dL Total Bilirubin 1.2 H (0.2-1.0) mg/dL AST 24 (15-37) IU/L ALT 8 L (14-63) IU/L Alkaline Phosphatase 168 H (46-116) U/L Total Protein 7.0 (6.4-8.2) g/dL Albumin 3.0 L (3.4-5.0) g/dL Globulin 4.0 (2.6-4.0) g/dL Albumin/Globulin Ratio 0.8 L (0.9-1.6) 06/22/20 Range/Units 06:13 WBC (4.0-11.0) K/uL RBC (4.50-5.90) M/uL Hgb (13.0-17.0) g/dL Hct (38.0-50.0) % MCV (80.0-98.0) fL MCH (27.0-32.0) pg MCHC (31.0-37.0) g/dL RDW Std Deviation (28.0-62.0) fl RDW Coeff of Nia (11.0-15.0) % Plt Count (150-400) K/uL Add Manual Diff Neutrophils % (Manual) (48.0-80.0) % Band Neutrophils % % Lymphocytes % (Manual) (16.0-40.0) % Monocytes % (Manual) (0.0-15.0) % Basophils % (Manual) (0.0-1.5) % Metamyelocytes % % Myelocytes % % Blast Cells % % Nucleated RBC % /100WBC Absolute Seg Neuts (1.4-5.7) Band Neutrophils # Lymphocytes # (Manual) (0.6-2.4) Monocytes # (Manual) (0.0-0.8) Basophils # (Manual) (0.0-0.1) Absolute Metamyelocyte Absolute Myelocytes Nucleated RBCs % Nucleated RBCs # K/uL Absolute Blast Cells Poikilocytosis Sodium (136-148) mmol/L Potassium (3.5-5.1) mmol/L Chloride (98-107) mmol/L Carbon Dioxide (21.0-32.0) mmol/L BUN (7.0-18.0) mg/dL Creatinine (0.8-1.3) mg/dL Est Cr Clr Drug Dosing mL/min Estimated GFR (MDRD) ml/min Glucose (74-106) mg/dL POC Glucose 113 H (60-110) mg/dL Calcium (8.5-10.1) mg/dL Phosphorus (2.6-4.7) mg/dL Magnesium (1.8-2.4) mg/dL Total Bilirubin (0.2-1.0) mg/dL AST (15-37) IU/L ALT (14-63) IU/L Alkaline Phosphatase (46-116) U/L Total Protein (6.4-8.2) g/dL Albumin (3.4-5.0) g/dL Globulin (2.6-4.0) g/dL Albumin/Globulin Ratio (0.9-1.6) Med Orders - Current: Current Medications Acetaminophen (Tylenol) 650 mg PO Q4H PRN PRN Reason: Pain (Mild 1-3)/fever Last Admin: 06/21/20 21:03 Dose: 650 mg Documented by: Carvedilol (Coreg) 3.125 mg PO BIDMEALS [facility] Last Admin: 06/22/20 08:38 Dose: 3.125 mg Documented by: Dextrose/Water (Dextrose 50% In Water) 50 ml IV ASDIRECTED PRN PRN Reason: Hypoglycemia Dextrose/Water (Dextrose 50% In Water) 50 ml IV ASDIRECTED PRN PRN Reason: Hypoglycemia Docusate Sodium (Colace) 100 mg PO BID PRN PRN Reason: Constipation Dronabinol (Marinol) 5 mg PO BID [facility] Last Admin: 06/22/20 08:38 Dose: 5 mg Documented by: Ferrous Sulfate (Ferrous Sulfate) 325 mg PO BID [facility] Last Admin: 06/22/20 08:39 Dose: 325 mg Documented by: Fluconazole (Diflucan) 100 mg PO DAILY [facility] Last Admin: 06/22/20 08:38 Dose: 100 mg Documented by: Furosemide (Lasix) 40 mg IVPUSH Q6H [facility] Last Admin: 06/22/20 08:37 Dose: 40 mg Documented by: Glucagon (Glucagen) 1 mg IM ASDIRECTED PRN PRN Reason: Hypoglycemia Heparin Sodium (Porcine) (Heparin Sodium) 5,000 units SUBCUT Q12H [facility] Last Admin: 06/22/20 06:31 Dose: 5,000 units Documented by: Insulin Aspart (Novolog) 0 unit SUBCUT TIDAC [facility]; Protocol Last Admin: 06/22/20 06:29 Dose: Not Given Documented by: Melatonin (Melatonin) 3 mg PO BEDTIME [facility] Last Admin: 06/21/20 20:10 Dose: 3 mg Documented by: Ondansetron HCl (Zofran) 4 mg IVPUSH Q4H PRN PRN Reason: Nausea Pantoprazole Sodium (Protonix) 40 mg PO DAILY [facility] Last Admin: 06/22/20 08:38 Dose: 40 mg Documented by: Sertraline HCl (Zoloft) 100 mg PO DAILY [facility] Last Admin: 06/22/20 08:39 Dose: 100 mg Documented by: Sodium Chloride (Saline Flush) 10 ml FLUSH ASDIRECTED PRN PRN Reason: Keep Vein Open Sodium Chloride (Saline Flush) 2.5 ml FLUSH ASDIRECTED PRN PRN Reason: Keep Vein Open Last Admin: 06/22/20 08:40 Dose: 2.5 ml Documented by: Sodium Chloride (Normal Saline) 10 ml IV ASDIRECTED PRN PRN Reason: IV Use Tamsulosin HCl (Flomax) 0.4 mg PO BEDTIME [facility] Last Admin: 06/21/20 20:10 Dose: 0.4 mg Documented by: Discontinued Medications Docusate Sodium (Colace) 100 mg PO BID [facility] Last Admin: 06/18/20 21:01 Dose: Not Given Documented by: Enoxaparin Sodium (Lovenox) 30 mg SUBCUT Q24H [facility] Last Admin: 06/17/20 17:08 Dose: 30 mg Documented by: Furosemide (Lasix) 40 mg IVPUSH BID [facility] Last Admin: 06/19/20 08:47 Dose: 40 mg Documented by: Furosemide (Lasix) 80 mg IVPUSH NOW ONE Stop: 06/17/20 19:16 Last Admin: 06/17/20 20:45 Dose: 80 mg Documented by: Furosemide (Lasix) 120 mg IVPUSH NOW ONE Stop: 06/18/20 08:17 Last Admin: 06/18/20 09:21 Dose: 120 mg Documented by: Furosemide (Lasix) 120 mg IVPUSH NOW ONE Stop: 06/18/20 20:07 Last Admin: 06/18/20 20:52 Dose: 120 mg Documented by: Furosemide (Lasix) 40 mg IVPUSH NOW ONE Stop: 06/19/20 14:01 Furosemide (Lasix) 40 mg IVPUSH Q8H [facility] Ceftriaxone Sodium/Dextrose 1 (gm/ Premix) 50 mls @ 100 mls/hr IV Q24H [facility] Last Admin: 06/18/20 22:15 Dose: 100 mls/hr Documented by: Albumin Human (Flexbumin 25%) 12.5 gm in 50 mls @ 100 mls/hr IV ONETIME ONE Stop: 06/18/20 12:33 Last Admin: 06/18/20 12:30 Dose: 100 mls/hr Documented by: Albumin Human (Flexbumin 25%) 12.5 gm in 50 mls @ 100 mls/hr IV ONETIME ONE Stop: 06/18/20 19:49 Last Admin: 06/18/20 20:52 Dose: 100 mls/hr Documented by: Albumin Human (Flexbumin 25%) 12.5 gm in 50 mls @ 100 mls/hr IV ONETIME ONE Stop: 06/19/20 10:16 Last Admin: 06/19/20 10:44 Dose: 100 mls/hr Documented by: Furosemide 480 mg/ Sodium (Chloride) 250 mls @ 10.417 mls/hr IV Q24H [facility] Stop: 06/20/20 12:59 Last Admin: 06/19/20 13:10 Dose: 20 mg/hr, 10.417 mls/hr Documented by: Furosemide 240 mg/ Premix 24 mls @ 1 mls/hr IV Q24H [facility] Stop: 06/21/20 13:29 Last Admin: 06/20/20 14:21 Dose: 10 mg/hr, 1 mls/hr Documented by: Sodium Chloride (Normal Saline) 500 mls @ 5 mls/hr IV ASDIRECTED [facility] Sodium Chloride (Normal Saline) 500 mls @ 5 mls/hr IV ASDIRECTED [facility] Last Admin: 06/20/20 20:05 Dose: 5 mls/hr Documented by: Insulin Detemir (Levemir) 12 unit SUBCUT BEDTIME [facility] Last Admin: 06/17/20 21:01 Dose: Not Given Documented by: Insulin Glargine (Lantus Solostar) 12 units SUBCUT BEDTIME [facility] Metolazone (Zaroxolyn) 2.5 mg PO ONETIME ONE Stop: 06/18/20 09:01 Last Admin: 06/18/20 09:16 Dose: 2.5 mg Documented by: Pneumococcal Polyvalent Vaccine (Pneumovax 23) 0.5 ml IM .ONCE ONE Stop: 06/20/20 17:01 Last Admin: 06/20/20 23:42 Dose: Not Given Documented by: Pneumococcal Polyvalent Vaccine (Pneumovax 23) 0.5 ml IM .ONCE ONE Stop: 06/21/20 09:01 Sodium Polystyrene Sulfonate (Kayexalate) 15 gm PO ONETIME ONE Stop: 06/20/20 11:31 Last Admin: 06/20/20 12:35 Dose: 15 gm Documented by: - Exam General: Alert, Oriented, Cooperative, No Acute Distress Lungs: Clear to Auscultation, Normal Respiratory Effort Cardiovascular: Regular Rate, Regular Rhythm GI/Abdominal Exam: Normal Bowel Sounds, Soft, Non-Tender, No Distention Extremities: Other (1+ pitting edema on left leg. Trace pitting edema on right leg.) Sepsis Event Note - Evaluation Sepsis Screening Result: No Definite Risk - Focused Exam Vital Signs: Vital Signs Temp Pulse Pulse Resp BP BP BP 06/22/20 08:38 82 113/53 L 06/22/20 07:47 36.3 C 81 16 113/53 L 06/22/20 04:00 36.4 C 80 18 119/59 L 06/22/20 00:00 36.6 C 75 16 107/55 L Pulse Ox 06/22/20 08:38 06/22/20 07:47 93 L 06/22/20 04:00 96 06/22/20 00:00 94 L - Problem List & Annotations (1) CHF (congestive heart failure) SNOMED Code(s): 99067391 Code(s): I50.9 - HEART FAILURE, UNSPECIFIED Status: Acute Current Visit: No (2) HTN (hypertension) SNOMED Code(s): 51526898 Code(s): I10 - ESSENTIAL (PRIMARY) HYPERTENSION Status: Acute Current Visit: Yes (3) Hx of CABG SNOMED Code(s): 080755860, 713287865 Code(s): Z95.1 - PRESENCE OF AORTOCORONARY BYPASS GRAFT Status: Acute Current Visit: Yes (4) Pacemaker SNOMED Code(s): 400054887 Code(s): Z95.0 - PRESENCE OF CARDIAC PACEMAKER Status: Acute Current Visit: Yes (5) Diabetes mellitus SNOMED Code(s): 67436550 Code(s): E11.9 - TYPE 2 DIABETES MELLITUS WITHOUT COMPLICATIONS Status: Acute Current Visit: No (6) Essential thrombocythemia SNOMED Code(s): 548925012 Code(s): D47.3 - ESSENTIAL (HEMORRHAGIC) THROMBOCYTHEMIA Status: Acute Current Visit: No - Problem List Review Problem List Initiated/Reviewed/Updated: Yes - My Orders Last 24 Hours: My Active Orders 06/21/20 15:00 Furosemide [Lasix] 40 mg IVPUSH Q6H - Plan Plan:: Assessment and Plan: 1. Acute systolic CHF exacerbation: - Continue supplemental oxygen prn. Cardiology following. IV lasix drip discontinued yesterday and patient currently on IV lasix 40 mg q6h per cardiology recommendation. Nephrology follow-up recommended on discharge. Will continue to monitor urine output. - Renal ultrasound showed mild medical renal disease. - Continue strict I's and O's, daily standing weight, fluid restrict < 2L per day and low sodium 2 g per day. Admission CXR showed slightly improved edema from last exam. ECHO showed LVEF 40% and moderate to severe right ventricle systolic pressure. 2. FRANCINE on CKD: - Per nephrology, suspected ATN. Creatinine improved to 2.3 today. 3. Hypoalbuminemia secondary to protein calorie malnutrition. 4. Left foot 2nd digit dry necrotic unstageable ulcer: - Podiatry evaluated patient yesterday and recommended no treatment at this current time due to patient's other acute disease processes. When and if aggressive treatment such as debridement or amputation is considered, podiatry recommended vascular studies such as arterial ultrasound or CT Angiogram. 5. UTI: - Urine culture grew yeast. Patient on PO fluconazole 100 mg qd. 6. Deconditioning: - PT consulted. Continue to encourage ambulation. 7. Diabetes mellitus type II: - Long-acting insulin held. Continue Novolog SSI and accuchecks TIDAC. 8. DVT prophylaxis: - Heparin 5000 units subcut q12. 9. Past medical history of HTN, essential thrombocythemia, NSTEMI s/p CABG, s/p pacemaker, and abdominal wall infection s/p wound vac: - Continue home medications. - Wound vac nurse consulted for management. - Wound care consulted.
--- NOTE | 2020-06-22 12:46 | PCM.PN ---
- General Info Date of Service: 06/22/20 Admission Dx/Problem (Free Text): 75-year-old male history of CAD recent non-STEMI 01/2020 status post CABG, status post dual-chamber pacemaker, LV systolic dysfunction, recent admission for mediastinitis, sternal osteomyelitis, supposed skin graft, was admitted in the hospital for decompensated heart failure FRANCINE. Subjective Update: The patient eating more, making good urine, on Lasix 40 mg IV every 6 hour creatinine went down slightly to 2.3 liver function tests are improving Functional Status: Reports: Pain Controlled - Review of Systems General: Reports: No Symptoms HEENT: Reports: No Symptoms Pulmonary: Reports: Shortness of Breath Cardiovascular: Reports: No Symptoms Gastrointestinal: Reports: No Symptoms Genitourinary: Reports: No Symptoms Musculoskeletal: Reports: No Symptoms Skin: Reports: No Symptoms Neurological: Reports: No Symptoms - Patient Data Vitals - Most Recent: Last Vital Signs Temp 97.7 F 06/22/20 12:14 Pulse 79 06/22/20 12:14 Resp 16 06/22/20 12:14 BP 105/46 L 06/22/20 12:14 Pulse Ox 92 L 06/22/20 12:14 Weight - Most Recent: 368 lb 9.806 oz I&O - Last 24 Hours: Intake & Output 06/21/20 06/22/20 06/22/20 22:59 06:59 14:59 Intake Total 511 400 Output Total 1075 850 Balance -564 -450 Lab Results Last 24 Hours: Laboratory Results - last 24 hr 06/21/20 06/21/20 06/22/20 Range/Units 16:26 18:07 06:10 WBC 60.77 H (4.0-11.0) K/uL RBC 4.12 L (4.50-5.90) M/uL Hgb 9.1 L (13.0-17.0) g/dL Hct 31.7 L (38.0-50.0) % MCV 76.9 L (80.0-98.0) fL MCH 22.1 L (27.0-32.0) pg MCHC 28.7 L (31.0-37.0) g/dL RDW Std Deviation 67.5 H (28.0-62.0) fl RDW Coeff of Nia 25 H (11.0-15.0) % Plt Count 240 (150-400) K/uL Add Manual Diff YES Neutrophils % (Manual) 72 (48.0-80.0) % Band Neutrophils % 3 % Lymphocytes % (Manual) 6 L (16.0-40.0) % Monocytes % (Manual) 2 (0.0-15.0) % Basophils % (Manual) 3 H (0.0-1.5) % Metamyelocytes % 6 % Myelocytes % 5 % Blast Cells % 3 % Nucleated RBC % 3.5 /100WBC Absolute Seg Neuts 43.8 H (1.4-5.7) Band Neutrophils # 1.8 Lymphocytes # (Manual) 3.6 H (0.6-2.4) Monocytes # (Manual) 1.2 H (0.0-0.8) Basophils # (Manual) 1.8 H (0.0-0.1) Absolute Metamyelocyte 3.6 Absolute Myelocytes 3.0 Nucleated RBCs 5 % Nucleated RBCs # 0 K/uL Absolute Blast Cells 1.8 Poikilocytosis 2+ MODERATE Sodium (136-148) mmol/L Potassium (3.5-5.1) mmol/L Chloride (98-107) mmol/L Carbon Dioxide (21.0-32.0) mmol/L BUN (7.0-18.0) mg/dL Creatinine (0.8-1.3) mg/dL Est Cr Clr Drug Dosing mL/min Estimated GFR (MDRD) ml/min Glucose (74-106) mg/dL POC Glucose 172 H 157 H (60-110) mg/dL Calcium (8.5-10.1) mg/dL Phosphorus (2.6-4.7) mg/dL Magnesium (1.8-2.4) mg/dL Total Bilirubin (0.2-1.0) mg/dL AST (15-37) IU/L ALT (14-63) IU/L Alkaline Phosphatase (46-116) U/L Total Protein (6.4-8.2) g/dL Albumin (3.4-5.0) g/dL Globulin (2.6-4.0) g/dL Albumin/Globulin Ratio (0.9-1.6) 06/22/20 06/22/20 06/22/20 Range/Units 06:10 06:13 12:01 WBC (4.0-11.0) K/uL RBC (4.50-5.90) M/uL Hgb (13.0-17.0) g/dL Hct (38.0-50.0) % MCV (80.0-98.0) fL MCH (27.0-32.0) pg MCHC (31.0-37.0) g/dL RDW Std Deviation (28.0-62.0) fl RDW Coeff of Nia (11.0-15.0) % Plt Count (150-400) K/uL Add Manual Diff Neutrophils % (Manual) (48.0-80.0) % Band Neutrophils % % Lymphocytes % (Manual) (16.0-40.0) % Monocytes % (Manual) (0.0-15.0) % Basophils % (Manual) (0.0-1.5) % Metamyelocytes % % Myelocytes % % Blast Cells % % Nucleated RBC % /100WBC Absolute Seg Neuts (1.4-5.7) Band Neutrophils # Lymphocytes # (Manual) (0.6-2.4) Monocytes # (Manual) (0.0-0.8) Basophils # (Manual) (0.0-0.1) Absolute Metamyelocyte Absolute Myelocytes Nucleated RBCs % Nucleated RBCs # K/uL Absolute Blast Cells Poikilocytosis Sodium 144 (136-148) mmol/L Potassium 4.4 (3.5-5.1) mmol/L Chloride 109 H (98-107) mmol/L Carbon Dioxide 25.4 (21.0-32.0) mmol/L BUN 53 H (7.0-18.0) mg/dL Creatinine 2.3 H (0.8-1.3) mg/dL Est Cr Clr Drug Dosing 29.56 mL/min Estimated GFR (MDRD) 27.9 ml/min Glucose 114 H (74-106) mg/dL POC Glucose 113 H 162 H (60-110) mg/dL Calcium 8.5 (8.5-10.1) mg/dL Phosphorus 4.9 H (2.6-4.7) mg/dL Magnesium 1.8 (1.8-2.4) mg/dL Total Bilirubin 1.2 H (0.2-1.0) mg/dL AST 24 (15-37) IU/L ALT 8 L (14-63) IU/L Alkaline Phosphatase 168 H (46-116) U/L Total Protein 7.0 (6.4-8.2) g/dL Albumin 3.0 L (3.4-5.0) g/dL Globulin 4.0 (2.6-4.0) g/dL Albumin/Globulin Ratio 0.8 L (0.9-1.6) Med Orders - Current: Current Medications Acetaminophen (Tylenol) 650 mg PO Q4H PRN PRN Reason: Pain (Mild 1-3)/fever Last Admin: 06/21/20 21:03 Dose: 650 mg Documented by: Carvedilol (Coreg) 3.125 mg PO BIDMEALS [facility] Last Admin: 06/22/20 08:38 Dose: 3.125 mg Documented by: Dextrose/Water (Dextrose 50% In Water) 50 ml IV ASDIRECTED PRN PRN Reason: Hypoglycemia Dextrose/Water (Dextrose 50% In Water) 50 ml IV ASDIRECTED PRN PRN Reason: Hypoglycemia Docusate Sodium (Colace) 100 mg PO BID PRN PRN Reason: Constipation Dronabinol (Marinol) 5 mg PO BID [facility] Last Admin: 06/22/20 08:38 Dose: 5 mg Documented by: Ferrous Sulfate (Ferrous Sulfate) 325 mg PO BID [facility] Last Admin: 06/22/20 08:39 Dose: 325 mg Documented by: Fluconazole (Diflucan) 100 mg PO DAILY [facility] Last Admin: 06/22/20 08:38 Dose: 100 mg Documented by: Furosemide (Lasix) 40 mg IVPUSH Q6H [facility] Last Admin: 06/22/20 08:37 Dose: 40 mg Documented by: Glucagon (Glucagen) 1 mg IM ASDIRECTED PRN PRN Reason: Hypoglycemia Heparin Sodium (Porcine) (Heparin Sodium) 5,000 units SUBCUT Q12H [facility] Last Admin: 06/22/20 06:31 Dose: 5,000 units Documented by: Insulin Aspart (Novolog) 0 unit SUBCUT TIDAC [facility]; Protocol Last Admin: 06/22/20 12:05 Dose: 2 units Documented by: Melatonin (Melatonin) 3 mg PO BEDTIME [facility] Last Admin: 06/21/20 20:10 Dose: 3 mg Documented by: Ondansetron HCl (Zofran) 4 mg IVPUSH Q4H PRN PRN Reason: Nausea Pantoprazole Sodium (Protonix) 40 mg PO DAILY [facility] Last Admin: 06/22/20 08:38 Dose: 40 mg Documented by: Sertraline HCl (Zoloft) 100 mg PO DAILY [facility] Last Admin: 06/22/20 08:39 Dose: 100 mg Documented by: Sodium Chloride (Saline Flush) 10 ml FLUSH ASDIRECTED PRN PRN Reason: Keep Vein Open Sodium Chloride (Saline Flush) 2.5 ml FLUSH ASDIRECTED PRN PRN Reason: Keep Vein Open Last Admin: 06/22/20 08:40 Dose: 2.5 ml Documented by: Sodium Chloride (Normal Saline) 10 ml IV ASDIRECTED PRN PRN Reason: IV Use Tamsulosin HCl (Flomax) 0.4 mg PO BEDTIME [facility] Last Admin: 06/21/20 20:10 Dose: 0.4 mg Documented by: Discontinued Medications Docusate Sodium (Colace) 100 mg PO BID [facility] Last Admin: 06/18/20 21:01 Dose: Not Given Documented by: Enoxaparin Sodium (Lovenox) 30 mg SUBCUT Q24H [facility] Last Admin: 06/17/20 17:08 Dose: 30 mg Documented by: Furosemide (Lasix) 40 mg IVPUSH BID [facility] Last Admin: 06/19/20 08:47 Dose: 40 mg Documented by: Furosemide (Lasix) 80 mg IVPUSH NOW ONE Stop: 06/17/20 19:16 Last Admin: 06/17/20 20:45 Dose: 80 mg Documented by: Furosemide (Lasix) 120 mg IVPUSH NOW ONE Stop: 06/18/20 08:17 Last Admin: 06/18/20 09:21 Dose: 120 mg Documented by: Furosemide (Lasix) 120 mg IVPUSH NOW ONE Stop: 06/18/20 20:07 Last Admin: 06/18/20 20:52 Dose: 120 mg Documented by: Furosemide (Lasix) 40 mg IVPUSH NOW ONE Stop: 06/19/20 14:01 Furosemide (Lasix) 40 mg IVPUSH Q8H [facility] Ceftriaxone Sodium/Dextrose 1 (gm/ Premix) 50 mls @ 100 mls/hr IV Q24H [facility] Last Admin: 06/18/20 22:15 Dose: 100 mls/hr Documented by: Albumin Human (Flexbumin 25%) 12.5 gm in 50 mls @ 100 mls/hr IV ONETIME ONE Stop: 06/18/20 12:33 Last Admin: 06/18/20 12:30 Dose: 100 mls/hr Documented by: Albumin Human (Flexbumin 25%) 12.5 gm in 50 mls @ 100 mls/hr IV ONETIME ONE Stop: 06/18/20 19:49 Last Admin: 06/18/20 20:52 Dose: 100 mls/hr Documented by: Albumin Human (Flexbumin 25%) 12.5 gm in 50 mls @ 100 mls/hr IV ONETIME ONE Stop: 06/19/20 10:16 Last Admin: 06/19/20 10:44 Dose: 100 mls/hr Documented by: Furosemide 480 mg/ Sodium (Chloride) 250 mls @ 10.417 mls/hr IV Q24H [facility] Stop: 06/20/20 12:59 Last Admin: 06/19/20 13:10 Dose: 20 mg/hr, 10.417 mls/hr Documented by: Furosemide 240 mg/ Premix 24 mls @ 1 mls/hr IV Q24H [facility]ON[facility] Stop: 06/21/20 13:29 Last Admin: 06/20/20 14:21 Dose: 10 mg/hr, 1 mls/hr Documented by: Sodium Chloride (Normal Saline) 500 mls @ 5 mls/hr IV ASDIRECTED BREONNA Sodium Chloride (Normal Saline) 500 mls @ 5 mls/hr IV ASDIRECTED BREONNA Last Admin: 06/20/20 20:05 Dose: 5 mls/hr Documented by: Insulin Detemir (Levemir) 12 unit SUBCUT BEDTIME [facility] Last Admin: 06/17/20 21:01 Dose: Not Given Documented by: Insulin Glargine (Lantus Solostar) 12 units SUBCUT BEDTIME [facility] Metolazone (Zaroxolyn) 2.5 mg PO ONETIME ONE Stop: 06/18/20 09:01 Last Admin: 06/18/20 09:16 Dose: 2.5 mg Documented by: Pneumococcal Polyvalent Vaccine (Pneumovax 23) 0.5 ml IM .ONCE ONE Stop: 06/20/20 17:01 Last Admin: 06/20/20 23:42 Dose: Not Given Documented by: Pneumococcal Polyvalent Vaccine (Pneumovax 23) 0.5 ml IM .ONCE ONE Stop: 06/21/20 09:01 Sodium Polystyrene Sulfonate (Kayexalate) 15 gm PO ONETIME ONE Stop: 06/20/20 11:31 Last Admin: 06/20/20 12:35 Dose: 15 gm Documented by: - Exam General: Alert, Oriented HEENT: Pupils Equal, Pupils Reactive Neck: JVD Lungs: Rales Cardiovascular: Regular Rate, Regular Rhythm GI/Abdominal Exam: Normal Bowel Sounds (Male) Exam: No Hernia Back Exam: Normal Inspection Extremities: Pedal Edema Sepsis Event Note - Evaluation Sepsis Screening Result: No Definite Risk - Focused Exam Vital Signs: Vital Signs Temp Pulse Pulse Resp BP BP BP 06/22/20 12:14 97.7 F 79 16 105/46 L 06/22/20 08:38 82 113/53 L 06/22/20 07:47 97.3 F 81 16 113/53 L 06/22/20 04:00 97.6 F 80 18 119/59 L Pulse Ox 06/22/20 12:14 92 L 06/22/20 08:38 06/22/20 07:47 93 L 06/22/20 04:00 96 - Problem List Review Problem List Initiated/Reviewed/Updated: Yes - Plan Plan:: Assessment and Plan: 1. Acute systolic CHF exacerbation: - with FRANCINE with CKD ATN now Cr improving his urine output put increasing. I will continue current lasix for now, maybe changing to lasix 40 IV TID tomorrow for the next few days.
[2020-06-22] MEDS: Tamsulosin 0.4 MG Cap.ER PO SCH (20:10)
[2020-06-22] MEDS: Melatonin 3 MG Tab PO SCH (20:10)
[2020-06-23] MEDS: Furosemide 40 MG/4 ML VIAL IVPUSH SCH ×2 (02:39→09:12)
[2020-06-23] MEDS: Insulin Aspart 100 Units/ML 3 ML Pen SUBCUT SCH ×3 (06:38→17:40)
[2020-06-23] MEDS: Heparin Sodium 5,000 Units/ML Vial SUBCUT SCH ×2 (06:38→18:46)
[2020-06-23 06:49] LABS: CARBON DIOXIDE,CO2 27.2 mmol/L (21.0-32.0); POTASSIUM,K 4.4 mmol/L (3.5-5.1)
[2020-06-23] MEDS: Carvedilol 3.125 MG Tab PO SCH ×2 (09:10→17:27)
[2020-06-23] MEDS: Sertraline 100 MG Tab PO SCH (09:11)
[2020-06-23] MEDS: Dronabinol 2.5 MG Cap PO SCH ×2 (09:11→20:29)
[2020-06-23] MEDS: Ferrous Sulfate 325 MG Tab PO SCH ×2 (09:11→20:29)
[2020-06-23] MEDS: Pantoprazole 40 MG Tab.CR PO SCH (09:11)
[2020-06-23] MEDS: Fluconazole 100 MG Tab PO SCH (09:12)
--- NOTE | 2020-06-23 09:28 | PCM.PN ---
- General Info Date of Service: 06/23/20 Admission Dx/Problem (Free Text): 75-year-old male history of CAD recent non-STEMI 01/2020 status post CABG, status post dual-chamber pacemaker, LV systolic dysfunction, recent admission for mediastinitis, sternal osteomyelitis, supposed skin graft, was admitted in the hospital for decompensated heart failure FRANCINE. Subjective Update: There were no overnight events, states he did not sleep very well, since he kept having to get up to urinate more frequently due to the lasix. Denies any urinary symptoms. Patient was up sitting on chair eating breakfast this AM. Reports breathing feels better. Tolerating oral diet and having bowel movements. Functional Status: Reports: Tolerating Diet - Review of Systems General: Reports: No Symptoms HEENT: Reports: No Symptoms Pulmonary: Reports: No Symptoms Cardiovascular: Reports: No Symptoms Gastrointestinal: Reports: No Symptoms Genitourinary: Reports: No Symptoms Musculoskeletal: Reports: No Symptoms Skin: Reports: No Symptoms Neurological: Reports: No Symptoms Psychiatric: Reports: No Symptoms - Patient Data Vitals - Most Recent: Last Vital Signs Temp 97.1 F 06/23/20 02:47 Pulse 80 06/23/20 09:10 Resp 16 06/23/20 02:47 BP 120/61 06/23/20 09:10 Pulse Ox 96 06/23/20 02:47 Weight - Most Recent: 368 lb 9.806 oz I&O - Last 24 Hours: Intake & Output 06/22/20 06/23/20 06/23/20 22:59 06:59 14:59 Intake Total 1005 600 Output Total 775 350 Balance 230 250 Lab Results Last 24 Hours: Laboratory Results - last 24 hr 06/22/20 06/22/20 06/23/20 Range/Units 12:01 17:16 06:05 WBC 64.39 H (4.0-11.0) K/uL RBC 4.02 L (4.50-5.90) M/uL Hgb 9.0 L (13.0-17.0) g/dL Hct 30.6 L (38.0-50.0) % MCV 76.1 L (80.0-98.0) fL MCH 22.4 L (27.0-32.0) pg MCHC 29.4 L (31.0-37.0) g/dL RDW Std Deviation 65.8 H (28.0-62.0) fl RDW Coeff of Nia 25 H (11.0-15.0) % Plt Count 214 (150-400) K/uL MPV (7.40-12.00) fL Add Manual Diff YES Neutrophils % (Manual) 73 (48.0-80.0) % Band Neutrophils % 3 % Lymphocytes % (Manual) 5 L (16.0-40.0) % Monocytes % (Manual) 1 (0.0-15.0) % Eosinophils % (Manual) 3 (0.0-7.0) % Basophils % (Manual) 5 H (0.0-1.5) % Metamyelocytes % 4 % Myelocytes % 5 % Blast Cells % 1 % Nucleated RBC % 4.3 /100WBC Absolute Seg Neuts 47.0 H (1.4-5.7) Band Neutrophils # 1.9 Lymphocytes # (Manual) 3.2 H (0.6-2.4) Monocytes # (Manual) 0.6 (0.0-0.8) Eosinophils # (Manual) 1.9 H (0.0-0.7) Basophils # (Manual) 3.2 H (0.0-0.1) Absolute Metamyelocyte 2.6 Absolute Myelocytes 3.2 Nucleated RBCs 5 % Nucleated RBCs # 0 K/uL Absolute Blast Cells 0.6 Poikilocytosis 2+ MODERATE Sodium (136-148) mmol/L Potassium (3.5-5.1) mmol/L Chloride (98-107) mmol/L Carbon Dioxide (21.0-32.0) mmol/L BUN (7.0-18.0) mg/dL Creatinine (0.8-1.3) mg/dL Est Cr Clr Drug Dosing mL/min Estimated GFR (MDRD) ml/min Glucose (74-106) mg/dL POC Glucose 162 H 143 H (60-110) mg/dL Calcium (8.5-10.1) mg/dL Phosphorus (2.6-4.7) mg/dL Magnesium (1.8-2.4) mg/dL Total Bilirubin (0.2-1.0) mg/dL AST (15-37) IU/L ALT (14-63) IU/L Alkaline Phosphatase (46-116) U/L Total Protein (6.4-8.2) g/dL Albumin (3.4-5.0) g/dL Globulin (2.6-4.0) g/dL Albumin/Globulin Ratio (0.9-1.6) 06/23/20 06/23/20 Range/Units 06:05 06:12 WBC (4.0-11.0) K/uL RBC (4.50-5.90) M/uL Hgb (13.0-17.0) g/dL Hct (38.0-50.0) % MCV (80.0-98.0) fL MCH (27.0-32.0) pg MCHC (31.0-37.0) g/dL RDW Std Deviation (28.0-62.0) fl RDW Coeff of Nia (11.0-15.0) % Plt Count (150-400) K/uL MPV (7.40-12.00) fL Add Manual Diff Neutrophils % (Manual) (48.0-80.0) % Band Neutrophils % % Lymphocytes % (Manual) (16.0-40.0) % Monocytes % (Manual) (0.0-15.0) % Eosinophils % (Manual) (0.0-7.0) % Basophils % (Manual) (0.0-1.5) % Metamyelocytes % % Myelocytes % % Blast Cells % % Nucleated RBC % /100WBC Absolute Seg Neuts (1.4-5.7) Band Neutrophils # Lymphocytes # (Manual) (0.6-2.4) Monocytes # (Manual) (0.0-0.8) Eosinophils # (Manual) (0.0-0.7) Basophils # (Manual) (0.0-0.1) Absolute Metamyelocyte Absolute Myelocytes Nucleated RBCs % Nucleated RBCs # K/uL Absolute Blast Cells Poikilocytosis Sodium 145 (136-148) mmol/L Potassium 4.4 (3.5-5.1) mmol/L Chloride 108 H (98-107) mmol/L Carbon Dioxide 27.2 (21.0-32.0) mmol/L BUN 54 H (7.0-18.0) mg/dL Creatinine 2.3 H (0.8-1.3) mg/dL Est Cr Clr Drug Dosing 29.56 mL/min Estimated GFR (MDRD) 27.9 ml/min Glucose 145 H (74-106) mg/dL POC Glucose 141 H (60-110) mg/dL Calcium 8.5 (8.5-10.1) mg/dL Phosphorus 4.5 (2.6-4.7) mg/dL Magnesium 1.7 L (1.8-2.4) mg/dL Total Bilirubin 1.1 H (0.2-1.0) mg/dL AST 24 (15-37) IU/L ALT 7 L (14-63) IU/L Alkaline Phosphatase 157 H (46-116) U/L Total Protein 6.9 (6.4-8.2) g/dL Albumin 2.8 L (3.4-5.0) g/dL Globulin 4.1 H (2.6-4.0) g/dL Albumin/Globulin Ratio 0.7 L (0.9-1.6) Med Orders - Current: Current Medications Acetaminophen (Tylenol) 650 mg PO Q4H PRN PRN Reason: Pain (Mild 1-3)/fever Last Admin: 06/21/20 21:03 Dose: 650 mg Documented by: Carvedilol (Coreg) 3.125 mg PO BIDMEALS [facility] Last Admin: 06/23/20 09:10 Dose: 3.125 mg Documented by: Dextrose/Water (Dextrose 50% In Water) 50 ml IV ASDIRECTED PRN PRN Reason: Hypoglycemia Dextrose/Water (Dextrose 50% In Water) 50 ml IV ASDIRECTED PRN PRN Reason: Hypoglycemia Docusate Sodium (Colace) 100 mg PO BID PRN PRN Reason: Constipation Dronabinol (Marinol) 5 mg PO BID [facility] Last Admin: 06/23/20 09:11 Dose: 5 mg Documented by: Ferrous Sulfate (Ferrous Sulfate) 325 mg PO BID [facility] Last Admin: 06/23/20 09:11 Dose: 325 mg Documented by: Fluconazole (Diflucan) 100 mg PO DAILY [facility] Last Admin: 06/23/20 09:12 Dose: 100 mg Documented by: Furosemide (Lasix) 40 mg IVPUSH Q6H [facility] Last Admin: 06/23/20 09:12 Dose: 40 mg Documented by: Glucagon (Glucagen) 1 mg IM ASDIRECTED PRN PRN Reason: Hypoglycemia Heparin Sodium (Porcine) (Heparin Sodium) 5,000 units SUBCUT Q12H [facility] Last Admin: 06/23/20 06:38 Dose: 5,000 units Documented by: Insulin Aspart (Novolog) 0 unit SUBCUT TIDAC [facility]; Protocol Last Admin: 06/23/20 06:38 Dose: Not Given Documented by: Melatonin (Melatonin) 3 mg PO BEDTIME [facility] Last Admin: 06/22/20 20:10 Dose: 3 mg Documented by: Ondansetron HCl (Zofran) 4 mg IVPUSH Q4H PRN PRN Reason: Nausea Pantoprazole Sodium (Protonix) 40 mg PO DAILY [facility] Last Admin: 06/23/20 09:11 Dose: 40 mg Documented by: Sertraline HCl (Zoloft) 100 mg PO DAILY [facility] Last Admin: 06/23/20 09:11 Dose: 100 mg Documented by: Sodium Chloride (Saline Flush) 10 ml FLUSH ASDIRECTED PRN PRN Reason: Keep Vein Open Sodium Chloride (Saline Flush) 2.5 ml FLUSH ASDIRECTED PRN PRN Reason: Keep Vein Open Last Admin: 06/22/20 08:40 Dose: 2.5 ml Documented by: Sodium Chloride (Normal Saline) 10 ml IV ASDIRECTED PRN PRN Reason: IV Use Tamsulosin HCl (Flomax) 0.4 mg PO BEDTIME [facility] Last Admin: 06/22/20 20:10 Dose: 0.4 mg Documented by: Discontinued Medications Docusate Sodium (Colace) 100 mg PO BID [facility] Last Admin: 06/18/20 21:01 Dose: Not Given Documented by: Enoxaparin Sodium (Lovenox) 30 mg SUBCUT Q24H [facility] Last Admin: 06/17/20 17:08 Dose: 30 mg Documented by: Furosemide (Lasix) 40 mg IVPUSH BID [facility] Last Admin: 06/19/20 08:47 Dose: 40 mg Documented by: Furosemide (Lasix) 80 mg IVPUSH NOW ONE Stop: 06/17/20 19:16 Last Admin: 06/17/20 20:45 Dose: 80 mg Documented by: Furosemide (Lasix) 120 mg IVPUSH NOW ONE Stop: 06/18/20 08:17 Last Admin: 06/18/20 09:21 Dose: 120 mg Documented by: Furosemide (Lasix) 120 mg IVPUSH NOW ONE Stop: 06/18/20 20:07 Last Admin: 06/18/20 20:52 Dose: 120 mg Documented by: Furosemide (Lasix) 40 mg IVPUSH NOW ONE Stop: 06/19/20 14:01 Furosemide (Lasix) 40 mg IVPUSH Q8H [facility] Ceftriaxone Sodium/Dextrose 1 (gm/ Premix) 50 mls @ 100 mls/hr IV Q24H [facility] Last Admin: 06/18/20 22:15 Dose: 100 mls/hr Documented by: Albumin Human (Flexbumin 25%) 12.5 gm in 50 mls @ 100 mls/hr IV ONETIME ONE Stop: 06/18/20 12:33 Last Admin: 06/18/20 12:30 Dose: 100 mls/hr Documented by: Albumin Human (Flexbumin 25%) 12.5 gm in 50 mls @ 100 mls/hr IV ONETIME ONE Stop: 06/18/20 19:49 Last Admin: 06/18/20 20:52 Dose: 100 mls/hr Documented by: Albumin Human (Flexbumin 25%) 12.5 gm in 50 mls @ 100 mls/hr IV ONETIME ONE Stop: 06/19/20 10:16 Last Admin: 06/19/20 10:44 Dose: 100 mls/hr Documented by: Furosemide 480 mg/ Sodium (Chloride) 250 mls @ 10.417 mls/hr IV Q24H [facility] Stop: 06/20/20 12:59 Last Admin: 06/19/20 13:10 Dose: 20 mg/hr, 10.417 mls/hr Documented by: Furosemide 240 mg/ Premix 24 mls @ 1 mls/hr IV Q24H [facility] Stop: 06/21/20 13:29 Last Admin: 06/20/20 14:21 Dose: 10 mg/hr, 1 mls/hr Documented by: Sodium Chloride (Normal Saline) 500 mls @ 5 mls/hr IV ASDIRECTED [facility] Sodium Chloride (Normal Saline) 500 mls @ 5 mls/hr IV ASDIRECTED [facility] Last Admin: 06/20/20 20:05 Dose: 5 mls/hr Documented by: Insulin Detemir (Levemir) 12 unit SUBCUT BEDTIME [facility] Last Admin: 06/17/20 21:01 Dose: Not Given Documented by: Insulin Glargine (Lantus Solostar) 12 units SUBCUT BEDTIME [facility] Metolazone (Zaroxolyn) 2.5 mg PO ONETIME ONE Stop: 06/18/20 09:01 Last Admin: 06/18/20 09:16 Dose: 2.5 mg Documented by: Pneumococcal Polyvalent Vaccine (Pneumovax 23) 0.5 ml IM .ONCE ONE Stop: 06/20/20 17:01 Last Admin: 06/20/20 23:42 Dose: Not Given Documented by: Pneumococcal Polyvalent Vaccine (Pneumovax 23) 0.5 ml IM .ONCE ONE Stop: 06/21/20 09:01 Sodium Polystyrene Sulfonate (Kayexalate) 15 gm PO ONETIME ONE Stop: 06/20/20 11:31 Last Admin: 06/20/20 12:35 Dose: 15 gm Documented by: - Exam Quality Assessment: Supplemental Oxygen General: Alert, Oriented, Cooperative, No Acute Distress HEENT: Pupils Equal, Pupils Reactive, EOMI, Mucous Membr. Moist/[place] Neck: Supple, Trachea Midline, No JVD Lungs: Clear to Auscultation, Normal Respiratory Effort Cardiovascular: Regular Rate, Regular Rhythm, No Murmurs GI/Abdominal Exam: Normal Bowel Sounds, Soft, Non-Tender Extremities: Normal Inspection, Normal Range of Motion, Non-Tender, No Pedal Edema, Normal Capillary Refill Peripheral Pulses: 2+: Radial (L), Radial (R), Dorsalis Pedis (L), Dorsalis Pedis (R) Skin: Warm, Dry Wound/Incisions: Dressing Dry and Intact Neurological: No New Focal Deficit Psy/Mental Status: Alert, Normal Affect, Normal Mood Sepsis Event Note - Evaluation Sepsis Screening Result: No Definite Risk - Focused Exam Vital Signs: Vital Signs Temp Pulse Pulse Resp BP BP BP 06/23/20 09:10 80 120/61 06/23/20 02:47 97.1 F 81 16 112/58 L 06/22/20 23:44 97.5 F 78 20 107/48 L 94/37 L Pulse Ox 06/23/20 09:10 06/23/20 02:47 96 06/22/20 23:44 93 L - Problem List Review Problem List Initiated/Reviewed/Updated: Yes - Plan Plan:: Assessment and Plan: 1. Acute systolic CHF exacerbation: - Continue supplemental oxygen prn. Cardiology following. Currently on IV lasix 40 mg q6h per cardiology recommendation may consider Q8 per cards. Nephrology follow-up recommended on discharge. Will continue to monitor urine output. - Renal ultrasound showed mild medical renal disease. - Continue strict I's and O's, daily standing weight, fluid restrict < 2L per day and low sodium 2 g per day. Admission CXR showed slightly improved edema from last exam. ECHO showed LVEF 40% and moderate to severe right ventricle systolic pressure. 2. FRANCINE on CKD: - Per nephrology, ATN. Creatinine stable to 2.3 today. 3. Hypoalbuminemia secondary to protein calorie malnutrition. 4. Left foot 2nd digit dry necrotic unstageable ulcer: - Podiatry evaluated patient yesterday and recommended no treatment at this current time due to patient's other acute disease processes. When and if aggressive treatment such as debridement or amputation is considered, podiatry recommended vascular studies such as arterial ultrasound or CT Angiogram. 5. UTI: - Urine culture grew yeast. Patient on PO fluconazole 100 mg qd. 6. Deconditioning: - PT consulted. Continue to encourage ambulation. 7. Diabetes mellitus type II: - Long-acting insulin held. Continue Novolog SSI and accuchecks TIDAC. 8. DVT prophylaxis: - Heparin 5000 units subcut q12. 9. Past medical history of HTN, essential thrombocythemia, NSTEMI s/p CABG, s/p pacemaker, and abdominal wall infection s/p wound vac: - Continue home medications. - Wound vac nurse consulted for management. - Wound care consulted.
[2020-06-23] MEDS ORDERED: Furosemide 40 MG/4 ML VIAL IV SCH ×2 (11:15→17:00)
[2020-06-23] MEDS ORDERED: Furosemide 40 MG in Sodium Chloride 0.9% 50 ML IV SCH (11:15)
[2020-06-23] MEDS: Furosemide 40 MG/4 ML VIAL ONE ×2 (17:25→17:26)
[2020-06-23] MEDS: Furosemide 40 MG in Sodium Chloride 0.9% 50 ML IV SCH (17:26)
[2020-06-23] MEDS: Tamsulosin 0.4 MG Cap.ER PO SCH (20:28)
[2020-06-23] MEDS: Melatonin 3 MG Tab PO SCH (20:29)
[2020-06-24] MEDS: Furosemide 40 MG in Sodium Chloride 0.9% 50 ML IV SCH (00:55)
[2020-06-24 06:09] LABS: CARBON DIOXIDE,CO2 28.4 mmol/L (21.0-32.0); POTASSIUM,K 4.6 mmol/L (3.5-5.1)
[2020-06-24] MEDS: Insulin Aspart 100 Units/ML 3 ML Pen SUBCUT SCH ×3 (06:30→18:33)
[2020-06-24] MEDS: Heparin Sodium 5,000 Units/ML Vial SUBCUT SCH ×2 (06:35→18:36)
[2020-06-24] MEDS ORDERED: Furosemide 40 MG/4 ML VIAL IVPUSH SCH ×2 (08:30→15:00)
[2020-06-24] MEDS: Carvedilol 3.125 MG Tab PO SCH ×2 (08:45→17:02)
[2020-06-24] MEDS: Sertraline 100 MG Tab PO SCH (08:46)
[2020-06-24] MEDS: Fluconazole 100 MG Tab PO SCH (08:46)
[2020-06-24] MEDS: Dronabinol 2.5 MG Cap PO SCH ×2 (08:46→21:40)
[2020-06-24] MEDS: Ferrous Sulfate 325 MG Tab PO SCH ×2 (08:47→21:39)
[2020-06-24] MEDS: Pantoprazole 40 MG Tab.CR PO SCH (08:47)
[2020-06-24] MEDS ORDERED: Magnesium Sulfate/Water 2 GM/50 ML BAG IV ONE (15:01)
[2020-06-24] MEDS: Furosemide 40 MG/4 ML VIAL IVPUSH SCH ×2 (16:54→21:39)
--- NOTE | 2020-06-24 18:45 | PCM.PN ---
<Ismael Easley - Last Filed: 06/24/20 18:37> - General Info Date of Service: 06/24/20 Subjective Update: Patient states that he would like to go home. Still has a decreased appetite and does not participate in PT. Denies chest pain, SOB, fever, chills. - Review of Systems General: Denies: Fever, Weakness, Chills Pulmonary: Denies: Shortness of Breath, Pleuritic Chest Pain Cardiovascular: Denies: Chest Pain, Lightheadedness Gastrointestinal: Reports: Decreased Appetite. Denies: Abdominal Pain, Nausea, Vomiting Skin: Denies: Cyanosis - Patient Data Vitals - Most Recent: Last Vital Signs Temp 97.4 F 06/24/20 16:00 Pulse 90 06/24/20 16:00 Resp 20 06/24/20 16:00 BP 112/56 L 06/24/20 16:00 Pulse Ox 82 L 06/24/20 16:00 Weight - Most Recent: 76.793 kg I&O - Last 24 Hours: Intake & Output 06/24/20 06/24/20 06/24/20 06:59 14:59 22:59 Intake Total 740 Output Total 250 250 Balance 490 -250 Lab Results Last 24 Hours: Laboratory Results - last 24 hr 06/24/20 06/24/20 06/24/20 Range/Units 05:47 05:47 05:47 WBC 61.83 H (4.0-11.0) K/uL RBC 3.84 L (4.50-5.90) M/uL Hgb 8.5 L (13.0-17.0) g/dL Hct 29.4 L (38.0-50.0) % MCV 76.6 L (80.0-98.0) fL MCH 22.1 L (27.0-32.0) pg MCHC 28.9 L (31.0-37.0) g/dL RDW Std Deviation 66.8 H (28.0-62.0) fl RDW Coeff of Nia 25 H (11.0-15.0) % Plt Count 246 (150-400) K/uL MPV (7.40-12.00) fL Add Manual Diff YES Neutrophils % (Manual) 72 (48.0-80.0) % Band Neutrophils % 3 % Lymphocytes % (Manual) 11 L (16.0-40.0) % Monocytes % (Manual) 3 (0.0-15.0) % Eosinophils % (Manual) 1 (0.0-7.0) % Basophils % (Manual) 5 H (0.0-1.5) % Metamyelocytes % 2 % Myelocytes % 2 % Blast Cells % 1 % Nucleated RBC % 5.4 /100WBC Absolute Seg Neuts 44.5 H (1.4-5.7) Band Neutrophils # 1.9 Lymphocytes # (Manual) 6.8 H (0.6-2.4) Monocytes # (Manual) 1.9 H (0.0-0.8) Eosinophils # (Manual) 0.6 (0.0-0.7) Basophils # (Manual) 3.1 H (0.0-0.1) Absolute Metamyelocyte 1.2 Absolute Myelocytes 1.2 Nucleated RBCs 7 % Nucleated RBCs # 1 K/uL Absolute Blast Cells 0.6 Poikilocytosis 2+ MODERATE Sodium 143 (136-148) mmol/L Potassium 4.6 (3.5-5.1) mmol/L Chloride 107 (98-107) mmol/L Carbon Dioxide 28.4 (21.0-32.0) mmol/L BUN 59 H (7.0-18.0) mg/dL Creatinine 2.3 H (0.8-1.3) mg/dL Est Cr Clr Drug Dosing 29.56 mL/min Estimated GFR (MDRD) 27.9 ml/min Glucose 117 H (74-106) mg/dL POC Glucose (60-110) mg/dL Calcium 8.4 L (8.5-10.1) mg/dL Magnesium 1.7 L (1.8-2.4) mg/dL Total Bilirubin 1.1 H (0.2-1.0) mg/dL AST 30 (15-37) IU/L ALT 7 L (14-63) IU/L Alkaline Phosphatase 156 H (46-116) U/L Total Protein 6.9 (6.4-8.2) g/dL Albumin 2.8 L (3.4-5.0) g/dL Globulin 4.1 H (2.6-4.0) g/dL Albumin/Globulin Ratio 0.7 L (0.9-1.6) 11/16/20 11/16/20 11/16/20 Range/Units 06:03 12:05 17:38 WBC (4.0-11.0) K/uL RBC (4.50-5.90) M/uL Hgb (13.0-17.0) g/dL Hct (38.0-50.0) % MCV (80.0-98.0) fL MCH (27.0-32.0) pg MCHC (31.0-37.0) g/dL RDW Std Deviation (28.0-62.0) fl RDW Coeff of Nia (11.0-15.0) % Plt Count (150-400) K/uL MPV (7.40-12.00) fL Add Manual Diff Neutrophils % (Manual) (48.0-80.0) % Band Neutrophils % % Lymphocytes % (Manual) (16.0-40.0) % Monocytes % (Manual) (0.0-15.0) % Eosinophils % (Manual) (0.0-7.0) % Basophils % (Manual) (0.0-1.5) % Metamyelocytes % % Myelocytes % % Blast Cells % % Nucleated RBC % /100WBC Absolute Seg Neuts (1.4-5.7) Band Neutrophils # Lymphocytes # (Manual) (0.6-2.4) Monocytes # (Manual) (0.0-0.8) Eosinophils # (Manual) (0.0-0.7) Basophils # (Manual) (0.0-0.1) Absolute Metamyelocyte Absolute Myelocytes Nucleated RBCs % Nucleated RBCs # K/uL Absolute Blast Cells Poikilocytosis Sodium (136-148) mmol/L Potassium (3.5-5.1) mmol/L Chloride (98-107) mmol/L Carbon Dioxide (21.0-32.0) mmol/L BUN (7.0-18.0) mg/dL Creatinine (0.8-1.3) mg/dL Est Cr Clr Drug Dosing mL/min Estimated GFR (MDRD) ml/min Glucose (74-106) mg/dL POC Glucose 117 H 134 H 181 H (60-110) mg/dL Calcium (8.5-10.1) mg/dL Magnesium (1.8-2.4) mg/dL Total Bilirubin (0.2-1.0) mg/dL AST (15-37) IU/L ALT (14-63) IU/L Alkaline Phosphatase (46-116) U/L Total Protein (6.4-8.2) g/dL Albumin (3.4-5.0) g/dL Globulin (2.6-4.0) g/dL Albumin/Globulin Ratio (0.9-1.6) Med Orders - Current: Current Medications Acetaminophen (Tylenol) 650 mg PO Q4H PRN PRN Reason: Pain (Mild 1-3)/fever Last Admin: 06/21/20 21:03 Dose: 650 mg Documented by: Carvedilol (Coreg) 3.125 mg PO BIDMEALS [facility] Last Admin: 06/24/20 17:02 Dose: Not Given Documented by: Dextrose/Water (Dextrose 50% In Water) 50 ml IV ASDIRECTED PRN PRN Reason: Hypoglycemia Dextrose/Water (Dextrose 50% In Water) 50 ml IV ASDIRECTED PRN PRN Reason: Hypoglycemia Docusate Sodium (Colace) 100 mg PO BID PRN PRN Reason: Constipation Dronabinol (Marinol) 5 mg PO BID [facility] Last Admin: 06/24/20 08:46 Dose: 5 mg Documented by: Ferrous Sulfate (Ferrous Sulfate) 325 mg PO BID [facility] Last Admin: 06/24/20 08:47 Dose: 325 mg Documented by: Fluconazole (Diflucan) 100 mg PO DAILY [facility] Last Admin: 06/24/20 08:46 Dose: 100 mg Documented by: Furosemide (Lasix) 40 mg IVPUSH Q8HR [facility] Last Admin: 06/24/20 16:54 Dose: 40 mg Documented by: Glucagon (Glucagen) 1 mg IM ASDIRECTED PRN PRN Reason: Hypoglycemia Heparin Sodium (Porcine) (Heparin Sodium) 5,000 units SUBCUT Q12H [facility] Last Admin: 06/24/20 18:36 Dose: 5,000 units Documented by: Insulin Aspart (Novolog) 0 unit SUBCUT TIDAC [facility]; Protocol Last Admin: 06/24/20 18:33 Dose: 2 units Documented by: Melatonin (Melatonin) 3 mg PO BEDTIME [facility] Last Admin: 06/23/20 20:29 Dose: 3 mg Documented by: Ondansetron HCl (Zofran) 4 mg IVPUSH Q4H PRN PRN Reason: Nausea Pantoprazole Sodium (Protonix) 40 mg PO DAILY [facility] Last Admin: 06/24/20 08:47 Dose: 40 mg Documented by: Sertraline HCl (Zoloft) 100 mg PO DAILY [facility] Last Admin: 06/24/20 08:46 Dose: 100 mg Documented by: Sodium Chloride (Saline Flush) 10 ml FLUSH ASDIRECTED PRN PRN Reason: Keep Vein Open Sodium Chloride (Saline Flush) 2.5 ml FLUSH ASDIRECTED PRN PRN Reason: Keep Vein Open Last Admin: 06/22/20 08:40 Dose: 2.5 ml Documented by: Sodium Chloride (Normal Saline) 10 ml IV ASDIRECTED PRN PRN Reason: IV Use Tamsulosin HCl (Flomax) 0.4 mg PO BEDTIME [facility] Last Admin: 06/23/20 20:28 Dose: 0.4 mg Documented by: Discontinued Medications Docusate Sodium (Colace) 100 mg PO BID [facility] Last Admin: 06/18/20 21:01 Dose: Not Given Documented by: Enoxaparin Sodium (Lovenox) 30 mg SUBCUT Q24H [facility] Last Admin: 06/17/20 17:08 Dose: 30 mg Documented by: Furosemide (Lasix) 40 mg IVPUSH BID [facility] Last Admin: 06/19/20 08:47 Dose: 40 mg Documented by: Furosemide (Lasix) 80 mg IVPUSH NOW ONE Stop: 06/17/20 19:16 Last Admin: 06/17/20 20:45 Dose: 80 mg Documented by: Furosemide (Lasix) 120 mg IVPUSH NOW ONE Stop: 06/18/20 08:17 Last Admin: 06/18/20 09:21 Dose: 120 mg Documented by: Furosemide (Lasix) 120 mg IVPUSH NOW ONE Stop: 06/18/20 20:07 Last Admin: 06/18/20 20:52 Dose: 120 mg Documented by: Furosemide (Lasix) 40 mg IVPUSH NOW ONE Stop: 06/19/20 14:01 Furosemide (Lasix) 40 mg IVPUSH Q8H [facility] Furosemide (Lasix) 40 mg IVPUSH Q6H [facility] Last Admin: 06/23/20 09:12 Dose: 40 mg Documented by: Furosemide (Lasix) 40 mg IV Q8H [facility] Last Admin: 06/23/20 12:01 Dose: Not Given Documented by: Furosemide (Lasix) 40 mg IV Q8H [facility] Furosemide (Lasix) Confirm Administered Dose 40 mg .ROUTE .STK-MED ONE Stop: 06/23/20 17:10 Last Admin: 06/23/20 17:26 Dose: Not Given Documented by: Furosemide (Lasix) 40 mg IVPUSH Q8H [facility] Last Admin: 06/24/20 08:46 Dose: 40 mg Documented by: Furosemide (Lasix) 40 mg IVPUSH Q6HR [facility] Ceftriaxone Sodium/Dextrose 1 (gm/ Premix) 50 mls @ 100 mls/hr IV Q24H [facility] Last Admin: 06/18/20 22:15 Dose: 100 mls/hr Documented by: Albumin Human (Flexbumin 25%) 12.5 gm in 50 mls @ 100 mls/hr IV ONETIME ONE Stop: 06/18/20 12:33 Last Admin: 06/18/20 12:30 Dose: 100 mls/hr Documented by: Albumin Human (Flexbumin 25%) 12.5 gm in 50 mls @ 100 mls/hr IV ONETIME ONE Stop: 06/18/20 19:49 Last Admin: 06/18/20 20:52 Dose: 100 mls/hr Documented by: Albumin Human (Flexbumin 25%) 12.5 gm in 50 mls @ 100 mls/hr IV ONETIME ONE Stop: 06/19/20 10:16 Last Admin: 06/19/20 10:44 Dose: 100 mls/hr Documented by: Furosemide 480 mg/ Sodium (Chloride) 250 mls @ 10.417 mls/hr IV Q24H [facility] Stop: 06/20/20 12:59 Last Admin: 06/19/20 13:10 Dose: 20 mg/hr, 10.417 mls/hr Documented by: Furosemide 240 mg/ Premix 24 mls @ 1 mls/hr IV Q24H [facility] Stop: 06/21/20 13:29 Last Admin: 06/20/20 14:21 Dose: 10 mg/hr, 1 mls/hr Documented by: Sodium Chloride (Normal Saline) 500 mls @ 5 mls/hr IV ASDIRECTED [facility] Sodium Chloride (Normal Saline) 500 mls @ 5 mls/hr IV ASDIRECTED [facility] Last Admin: 06/20/20 20:05 Dose: 5 mls/hr Documented by: Furosemide 40 mg/ Sodium (Chloride) 54 mls @ 100 mls/hr IV Q8H [facility] Last Admin: 06/24/20 00:55 Dose: 100 mls/hr Documented by: Magnesium Sulfate (Magnesium Sulfate In Water Premix) 2 gm in 50 mls @ 50 mls/hr IV ONETIME ONE Stop: 06/24/20 16:00 Last Admin: 06/24/20 16:59 Dose: 50 mls/hr Documented by: Insulin Detemir (Levemir) 12 unit SUBCUT BEDTIME [facility] Last Admin: 06/17/20 21:01 Dose: Not Given Documented by: Insulin Glargine (Lantus Solostar) 12 units SUBCUT BEDTIME [facility] Metolazone (Zaroxolyn) 2.5 mg PO ONETIME ONE Stop: 06/18/20 09:01 Last Admin: 06/18/20 09:16 Dose: 2.5 mg Documented by: Pneumococcal Polyvalent Vaccine (Pneumovax 23) 0.5 ml IM .ONCE ONE Stop: 06/20/20 17:01 Last Admin: 06/20/20 23:42 Dose: Not Given Documented by: Pneumococcal Polyvalent Vaccine (Pneumovax 23) 0.5 ml IM .ONCE ONE Stop: 06/21/20 09:01 Sodium Polystyrene Sulfonate (Kayexalate) 15 gm PO ONETIME ONE Stop: 06/20/20 11:31 Last Admin: 06/20/20 12:35 Dose: 15 gm Documented by: - Exam General: Alert, Oriented Lungs: Clear to Auscultation, Normal Respiratory Effort Cardiovascular: Regular Rate, Regular Rhythm GI/Abdominal Exam: Normal Bowel Sounds, Soft, Non-Tender Extremities: Pedal Edema (1+) Skin: Ecchymosis Wound/Incisions: Healing Well Psy/Mental Status: Alert Sepsis Event Note - Evaluation Sepsis Screening Result: No Definite Risk - Focused Exam Vital Signs: Vital Signs Temp Pulse Pulse Resp BP BP BP 06/24/20 16:00 97.4 F 90 20 112/56 L 06/24/20 14:23 110/58 L 06/24/20 14:17 92/42 L 06/24/20 12:00 97.5 F 78 20 90/44 L 06/24/20 11:00 06/24/20 08:45 82 119/54 L 06/24/20 08:00 98.5 F 82 18 119/54 L Pulse Ox Pulse Ox 06/24/20 16:00 82 L 06/24/20 14:23 06/24/20 14:17 06/24/20 12:00 92 L 06/24/20 11:00 93 L 06/24/20 08:45 06/24/20 08:00 93 L - Problem List Review Problem List Initiated/Reviewed/Updated: Yes - My Orders Last 24 Hours: My Active Orders 06/24/20 17:00 Furosemide [Lasix] 40 mg IVPUSH Q8HR 06/25/20 05:11 BASIC METABOLIC PANEL,BMP [CHEM] AM CBC WITH AUTO DIFF [HEME] AM MAGNESIUM [CHEM] AM - Plan Plan:: Acute systolic CHF exacerbation- Continue supplemental oxygen prn. Cardiology following, IV lasix 40 mg q8h due to increased hypotension, Strict I's and O's, daily standing weight, fluid restrict < 2L per day and low sodium 2 g per day. FRANCINE-Creatinine stable at 2.3 today. Left foot 2nd digit dry necrotic unstageable ulcer- Podiatry evaluated patient yesterday and recommended no treatment at this current time due to patient's other acute disease processes. UTI- PO fluconazole 100 mg qd. Deconditioning- PT consulted, Patient encouraged to ambulate but does not do so Diabetes mellitus 2- SSI and accuchecks TIDAC. DVT prophylaxis- Heparin 5000 units q12. Past medical history of HTN, essential thrombocythemia, NSTEMI s/p CABG, s/p pacemaker, and abdominal wall infection s/p wound vac: - Continue home medications. - Wound vac nurse consulted for management. - Wound care consulted. Spoke with patients this afternoon. is concerned that she will have difficulty taking care of patient at home. She will discus patients situation with her family and will follow up. will also encourage patient to eat more and participate in PT. <Vee Fernandez - Last Filed: 06/27/20 12:33> - General Info Subjective Update: I have seen and evaluated the patient and agree with the residents note unless specified in my note - Patient Data Vitals - Most Recent: Last Vital Signs Temp 36.3 C 06/27/20 09:00 Pulse 85 06/27/20 09:00 Resp 20 06/27/20 09:00 BP 112/60 06/27/20 09:00 Pulse Ox 91 L 06/27/20 09:00 I&O - Last 24 Hours: Intake & Output 06/26/20 06/27/20 06/27/20 22:59 06:59 14:59 Intake Total 550 360 Output Total 320 350 Balance 230 10 Lab Results Last 24 Hours: Laboratory Results - last 24 hr 06/26/20 06/27/20 06/27/20 Range/Units 17:07 05:13 05:13 WBC 70.08 H (4.0-11.0) K/uL RBC 4.06 L (4.50-5.90) M/uL Hgb 8.9 L (13.0-17.0) g/dL Hct 31.4 L (38.0-50.0) % MCV 77.3 L (80.0-98.0) fL MCH 21.9 L (27.0-32.0) pg MCHC 28.3 L (31.0-37.0) g/dL RDW Std Deviation 68.5 H (28.0-62.0) fl RDW Coeff of Nia 25 H (11.0-15.0) % Plt Count 227 (150-400) K/uL Add Manual Diff YES Neutrophils % (Manual) 54 (48.0-80.0) % Band Neutrophils % 20 % Lymphocytes % (Manual) 10 L (16.0-40.0) % Monocytes % (Manual) 2 (0.0-15.0) % Eosinophils % (Manual) 2 (0.0-7.0) % Basophils % (Manual) 3 H (0.0-1.5) % Metamyelocytes % 4 % Myelocytes % 4 % Blast Cells % 1 % Nucleated RBC % 8.3 /100WBC Absolute Seg Neuts 37.8 H (1.4-5.7) Band Neutrophils # 14.0 Lymphocytes # (Manual) 7.0 H (0.6-2.4) Monocytes # (Manual) 1.4 H (0.0-0.8) Eosinophils # (Manual) 1.4 H (0.0-0.7) Basophils # (Manual) 2.1 H (0.0-0.1) Absolute Metamyelocyte 2.8 Absolute Myelocytes 2.8 Nucleated RBCs # 1 K/uL Absolute Blast Cells 0.7 Poikilocytosis 2+ MODERATE Sodium 142 (136-148) mmol/L Potassium 4.9 (3.5-5.1) mmol/L Chloride 106 (98-107) mmol/L Carbon Dioxide 29.1 (21.0-32.0) mmol/L BUN 66 H (7.0-18.0) mg/dL Creatinine 2.5 H (0.8-1.3) mg/dL Est Cr Clr Drug Dosing 27.19 mL/min Estimated GFR (MDRD) 25.3 ml/min Glucose 153 H (74-106) mg/dL POC Glucose 171 H (60-110) mg/dL Calcium 8.7 (8.5-10.1) mg/dL Magnesium 2.3 (1.8-2.4) mg/dL 06/27/20 06/27/20 Range/Units 05:53 11:43 WBC (4.0-11.0) K/uL RBC (4.50-5.90) M/uL Hgb (13.0-17.0) g/dL Hct (38.0-50.0) % MCV (80.0-98.0) fL MCH (27.0-32.0) pg MCHC (31.0-37.0) g/dL RDW Std Deviation (28.0-62.0) fl RDW Coeff of Nia (11.0-15.0) % Plt Count (150-400) K/uL Add Manual Diff Neutrophils % (Manual) (48.0-80.0) % Band Neutrophils % % Lymphocytes % (Manual) (16.0-40.0) % Monocytes % (Manual) (0.0-15.0) % Eosinophils % (Manual) (0.0-7.0) % Basophils % (Manual) (0.0-1.5) % Metamyelocytes % % Myelocytes % % Blast Cells % % Nucleated RBC % /100WBC Absolute Seg Neuts (1.4-5.7) Band Neutrophils # Lymphocytes # (Manual) (0.6-2.4) Monocytes # (Manual) (0.0-0.8) Eosinophils # (Manual) (0.0-0.7) Basophils # (Manual) (0.0-0.1) Absolute Metamyelocyte Absolute Myelocytes Nucleated RBCs # K/uL Absolute Blast Cells Poikilocytosis Sodium (136-148) mmol/L Potassium (3.5-5.1) mmol/L Chloride (98-107) mmol/L Carbon Dioxide (21.0-32.0) mmol/L BUN (7.0-18.0) mg/dL Creatinine (0.8-1.3) mg/dL Est Cr Clr Drug Dosing mL/min Estimated GFR (MDRD) ml/min Glucose (74-106) mg/dL POC Glucose 171 H 160 H (60-110) mg/dL Calcium (8.5-10.1) mg/dL Magnesium (1.8-2.4) mg/dL Med Orders - Current: Current Medications Acetaminophen (Tylenol) 650 mg PO Q4H PRN PRN Reason: Pain (Mild 1-3)/fever Last Admin: 06/21/20 21:03 Dose: 650 mg Documented by: Carvedilol (Coreg) 3.125 mg PO BIDMEALS [facility] Last Admin: 06/27/20 08:57 Dose: 3.125 mg Documented by: Dextrose/Water (Dextrose 50% In Water) 50 ml IV ASDIRECTED PRN PRN Reason: Hypoglycemia Dextrose/Water (Dextrose 50% In Water) 50 ml IV ASDIRECTED PRN PRN Reason: Hypoglycemia Docusate Sodium (Colace) 100 mg PO BID PRN PRN Reason: Constipation Dronabinol (Marinol) 5 mg PO BID [facility] Last Admin: 06/27/20 08:58 Dose: 5 mg Documented by: Ferrous Sulfate (Ferrous Sulfate) 325 mg PO BID [facility] Last Admin: 06/27/20 08:57 Dose: 325 mg Documented by: Fluconazole (Diflucan) 100 mg PO DAILY [facility] Last Admin: 06/27/20 08:58 Dose: 100 mg Documented by: Furosemide (Lasix) 40 mg IVPUSH Q8HR [facility] Last Admin: 06/27/20 06:25 Dose: 40 mg Documented by: Glucagon (Glucagen) 1 mg IM ASDIRECTED PRN PRN Reason: Hypoglycemia Heparin Sodium (Porcine) (Heparin Sodium) 5,000 units SUBCUT Q12H [facility] Last Admin: 06/27/20 06:26 Dose: 5,000 units Documented by: Insulin Aspart (Novolog) 0 unit SUBCUT TIDAC [facility]; Protocol Last Admin: 06/27/20 12:12 Dose: 2 units Documented by: Melatonin (Melatonin) 3 mg PO BEDTIME [facility] Last Admin: 06/26/20 21:02 Dose: 3 mg Documented by: Ondansetron HCl (Zofran) 4 mg IVPUSH Q4H PRN PRN Reason: Nausea Pantoprazole Sodium (Protonix) 40 mg PO DAILY [facility] Last Admin: 06/27/20 08:57 Dose: 40 mg Documented by: Sertraline HCl (Zoloft) 100 mg PO DAILY [facility] Last Admin: 06/27/20 08:58 Dose: 100 mg Documented by: Sodium Chloride (Saline Flush) 10 ml FLUSH ASDIRECTED PRN PRN Reason: Keep Vein Open Sodium Chloride (Saline Flush) 2.5 ml FLUSH ASDIRECTED PRN PRN Reason: Keep Vein Open Last Admin: 06/26/20 06:44 Dose: 2.5 ml Documented by: Sodium Chloride (Normal Saline) 10 ml IV ASDIRECTED PRN PRN Reason: IV Use Tamsulosin HCl (Flomax) 0.4 mg PO BEDTIME [facility] Last Admin: 06/26/20 21:02 Dose: 0.4 mg Documented by: Discontinued Medications Docusate Sodium (Colace) 100 mg PO BID [facility] Last Admin: 06/18/20 21:01 Dose: Not Given Documented by: Enoxaparin Sodium (Lovenox) 30 mg SUBCUT Q24H [facility] Last Admin: 06/17/20 17:08 Dose: 30 mg Documented by: Furosemide (Lasix) 40 mg IVPUSH BID [facility] Last Admin: 06/19/20 08:47 Dose: 40 mg Documented by: Furosemide (Lasix) 80 mg IVPUSH NOW ONE Stop: 06/17/20 19:16 Last Admin: 06/17/20 20:45 Dose: 80 mg Documented by: Furosemide (Lasix) 120 mg IVPUSH NOW ONE Stop: 06/18/20 08:17 Last Admin: 06/18/20 09:21 Dose: 120 mg Documented by: Furosemide (Lasix) 120 mg IVPUSH NOW ONE Stop: 06/18/20 20:07 Last Admin: 06/18/20 20:52 Dose: 120 mg Documented by: Furosemide (Lasix) 40 mg IVPUSH NOW ONE Stop: 06/19/20 14:01 Furosemide (Lasix) 40 mg IVPUSH Q8H [facility] Furosemide (Lasix) 40 mg IVPUSH Q6H [facility] Last Admin: 06/23/20 09:12 Dose: 40 mg Documented by: Furosemide (Lasix) 40 mg IV Q8H [facility] Last Admin: 06/23/20 12:01 Dose: Not Given Documented by: Furosemide (Lasix) 40 mg IV Q8H [facility] Furosemide (Lasix) Confirm Administered Dose 40 mg .ROUTE .STK-MED ONE Stop: 06/23/20 17:10 Last Admin: 06/23/20 17:26 Dose: Not Given Documented by: Furosemide (Lasix) 40 mg IVPUSH Q8H [facility] Last Admin: 06/24/20 08:46 Dose: 40 mg Documented by: Furosemide (Lasix) 40 mg IVPUSH Q6HR [facility] Ceftriaxone Sodium/Dextrose 1 (gm/ Premix) 50 mls @ 100 mls/hr IV Q24H [facility] Last Admin: 06/18/20 22:15 Dose: 100 mls/hr Documented by: Albumin Human (Flexbumin 25%) 12.5 gm in 50 mls @ 100 mls/hr IV ONETIME ONE Stop: 06/18/20 12:33 Last Admin: 06/18/20 12:30 Dose: 100 mls/hr Documented by: Albumin Human (Flexbumin 25%) 12.5 gm in 50 mls @ 100 mls/hr IV ONETIME ONE Stop: 06/18/20 19:49 Last Admin: 06/18/20 20:52 Dose: 100 mls/hr Documented by: Albumin Human (Flexbumin 25%) 12.5 gm in 50 mls @ 100 mls/hr IV ONETIME ONE Stop: 06/19/20 10:16 Last Admin: 06/19/20 10:44 Dose: 100 mls/hr Documented by: Furosemide 480 mg/ Sodium (Chloride) 250 mls @ 10.417 mls/hr IV Q24H [facility] Stop: 06/20/20 12:59 Last Admin: 06/19/20 13:10 Dose: 20 mg/hr, 10.417 mls/hr Documented by: Furosemide 240 mg/ Premix 24 mls @ 1 mls/hr IV Q24H [facility] Stop: 06/21/20 13:29 Last Admin: 06/20/20 14:21 Dose: 10 mg/hr, 1 mls/hr Documented by: Sodium Chloride (Normal Saline) 500 mls @ 5 mls/hr IV ASDIRECTED [facility] Sodium Chloride (Normal Saline) 500 mls @ 5 mls/hr IV ASDIRECTED [facility] Last Admin: 06/20/20 20:05 Dose: 5 mls/hr Documented by: Furosemide 40 mg/ Sodium (Chloride) 54 mls @ 100 mls/hr IV Q8H [facility] Last Admin: 06/24/20 00:55 Dose: 100 mls/hr Documented by: Magnesium Sulfate (Magnesium Sulfate In Water Premix) 2 gm in 50 mls @ 50 mls/hr IV ONETIME ONE Stop: 06/24/20 16:00 Last Admin: 06/24/20 16:59 Dose: 50 mls/hr Documented by: Insulin Detemir (Levemir) 12 unit SUBCUT BEDTIME [facility] Last Admin: 06/17/20 21:01 Dose: Not Given Documented by: Insulin Glargine (Lantus Solostar) 12 units SUBCUT BEDTIME [facility] Metolazone (Zaroxolyn) 2.5 mg PO ONETIME ONE Stop: 06/18/20 09:01 Last Admin: 06/18/20 09:16 Dose: 2.5 mg Documented by: Pneumococcal Polyvalent Vaccine (Pneumovax 23) 0.5 ml IM .ONCE ONE Stop: 06/20/20 17:01 Last Admin: 06/20/20 23:42 Dose: Not Given Documented by: Pneumococcal Polyvalent Vaccine (Pneumovax 23) 0.5 ml IM .ONCE ONE Stop: 06/21/20 09:01 Sodium Polystyrene Sulfonate (Kayexalate) 15 gm PO ONETIME ONE Stop: 06/20/20 11:31 Last Admin: 06/20/20 12:35 Dose: 15 gm Documented by: Sepsis Event Note - Focused Exam Vital Signs: Vital Signs Temp Pulse Pulse Resp BP BP BP 06/27/20 09:00 36.3 C 85 20 112/60 06/27/20 08:57 85 112/60 06/27/20 03:55 36.4 C 81 19 128/58 L Pulse Ox 11/19/20 09:00 91 L 06/27/20 08:57 06/27/20 03:55 90 L
[2020-06-24] MEDS: Tamsulosin 0.4 MG Cap.ER PO SCH (21:39)
[2020-06-24] MEDS: Melatonin 3 MG Tab PO SCH (21:39)
[2020-06-25 05:56] LABS: CARBON DIOXIDE,CO2 25.4 mmol/L (21.0-32.0); POTASSIUM,K 4.8 mmol/L (3.5-5.1)
[2020-06-25] MEDS: Heparin Sodium 5,000 Units/ML Vial SUBCUT SCH ×2 (06:38→18:45)
[2020-06-25] MEDS: Furosemide 40 MG/4 ML VIAL IVPUSH SCH ×3 (06:39→21:05)
[2020-06-25] MEDS: Insulin Aspart 100 Units/ML 3 ML Pen SUBCUT SCH ×3 (06:40→17:00)
[2020-06-25] MEDS: Sodium Chloride 0.9% 2.5 ML Syringe FLUSH PRN ×2 (06:41→21:06)
[2020-06-25] MEDS: Carvedilol 3.125 MG Tab PO SCH ×2 (09:45→16:59)
[2020-06-25] MEDS: Ferrous Sulfate 325 MG Tab PO SCH ×2 (09:46→20:35)
[2020-06-25] MEDS: Sertraline 100 MG Tab PO SCH (09:46)
[2020-06-25] MEDS: Dronabinol 2.5 MG Cap PO SCH ×2 (09:46→20:35)
[2020-06-25] MEDS: Pantoprazole 40 MG Tab.CR PO SCH (09:46)
[2020-06-25] MEDS: Fluconazole 100 MG Tab PO SCH (09:46)
--- NOTE | 2020-06-25 19:36 | PCM.PN ---
<Ismael Easley - Last Filed: 06/25/20 19:36> - General Info Date of Service: 06/25/20 Subjective Update: Patient still appears lethargic but more responsive than previous days. Patient states that he would like to continue PT. Denies chest pain, SOB, fever, chills. - Review of Systems General: Reports: Fatigue. Denies: Fever Pulmonary: Denies: Shortness of Breath, Pleuritic Chest Pain Cardiovascular: Denies: Chest Pain Gastrointestinal: Reports: Decreased Appetite. Denies: Abdominal Pain Neurological: Denies: Confusion, Dizziness Psychiatric: Denies: Confusion - Patient Data Vitals - Most Recent: Last Vital Signs Temp 96.9 F 06/25/20 15:39 Pulse 82 06/25/20 16:59 Resp 20 06/25/20 15:39 BP 102/50 L 06/25/20 16:59 Pulse Ox 94 L 06/25/20 15:39 Weight - Most Recent: 67 kg I&O - Last 24 Hours: Intake & Output 06/25/20 06/25/20 06/25/20 06:59 14:59 22:59 Intake Total 400 600 Output Total 225 220 Balance 175 380 Lab Results Last 24 Hours: Laboratory Results - last 24 hr 06/25/20 06/25/20 06/25/20 Range/Units 05:18 05:18 06:36 WBC 67.81 H (4.0-11.0) K/uL RBC 3.88 L (4.50-5.90) M/uL Hgb 8.6 L (13.0-17.0) g/dL Hct 29.9 L (38.0-50.0) % MCV 77.1 L (80.0-98.0) fL MCH 22.2 L (27.0-32.0) pg MCHC 28.8 L (31.0-37.0) g/dL RDW Std Deviation 67.4 H (28.0-62.0) fl RDW Coeff of Nia 25 H (11.0-15.0) % Plt Count 211 (150-400) K/uL Add Manual Diff YES Neutrophils % (Manual) 65 (48.0-80.0) % Band Neutrophils % 9 % Lymphocytes % (Manual) 11 L (16.0-40.0) % Monocytes % (Manual) 1 (0.0-15.0) % Eosinophils % (Manual) 1 (0.0-7.0) % Basophils % (Manual) 3 H (0.0-1.5) % Metamyelocytes % 3 % Myelocytes % 5 % Blast Cells % 2 % Nucleated RBC % 7.4 /100WBC Absolute Seg Neuts 44.1 H (1.4-5.7) Band Neutrophils # 6.1 Lymphocytes # (Manual) 7.5 H (0.6-2.4) Monocytes # (Manual) 0.7 (0.0-0.8) Eosinophils # (Manual) 0.7 (0.0-0.7) Basophils # (Manual) 2.0 H (0.0-0.1) Absolute Metamyelocyte 2.0 Absolute Myelocytes 3.4 Nucleated RBCs # 1 K/uL Absolute Blast Cells 1.4 Poikilocytosis 2+ MODERATE Ovalocytes 1+ SLIGHT Sodium 142 (136-148) mmol/L Potassium 4.8 (3.5-5.1) mmol/L Chloride 107 (98-107) mmol/L Carbon Dioxide 25.4 (21.0-32.0) mmol/L BUN 61 H (7.0-18.0) mg/dL Creatinine 2.4 H (0.8-1.3) mg/dL Est Cr Clr Drug Dosing 25.20 mL/min Estimated GFR (MDRD) 26.5 ml/min Glucose 124 H (74-106) mg/dL POC Glucose 136 H (60-110) mg/dL Calcium 8.5 (8.5-10.1) mg/dL Magnesium 2.3 (1.8-2.4) mg/dL 06/25/20 06/25/20 Range/Units 11:33 16:49 WBC (4.0-11.0) K/uL RBC (4.50-5.90) M/uL Hgb (13.0-17.0) g/dL Hct (38.0-50.0) % MCV (80.0-98.0) fL MCH (27.0-32.0) pg MCHC (31.0-37.0) g/dL RDW Std Deviation (28.0-62.0) fl RDW Coeff of Nia (11.0-15.0) % Plt Count (150-400) K/uL Add Manual Diff Neutrophils % (Manual) (48.0-80.0) % Band Neutrophils % % Lymphocytes % (Manual) (16.0-40.0) % Monocytes % (Manual) (0.0-15.0) % Eosinophils % (Manual) (0.0-7.0) % Basophils % (Manual) (0.0-1.5) % Metamyelocytes % % Myelocytes % % Blast Cells % % Nucleated RBC % /100WBC Absolute Seg Neuts (1.4-5.7) Band Neutrophils # Lymphocytes # (Manual) (0.6-2.4) Monocytes # (Manual) (0.0-0.8) Eosinophils # (Manual) (0.0-0.7) Basophils # (Manual) (0.0-0.1) Absolute Metamyelocyte Absolute Myelocytes Nucleated RBCs # K/uL Absolute Blast Cells Poikilocytosis Ovalocytes Sodium (136-148) mmol/L Potassium (3.5-5.1) mmol/L Chloride (98-107) mmol/L Carbon Dioxide (21.0-32.0) mmol/L BUN (7.0-18.0) mg/dL Creatinine (0.8-1.3) mg/dL Est Cr Clr Drug Dosing mL/min Estimated GFR (MDRD) ml/min Glucose (74-106) mg/dL POC Glucose 118 H 116 H (60-110) mg/dL Calcium (8.5-10.1) mg/dL Magnesium (1.8-2.4) mg/dL Med Orders - Current: Current Medications Acetaminophen (Tylenol) 650 mg PO Q4H PRN PRN Reason: Pain (Mild 1-3)/fever Last Admin: 06/21/20 21:03 Dose: 650 mg Documented by: Carvedilol (Coreg) 3.125 mg PO BIDKYALS [facility] Last Admin: 06/25/20 16:59 Dose: Not Given Documented by: Dextrose/Water (Dextrose 50% In Water) 50 ml IV ASDIRECTED PRN PRN Reason: Hypoglycemia Dextrose/Water (Dextrose 50% In Water) 50 ml IV ASDIRECTED PRN PRN Reason: Hypoglycemia Docusate Sodium (Colace) 100 mg PO BID PRN PRN Reason: Constipation Dronabinol (Marinol) 5 mg PO BID [facility] Last Admin: 06/25/20 09:46 Dose: 5 mg Documented by: Ferrous Sulfate (Ferrous Sulfate) 325 mg PO BID [facility] Last Admin: 06/25/20 09:46 Dose: 325 mg Documented by: Fluconazole (Diflucan) 100 mg PO DAILY [facility] Last Admin: 06/25/20 09:46 Dose: 100 mg Documented by: Furosemide (Lasix) 40 mg IVPUSH Q8HR [facility] Last Admin: 06/25/20 13:30 Dose: 40 mg Documented by: Glucagon (Glucagen) 1 mg IM ASDIRECTED PRN PRN Reason: Hypoglycemia Heparin Sodium (Porcine) (Heparin Sodium) 5,000 units SUBCUT Q12H [facility] Last Admin: 06/25/20 18:45 Dose: 5,000 units Documented by: Insulin Aspart (Novolog) 0 unit SUBCUT TIDAC [facility]; Protocol Last Admin: 06/25/20 17:00 Dose: Not Given Documented by: Melatonin (Melatonin) 3 mg PO BEDTIME [facility] Last Admin: 06/24/20 21:39 Dose: 3 mg Documented by: Ondansetron HCl (Zofran) 4 mg IVPUSH Q4H PRN PRN Reason: Nausea Pantoprazole Sodium (Protonix) 40 mg PO DAILY [facility] Last Admin: 06/25/20 09:46 Dose: 40 mg Documented by: Sertraline HCl (Zoloft) 100 mg PO DAILY [facility] Last Admin: 06/25/20 09:46 Dose: 100 mg Documented by: Sodium Chloride (Saline Flush) 10 ml FLUSH ASDIRECTED PRN PRN Reason: Keep Vein Open Sodium Chloride (Saline Flush) 2.5 ml FLUSH ASDIRECTED PRN PRN Reason: Keep Vein Open Last Admin: 06/25/20 06:41 Dose: 2.5 ml Documented by: Sodium Chloride (Normal Saline) 10 ml IV ASDIRECTED PRN PRN Reason: IV Use Tamsulosin HCl (Flomax) 0.4 mg PO BEDTIME [facility] Last Admin: 06/24/20 21:39 Dose: 0.4 mg Documented by: Discontinued Medications Docusate Sodium (Colace) 100 mg PO BID [facility] Last Admin: 06/18/20 21:01 Dose: Not Given Documented by: Enoxaparin Sodium (Lovenox) 30 mg SUBCUT Q24H [facility] Last Admin: 06/17/20 17:08 Dose: 30 mg Documented by: Furosemide (Lasix) 40 mg IVPUSH BID [facility] Last Admin: 06/19/20 08:47 Dose: 40 mg Documented by: Furosemide (Lasix) 80 mg IVPUSH NOW ONE Stop: 06/17/20 19:16 Last Admin: 06/17/20 20:45 Dose: 80 mg Documented by: Furosemide (Lasix) 120 mg IVPUSH NOW ONE Stop: 06/18/20 08:17 Last Admin: 06/18/20 09:21 Dose: 120 mg Documented by: Furosemide (Lasix) 120 mg IVPUSH NOW ONE Stop: 06/18/20 20:07 Last Admin: 06/18/20 20:52 Dose: 120 mg Documented by: Furosemide (Lasix) 40 mg IVPUSH NOW ONE Stop: 06/19/20 14:01 Furosemide (Lasix) 40 mg IVPUSH Q8H [facility] Furosemide (Lasix) 40 mg IVPUSH Q6H [facility] Last Admin: 06/23/20 09:12 Dose: 40 mg Documented by: Furosemide (Lasix) 40 mg IV Q8H [facility] Last Admin: 06/23/20 12:01 Dose: Not Given Documented by: Furosemide (Lasix) 40 mg IV Q8H [facility] Furosemide (Lasix) Confirm Administered Dose 40 mg .ROUTE .STK-MED ONE Stop: 06/23/20 17:10 Last Admin: 06/23/20 17:26 Dose: Not Given Documented by: Furosemide (Lasix) 40 mg IVPUSH Q8H [facility] Last Admin: 06/24/20 08:46 Dose: 40 mg Documented by: Furosemide (Lasix) 40 mg IVPUSH Q6HR [facility] Ceftriaxone Sodium/Dextrose 1 (gm/ Premix) 50 mls @ 100 mls/hr IV Q24H [facility] Last Admin: 06/18/20 22:15 Dose: 100 mls/hr Documented by: Albumin Human (Flexbumin 25%) 12.5 gm in 50 mls @ 100 mls/hr IV ONETIME ONE Stop: 06/18/20 12:33 Last Admin: 06/18/20 12:30 Dose: 100 mls/hr Documented by: Albumin Human (Flexbumin 25%) 12.5 gm in 50 mls @ 100 mls/hr IV ONETIME ONE Stop: 06/18/20 19:49 Last Admin: 06/18/20 20:52 Dose: 100 mls/hr Documented by: Albumin Human (Flexbumin 25%) 12.5 gm in 50 mls @ 100 mls/hr IV ONETIME ONE Stop: 06/19/20 10:16 Last Admin: 06/19/20 10:44 Dose: 100 mls/hr Documented by: Furosemide 480 mg/ Sodium (Chloride) 250 mls @ 10.417 mls/hr IV Q24H [facility] Stop: 06/20/20 12:59 Last Admin: 06/19/20 13:10 Dose: 20 mg/hr, 10.417 mls/hr Documented by: Furosemide 240 mg/ Premix 24 mls @ 1 mls/hr IV Q24H [facility] Stop: 06/21/20 13:29 Last Admin: 06/20/20 14:21 Dose: 10 mg/hr, 1 mls/hr Documented by: Sodium Chloride (Normal Saline) 500 mls @ 5 mls/hr IV ASDIRECTED [facility] Sodium Chloride (Normal Saline) 500 mls @ 5 mls/hr IV ASDIRECTED [facility] Last Admin: 06/20/20 20:05 Dose: 5 mls/hr Documented by: Furosemide 40 mg/ Sodium (Chloride) 54 mls @ 100 mls/hr IV Q8H [facility] Last Admin: 06/24/20 00:55 Dose: 100 mls/hr Documented by: Magnesium Sulfate (Magnesium Sulfate In Water Premix) 2 gm in 50 mls @ 50 mls/hr IV ONETIME ONE Stop: 06/24/20 16:00 Last Admin: 06/24/20 16:59 Dose: 50 mls/hr Documented by: Insulin Detemir (Levemir) 12 unit SUBCUT BEDTIME [facility] Last Admin: 06/17/20 21:01 Dose: Not Given Documented by: Insulin Glargine (Lantus Solostar) 12 units SUBCUT BEDTIME [facility] Metolazone (Zaroxolyn) 2.5 mg PO ONETIME ONE Stop: 06/18/20 09:01 Last Admin: 06/18/20 09:16 Dose: 2.5 mg Documented by: Pneumococcal Polyvalent Vaccine (Pneumovax 23) 0.5 ml IM .ONCE ONE Stop: 06/20/20 17:01 Last Admin: 06/20/20 23:42 Dose: Not Given Documented by: Pneumococcal Polyvalent Vaccine (Pneumovax 23) 0.5 ml IM .ONCE ONE Stop: 06/21/20 09:01 Sodium Polystyrene Sulfonate (Kayexalate) 15 gm PO ONETIME ONE Stop: 06/20/20 11:31 Last Admin: 06/20/20 12:35 Dose: 15 gm Documented by: - Exam General: Alert, Oriented, Cooperative Lungs: Clear to Auscultation, Normal Respiratory Effort Cardiovascular: Regular Rate, Regular Rhythm GI/Abdominal Exam: Normal Bowel Sounds, Soft, Non-Tender Extremities: No Pedal Edema Wound/Incisions: Dressing Dry and Intact Sepsis Event Note - Evaluation Sepsis Screening Result: No Definite Risk - Focused Exam Vital Signs: Vital Signs Temp Pulse Pulse Resp BP BP BP 06/25/20 16:59 82 102/50 L 06/25/20 15:39 96.9 F 83 20 102/50 L 06/25/20 13:19 06/25/20 11:35 98.2 F 80 18 111/53 L 06/25/20 09:45 79 121/59 L 06/25/20 07:36 97.6 F 80 18 95/60 Pulse Ox Pulse Ox 06/25/20 16:59 06/25/20 15:39 94 L 06/25/20 13:19 93 L 06/25/20 11:35 93 L 06/25/20 09:45 06/25/20 07:36 92 L - Problem List Review Problem List Initiated/Reviewed/Updated: Yes - My Orders Last 24 Hours: My Active Orders 06/26/20 05:11 BASIC METABOLIC PANEL,BMP [CHEM] AM CBC WITH AUTO DIFF [HEME] AM - Plan Plan:: Acute systolic CHF exacerbation- Continue supplemental oxygen prn. Cardiology following, IV lasix 40 mg q8h due to increased hypotension, Strict I's and O's, daily standing weight, fluid restrict < 2L per day and low sodium 2 g per day. FRANCINE-Creatinine went up slightly to 2.4, continue to monitor. Deconditioning- PT consulted, Patient encouraged to ambulate but does not do so Diabetes mellitus 2- SSI and accuchecks TIDAC. DVT prophylaxis- Heparin 5000 units q12. Past medical history of HTN, essential thrombocythemia, NSTEMI s/p CABG, s/p pacemaker, and abdominal wall infection s/p wound vac: - Continue home medications. - Wound vac nurse consulted for management. - Wound care consulted. Will consult nephrology for any recommendations to increase/alter diuresis protocol <Vee Fernandez - Last Filed: 06/27/20 12:26> - Patient Data Vitals - Most Recent: Last Vital Signs Temp 36.3 C 06/27/20 09:00 Pulse 85 06/27/20 09:00 Resp 20 06/27/20 09:00 BP 112/60 06/27/20 09:00 Pulse Ox 91 L 06/27/20 09:00 I&O - Last 24 Hours: Intake & Output 06/26/20 06/27/20 06/27/20 22:59 06:59 14:59 Intake Total 550 360 Output Total 320 350 Balance 230 10 Lab Results Last 24 Hours: Laboratory Results - last 24 hr 06/26/20 06/27/20 06/27/20 Range/Units 17:07 05:13 05:13 WBC 70.08 H (4.0-11.0) K/uL RBC 4.06 L (4.50-5.90) M/uL Hgb 8.9 L (13.0-17.0) g/dL Hct 31.4 L (38.0-50.0) % MCV 77.3 L (80.0-98.0) fL MCH 21.9 L (27.0-32.0) pg MCHC 28.3 L (31.0-37.0) g/dL RDW Std Deviation 68.5 H (28.0-62.0) fl RDW Coeff of Nia 25 H (11.0-15.0) % Plt Count 227 (150-400) K/uL Add Manual Diff YES Neutrophils % (Manual) 54 (48.0-80.0) % Band Neutrophils % 20 % Lymphocytes % (Manual) 10 L (16.0-40.0) % Monocytes % (Manual) 2 (0.0-15.0) % Eosinophils % (Manual) 2 (0.0-7.0) % Basophils % (Manual) 3 H (0.0-1.5) % Metamyelocytes % 4 % Myelocytes % 4 % Blast Cells % 1 % Nucleated RBC % 8.3 /100WBC Absolute Seg Neuts 37.8 H (1.4-5.7) Band Neutrophils # 14.0 Lymphocytes # (Manual) 7.0 H (0.6-2.4) Monocytes # (Manual) 1.4 H (0.0-0.8) Eosinophils # (Manual) 1.4 H (0.0-0.7) Basophils # (Manual) 2.1 H (0.0-0.1) Absolute Metamyelocyte 2.8 Absolute Myelocytes 2.8 Nucleated RBCs # 1 K/uL Absolute Blast Cells 0.7 Poikilocytosis 2+ MODERATE Sodium 142 (136-148) mmol/L Potassium 4.9 (3.5-5.1) mmol/L Chloride 106 (98-107) mmol/L Carbon Dioxide 29.1 (21.0-32.0) mmol/L BUN 66 H (7.0-18.0) mg/dL Creatinine 2.5 H (0.8-1.3) mg/dL Est Cr Clr Drug Dosing 27.19 mL/min Estimated GFR (MDRD) 25.3 ml/min Glucose 153 H (74-106) mg/dL POC Glucose 171 H (60-110) mg/dL Calcium 8.7 (8.5-10.1) mg/dL Magnesium 2.3 (1.8-2.4) mg/dL 06/27/20 06/27/20 Range/Units 05:53 11:43 WBC (4.0-11.0) K/uL RBC (4.50-5.90) M/uL Hgb (13.0-17.0) g/dL Hct (38.0-50.0) % MCV (80.0-98.0) fL MCH (27.0-32.0) pg MCHC (31.0-37.0) g/dL RDW Std Deviation (28.0-62.0) fl RDW Coeff of Nia (11.0-15.0) % Plt Count (150-400) K/uL Add Manual Diff Neutrophils % (Manual) (48.0-80.0) % Band Neutrophils % % Lymphocytes % (Manual) (16.0-40.0) % Monocytes % (Manual) (0.0-15.0) % Eosinophils % (Manual) (0.0-7.0) % Basophils % (Manual) (0.0-1.5) % Metamyelocytes % % Myelocytes % % Blast Cells % % Nucleated RBC % /100WBC Absolute Seg Neuts (1.4-5.7) Band Neutrophils # Lymphocytes # (Manual) (0.6-2.4) Monocytes # (Manual) (0.0-0.8) Eosinophils # (Manual) (0.0-0.7) Basophils # (Manual) (0.0-0.1) Absolute Metamyelocyte Absolute Myelocytes Nucleated RBCs # K/uL Absolute Blast Cells Poikilocytosis Sodium (136-148) mmol/L Potassium (3.5-5.1) mmol/L Chloride (98-107) mmol/L Carbon Dioxide (21.0-32.0) mmol/L BUN (7.0-18.0) mg/dL Creatinine (0.8-1.3) mg/dL Est Cr Clr Drug Dosing mL/min Estimated GFR (MDRD) ml/min Glucose (74-106) mg/dL POC Glucose 171 H 160 H (60-110) mg/dL Calcium (8.5-10.1) mg/dL Magnesium (1.8-2.4) mg/dL Med Orders - Current: Current Medications Acetaminophen (Tylenol) 650 mg PO Q4H PRN PRN Reason: Pain (Mild 1-3)/fever Last Admin: 06/21/20 21:03 Dose: 650 mg Documented by: Carvedilol (Coreg) 3.125 mg PO BIDMEALS [facility] Last Admin: 06/27/20 08:57 Dose: 3.125 mg Documented by: Dextrose/Water (Dextrose 50% In Water) 50 ml IV ASDIRECTED PRN PRN Reason: Hypoglycemia Dextrose/Water (Dextrose 50% In Water) 50 ml IV ASDIRECTED PRN PRN Reason: Hypoglycemia Docusate Sodium (Colace) 100 mg PO BID PRN PRN Reason: Constipation Dronabinol (Marinol) 5 mg PO BID [facility] Last Admin: 06/27/20 08:58 Dose: 5 mg Documented by: Ferrous Sulfate (Ferrous Sulfate) 325 mg PO BID [facility] Last Admin: 06/27/20 08:57 Dose: 325 mg Documented by: Fluconazole (Diflucan) 100 mg PO DAILY [facility] Last Admin: 06/27/20 08:58 Dose: 100 mg Documented by: Furosemide (Lasix) 40 mg IVPUSH Q8HR [facility] Last Admin: 06/27/20 06:25 Dose: 40 mg Documented by: Glucagon (Glucagen) 1 mg IM ASDIRECTED PRN PRN Reason: Hypoglycemia Heparin Sodium (Porcine) (Heparin Sodium) 5,000 units SUBCUT Q12H [facility] Last Admin: 06/27/20 06:26 Dose: 5,000 units Documented by: Insulin Aspart (Novolog) 0 unit SUBCUT TIDAC [facility]; Protocol Last Admin: 06/27/20 12:12 Dose: 2 units Documented by: Melatonin (Melatonin) 3 mg PO BEDTIME [facility] Last Admin: 06/26/20 21:02 Dose: 3 mg Documented by: Ondansetron HCl (Zofran) 4 mg IVPUSH Q4H PRN PRN Reason: Nausea Pantoprazole Sodium (Protonix) 40 mg PO DAILY [facility] Last Admin: 06/27/20 08:57 Dose: 40 mg Documented by: Sertraline HCl (Zoloft) 100 mg PO DAILY [facility] Last Admin: 06/27/20 08:58 Dose: 100 mg Documented by: Sodium Chloride (Saline Flush) 10 ml FLUSH ASDIRECTED PRN PRN Reason: Keep Vein Open Sodium Chloride (Saline Flush) 2.5 ml FLUSH ASDIRECTED PRN PRN Reason: Keep Vein Open Last Admin: 06/26/20 06:44 Dose: 2.5 ml Documented by: Sodium Chloride (Normal Saline) 10 ml IV ASDIRECTED PRN PRN Reason: IV Use Tamsulosin HCl (Flomax) 0.4 mg PO BEDTIME [facility] Last Admin: 06/26/20 21:02 Dose: 0.4 mg Documented by: Discontinued Medications Docusate Sodium (Colace) 100 mg PO BID [facility] Last Admin: 06/18/20 21:01 Dose: Not Given Documented by: Enoxaparin Sodium (Lovenox) 30 mg SUBCUT Q24H [facility] Last Admin: 06/17/20 17:08 Dose: 30 mg Documented by: Furosemide (Lasix) 40 mg IVPUSH BID [facility] Last Admin: 06/19/20 08:47 Dose: 40 mg Documented by: Furosemide (Lasix) 80 mg IVPUSH NOW ONE Stop: 06/17/20 19:16 Last Admin: 06/17/20 20:45 Dose: 80 mg Documented by: Furosemide (Lasix) 120 mg IVPUSH NOW ONE Stop: 06/18/20 08:17 Last Admin: 06/18/20 09:21 Dose: 120 mg Documented by: Furosemide (Lasix) 120 mg IVPUSH NOW ONE Stop: 06/18/20 20:07 Last Admin: 06/18/20 20:52 Dose: 120 mg Documented by: Furosemide (Lasix) 40 mg IVPUSH NOW ONE Stop: 06/19/20 14:01 Furosemide (Lasix) 40 mg IVPUSH Q8H [facility] Furosemide (Lasix) 40 mg IVPUSH Q6H [facility] Last Admin: 06/23/20 09:12 Dose: 40 mg Documented by: Furosemide (Lasix) 40 mg IV Q8H [facility] Last Admin: 06/23/20 12:01 Dose: Not Given Documented by: Furosemide (Lasix) 40 mg IV Q8H [facility] Furosemide (Lasix) Confirm Administered Dose 40 mg .ROUTE .STK-MED ONE Stop: 06/23/20 17:10 Last Admin: 06/23/20 17:26 Dose: Not Given Documented by: Furosemide (Lasix) 40 mg IVPUSH Q8H [facility] Last Admin: 06/24/20 08:46 Dose: 40 mg Documented by: Furosemide (Lasix) 40 mg IVPUSH Q6HR [facility] Ceftriaxone Sodium/Dextrose 1 (gm/ Premix) 50 mls @ 100 mls/hr IV Q24H [facility] Last Admin: 06/18/20 22:15 Dose: 100 mls/hr Documented by: Albumin Human (Flexbumin 25%) 12.5 gm in 50 mls @ 100 mls/hr IV ONETIME ONE Stop: 06/18/20 12:33 Last Admin: 06/18/20 12:30 Dose: 100 mls/hr Documented by: Albumin Human (Flexbumin 25%) 12.5 gm in 50 mls @ 100 mls/hr IV ONETIME ONE Stop: 06/18/20 19:49 Last Admin: 06/18/20 20:52 Dose: 100 mls/hr Documented by: Albumin Human (Flexbumin 25%) 12.5 gm in 50 mls @ 100 mls/hr IV ONETIME ONE Stop: 06/19/20 10:16 Last Admin: 06/19/20 10:44 Dose: 100 mls/hr Documented by: Furosemide 480 mg/ Sodium (Chloride) 250 mls @ 10.417 mls/hr IV Q24H [facility] Stop: 06/20/20 12:59 Last Admin: 06/19/20 13:10 Dose: 20 mg/hr, 10.417 mls/hr Documented by: Furosemide 240 mg/ Premix 24 mls @ 1 mls/hr IV Q24H [facility] Stop: 06/21/20 13:29 Last Admin: 06/20/20 14:21 Dose: 10 mg/hr, 1 mls/hr Documented by: Sodium Chloride (Normal Saline) 500 mls @ 5 mls/hr IV ASDIRECTED [facility] Sodium Chloride (Normal Saline) 500 mls @ 5 mls/hr IV ASDIRECTED [facility] Last Admin: 06/20/20 20:05 Dose: 5 mls/hr Documented by: Furosemide 40 mg/ Sodium (Chloride) 54 mls @ 100 mls/hr IV Q8H [facility] Last Admin: 06/24/20 00:55 Dose: 100 mls/hr Documented by: Magnesium Sulfate (Magnesium Sulfate In Water Premix) 2 gm in 50 mls @ 50 mls/hr IV ONETIME ONE Stop: 06/24/20 16:00 Last Admin: 06/24/20 16:59 Dose: 50 mls/hr Documented by: Insulin Detemir (Levemir) 12 unit SUBCUT BEDTIME [facility] Last Admin: 06/17/20 21:01 Dose: Not Given Documented by: Insulin Glargine (Lantus Solostar) 12 units SUBCUT BEDTIME [facility] Metolazone (Zaroxolyn) 2.5 mg PO ONETIME ONE Stop: 06/18/20 09:01 Last Admin: 06/18/20 09:16 Dose: 2.5 mg Documented by: Pneumococcal Polyvalent Vaccine (Pneumovax 23) 0.5 ml IM .ONCE ONE Stop: 06/20/20 17:01 Last Admin: 06/20/20 23:42 Dose: Not Given Documented by: Pneumococcal Polyvalent Vaccine (Pneumovax 23) 0.5 ml IM .ONCE ONE Stop: 06/21/20 09:01 Sodium Polystyrene Sulfonate (Kayexalate) 15 gm PO ONETIME ONE Stop: 06/20/20 11:31 Last Admin: 06/20/20 12:35 Dose: 15 gm Documented by: Sepsis Event Note - Focused Exam Vital Signs: Vital Signs Temp Pulse Pulse Resp BP BP BP 06/27/20 09:00 36.3 C 85 20 112/60 06/27/20 08:57 85 112/60 06/27/20 03:55 36.4 C 81 19 128/58 L Pulse Ox 06/27/20 09:00 91 L 06/27/20 08:57 06/27/20 03:55 90 L - Plan Plan:: I have seen and evaluated the patient and agree with the residents note unless specified in my note
[2020-06-25] MEDS: Tamsulosin 0.4 MG Cap.ER PO SCH (20:35)
[2020-06-25] MEDS: Melatonin 3 MG Tab PO SCH (20:35)
[2020-06-26] MEDS: Heparin Sodium 5,000 Units/ML Vial SUBCUT SCH ×2 (06:43→18:30)
[2020-06-26] MEDS: Furosemide 40 MG/4 ML VIAL IVPUSH SCH ×3 (06:44→21:02)
[2020-06-26] MEDS: Sodium Chloride 0.9% 2.5 ML Syringe FLUSH PRN (06:44)
[2020-06-26 06:50] LABS: CARBON DIOXIDE,CO2 26.8 mmol/L (21.0-32.0); POTASSIUM,K 4.8 mmol/L (3.5-5.1)
[2020-06-26] MEDS: Insulin Aspart 100 Units/ML 3 ML Pen SUBCUT SCH ×3 (08:18→18:29)
[2020-06-26] MEDS: Dronabinol 2.5 MG Cap PO SCH ×2 (08:28→21:02)
[2020-06-26] MEDS: Sertraline 100 MG Tab PO SCH (08:28)
[2020-06-26] MEDS: Pantoprazole 40 MG Tab.CR PO SCH (08:28)
[2020-06-26] MEDS: Carvedilol 3.125 MG Tab PO SCH ×2 (08:28→16:29)
[2020-06-26] MEDS: Ferrous Sulfate 325 MG Tab PO SCH ×2 (08:28→21:02)
[2020-06-26] MEDS: Fluconazole 100 MG Tab PO SCH (08:28)
--- NOTE | 2020-06-26 16:33 | PCM.PN ---
<Ismael Easley - Last Filed: 06/26/20 16:34> - General Info Date of Service: 06/26/20 Subjective Update: Patient states he feels fine. States more energy. Denies SOB, chest pain, fever chills. States that he is ready to go home and is trying to be more active throughout the day and eat more. - Review of Systems General: Reports: Fatigue. Denies: Chills Pulmonary: Denies: Shortness of Breath, Cough Cardiovascular: Denies: Chest Pain, Dyspnea on Exertion Gastrointestinal: Reports: Decreased Appetite. Denies: Abdominal Pain, Constipation - Patient Data Vitals - Most Recent: Last Vital Signs Temp 97.7 F 06/26/20 16:00 Pulse 82 06/26/20 16:00 Resp 20 06/26/20 16:00 BP 113/58 L 06/26/20 16:00 Pulse Ox 92 L 06/26/20 16:00 Weight - Most Recent: 74.888 kg I&O - Last 24 Hours: Intake & Output 06/26/20 06/26/20 06/26/20 06:59 14:59 22:59 Intake Total 336 Output Total 250 Balance 86 Lab Results Last 24 Hours: Laboratory Results - last 24 hr 06/25/20 06/25/20 06/26/20 Range/Units 11:33 16:49 05:57 WBC (4.0-11.0) K/uL RBC (4.50-5.90) M/uL Hgb (13.0-17.0) g/dL Hct (38.0-50.0) % MCV (80.0-98.0) fL MCH (27.0-32.0) pg MCHC (31.0-37.0) g/dL RDW Std Deviation (28.0-62.0) fl RDW Coeff of Nia (11.0-15.0) % Plt Count (150-400) K/uL Add Manual Diff Neutrophils % (Manual) (48.0-80.0) % Band Neutrophils % % Lymphocytes % (Manual) (16.0-40.0) % Monocytes % (Manual) (0.0-15.0) % Eosinophils % (Manual) (0.0-7.0) % Metamyelocytes % % Myelocytes % % Blast Cells % % Nucleated RBC % /100WBC Absolute Seg Neuts (1.4-5.7) Band Neutrophils # Lymphocytes # (Manual) (0.6-2.4) Monocytes # (Manual) (0.0-0.8) Eosinophils # (Manual) (0.0-0.7) Absolute Metamyelocyte Absolute Myelocytes Nucleated RBCs # K/uL Absolute Blast Cells Sodium (136-148) mmol/L Potassium (3.5-5.1) mmol/L Chloride (98-107) mmol/L Carbon Dioxide (21.0-32.0) mmol/L BUN (7.0-18.0) mg/dL Creatinine (0.8-1.3) mg/dL Est Cr Clr Drug Dosing mL/min Estimated GFR (MDRD) ml/min Glucose (74-106) mg/dL POC Glucose 118 H 116 H 154 H (60-110) mg/dL Calcium (8.5-10.1) mg/dL 06/26/20 06/26/20 06/26/20 Range/Units 06:08 06:08 07:50 WBC 74.79 H (4.0-11.0) K/uL RBC 3.91 L (4.50-5.90) M/uL Hgb 8.6 L (13.0-17.0) g/dL Hct 30.1 L (38.0-50.0) % MCV 77.0 L (80.0-98.0) fL MCH 22.0 L (27.0-32.0) pg MCHC 28.6 L (31.0-37.0) g/dL RDW Std Deviation 67.8 H (28.0-62.0) fl RDW Coeff of Nia 25 H (11.0-15.0) % Plt Count 233 (150-400) K/uL Add Manual Diff YES Neutrophils % (Manual) 50 (48.0-80.0) % Band Neutrophils % 16 % Lymphocytes % (Manual) 9 L (16.0-40.0) % Monocytes % (Manual) 4 (0.0-15.0) % Eosinophils % (Manual) 1 (0.0-7.0) % Metamyelocytes % 12 % Myelocytes % 5 % Blast Cells % 3 % Nucleated RBC % 8.1 /100WBC Absolute Seg Neuts 37.4 H (1.4-5.7) Band Neutrophils # 12.0 Lymphocytes # (Manual) 6.7 H (0.6-2.4) Monocytes # (Manual) 3.0 H (0.0-0.8) Eosinophils # (Manual) 0.7 (0.0-0.7) Absolute Metamyelocyte 9.0 Absolute Myelocytes 3.7 Nucleated RBCs # 1 K/uL Absolute Blast Cells 2.2 Sodium 142 (136-148) mmol/L Potassium 4.8 (3.5-5.1) mmol/L Chloride 106 (98-107) mmol/L Carbon Dioxide 26.8 (21.0-32.0) mmol/L BUN 64 H (7.0-18.0) mg/dL Creatinine 2.5 H (0.8-1.3) mg/dL Est Cr Clr Drug Dosing 27.04 mL/min Estimated GFR (MDRD) 25.3 ml/min Glucose 148 H (74-106) mg/dL POC Glucose 141 H (60-110) mg/dL Calcium 8.6 (8.5-10.1) mg/dL 06/26/20 Range/Units 11:35 WBC (4.0-11.0) K/uL RBC (4.50-5.90) M/uL Hgb (13.0-17.0) g/dL Hct (38.0-50.0) % MCV (80.0-98.0) fL MCH (27.0-32.0) pg MCHC (31.0-37.0) g/dL RDW Std Deviation (28.0-62.0) fl RDW Coeff of Nia (11.0-15.0) % Plt Count (150-400) K/uL Add Manual Diff Neutrophils % (Manual) (48.0-80.0) % Band Neutrophils % % Lymphocytes % (Manual) (16.0-40.0) % Monocytes % (Manual) (0.0-15.0) % Eosinophils % (Manual) (0.0-7.0) % Metamyelocytes % % Myelocytes % % Blast Cells % % Nucleated RBC % /100WBC Absolute Seg Neuts (1.4-5.7) Band Neutrophils # Lymphocytes # (Manual) (0.6-2.4) Monocytes # (Manual) (0.0-0.8) Eosinophils # (Manual) (0.0-0.7) Absolute Metamyelocyte Absolute Myelocytes Nucleated RBCs # K/uL Absolute Blast Cells Sodium (136-148) mmol/L Potassium (3.5-5.1) mmol/L Chloride (98-107) mmol/L Carbon Dioxide (21.0-32.0) mmol/L BUN (7.0-18.0) mg/dL Creatinine (0.8-1.3) mg/dL Est Cr Clr Drug Dosing mL/min Estimated GFR (MDRD) ml/min Glucose (74-106) mg/dL POC Glucose 184 H (60-110) mg/dL Calcium (8.5-10.1) mg/dL Med Orders - Current: Current Medications Acetaminophen (Tylenol) 650 mg PO Q4H PRN PRN Reason: Pain (Mild 1-3)/fever Last Admin: 06/21/20 21:03 Dose: 650 mg Documented by: Carvedilol (Coreg) 3.125 mg PO BIDMEALS [facility] Last Admin: 06/26/20 08:28 Dose: 3.125 mg Documented by: Dextrose/Water (Dextrose 50% In Water) 50 ml IV ASDIRECTED PRN PRN Reason: Hypoglycemia Dextrose/Water (Dextrose 50% In Water) 50 ml IV ASDIRECTED PRN PRN Reason: Hypoglycemia Docusate Sodium (Colace) 100 mg PO BID PRN PRN Reason: Constipation Dronabinol (Marinol) 5 mg PO BID [facility] Last Admin: 06/26/20 08:28 Dose: 5 mg Documented by: Ferrous Sulfate (Ferrous Sulfate) 325 mg PO BID [facility] Last Admin: 06/26/20 08:28 Dose: 325 mg Documented by: Fluconazole (Diflucan) 100 mg PO DAILY [facility] Last Admin: 06/26/20 08:28 Dose: 100 mg Documented by: Furosemide (Lasix) 40 mg IVPUSH Q8HR [facility] Last Admin: 06/26/20 14:04 Dose: 40 mg Documented by: Glucagon (Glucagen) 1 mg IM ASDIRECTED PRN PRN Reason: Hypoglycemia Heparin Sodium (Porcine) (Heparin Sodium) 5,000 units SUBCUT Q12H [facility] Last Admin: 06/26/20 06:43 Dose: 5,000 units Documented by: Insulin Aspart (Novolog) 0 unit SUBCUT TIDAC [facility]; Protocol Last Admin: 06/26/20 11:36 Dose: 2 units Documented by: Melatonin (Melatonin) 3 mg PO BEDTIME [facility] Last Admin: 06/25/20 20:35 Dose: 3 mg Documented by: Ondansetron HCl (Zofran) 4 mg IVPUSH Q4H PRN PRN Reason: Nausea Pantoprazole Sodium (Protonix) 40 mg PO DAILY [facility] Last Admin: 06/26/20 08:28 Dose: 40 mg Documented by: Sertraline HCl (Zoloft) 100 mg PO DAILY [facility] Last Admin: 06/26/20 08:28 Dose: 100 mg Documented by: Sodium Chloride (Saline Flush) 10 ml FLUSH ASDIRECTED PRN PRN Reason: Keep Vein Open Sodium Chloride (Saline Flush) 2.5 ml FLUSH ASDIRECTED PRN PRN Reason: Keep Vein Open Last Admin: 06/26/20 06:44 Dose: 2.5 ml Documented by: Sodium Chloride (Normal Saline) 10 ml IV ASDIRECTED PRN PRN Reason: IV Use Tamsulosin HCl (Flomax) 0.4 mg PO BEDTIME [facility] Last Admin: 06/25/20 20:35 Dose: 0.4 mg Documented by: Discontinued Medications Docusate Sodium (Colace) 100 mg PO BID [facility] Last Admin: 06/18/20 21:01 Dose: Not Given Documented by: Enoxaparin Sodium (Lovenox) 30 mg SUBCUT Q24H [facility] Last Admin: 06/17/20 17:08 Dose: 30 mg Documented by: Furosemide (Lasix) 40 mg IVPUSH BID [facility] Last Admin: 06/19/20 08:47 Dose: 40 mg Documented by: Furosemide (Lasix) 80 mg IVPUSH NOW ONE Stop: 06/17/20 19:16 Last Admin: 06/17/20 20:45 Dose: 80 mg Documented by: Furosemide (Lasix) 120 mg IVPUSH NOW ONE Stop: 06/18/20 08:17 Last Admin: 06/18/20 09:21 Dose: 120 mg Documented by: Furosemide (Lasix) 120 mg IVPUSH NOW ONE Stop: 06/18/20 20:07 Last Admin: 06/18/20 20:52 Dose: 120 mg Documented by: Furosemide (Lasix) 40 mg IVPUSH NOW ONE Stop: 06/19/20 14:01 Furosemide (Lasix) 40 mg IVPUSH Q8H [facility] Furosemide (Lasix) 40 mg IVPUSH Q6H [facility] Last Admin: 06/23/20 09:12 Dose: 40 mg Documented by: Furosemide (Lasix) 40 mg IV Q8H [facility] Last Admin: 06/23/20 12:01 Dose: Not Given Documented by: Furosemide (Lasix) 40 mg IV Q8H [facility] Furosemide (Lasix) Confirm Administered Dose 40 mg .ROUTE .STK-MED ONE Stop: 06/23/20 17:10 Last Admin: 06/23/20 17:26 Dose: Not Given Documented by: Furosemide (Lasix) 40 mg IVPUSH Q8H [facility] Last Admin: 06/24/20 08:46 Dose: 40 mg Documented by: Furosemide (Lasix) 40 mg IVPUSH Q6HR [facility] Ceftriaxone Sodium/Dextrose 1 (gm/ Premix) 50 mls @ 100 mls/hr IV Q24H [facility] Last Admin: 06/18/20 22:15 Dose: 100 mls/hr Documented by: Albumin Human (Flexbumin 25%) 12.5 gm in 50 mls @ 100 mls/hr IV ONETIME ONE Stop: 06/18/20 12:33 Last Admin: 06/18/20 12:30 Dose: 100 mls/hr Documented by: Albumin Human (Flexbumin 25%) 12.5 gm in 50 mls @ 100 mls/hr IV ONETIME ONE Stop: 06/18/20 19:49 Last Admin: 06/18/20 20:52 Dose: 100 mls/hr Documented by: Albumin Human (Flexbumin 25%) 12.5 gm in 50 mls @ 100 mls/hr IV ONETIME ONE Stop: 06/19/20 10:16 Last Admin: 06/19/20 10:44 Dose: 100 mls/hr Documented by: Furosemide 480 mg/ Sodium (Chloride) 250 mls @ 10.417 mls/hr IV Q24H [facility] Stop: 06/20/20 12:59 Last Admin: 06/19/20 13:10 Dose: 20 mg/hr, 10.417 mls/hr Documented by: Furosemide 240 mg/ Premix 24 mls @ 1 mls/hr IV Q24H [facility] Stop: 06/21/20 13:29 Last Admin: 06/20/20 14:21 Dose: 10 mg/hr, 1 mls/hr Documented by: Sodium Chloride (Normal Saline) 500 mls @ 5 mls/hr IV ASDIRECTED [facility] Sodium Chloride (Normal Saline) 500 mls @ 5 mls/hr IV ASDIRECTED [facility] Last Admin: 06/20/20 20:05 Dose: 5 mls/hr Documented by: Furosemide 40 mg/ Sodium (Chloride) 54 mls @ 100 mls/hr IV Q8H [facility] Last Admin: 06/24/20 00:55 Dose: 100 mls/hr Documented by: Magnesium Sulfate (Magnesium Sulfate In Water Premix) 2 gm in 50 mls @ 50 mls/hr IV ONETIME ONE Stop: 06/24/20 16:00 Last Admin: 06/24/20 16:59 Dose: 50 mls/hr Documented by: Insulin Detemir (Levemir) 12 unit SUBCUT BEDTIME [facility] Last Admin: 06/17/20 21:01 Dose: Not Given Documented by: Insulin Glargine (Lantus Solostar) 12 units SUBCUT BEDTIME [facility] Metolazone (Zaroxolyn) 2.5 mg PO ONETIME ONE Stop: 06/18/20 09:01 Last Admin: 06/18/20 09:16 Dose: 2.5 mg Documented by: Pneumococcal Polyvalent Vaccine (Pneumovax 23) 0.5 ml IM .ONCE ONE Stop: 06/20/20 17:01 Last Admin: 06/20/20 23:42 Dose: Not Given Documented by: Pneumococcal Polyvalent Vaccine (Pneumovax 23) 0.5 ml IM .ONCE ONE Stop: 06/21/20 09:01 Sodium Polystyrene Sulfonate (Kayexalate) 15 gm PO ONETIME ONE Stop: 06/20/20 11:31 Last Admin: 06/20/20 12:35 Dose: 15 gm Documented by: - Exam General: Alert, Oriented Lungs: Clear to Auscultation, Normal Respiratory Effort Cardiovascular: Regular Rate, Regular Rhythm GI/Abdominal Exam: Normal Bowel Sounds, Soft, Non-Tender Extremities: No Pedal Edema Wound/Incisions: Dressing Dry and Intact Sepsis Event Note - Evaluation Sepsis Screening Result: No Definite Risk - Focused Exam Vital Signs: Vital Signs Temp Pulse Pulse Resp BP BP BP 06/26/20 16:00 97.7 F 82 20 113/58 L 06/26/20 12:00 97.2 F 81 20 100/59 L 06/26/20 08:28 83 112/53 L 06/26/20 08:00 97.4 F 83 20 112/53 L Pulse Ox 06/26/20 16:00 92 L 06/26/20 12:00 92 L 06/26/20 08:28 06/26/20 08:00 92 L - Problem List Review Problem List Initiated/Reviewed/Updated: Yes - My Orders Last 24 Hours: My Active Orders 06/27/20 05:11 BASIC METABOLIC PANEL,BMP [CHEM] AM CBC WITH AUTO DIFF [HEME] AM MAGNESIUM [CHEM] AM - Plan Plan:: Acute systolic CHF exacerbation- Continue supplemental oxygen prn. Cardiology following, IV lasix 40 mg q8h due to increased hypotension, Strict I's and O's, daily standing weight, fluid restrict < 2L per day and low sodium 2 g per day. FRANCINE-Creatinine went up slightly to 2.5. Nephrology consulted. Did not recommended more aggressive Lasix as patient is probably dry ( no signs of edema). Recommended Midodrine TID if patient becomes hypotensive on Lasix. Creatinine will most likely increases with continued IV Lasix regime. Deconditioning- PT consulted, Patient encouraged to ambulate but does not do so Diabetes mellitus 2- SSI and accuchecks TIDAC. DVT prophylaxis- Heparin 5000 units q12. Past medical history of HTN, essential thrombocythemia, NSTEMI s/p CABG, s/p pacemaker, and abdominal wall infection s/p wound vac: - Continue home medications. <Vee Fernandez - Last Filed: 06/27/20 12:20> - Patient Data Vitals - Most Recent: Last Vital Signs Temp 36.3 C 06/27/20 09:00 Pulse 85 06/27/20 09:00 Resp 20 06/27/20 09:00 BP 112/60 06/27/20 09:00 Pulse Ox 91 L 06/27/20 09:00 I&O - Last 24 Hours: Intake & Output 06/26/20 06/27/20 06/27/20 22:59 06:59 14:59 Intake Total 550 360 Output Total 320 350 Balance 230 10 Lab Results Last 24 Hours: Laboratory Results - last 24 hr 06/26/20 06/27/20 06/27/20 Range/Units 17:07 05:13 05:13 WBC 70.08 H (4.0-11.0) K/uL RBC 4.06 L (4.50-5.90) M/uL Hgb 8.9 L (13.0-17.0) g/dL Hct 31.4 L (38.0-50.0) % MCV 77.3 L (80.0-98.0) fL MCH 21.9 L (27.0-32.0) pg MCHC 28.3 L (31.0-37.0) g/dL RDW Std Deviation 68.5 H (28.0-62.0) fl RDW Coeff of Nia 25 H (11.0-15.0) % Plt Count 227 (150-400) K/uL Add Manual Diff YES Neutrophils % (Manual) 54 (48.0-80.0) % Band Neutrophils % 20 % Lymphocytes % (Manual) 10 L (16.0-40.0) % Monocytes % (Manual) 2 (0.0-15.0) % Eosinophils % (Manual) 2 (0.0-7.0) % Basophils % (Manual) 3 H (0.0-1.5) % Metamyelocytes % 4 % Myelocytes % 4 % Blast Cells % 1 % Nucleated RBC % 8.3 /100WBC Absolute Seg Neuts 37.8 H (1.4-5.7) Band Neutrophils # 14.0 Lymphocytes # (Manual) 7.0 H (0.6-2.4) Monocytes # (Manual) 1.4 H (0.0-0.8) Eosinophils # (Manual) 1.4 H (0.0-0.7) Basophils # (Manual) 2.1 H (0.0-0.1) Absolute Metamyelocyte 2.8 Absolute Myelocytes 2.8 Nucleated RBCs # 1 K/uL Absolute Blast Cells 0.7 Poikilocytosis 2+ MODERATE Sodium 142 (136-148) mmol/L Potassium 4.9 (3.5-5.1) mmol/L Chloride 106 (98-107) mmol/L Carbon Dioxide 29.1 (21.0-32.0) mmol/L BUN 66 H (7.0-18.0) mg/dL Creatinine 2.5 H (0.8-1.3) mg/dL Est Cr Clr Drug Dosing 27.19 mL/min Estimated GFR (MDRD) 25.3 ml/min Glucose 153 H (74-106) mg/dL POC Glucose 171 H (60-110) mg/dL Calcium 8.7 (8.5-10.1) mg/dL Magnesium 2.3 (1.8-2.4) mg/dL 06/27/20 06/27/20 Range/Units 05:53 11:43 WBC (4.0-11.0) K/uL RBC (4.50-5.90) M/uL Hgb (13.0-17.0) g/dL Hct (38.0-50.0) % MCV (80.0-98.0) fL MCH (27.0-32.0) pg MCHC (31.0-37.0) g/dL RDW Std Deviation (28.0-62.0) fl RDW Coeff of Nia (11.0-15.0) % Plt Count (150-400) K/uL Add Manual Diff Neutrophils % (Manual) (48.0-80.0) % Band Neutrophils % % Lymphocytes % (Manual) (16.0-40.0) % Monocytes % (Manual) (0.0-15.0) % Eosinophils % (Manual) (0.0-7.0) % Basophils % (Manual) (0.0-1.5) % Metamyelocytes % % Myelocytes % % Blast Cells % % Nucleated RBC % /100WBC Absolute Seg Neuts (1.4-5.7) Band Neutrophils # Lymphocytes # (Manual) (0.6-2.4) Monocytes # (Manual) (0.0-0.8) Eosinophils # (Manual) (0.0-0.7) Basophils # (Manual) (0.0-0.1) Absolute Metamyelocyte Absolute Myelocytes Nucleated RBCs # K/uL Absolute Blast Cells Poikilocytosis Sodium (136-148) mmol/L Potassium (3.5-5.1) mmol/L Chloride (98-107) mmol/L Carbon Dioxide (21.0-32.0) mmol/L BUN (7.0-18.0) mg/dL Creatinine (0.8-1.3) mg/dL Est Cr Clr Drug Dosing mL/min Estimated GFR (MDRD) ml/min Glucose (74-106) mg/dL POC Glucose 171 H 160 H (60-110) mg/dL Calcium (8.5-10.1) mg/dL Magnesium (1.8-2.4) mg/dL Med Orders - Current: Current Medications Acetaminophen (Tylenol) 650 mg PO Q4H PRN PRN Reason: Pain (Mild 1-3)/fever Last Admin: 06/21/20 21:03 Dose: 650 mg Documented by: Carvedilol (Coreg) 3.125 mg PO BIDMEALS [facility] Last Admin: 06/27/20 08:57 Dose: 3.125 mg Documented by: Dextrose/Water (Dextrose 50% In Water) 50 ml IV ASDIRECTED PRN PRN Reason: Hypoglycemia Dextrose/Water (Dextrose 50% In Water) 50 ml IV ASDIRECTED PRN PRN Reason: Hypoglycemia Docusate Sodium (Colace) 100 mg PO BID PRN PRN Reason: Constipation Dronabinol (Marinol) 5 mg PO BID [facility] Last Admin: 06/27/20 08:58 Dose: 5 mg Documented by: Ferrous Sulfate (Ferrous Sulfate) 325 mg PO BID [facility] Last Admin: 06/27/20 08:57 Dose: 325 mg Documented by: Fluconazole (Diflucan) 100 mg PO DAILY [facility] Last Admin: 06/27/20 08:58 Dose: 100 mg Documented by: Furosemide (Lasix) 40 mg IVPUSH Q8HR [facility] Last Admin: 06/27/20 06:25 Dose: 40 mg Documented by: Glucagon (Glucagen) 1 mg IM ASDIRECTED PRN PRN Reason: Hypoglycemia Heparin Sodium (Porcine) (Heparin Sodium) 5,000 units SUBCUT Q12H [facility] Last Admin: 06/27/20 06:26 Dose: 5,000 units Documented by: Insulin Aspart (Novolog) 0 unit SUBCUT TIDAC [facility]; Protocol Last Admin: 06/27/20 12:12 Dose: 2 units Documented by: Melatonin (Melatonin) 3 mg PO BEDTIME [facility] Last Admin: 06/26/20 21:02 Dose: 3 mg Documented by: Ondansetron HCl (Zofran) 4 mg IVPUSH Q4H PRN PRN Reason: Nausea Pantoprazole Sodium (Protonix) 40 mg PO DAILY [facility] Last Admin: 06/27/20 08:57 Dose: 40 mg Documented by: Sertraline HCl (Zoloft) 100 mg PO DAILY [facility] Last Admin: 06/27/20 08:58 Dose: 100 mg Documented by: Sodium Chloride (Saline Flush) 10 ml FLUSH ASDIRECTED PRN PRN Reason: Keep Vein Open Sodium Chloride (Saline Flush) 2.5 ml FLUSH ASDIRECTED PRN PRN Reason: Keep Vein Open Last Admin: 06/26/20 06:44 Dose: 2.5 ml Documented by: Sodium Chloride (Normal Saline) 10 ml IV ASDIRECTED PRN PRN Reason: IV Use Tamsulosin HCl (Flomax) 0.4 mg PO BEDTIME [facility] Last Admin: 06/26/20 21:02 Dose: 0.4 mg Documented by: Discontinued Medications Docusate Sodium (Colace) 100 mg PO BID [facility] Last Admin: 06/18/20 21:01 Dose: Not Given Documented by: Enoxaparin Sodium (Lovenox) 30 mg SUBCUT Q24H [facility] Last Admin: 06/17/20 17:08 Dose: 30 mg Documented by: Furosemide (Lasix) 40 mg IVPUSH BID [facility] Last Admin: 06/19/20 08:47 Dose: 40 mg Documented by: Furosemide (Lasix) 80 mg IVPUSH NOW ONE Stop: 06/17/20 19:16 Last Admin: 06/17/20 20:45 Dose: 80 mg Documented by: Furosemide (Lasix) 120 mg IVPUSH NOW ONE Stop: 06/18/20 08:17 Last Admin: 06/18/20 09:21 Dose: 120 mg Documented by: Furosemide (Lasix) 120 mg IVPUSH NOW ONE Stop: 06/18/20 20:07 Last Admin: 06/18/20 20:52 Dose: 120 mg Documented by: Furosemide (Lasix) 40 mg IVPUSH NOW ONE Stop: 06/19/20 14:01 Furosemide (Lasix) 40 mg IVPUSH Q8H [facility] Furosemide (Lasix) 40 mg IVPUSH Q6H [facility] Last Admin: 06/23/20 09:12 Dose: 40 mg Documented by: Furosemide (Lasix) 40 mg IV Q8H [facility] Last Admin: 06/23/20 12:01 Dose: Not Given Documented by: Furosemide (Lasix) 40 mg IV Q8H [facility] Furosemide (Lasix) Confirm Administered Dose 40 mg .ROUTE .STK-MED ONE Stop: 06/23/20 17:10 Last Admin: 06/23/20 17:26 Dose: Not Given Documented by: Furosemide (Lasix) 40 mg IVPUSH Q8H [facility] Last Admin: 06/24/20 08:46 Dose: 40 mg Documented by: Furosemide (Lasix) 40 mg IVPUSH Q6HR [facility] Ceftriaxone Sodium/Dextrose 1 (gm/ Premix) 50 mls @ 100 mls/hr IV Q24H [facility] Last Admin: 06/18/20 22:15 Dose: 100 mls/hr Documented by: Albumin Human (Flexbumin 25%) 12.5 gm in 50 mls @ 100 mls/hr IV ONETIME ONE Stop: 06/18/20 12:33 Last Admin: 06/18/20 12:30 Dose: 100 mls/hr Documented by: Albumin Human (Flexbumin 25%) 12.5 gm in 50 mls @ 100 mls/hr IV ONETIME ONE Stop: 06/18/20 19:49 Last Admin: 06/18/20 20:52 Dose: 100 mls/hr Documented by: Albumin Human (Flexbumin 25%) 12.5 gm in 50 mls @ 100 mls/hr IV ONETIME ONE Stop: 06/19/20 10:16 Last Admin: 06/19/20 10:44 Dose: 100 mls/hr Documented by: Furosemide 480 mg/ Sodium (Chloride) 250 mls @ 10.417 mls/hr IV Q24H [facility] Stop: 06/20/20 12:59 Last Admin: 06/19/20 13:10 Dose: 20 mg/hr, 10.417 mls/hr Documented by: Furosemide 240 mg/ Premix 24 mls @ 1 mls/hr IV Q24H [facility] Stop: 06/21/20 13:29 Last Admin: 06/20/20 14:21 Dose: 10 mg/hr, 1 mls/hr Documented by: Sodium Chloride (Normal Saline) 500 mls @ 5 mls/hr IV ASDIRECTED [facility] Sodium Chloride (Normal Saline) 500 mls @ 5 mls/hr IV ASDIRECTED [facility] Last Admin: 06/20/20 20:05 Dose: 5 mls/hr Documented by: Furosemide 40 mg/ Sodium (Chloride) 54 mls @ 100 mls/hr IV Q8H [facility] Last Admin: 06/24/20 00:55 Dose: 100 mls/hr Documented by: Magnesium Sulfate (Magnesium Sulfate In Water Premix) 2 gm in 50 mls @ 50 mls/hr IV ONETIME ONE Stop: 06/24/20 16:00 Last Admin: 06/24/20 16:59 Dose: 50 mls/hr Documented by: Insulin Detemir (Levemir) 12 unit SUBCUT BEDTIME BREONNA Last Admin: 06/17/20 21:01 Dose: Not Given Documented by: Insulin Glargine (Lantus Solostar) 12 units SUBCUT BEDTIME BREONNA Metolazone (Zaroxolyn) 2.5 mg PO ONETIME ONE Stop: 06/18/20 09:01 Last Admin: 06/18/20 09:16 Dose: 2.5 mg Documented by: Pneumococcal Polyvalent Vaccine (Pneumovax 23) 0.5 ml IM .ONCE ONE Stop: 06/20/20 17:01 Last Admin: 06/20/20 23:42 Dose: Not Given Documented by: Pneumococcal Polyvalent Vaccine (Pneumovax 23) 0.5 ml IM .ONCE ONE Stop: 06/21/20 09:01 Sodium Polystyrene Sulfonate (Kayexalate) 15 gm PO ONETIME ONE Stop: 06/20/20 11:31 Last Admin: 06/20/20 12:35 Dose: 15 gm Documented by: Sepsis Event Note - Focused Exam Vital Signs: Vital Signs Temp Pulse Pulse Resp BP BP BP 06/27/20 09:00 36.3 C 85 20 112/60 06/27/20 08:57 85 112/60 06/27/20 03:55 36.4 C 81 19 128/58 L Pulse Ox 06/27/20 09:00 91 L 06/27/20 08:57 06/27/20 03:55 90 L - Plan Plan:: I have seen and evaluated the patient and agree with the residents note unless specified in my note
[2020-06-26] MEDS: Melatonin 3 MG Tab PO SCH (21:02)
[2020-06-26] MEDS: Tamsulosin 0.4 MG Cap.ER PO SCH (21:02)
[2020-06-27] MEDS: Furosemide 40 MG/4 ML VIAL IVPUSH SCH ×3 (06:25→21:39)
[2020-06-27] MEDS: Heparin Sodium 5,000 Units/ML Vial SUBCUT SCH ×2 (06:26→18:42)
[2020-06-27 06:33] LABS: CARBON DIOXIDE,CO2 29.1 mmol/L (21.0-32.0); POTASSIUM,K 4.9 mmol/L (3.5-5.1)
[2020-06-27] MEDS: Pantoprazole 40 MG Tab.CR PO SCH (08:57)
[2020-06-27] MEDS: Carvedilol 3.125 MG Tab PO SCH ×2 (08:57→17:55)
[2020-06-27] MEDS: Ferrous Sulfate 325 MG Tab PO SCH ×2 (08:57→21:07)
[2020-06-27] MEDS: Sertraline 100 MG Tab PO SCH (08:58)
[2020-06-27] MEDS: Dronabinol 2.5 MG Cap PO SCH ×2 (08:58→21:07)
[2020-06-27] MEDS: Fluconazole 100 MG Tab PO SCH (08:58)
[2020-06-27] MEDS: Insulin Aspart 100 Units/ML 3 ML Pen SUBCUT SCH ×3 (08:59→17:55)
--- NOTE | 2020-06-27 12:24 | PCM.PN ---
<Ismael Easley - Last Filed: 06/27/20 12:24> - General Info Date of Service: 06/27/20 Subjective Update: Patient states that he feels stronger and has been eating more. Patient would like to go home soon. Denies fever, chills, nausea, cheat pain, SOB. - Review of Systems General: Denies: Fever, Chills Pulmonary: Denies: Shortness of Breath, Pleuritic Chest Pain Cardiovascular: Denies: Chest Pain, Palpitations Gastrointestinal: Denies: Abdominal Pain, Decreased Appetite, Nausea, Vomiting Musculoskeletal: Denies: Back Pain Neurological: Denies: Confusion, Dizziness - Patient Data Vitals - Most Recent: Last Vital Signs Temp 97.3 F 06/27/20 09:00 Pulse 85 06/27/20 09:00 Resp 20 06/27/20 09:00 BP 112/60 06/27/20 09:00 Pulse Ox 91 L 06/27/20 09:00 Weight - Most Recent: 76.204 kg I&O - Last 24 Hours: Intake & Output 06/26/20 06/27/20 06/27/20 22:59 06:59 14:59 Intake Total 550 360 Output Total 320 350 Balance 230 10 Lab Results Last 24 Hours: Laboratory Results - last 24 hr 06/26/20 06/27/20 06/27/20 Range/Units 17:07 05:13 05:13 WBC 70.08 H (4.0-11.0) K/uL RBC 4.06 L (4.50-5.90) M/uL Hgb 8.9 L (13.0-17.0) g/dL Hct 31.4 L (38.0-50.0) % MCV 77.3 L (80.0-98.0) fL MCH 21.9 L (27.0-32.0) pg MCHC 28.3 L (31.0-37.0) g/dL RDW Std Deviation 68.5 H (28.0-62.0) fl RDW Coeff of Nia 25 H (11.0-15.0) % Plt Count 227 (150-400) K/uL Add Manual Diff YES Neutrophils % (Manual) 54 (48.0-80.0) % Band Neutrophils % 20 % Lymphocytes % (Manual) 10 L (16.0-40.0) % Monocytes % (Manual) 2 (0.0-15.0) % Eosinophils % (Manual) 2 (0.0-7.0) % Basophils % (Manual) 3 H (0.0-1.5) % Metamyelocytes % 4 % Myelocytes % 4 % Blast Cells % 1 % Nucleated RBC % 8.3 /100WBC Absolute Seg Neuts 37.8 H (1.4-5.7) Band Neutrophils # 14.0 Lymphocytes # (Manual) 7.0 H (0.6-2.4) Monocytes # (Manual) 1.4 H (0.0-0.8) Eosinophils # (Manual) 1.4 H (0.0-0.7) Basophils # (Manual) 2.1 H (0.0-0.1) Absolute Metamyelocyte 2.8 Absolute Myelocytes 2.8 Nucleated RBCs # 1 K/uL Absolute Blast Cells 0.7 Poikilocytosis 2+ MODERATE Sodium 142 (136-148) mmol/L Potassium 4.9 (3.5-5.1) mmol/L Chloride 106 (98-107) mmol/L Carbon Dioxide 29.1 (21.0-32.0) mmol/L BUN 66 H (7.0-18.0) mg/dL Creatinine 2.5 H (0.8-1.3) mg/dL Est Cr Clr Drug Dosing 27.19 mL/min Estimated GFR (MDRD) 25.3 ml/min Glucose 153 H (74-106) mg/dL POC Glucose 171 H (60-110) mg/dL Calcium 8.7 (8.5-10.1) mg/dL Magnesium 2.3 (1.8-2.4) mg/dL 06/27/20 06/27/20 Range/Units 05:53 11:43 WBC (4.0-11.0) K/uL RBC (4.50-5.90) M/uL Hgb (13.0-17.0) g/dL Hct (38.0-50.0) % MCV (80.0-98.0) fL MCH (27.0-32.0) pg MCHC (31.0-37.0) g/dL RDW Std Deviation (28.0-62.0) fl RDW Coeff of Nia (11.0-15.0) % Plt Count (150-400) K/uL Add Manual Diff Neutrophils % (Manual) (48.0-80.0) % Band Neutrophils % % Lymphocytes % (Manual) (16.0-40.0) % Monocytes % (Manual) (0.0-15.0) % Eosinophils % (Manual) (0.0-7.0) % Basophils % (Manual) (0.0-1.5) % Metamyelocytes % % Myelocytes % % Blast Cells % % Nucleated RBC % /100WBC Absolute Seg Neuts (1.4-5.7) Band Neutrophils # Lymphocytes # (Manual) (0.6-2.4) Monocytes # (Manual) (0.0-0.8) Eosinophils # (Manual) (0.0-0.7) Basophils # (Manual) (0.0-0.1) Absolute Metamyelocyte Absolute Myelocytes Nucleated RBCs # K/uL Absolute Blast Cells Poikilocytosis Sodium (136-148) mmol/L Potassium (3.5-5.1) mmol/L Chloride (98-107) mmol/L Carbon Dioxide (21.0-32.0) mmol/L BUN (7.0-18.0) mg/dL Creatinine (0.8-1.3) mg/dL Est Cr Clr Drug Dosing mL/min Estimated GFR (MDRD) ml/min Glucose (74-106) mg/dL POC Glucose 171 H 160 H (60-110) mg/dL Calcium (8.5-10.1) mg/dL Magnesium (1.8-2.4) mg/dL Med Orders - Current: Current Medications Acetaminophen (Tylenol) 650 mg PO Q4H PRN PRN Reason: Pain (Mild 1-3)/fever Last Admin: 06/21/20 21:03 Dose: 650 mg Documented by: [facility] Last Admin: 06/27/20 08:57 Dose: 3.125 mg Documented by: Dextrose/Water (Dextrose 50% In Water) 50 ml IV ASDIRECTED PRN PRN Reason: Hypoglycemia Dextrose/Water (Dextrose 50% In Water) 50 ml IV ASDIRECTED PRN PRN Reason: Hypoglycemia Docusate Sodium (Colace) 100 mg PO BID PRN PRN Reason: Constipation Dronabinol (Marinol) 5 mg PO BID [facility] Last Admin: 06/27/20 08:58 Dose: 5 mg Documented by: Ferrous Sulfate (Ferrous Sulfate) 325 mg PO BID [facility] Last Admin: 06/27/20 08:57 Dose: 325 mg Documented by: Fluconazole (Diflucan) 100 mg PO DAILY [facility] Last Admin: 06/27/20 08:58 Dose: 100 mg Documented by: Furosemide (Lasix) 40 mg IVPUSH Q8HR [facility] Last Admin: 06/27/20 06:25 Dose: 40 mg Documented by: Glucagon (Glucagen) 1 mg IM ASDIRECTED PRN PRN Reason: Hypoglycemia Heparin Sodium (Porcine) (Heparin Sodium) 5,000 units SUBCUT Q12H [facility] Last Admin: 06/27/20 06:26 Dose: 5,000 units Documented by: Insulin Aspart (Novolog) 0 unit SUBCUT TIDAC [facility]; Protocol Last Admin: 06/27/20 12:12 Dose: 2 units Documented by: Melatonin (Melatonin) 3 mg PO BEDTIME [facility] Last Admin: 06/26/20 21:02 Dose: 3 mg Documented by: Ondansetron HCl (Zofran) 4 mg IVPUSH Q4H PRN PRN Reason: Nausea Pantoprazole Sodium (Protonix) 40 mg PO DAILY [facility] Last Admin: 06/27/20 08:57 Dose: 40 mg Documented by: Sertraline HCl (Zoloft) 100 mg PO DAILY [facility] Last Admin: 06/27/20 08:58 Dose: 100 mg Documented by: Sodium Chloride (Saline Flush) 10 ml FLUSH ASDIRECTED PRN PRN Reason: Keep Vein Open Sodium Chloride (Saline Flush) 2.5 ml FLUSH ASDIRECTED PRN PRN Reason: Keep Vein Open Last Admin: 06/26/20 06:44 Dose: 2.5 ml Documented by: Sodium Chloride (Normal Saline) 10 ml IV ASDIRECTED PRN PRN Reason: IV Use Tamsulosin HCl (Flomax) 0.4 mg PO BEDTIME [facility] Last Admin: 06/26/20 21:02 Dose: 0.4 mg Documented by: Discontinued Medications Docusate Sodium (Colace) 100 mg PO BID [facility] Last Admin: 06/18/20 21:01 Dose: Not Given Documented by: Enoxaparin Sodium (Lovenox) 30 mg SUBCUT Q24H [facility] Last Admin: 06/17/20 17:08 Dose: 30 mg Documented by: Furosemide (Lasix) 40 mg IVPUSH BID [facility] Last Admin: 06/19/20 08:47 Dose: 40 mg Documented by: Furosemide (Lasix) 80 mg IVPUSH NOW ONE Stop: 06/17/20 19:16 Last Admin: 06/17/20 20:45 Dose: 80 mg Documented by: Furosemide (Lasix) 120 mg IVPUSH NOW ONE Stop: 06/18/20 08:17 Last Admin: 06/18/20 09:21 Dose: 120 mg Documented by: Furosemide (Lasix) 120 mg IVPUSH NOW ONE Stop: 06/18/20 20:07 Last Admin: 06/18/20 20:52 Dose: 120 mg Documented by: Furosemide (Lasix) 40 mg IVPUSH NOW ONE Stop: 06/19/20 14:01 Furosemide (Lasix) 40 mg IVPUSH Q8H [facility] Furosemide (Lasix) 40 mg IVPUSH Q6H [facility] Last Admin: 06/23/20 09:12 Dose: 40 mg Documented by: Furosemide (Lasix) 40 mg IV Q8H [facility] Last Admin: 06/23/20 12:01 Dose: Not Given Documented by: Furosemide (Lasix) 40 mg IV Q8H [facility] Furosemide (Lasix) Confirm Administered Dose 40 mg .ROUTE .STK-MED ONE Stop: 06/23/20 17:10 Last Admin: 06/23/20 17:26 Dose: Not Given Documented by: Furosemide (Lasix) 40 mg IVPUSH Q8H [facility] Last Admin: 06/24/20 08:46 Dose: 40 mg Documented by: Furosemide (Lasix) 40 mg IVPUSH Q6HR [facility] Ceftriaxone Sodium/Dextrose 1 (gm/ Premix) 50 mls @ 100 mls/hr IV Q24H [facility] Last Admin: 06/18/20 22:15 Dose: 100 mls/hr Documented by: Albumin Human (Flexbumin 25%) 12.5 gm in 50 mls @ 100 mls/hr IV ONETIME ONE Stop: 06/18/20 12:33 Last Admin: 06/18/20 12:30 Dose: 100 mls/hr Documented by: Albumin Human (Flexbumin 25%) 12.5 gm in 50 mls @ 100 mls/hr IV ONETIME ONE Stop: 06/18/20 19:49 Last Admin: 06/18/20 20:52 Dose: 100 mls/hr Documented by: Albumin Human (Flexbumin 25%) 12.5 gm in 50 mls @ 100 mls/hr IV ONETIME ONE Stop: 06/19/20 10:16 Last Admin: 06/19/20 10:44 Dose: 100 mls/hr Documented by: Furosemide 480 mg/ Sodium (Chloride) 250 mls @ 10.417 mls/hr IV Q24H [facility] Stop: 06/20/20 12:59 Last Admin: 06/19/20 13:10 Dose: 20 mg/hr, 10.417 mls/hr Documented by: Furosemide 240 mg/ Premix 24 mls @ 1 mls/hr IV Q24H [facility] Stop: 06/21/20 13:29 Last Admin: 06/20/20 14:21 Dose: 10 mg/hr, 1 mls/hr Documented by: Sodium Chloride (Normal Saline) 500 mls @ 5 mls/hr IV ASDIRECTED [facility] Sodium Chloride (Normal Saline) 500 mls @ 5 mls/hr IV ASDIRECTED [facility] Last Admin: 06/20/20 20:05 Dose: 5 mls/hr Documented by: Furosemide 40 mg/ Sodium (Chloride) 54 mls @ 100 mls/hr IV Q8H [facility] Last Admin: 06/24/20 00:55 Dose: 100 mls/hr Documented by: Magnesium Sulfate (Magnesium Sulfate In Water Premix) 2 gm in 50 mls @ 50 mls/hr IV ONETIME ONE Stop: 06/24/20 16:00 Last Admin: 06/24/20 16:59 Dose: 50 mls/hr Documented by: Insulin Detemir (Levemir) 12 unit SUBCUT BEDTIME [facility] Last Admin: 06/17/20 21:01 Dose: Not Given Documented by: Insulin Glargine (Lantus Solostar) 12 units SUBCUT BEDTIME [facility] Metolazone (Zaroxolyn) 2.5 mg PO ONETIME ONE Stop: 06/18/20 09:01 Last Admin: 06/18/20 09:16 Dose: 2.5 mg Documented by: Pneumococcal Polyvalent Vaccine (Pneumovax 23) 0.5 ml IM .ONCE ONE Stop: 06/20/20 17:01 Last Admin: 06/20/20 23:42 Dose: Not Given Documented by: Pneumococcal Polyvalent Vaccine (Pneumovax 23) 0.5 ml IM .ONCE ONE Stop: 06/21/20 09:01 Sodium Polystyrene Sulfonate (Kayexalate) 15 gm PO ONETIME ONE Stop: 06/20/20 11:31 Last Admin: 06/20/20 12:35 Dose: 15 gm Documented by: - Exam General: Alert, Oriented Lungs: Clear to Auscultation, Normal Respiratory Effort Cardiovascular: Regular Rate, Regular Rhythm GI/Abdominal Exam: Normal Bowel Sounds, Soft, Non-Tender Wound/Incisions: Healing Well, Dressing Dry and Intact Sepsis Event Note - Evaluation Sepsis Screening Result: No Definite Risk - Focused Exam Vital Signs: Vital Signs Temp Pulse Pulse Resp BP BP BP 06/27/20 09:00 97.3 F 85 20 112/60 06/27/20 08:57 85 112/60 06/27/20 03:55 97.6 F 81 19 128/58 L Pulse Ox 06/27/20 09:00 91 L 06/27/20 08:57 06/27/20 03:55 90 L - Problem List Review Problem List Initiated/Reviewed/Updated: Yes - Plan Plan:: Acute systolic CHF exacerbation- Continue supplemental oxygen prn. Cardiology following, IV lasix 40 mg q8h due to increased hypotension, Strict I's and O's, daily standing weight, fluid restrict < 2L per day and low sodium 2 g per day. FRANCINE-Creatinine went up slightly to 2.5, continue to monitor. Deconditioning- PT consulted, Patient encouraged to ambulate but does not do so Diabetes mellitus 2- SSI and accuchecks TIDAC. DVT prophylaxis- Heparin 5000 units q12. Past medical history of HTN, essential thrombocythemia, NSTEMI s/p CABG, s/p pacemaker, and abdominal wall infection s/p wound vac: - Continue home medications. - Wound vac nurse consulted for management. - Wound care consulted. <Vee Fernandez - Last Filed: 06/27/20 13:06> - Patient Data Vitals - Most Recent: Last Vital Signs Temp 36.3 C 06/27/20 09:00 Pulse 85 06/27/20 09:00 Resp 20 06/27/20 09:00 BP 112/60 06/27/20 09:00 Pulse Ox 91 L 06/27/20 09:00 I&O - Last 24 Hours: Intake & Output 06/26/20 06/27/20 06/27/20 22:59 06:59 14:59 Intake Total 550 360 Output Total 320 350 Balance 230 10 Lab Results Last 24 Hours: Laboratory Results - last 24 hr 06/26/20 06/27/20 06/27/20 Range/Units 17:07 05:13 05:13 WBC 70.08 H (4.0-11.0) K/uL RBC 4.06 L (4.50-5.90) M/uL Hgb 8.9 L (13.0-17.0) g/dL Hct 31.4 L (38.0-50.0) % MCV 77.3 L (80.0-98.0) fL MCH 21.9 L (27.0-32.0) pg MCHC 28.3 L (31.0-37.0) g/dL RDW Std Deviation 68.5 H (28.0-62.0) fl RDW Coeff of Nia 25 H (11.0-15.0) % Plt Count 227 (150-400) K/uL Add Manual Diff YES Neutrophils % (Manual) 54 (48.0-80.0) % Band Neutrophils % 20 % Lymphocytes % (Manual) 10 L (16.0-40.0) % Monocytes % (Manual) 2 (0.0-15.0) % Eosinophils % (Manual) 2 (0.0-7.0) % Basophils % (Manual) 3 H (0.0-1.5) % Metamyelocytes % 4 % Myelocytes % 4 % Blast Cells % 1 % Nucleated RBC % 8.3 /100WBC Absolute Seg Neuts 37.8 H (1.4-5.7) Band Neutrophils # 14.0 Lymphocytes # (Manual) 7.0 H (0.6-2.4) Monocytes # (Manual) 1.4 H (0.0-0.8) Eosinophils # (Manual) 1.4 H (0.0-0.7) Basophils # (Manual) 2.1 H (0.0-0.1) Absolute Metamyelocyte 2.8 Absolute Myelocytes 2.8 Nucleated RBCs # 1 K/uL Absolute Blast Cells 0.7 Poikilocytosis 2+ MODERATE Sodium 142 (136-148) mmol/L Potassium 4.9 (3.5-5.1) mmol/L Chloride 106 (98-107) mmol/L Carbon Dioxide 29.1 (21.0-32.0) mmol/L BUN 66 H (7.0-18.0) mg/dL Creatinine 2.5 H (0.8-1.3) mg/dL Est Cr Clr Drug Dosing 27.19 mL/min Estimated GFR (MDRD) 25.3 ml/min Glucose 153 H (74-106) mg/dL POC Glucose 171 H (60-110) mg/dL Calcium 8.7 (8.5-10.1) mg/dL Magnesium 2.3 (1.8-2.4) mg/dL 06/27/20 06/27/20 Range/Units 05:53 11:43 WBC (4.0-11.0) K/uL RBC (4.50-5.90) M/uL Hgb (13.0-17.0) g/dL Hct (38.0-50.0) % MCV (80.0-98.0) fL MCH (27.0-32.0) pg MCHC (31.0-37.0) g/dL RDW Std Deviation (28.0-62.0) fl RDW Coeff of Nia (11.0-15.0) % Plt Count (150-400) K/uL Add Manual Diff Neutrophils % (Manual) (48.0-80.0) % Band Neutrophils % % Lymphocytes % (Manual) (16.0-40.0) % Monocytes % (Manual) (0.0-15.0) % Eosinophils % (Manual) (0.0-7.0) % Basophils % (Manual) (0.0-1.5) % Metamyelocytes % % Myelocytes % % Blast Cells % % Nucleated RBC % /100WBC Absolute Seg Neuts (1.4-5.7) Band Neutrophils # Lymphocytes # (Manual) (0.6-2.4) Monocytes # (Manual) (0.0-0.8) Eosinophils # (Manual) (0.0-0.7) Basophils # (Manual) (0.0-0.1) Absolute Metamyelocyte Absolute Myelocytes Nucleated RBCs # K/uL Absolute Blast Cells Poikilocytosis Sodium (136-148) mmol/L Potassium (3.5-5.1) mmol/L Chloride (98-107) mmol/L Carbon Dioxide (21.0-32.0) mmol/L BUN (7.0-18.0) mg/dL Creatinine (0.8-1.3) mg/dL Est Cr Clr Drug Dosing mL/min Estimated GFR (MDRD) ml/min Glucose (74-106) mg/dL POC Glucose 171 H 160 H (60-110) mg/dL Calcium (8.5-10.1) mg/dL Magnesium (1.8-2.4) mg/dL Med Orders - Current: Current Medications Acetaminophen (Tylenol) 650 mg PO Q4H PRN PRN Reason: Pain (Mild 1-3)/fever Last Admin: 06/21/20 21:03 Dose: 650 mg Documented by: Carvedilol (Coreg) 3.125 mg PO [facility] Last Admin: 06/27/20 08:57 Dose: 3.125 mg Documented by: Dextrose/Water (Dextrose 50% In Water) 50 ml IV ASDIRECTED PRN PRN Reason: Hypoglycemia Dextrose/Water (Dextrose 50% In Water) 50 ml IV ASDIRECTED PRN PRN Reason: Hypoglycemia Docusate Sodium (Colace) 100 mg PO BID PRN PRN Reason: Constipation Dronabinol (Marinol) 5 mg PO BID [facility] Last Admin: 06/27/20 08:58 Dose: 5 mg Documented by: Ferrous Sulfate (Ferrous Sulfate) 325 mg PO BID [facility] Last Admin: 06/27/20 08:57 Dose: 325 mg Documented by: Fluconazole (Diflucan) 100 mg PO DAILY [facility] Last Admin: 06/27/20 08:58 Dose: 100 mg Documented by: Furosemide (Lasix) 40 mg IVPUSH Q8HR [facility] Last Admin: 06/27/20 06:25 Dose: 40 mg Documented by: Glucagon (Glucagen) 1 mg IM ASDIRECTED PRN PRN Reason: Hypoglycemia Heparin Sodium (Porcine) (Heparin Sodium) 5,000 units SUBCUT Q12H [facility] Last Admin: 06/27/20 06:26 Dose: 5,000 units Documented by: Insulin Aspart (Novolog) 0 unit SUBCUT TIDAC [facility]; Protocol Last Admin: 06/27/20 12:12 Dose: 2 units Documented by: Melatonin (Melatonin) 3 mg PO BEDTIME [facility] Last Admin: 06/26/20 21:02 Dose: 3 mg Documented by: Ondansetron HCl (Zofran) 4 mg IVPUSH Q4H PRN PRN Reason: Nausea Pantoprazole Sodium (Protonix) 40 mg PO DAILY [facility] Last Admin: 06/27/20 08:57 Dose: 40 mg Documented by: Sertraline HCl (Zoloft) 100 mg PO DAILY [facility] Last Admin: 06/27/20 08:58 Dose: 100 mg Documented by: Sodium Chloride (Saline Flush) 10 ml FLUSH ASDIRECTED PRN PRN Reason: Keep Vein Open Sodium Chloride (Saline Flush) 2.5 ml FLUSH ASDIRECTED PRN PRN Reason: Keep Vein Open Last Admin: 06/26/20 06:44 Dose: 2.5 ml Documented by: Sodium Chloride (Normal Saline) 10 ml IV ASDIRECTED PRN PRN Reason: IV Use Tamsulosin HCl (Flomax) 0.4 mg PO BEDTIME [facility] Last Admin: 06/26/20 21:02 Dose: 0.4 mg Documented by: Discontinued Medications Docusate Sodium (Colace) 100 mg PO BID [facility] Last Admin: 06/18/20 21:01 Dose: Not Given Documented by: Enoxaparin Sodium (Lovenox) 30 mg SUBCUT Q24H [facility] Last Admin: 06/17/20 17:08 Dose: 30 mg Documented by: Furosemide (Lasix) 40 mg IVPUSH BID [facility] Last Admin: 06/19/20 08:47 Dose: 40 mg Documented by: Furosemide (Lasix) 80 mg IVPUSH NOW ONE Stop: 06/17/20 19:16 Last Admin: 06/17/20 20:45 Dose: 80 mg Documented by: Furosemide (Lasix) 120 mg IVPUSH NOW ONE Stop: 06/18/20 08:17 Last Admin: 06/18/20 09:21 Dose: 120 mg Documented by: Furosemide (Lasix) 120 mg IVPUSH NOW ONE Stop: 06/18/20 20:07 Last Admin: 06/18/20 20:52 Dose: 120 mg Documented by: Furosemide (Lasix) 40 mg IVPUSH NOW ONE Stop: 06/19/20 14:01 Furosemide (Lasix) 40 mg IVPUSH Q8H [facility] Furosemide (Lasix) 40 mg IVPUSH Q6H [facility] Last Admin: 06/23/20 09:12 Dose: 40 mg Documented by: Furosemide (Lasix) 40 mg IV Q8H [facility] Last Admin: 06/23/20 12:01 Dose: Not Given Documented by: Furosemide (Lasix) 40 mg IV Q8H [facility] Furosemide (Lasix) Confirm Administered Dose 40 mg .ROUTE .STK-MED ONE Stop: 06/23/20 17:10 Last Admin: 06/23/20 17:26 Dose: Not Given Documented by: Furosemide (Lasix) 40 mg IVPUSH Q8H [facility] Last Admin: 06/24/20 08:46 Dose: 40 mg Documented by: Furosemide (Lasix) 40 mg IVPUSH Q6HR [facility] Ceftriaxone Sodium/Dextrose 1 (gm/ Premix) 50 mls @ 100 mls/hr IV Q24H [facility] Last Admin: 06/18/20 22:15 Dose: 100 mls/hr Documented by: Albumin Human (Flexbumin 25%) 12.5 gm in 50 mls @ 100 mls/hr IV ONETIME ONE Stop: 06/18/20 12:33 Last Admin: 06/18/20 12:30 Dose: 100 mls/hr Documented by: Albumin Human (Flexbumin 25%) 12.5 gm in 50 mls @ 100 mls/hr IV ONETIME ONE Stop: 06/18/20 19:49 Last Admin: 06/18/20 20:52 Dose: 100 mls/hr Documented by: Albumin Human (Flexbumin 25%) 12.5 gm in 50 mls @ 100 mls/hr IV ONETIME ONE Stop: 06/19/20 10:16 Last Admin: 06/19/20 10:44 Dose: 100 mls/hr Documented by: Furosemide 480 mg/ Sodium (Chloride) 250 mls @ 10.417 mls/hr IV Q24H [facility] Stop: 06/20/20 12:59 Last Admin: 06/19/20 13:10 Dose: 20 mg/hr, 10.417 mls/hr Documented by: Furosemide 240 mg/ Premix 24 mls @ 1 mls/hr IV Q24H [facility] Stop: 06/21/20 13:29 Last Admin: 06/20/20 14:21 Dose: 10 mg/hr, 1 mls/hr Documented by: Sodium Chloride (Normal Saline) 500 mls @ 5 mls/hr IV ASDIRECTED [facility] Sodium Chloride (Normal Saline) 500 mls @ 5 mls/hr IV ASDIRECTED [facility] Last Admin: 06/20/20 20:05 Dose: 5 mls/hr Documented by: Furosemide 40 mg/ Sodium (Chloride) 54 mls @ 100 mls/hr IV Q8H [facility] Last Admin: 06/24/20 00:55 Dose: 100 mls/hr Documented by: Magnesium Sulfate (Magnesium Sulfate In Water Premix) 2 gm in 50 mls @ 50 mls/hr IV ONETIME ONE Stop: 06/24/20 16:00 Last Admin: 06/24/20 16:59 Dose: 50 mls/hr Documented by: Insulin Detemir (Levemir) 12 unit SUBCUT BEDTIME [facility] Last Admin: 06/17/20 21:01 Dose: Not Given Documented by: Insulin Glargine (Lantus Solostar) 12 units SUBCUT BEDTIME [facility] Metolazone (Zaroxolyn) 2.5 mg PO ONETIME ONE Stop: 06/18/20 09:01 Last Admin: 06/18/20 09:16 Dose: 2.5 mg Documented by: Pneumococcal Polyvalent Vaccine (Pneumovax 23) 0.5 ml IM .ONCE ONE Stop: 06/20/20 17:01 Last Admin: 06/20/20 23:42 Dose: Not Given Documented by: Pneumococcal Polyvalent Vaccine (Pneumovax 23) 0.5 ml IM .ONCE ONE Stop: 06/21/20 09:01 Sodium Polystyrene Sulfonate (Kayexalate) 15 gm PO ONETIME ONE Stop: 06/20/20 11:31 Last Admin: 06/20/20 12:35 Dose: 15 gm Documented by: Sepsis Event Note - Focused Exam Vital Signs: Vital Signs Temp Pulse Pulse Resp BP BP BP 06/27/20 09:00 36.3 C 85 20 112/60 06/27/20 08:57 85 112/60 06/27/20 03:55 36.4 C 81 19 128/58 L Pulse Ox 06/27/20 09:00 91 L 06/27/20 08:57 06/27/20 03:55 90 L - Plan Plan:: I have seen and evaluated the patient and agree with the residents note unless specified in my note
[2020-06-27] MEDS ORDERED: Albumin 25% 12.5 GM/50 ML BAG IV ONE (18:59)
[2020-06-27] MEDS: Sodium Chloride 0.9% 2.5 ML Syringe FLUSH PRN (20:37)
[2020-06-27] MEDS: Melatonin 3 MG Tab PO SCH (21:07)
[2020-06-27] MEDS: Tamsulosin 0.4 MG Cap.ER PO SCH (21:07)
[2020-06-28] MEDS: Furosemide 40 MG/4 ML VIAL IVPUSH SCH ×2 (06:00→14:17)
[2020-06-28 06:18] LABS: CARBON DIOXIDE,CO2 29.1 mmol/L (21.0-32.0); POTASSIUM,K 4.8 mmol/L (3.5-5.1)
[2020-06-28] MEDS: Heparin Sodium 5,000 Units/ML Vial SUBCUT SCH (07:36)
[2020-06-28] MEDS: Insulin Aspart 100 Units/ML 3 ML Pen SUBCUT SCH ×3 (07:43→18:24)
[2020-06-28] MEDS: Ferrous Sulfate 325 MG Tab PO SCH (08:59)
[2020-06-28] MEDS: Fluconazole 100 MG Tab PO SCH (08:59)
[2020-06-28] MEDS: Carvedilol 3.125 MG Tab PO SCH ×2 (08:59→18:22)
[2020-06-28] MEDS: Sertraline 100 MG Tab PO SCH (08:59)
[2020-06-28] MEDS: Pantoprazole 40 MG Tab.CR PO SCH (08:59)
[2020-06-28] MEDS: Dronabinol 2.5 MG Cap PO SCH (09:02)
[2020-06-28] MEDS ORDERED: Pneumococcal Polyvalent-23 Vaccine 0.5 ML SDV IM ONE (12:40)
--- NOTE | 2020-06-28 14:49 | PCM.DCSUM1 ---
Discharge Summary - Hospital Course Free Text/Narrative:: 75 year old male admitted for CHF exacerbation. On admission patient presented with shortness of breath which was worsening in the days prior to admission. Patient was also experiencing worsening with orthopnea and increased lower extremity swelling. 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 On admission patient denied fevers, chills, sore throat, chest pain, nausea, vomiting, abdominal pain, diarrhea, blood in stool, blood in urine, numbness or tingling in extremities. Prior to admission the patient was hospitalized in [place], [place] which is where had the wound vac placed. He completed several weeks of IV ertapenem. Patient was on hydroxyurea for essential thrombocythemia which was held upon his discharge from [place], [place] as it was interfering with wound healing of his abdominal wall infection. Since his hydroxyurea was held, patient's WBC count has been significantly elevated. During the patients hospital stay he required Oxygen support with 1-2L oxygen which he will require at home. It was also noted that the patient has had poor appetite and did not want to participate in physical therapy. Patient requires the help of two nursing staff to ambulate, use the bathroom, get up from bed. There has been concerns of increasing weakness which has been relayed to patients . Medical recommendation was made to the patient and his family that he would benefit from half-way placement and continued physical therapy. Patient and his both state that the patient would like to be discharged home. states that she and her family would be able to manage the patients nursing and physical therapy needs. - Discharge Data Discharge Date: 06/28/20 Discharge Disposition: Home, W Home Health Agency 06 Condition: Good - Referral to Home Health Date of Face to Face Encounter: 06/28/20 ([facility]) Reason for Homebound Status: Patient to be discharged to home. [facility] Primary Care Physician: Mohsen Man MD Skilled Need: Nursing and PT/OT - Patient Summary/Data Consults: Consultations 06/17/20 12:33 Consult to Physician [CONS] Urgent 06/17/20 14:17 Consult to Physical Therapy [PT Evaluation and Treatment] [CONS] Routine 06/17/20 16:28 Wound Powder Compounder Consult [Consult to Wound Care Services] [CONS] Routine 06/19/20 11:49 Consult to Refresh Technician [CONS] Routine 06/20/20 08:27 Consult to Wound Care Services [CONS] Routine 06/20/20 12:21 Consult to Physician [CONS] Urgent - Discharge Plan Prescriptions/Med Rec: Furosemide 40 mg PO BID 15 Days #30 tablet Home Medications: Home Meds Acetaminophen [Tylenol] 650 mg PO Q4HR PRN 06/08/20 [History] Docusate Sodium [Colace] 100 mg PO BID 06/08/20 [History] Ferrous Sulfate 325 mg PO BID 06/08/20 [History] Insulin Detemir [Levemir] 12 units SQ BEDTIME 06/08/20 [History] Insulin Lispro [Humalog Kwikpen U-100] 5 units SQ TID 06/08/20 [History] Melatonin 3 mg PO BEDTIME 06/08/20 [History] Multivitamin [Multivitamins] 1 cap PO DAILY 06/08/20 [History] Nitroglycerin [Nitrostat] 0.4 mg SL .EVERY 5 MINUTES PRN 06/08/20 [History] Pantoprazole [ProTONIX] 40 mg PO DAILY 06/08/20 [History] Sertraline [Zoloft] 100 mg PO DAILY 06/08/20 [History] dronabinoL [Dronabinol] 5 mg PO BID 06/08/20 [History] Tamsulosin HCl 0.4 mg PO BEDTIME 06/10/20 [History] carvediloL [Carvedilol] 3.125 mg PO BIDMEALS 06/10/20 [History] Furosemide 40 mg PO BID 15 Days #30 tablet 06/28/20 [Rx] Patient Handouts: Furosemide tablets, Heart Failure, Diagnosis, [id number] Referrals: Michael Novoa MD [Family Provider] - 06/27/20 11:15 am - Discharge Summary/Plan Comment DC Time >30 min.: Yes - Review of Systems General: Reports: Weakness, Fatigue. Denies: Fever, Chills HEENT: Denies: Headaches Pulmonary: Denies: Shortness of Breath, Pleuritic Chest Pain, Cough Cardiovascular: Reports: Dyspnea on Exertion, Orthopnea, Edema. Denies: Chest Pain, Palpitations Gastrointestinal: Reports: Decreased Appetite. Denies: Abdominal Pain, Diarrhea, Nausea Neurological: Denies: Dizziness, Headache - Patient Data Vitals - Most Recent: Last Vital Signs Temp 97.8 F 06/28/20 11:31 Pulse 78 06/28/20 11:31 Resp 19 06/28/20 11:31 BP 136/49 L 06/28/20 11:31 Pulse Ox 94 L 06/28/20 11:31 Weight - Most Recent: 165 lb 6.4 oz I&O - Last 24 hours: Intake & Output 06/27/20 06/28/20 06/28/20 22:59 06:59 14:59 Intake Total 400 120 Output Total 400 475 Balance 0 -355 Lab Results - Last 24 hrs: Laboratory Results - last 24 hr 06/27/20 06/28/20 06/28/20 Range/Units 17:09 05:20 05:20 WBC 68.86 H (4.0-11.0) K/uL RBC 3.92 L (4.50-5.90) M/uL Hgb 8.6 L (13.0-17.0) g/dL Hct 30.2 L (38.0-50.0) % MCV 77.0 L (80.0-98.0) fL MCH 21.9 L (27.0-32.0) pg MCHC 28.5 L (31.0-37.0) g/dL RDW Std Deviation 67.9 H (28.0-62.0) fl RDW Coeff of Nia 25 H (11.0-15.0) % Plt Count 227 (150-400) K/uL Add Manual Diff YES Neutrophils % (Manual) 56 (48.0-80.0) % Band Neutrophils % 10 % Lymphocytes % (Manual) 15 L (16.0-40.0) % Monocytes % (Manual) 2 (0.0-15.0) % Metamyelocytes % 11 % Myelocytes % 5 % Blast Cells % 1 % Nucleated RBC % 7.0 /100WBC Absolute Seg Neuts 38.6 H (1.4-5.7) Band Neutrophils # 6.9 Lymphocytes # (Manual) 10.3 H (0.6-2.4) Monocytes # (Manual) 1.4 H (0.0-0.8) Absolute Metamyelocyte 7.6 Absolute Myelocytes 3.4 Nucleated RBCs # 1 K/uL Absolute Blast Cells 0.7 Sodium 143 (136-148) mmol/L Potassium 4.8 (3.5-5.1) mmol/L Chloride 107 (98-107) mmol/L Carbon Dioxide 29.1 (21.0-32.0) mmol/L BUN 64 H (7.0-18.0) mg/dL Creatinine 2.6 H (0.8-1.3) mg/dL Est Cr Clr Drug Dosing 26.15 mL/min Estimated GFR (MDRD) 24.2 ml/min Glucose 139 H (74-106) mg/dL POC Glucose 190 H (60-110) mg/dL Calcium 9.0 (8.5-10.1) mg/dL Magnesium 2.2 (1.8-2.4) mg/dL Total Bilirubin 1.2 H (0.2-1.0) mg/dL AST 29 (15-37) IU/L ALT 12 L (14-63) IU/L Alkaline Phosphatase 152 H (46-116) U/L Total Protein 7.0 (6.4-8.2) g/dL Albumin 3.0 L (3.4-5.0) g/dL Globulin 4.0 (2.6-4.0) g/dL Albumin/Globulin Ratio 0.8 L (0.9-1.6) 06/28/20 06/28/20 Range/Units 05:30 11:41 WBC (4.0-11.0) K/uL RBC (4.50-5.90) M/uL Hgb (13.0-17.0) g/dL Hct (38.0-50.0) % MCV (80.0-98.0) fL MCH (27.0-32.0) pg MCHC (31.0-37.0) g/dL RDW Std Deviation (28.0-62.0) fl RDW Coeff of Nia (11.0-15.0) % Plt Count (150-400) K/uL Add Manual Diff Neutrophils % (Manual) (48.0-80.0) % Band Neutrophils % % Lymphocytes % (Manual) (16.0-40.0) % Monocytes % (Manual) (0.0-15.0) % Metamyelocytes % % Myelocytes % % Blast Cells % % Nucleated RBC % /100WBC Absolute Seg Neuts (1.4-5.7) Band Neutrophils # Lymphocytes # (Manual) (0.6-2.4) Monocytes # (Manual) (0.0-0.8) Absolute Metamyelocyte Absolute Myelocytes Nucleated RBCs # K/uL Absolute Blast Cells Sodium (136-148) mmol/L Potassium (3.5-5.1) mmol/L Chloride (98-107) mmol/L Carbon Dioxide (21.0-32.0) mmol/L BUN (7.0-18.0) mg/dL Creatinine (0.8-1.3) mg/dL Est Cr Clr Drug Dosing mL/min Estimated GFR (MDRD) ml/min Glucose (74-106) mg/dL POC Glucose 182 H 139 H (60-110) mg/dL Calcium (8.5-10.1) mg/dL Magnesium (1.8-2.4) mg/dL Total Bilirubin (0.2-1.0) mg/dL AST (15-37) IU/L ALT (14-63) IU/L Alkaline Phosphatase (46-116) U/L Total Protein (6.4-8.2) g/dL Albumin (3.4-5.0) g/dL Globulin (2.6-4.0) g/dL Albumin/Globulin Ratio (0.9-1.6) Med Orders - Current: Current Medications Acetaminophen (Tylenol) 650 mg PO Q4H PRN PRN Reason: Pain (Mild 1-3)/fever Last Admin: 06/21/20 21:03 Dose: 650 mg Documented by: Carvedilol (Coreg) 3.125 mg PO BIDWAALS COUNT INCLUDES THE [facility] Last Admin: 06/28/20 08:59 Dose: 3.125 mg Documented by: Dextrose/Water (Dextrose 50% In Water) 50 ml IV ASDIRECTED PRN PRN Reason: Hypoglycemia Dextrose/Water (Dextrose 50% In Water) 50 ml IV ASDIRECTED PRN PRN Reason: Hypoglycemia Docusate Sodium (Colace) 100 mg PO BID PRN PRN Reason: Constipation Dronabinol (Marinol) 5 mg PO BID COUNT INCLUDES THE [facility] Last Admin: 06/28/20 09:02 Dose: 5 mg Documented by: Ferrous Sulfate (Ferrous Sulfate) 325 mg PO BID COUNT INCLUDES THE [facility] Last Admin: 06/28/20 08:59 Dose: 325 mg Documented by: Fluconazole (Diflucan) 100 mg PO DAILY COUNT INCLUDES THE [facility] Last Admin: 06/28/20 08:59 Dose: 100 mg Documented by: Furosemide (Lasix) 40 mg IVPUSH Q8HR COUNT INCLUDES THE [facility] Last Admin: 06/28/20 14:17 Dose: 40 mg Documented by: Glucagon (Glucagen) 1 mg IM ASDIRECTED PRN PRN Reason: Hypoglycemia Heparin Sodium (Porcine) (Heparin Sodium) 5,000 units SUBCUT Q12H COUNT INCLUDES THE [facility] Last Admin: 06/28/20 07:36 Dose: 5,000 units Documented by: Insulin Aspart (Novolog) 0 unit SUBCUT TIDAC COUNT INCLUDES THE [facility]; Protocol Last Admin: 06/28/20 11:44 Dose: Not Given Documented by: Melatonin (Melatonin) 3 mg PO BEDTIME COUNT INCLUDES THE [facility] Last Admin: 06/27/20 21:07 Dose: 3 mg Documented by: Ondansetron HCl (Zofran) 4 mg IVPUSH Q4H PRN PRN Reason: Nausea Pantoprazole Sodium (Protonix) 40 mg PO DAILY COUNT INCLUDES THE [facility] Last Admin: 06/28/20 08:59 Dose: 40 mg Documented by: Sertraline HCl (Zoloft) 100 mg PO DAILY COUNT INCLUDES THE [facility] Last Admin: 06/28/20 08:59 Dose: 100 mg Documented by: Sodium Chloride (Saline Flush) 10 ml FLUSH ASDIRECTED PRN PRN Reason: Keep Vein Open Last Admin: 06/27/20 20:37 Dose: 10 ml Documented by: Sodium Chloride (Saline Flush) 2.5 ml FLUSH ASDIRECTED PRN PRN Reason: Keep Vein Open Last Admin: 06/27/20 20:37 Dose: 2.5 ml Documented by: Sodium Chloride (Normal Saline) 10 ml IV ASDIRECTED PRN PRN Reason: IV Use Tamsulosin HCl (Flomax) 0.4 mg PO BEDTIME COUNT INCLUDES THE [facility] Last Admin: 06/27/20 21:07 Dose: 0.4 mg Documented by: Discontinued Medications Docusate Sodium (Colace) 100 mg PO BID COUNT INCLUDES THE [facility] Last Admin: 06/18/20 21:01 Dose: Not Given Documented by: Enoxaparin Sodium (Lovenox) 30 mg SUBCUT Q24H COUNT INCLUDES THE [facility] Last Admin: 06/17/20 17:08 Dose: 30 mg Documented by: Furosemide (Lasix) 40 mg IVPUSH BID BREONNA Last Admin: 06/19/20 08:47 Dose: 40 mg Documented by: Furosemide (Lasix) 80 mg IVPUSH NOW ONE Stop: 06/17/20 19:16 Last Admin: 06/17/20 20:45 Dose: 80 mg Documented by: Furosemide (Lasix) 120 mg IVPUSH NOW ONE Stop: 06/18/20 08:17 Last Admin: 06/18/20 09:21 Dose: 120 mg Documented by: Furosemide (Lasix) 120 mg IVPUSH NOW ONE Stop: 06/18/20 20:07 Last Admin: 06/18/20 20:52 Dose: 120 mg Documented by: Furosemide (Lasix) 40 mg IVPUSH NOW ONE Stop: 06/19/20 14:01 Furosemide (Lasix) 40 mg IVPUSH Q8H BREONNA Furosemide (Lasix) 40 mg IVPUSH Q6H BREONNA Last Admin: 06/23/20 09:12 Dose: 40 mg Documented by: Furosemide (Lasix) 40 mg IV Q8H BREONNA Last Admin: 06/23/20 12:01 Dose: Not Given Documented by: Furosemide (Lasix) 40 mg IV Q8H BREONNA Furosemide (Lasix) Confirm Administered Dose 40 mg .ROUTE .STK-MED ONE Stop: 06/23/20 17:10 Last Admin: 06/23/20 17:26 Dose: Not Given Documented by: Furosemide (Lasix) 40 mg IVPUSH Q8H COUNT INCLUDES THE [facility] Last Admin: 06/24/20 08:46 Dose: 40 mg Documented by: Furosemide (Lasix) 40 mg IVPUSH Q6HR BREONNA Ceftriaxone Sodium/Dextrose 1 (gm/ Premix) 50 mls @ 100 mls/hr IV Q24H BREONNA Last Admin: 06/18/20 22:15 Dose: 100 mls/hr Documented by: Albumin Human (Flexbumin 25%) 12.5 gm in 50 mls @ 100 mls/hr IV ONETIME ONE Stop: 06/18/20 12:33 Last Admin: 06/18/20 12:30 Dose: 100 mls/hr Documented by: Albumin Human (Flexbumin 25%) 12.5 gm in 50 mls @ 100 mls/hr IV ONETIME ONE Stop: 06/18/20 19:49 Last Admin: 06/18/20 20:52 Dose: 100 mls/hr Documented by: Albumin Human (Flexbumin 25%) 12.5 gm in 50 mls @ 100 mls/hr IV ONETIME ONE Stop: 06/19/20 10:16 Last Admin: 06/19/20 10:44 Dose: 100 mls/hr Documented by: Furosemide 480 mg/ Sodium (Chloride) 250 mls @ 10.417 mls/hr IV Q24H BREONNA Stop: 06/20/20 12:59 Last Admin: 06/19/20 13:10 Dose: 20 mg/hr, 10.417 mls/hr Documented by: Furosemide 240 mg/ Premix 24 mls @ 1 mls/hr IV Q24H BREONNA Stop: 06/21/20 13:29 Last Admin: 06/20/20 14:21 Dose: 10 mg/hr, 1 mls/hr Documented by: Sodium Chloride (Normal Saline) 500 mls @ 5 mls/hr IV ASDIRECTED BREONNA Sodium Chloride (Normal Saline) 500 mls @ 5 mls/hr IV ASDIRECTED BREONNA Last Admin: 06/20/20 20:05 Dose: 5 mls/hr Documented by: Furosemide 40 mg/ Sodium (Chloride) 54 mls @ 100 mls/hr IV Q8H BREONNA Last Admin: 06/24/20 00:55 Dose: 100 mls/hr Documented by: Magnesium Sulfate (Magnesium Sulfate In Water Premix) 2 gm in 50 mls @ 50 mls/hr IV ONETIME ONE Stop: 06/24/20 16:00 Last Admin: 06/24/20 16:59 Dose: 50 mls/hr Documented by: Albumin Human (Flexbumin 25%) 12.5 gm in 50 mls @ 100 mls/hr IV ONETIME ONE Stop: 06/27/20 19:28 Last Admin: 06/27/20 20:34 Dose: 100 mls/hr Documented by: Insulin Detemir (Levemir) 12 unit SUBCUT BEDTIME BREONNA Last Admin: 06/17/20 21:01 Dose: Not Given Documented by: Insulin Glargine (Lantus Solostar) 12 units SUBCUT BEDTIME BREONNA Metolazone (Zaroxolyn) 2.5 mg PO ONETIME ONE Stop: 06/18/20 09:01 Last Admin: 06/18/20 09:16 Dose: 2.5 mg Documented by: Pneumococcal Polyvalent Vaccine (Pneumovax 23) 0.5 ml IM .ONCE ONE Stop: 06/20/20 17:01 Last Admin: 06/20/20 23:42 Dose: Not Given Documented by: Pneumococcal Polyvalent Vaccine (Pneumovax 23) 0.5 ml IM .ONCE ONE Stop: 06/21/20 09:01 Pneumococcal Polyvalent Vaccine (Pneumovax 23) 0.5 ml IM .ONCE ONE Stop: 06/28/20 12:41 Sodium Polystyrene Sulfonate (Kayexalate) 15 gm PO ONETIME ONE Stop: 06/20/20 11:31 Last Admin: 06/20/20 12:35 Dose: 15 gm Documented by: - Exam Quality Assessment: Reports: Supplemental Oxygen General: Reports: Alert, Oriented Lungs: Reports: Clear to Auscultation, Normal Respiratory Effort Cardiovascular: Reports: Regular Rate, Regular Rhythm GI/Abdominal Exam: Normal Bowel Sounds, Soft, Non-Tender Extremities: No Pedal Edema Skin: Reports: Ecchymosis Wound/Incisions: Reports: Healing Well Psy/Mental Status: Reports: Alert, Normal Affect
--- NOTE | 2020-06-28 15:39 | PCM.SN.2 ---
- Free Text/Narrative Note: Abdias was tested on room air noted to be satting 85% at rest. He was then placed on 2 L nasal cannula satting 88% on room air increased to 3 L nasal cannula and was satting 90 to 91% on room air. He will be discharged home with oxygen continuously per nasal cannula at 3 L. I will prescribe oxygen 3 L nasal cannula continuously. Please see 's discharge summary for further discharge instructions.
[2020-06-28 16:34] VITALS: BP 113/58; PULSE 82
== END 2020-06-28 18:00 | disposition home health service (06) | DRG 682 ==
LOC: MW.MS 12:03
PROVIDERS: ADMIT Student in an Organized Health Care Education/Training Program; ATTEND Student in an Organized Health Care Education/Training Program
DX: N17.0 Acute kidney failure with tubular necrosis (principal); I50.43 Acute on chronic combined systolic (congestive) and diastolic (congestive) heart failure; T81.49XA Infection following a procedure, other surgical site, initial encounter; E46 Unspecified protein-calorie malnutrition; B37.49 Other urogenital candidiasis; I13.0 Hypertensive heart and chronic kidney disease with heart failure and stage 1 through stage 4 chronic kidney disease, or unspecified chronic kidney disease; E87.5 Hyperkalemia; D47.3 Essential (hemorrhagic) thrombocythemia; I25.10 Atherosclerotic heart disease of native coronary artery without angina pectoris; E78.00 Pure hypercholesterolemia, unspecified; K21.9 Gastro-esophageal reflux disease without esophagitis; E11.621 Type 2 diabetes mellitus with foot ulcer; L97.529 Non-pressure chronic ulcer of other part of left foot with unspecified severity; E11.22 Type 2 diabetes mellitus with diabetic chronic kidney disease; Z95.0 Presence of cardiac pacemaker; Z95.1 Presence of aortocoronary bypass graft; Z79.4 Long term (current) use of insulin; Z79.899 Other long term (current) drug therapy; I25.2 Old myocardial infarction; Z85.6 Personal history of leukemia; Z68.23 Body mass index [BMI] 23.0-23.9, adult
CPT/HCPCS: 36415; 51702; 76770; 76770-26; 80048; 80053; 81001; 82272; 82962; 83735; 84100; 85025; 87086; 93005; 97110-GP; 97161-GP; 97530-GP; 99222; 99232; 99239; A9270-GY; J0696; J1644; J1650; J1815-GY; J1940; J3475; J7040; J7050; P9047; Q0167